=== PATIENT | male | born 1960 | race Caucasian/White ===

== ENCOUNTER → 2017-06-08 10:51 | Outpatient (POV) | payer BC, SELFPAY | PROVIDERS: Family Provider Family Medicine; PCP Family Medicine; Visit Provider Internal Medicine | DX: Z00.00 Encounter for general adult medical examination without abnormal findings (principal) ==

== ENCOUNTER → 2018-05-02 13:17 | Outpatient (CLI) | payer BC, SELFPAY ==
[2018-05-02 15:05] VITALS: PULSE 90; PULSE 94
== END ==
PROVIDERS: PCP Family Medicine; Visit Provider Internal Medicine
DX: J44.9 Chronic obstructive pulmonary disease, unspecified (principal)
CPT/HCPCS: 94060; 94640; 94726; 94729

== ENCOUNTER → 2018-06-07 09:21 | Outpatient (POV) | payer BC, SELFPAY | PROVIDERS: Visit Provider Internal Medicine | DX: Z00.00 Encounter for general adult medical examination without abnormal findings (principal) ==

== ENCOUNTER → 2018-07-28 12:31 | Outpatient (CLI) | payer BC, SELFPAY ==
--- NOTE | 2018-07-28 12:41 | CT_ITS ---
CT chest wo con HISTORY: ITS.REASON: THORACIC AORTIC ANEURYSM ORDERING PHYSICIAN: Minh Morales MD PATIENT AGE: 58 years COMPARISON: 08/27/2016 Technique: Axial images obtained. Sagittal, and coronal reformatted images are also generated and reviewed. All CT scans at the facility use one or more dose reduction, viz: automated exposure control, ma/kV adjustment per patient size (including targeted exams where dose is matched to indication, i.e. head), or iterative reconstruction technique. FINDINGS There is mild fusiform dilatation of the ascending thoracic aorta measuring up to 4.5 cm in maximum AP dimension previously 4.2 cm. Maximum transverse dimension is 4.3 cm not significant change. The aorta at the region of the isthmus measures approximately 3 cm and then becomes slightly dilated in the proximal descending thoracic aorta measuring up to 3.8 cm previously 3.6 cm.. Normal heart size. There is minimal thickening of the pericardium. No mediastinal or hilar mass or adenopathy. There are scattered fibrotic changes noted with multiple areas of faint nodularity as seen on the previous study which is shown some improvement. Minimal faint nodularity noted in the right upper lobe and left lower lobe which is shown some improvement. IMPRESSION: 1. Mild fusiform dilatation of the ascending aorta at 4.5 cm previously 4.2 cm. 2. Mild dilatation of the proximal descending thoracic aorta at 3.8 cm previously 3.6 cm. 3. Scattered areas of scarring with faint nodularity in the right upper and left lower lobe which is shown some improvement
== END ==
PROVIDERS: PCP Family Medicine; Visit Provider Internal Medicine
DX: I71.2 Thoracic aortic aneurysm, without rupture (principal)
CPT/HCPCS: 71250

== ENCOUNTER 2023-07-16 23:25 | Emergency (ER) | payer BC, MEDICARE, SELFPAY ==
[2023-07-16 23:46] VITALS: BP 156/81; PULSE 66; RESP 20; TEMP 36.6; O2SAT 100; BMI 23.6
--- NOTE | 2023-07-16 23:54 | ED_ITS ---
Discharge Plan Disposition Patient Disposition: Home, Self-Care Prescriptions Prescriptions: New ondansetron HCl 4 mg tablet 4 mg PO Q8H PRN (Reason: nausea and vomiting) 5 Days Qty: 30 0RF tamsulosin 0.4 mg capsule 0.4 mg PO DAILY Qty: 30 0RF oxycodone 5 mg tablet 5 mg PO Q8H PRN (Reason: pain) Qty: 12 0RF Referrals Follow up/Referrals: Lizet Hurtado APRN [Primary Care Provider] - See instructions Dick Olivarez MD [Staff Physician] - See instructions Activity Restrictions/Add. Instructions Additional Instructions/Restrictions: Please follow-up with urology. Please take Tylenol and ibuprofen as needed for pain. Please take oxycodone as needed for severe pain. Please take Zofran as needed for nausea. Please take tamsulosin daily. Please return to the emergency department if you develop any new or worsening symptoms or become concerned for your health. Clinical Impressions Clinical Impression: Hydronephrosis concurrent with and due to calculi of kidney and ureter, Acute flank pain Instructions Patient Instructions: DI for Acute Abdominal Pain Discharge ED Provider: Arsh Zafar General Adult HPI General Chief complaint: Abdominal Pain Stated complaint: pain in back and right side, cant go to bathroom Time Seen by Provider: 07/16/23 23:40 Mode of Arrival: Ambulatory Source of Information: Patient Limitations: No Limitations Description of Symptoms (Recalled from ER Triage Doc. by RN): pt to ED with c/o right flank pain, difficulty urinating, and dizziness starting at 1600 today. pt reports he has not been able to urinate since approx 5pm today. History of Present Illness HPI narrative: 63-year-old male without significant past medical history presents with acute onset right flank pain. He reports that it started before dinner, he vomited his dinner did not feel much better. He denies any burning with urination. Reports that he has not been able to pee for the last couple of hours. He denies any history of abdominal surgery, denies any history of kidney stones. He did not complain of any dizziness to me. Denies any chest pain or anterior abdominal pain. Denies any suprapubic pain. Denies any recent fever or illness. No history of UTIs. Related Data Previous Rx's Medication Instructions Recorded ondansetron HCl 4 mg tablet 4 mg PO Q8H PRN nausea and 07/17/23 vomiting 5 days #30 tabs oxycodone 5 mg tablet 5 mg PO Q8H PRN pain #12 tabs 07/17/23 tamsulosin 0.4 mg capsule 0.4 mg PO DAILY #30 caps 07/17/23 Allergies Allergy/AdvReac Type Severity Reaction Status Date / Time No Known Allergies Allergy Unverified 02[facility]16[facility]17 14:38 [facility] Disclaimer: The information contained in this section may have been updated after the patient was seen, as this information can be updated by other users. Social History Smoking Status: Never smoker alcohol intake: never current occupational status: employed Travel in the last 8 weeks: None ROS Obtained: Yes All systems reviewed & no additional complaints except as documented Physical Exam General General appearance: alert and in no apparent distress Head Head exam: atraumatic and normocephalic Eye Eye exam: Present normal appearance, PERRL and EOMI ENT ENT exam: Present normal oropharynx and normal external ear exam Neck Neck exam: Present normal inspection and full ROM Chest Chest inspection: Present normal inspection and symmetric chest wall rise; Absent tenderness Respiratory Respiratory exam: Present normal lung sounds bilaterally; Absent respiratory distress Cardiovascular Cardiovascular exam: Present regular rate and normal rhythm Abdominal Exam Abdominal exam: Present soft; Absent distention, tenderness or guarding Extremities Exam Extremities exam: Present normal inspection; Absent edema or joint swelling Back Exam Back exam: Present normal inspection and CVA tenderness (R); Absent tenderness Neurological Exam Neurological exam: Present alert and oriented X3; Absent motor sensory deficit Psychiatric Psychiatric exam: Present normal affect and normal mood Skin Skin exam: Present warm, dry and normal color Lymphatic Lymphatic Findings: no adenopathy Medical Decision Making Medical Records Medical records reviewed: Yes I reviewed the patient's medical records. Arnie Inquiry Pt receiving controlled substance: No Arnie was queried for this patient: No Vital Signs: 07/16/23 23:46 Temperature 97.9 F Temperature Source Oral Pulse Rate [Left Radial] 66 Respiratory Rate 20 Blood Pressure [Right Arm] 156/81 H Blood Pressure Mean [Right Arm] 106 Blood Pressure Source [Right Arm] Automatic Cuff Blood Pressure Position [Right Arm] Sitting 02 Sat by Pulse Oximetry 100 Oxygen Delivery Method Room Air Lab Data Lab results reviewed: Yes I reviewed the patient's lab results. Lab Results 07/16/23 23:55: WBC 10.9 H, RBC 4.82, Hgb 10.5 L, Hct 34.3 L, MCV 71.0 L, MCH 21.8 L, MCHC 30.7 L, RDW 16.4, Plt Count 343, MPV 7.8, Neut % (Auto) 86.8 H, L ymph % (Auto) 8.8 L, [place] % (Auto) 3.7, Eos % (Auto) 0.1, Baso % (Auto) 0.6, N eut # (Auto) 9.5 H, Lymph # (Auto) 1.0, [place] # (Auto) 0.4, Eos # (Auto) 0.0, Baso # (Auto) 0.1, Total Counted 100, Neutrophils % (Manual) 88 H, Lymphocytes % (Manual) 12, Platelet Estimate Normal, RBC Morphology Not Reportable, Hypochromasia 2+, Microcytosis 1+, Ovalocytes 1+, Sodium 137, Potassium 3.7, Chloride 107, Carbon Dioxide 22, Anion Gap 11.7, BUN 14, Creatinine 1.10, Estimated Creat Clear 79, Estimated GFR 67, Est GFR ( Amer) 81, Glucose 134 H, Calcium 9.3, Magnesium 1.7, Total Bilirubin 0.8, AST 37, ALT 31, Alkaline Phosphatase 67, Total Protein 7.3, Albumin 4.4, Globulin 2.9, Albumin/Globulin Ratio 1.5, Lipase 136 07/17/23 01:20: Urine Color Yellow, Urine Appearance Clear, Urine pH 7.5, Ur Specific [place] 1.020, Urine Protein Trace, Urine Glucose (UA) Negative, Urine Ketones Negative, Urine Blood 3+, Urine Nitrate Negative, Urine Bilirubin Negative, Urine Urobilinogen 0.2, Ur Leukocyte Esterase Negative 07/16/23 23:55 07/16/23 23:55 Orders (Tests/Meds): ED MEDICATIONS Generic Name Dose Route Start Last Admin Trade Name Freq PRN Reason Stop Dose Admin Sodium Chloride 10 ml 07/17/23 00:45 07/17/23 00:45 Sodium Chloride 0.9% 10ml Syr (Rad Only) IV 08/16/23 00:44 10 ml NEEDED PRN Administration Maintain IV Site Discontinued Medications Generic Name Dose Route Start Last Admin Trade Name Freq PRN Reason Stop Dose Admin Acetaminophen 1,000 mg 07/17/23 00:03 07/17/23 00:11 Acetaminophen 500mg Tab PO 07/17/23 00:04 1,000 mg ONCE ONE Administration Lactated Ringer's 1,000 mls @ 999 mls/hr 07/17/23 00:15 07/17/23 00:11 Lactated Ringer's 1000 Ml Bag IV 07/17/23 01:15 999 mls/hr .Q1H1M SCOTT Administration Iopamidol 75 ml 07/17/23 00:45 07/17/23 00:45 Iopamidol-370 (76%);100ml Bottle IV 07/17/23 00:46 75 ml ONCE ONE Administration Ketorolac Tromethamine 30 mg 07/17/23 00:03 07/17/23 00:11 Ketorolac 30mg/Ml Vial IV 07/17/23 00:04 30 mg ONCE ONE Administration Ondansetron HCl 4 mg 07/17/23 00:03 07/17/23 00:11 Ondansetron 4mg/2ml Vial IV 07/17/23 00:04 4 mg ONCE ONE Administration Tamsulosin HCl 0.4 mg 07/17/23 00:53 07/17/23 01:00 Tamsulosin 0.4mg Capsule PO 07/17/23 00:54 0.4 mg ONCE ONE Administration ORDERS Category Date Time Status CT abdomen pelvis w con Stat Cat Scan 07/17/23 00:03 Completed CBC w/Auto Diff [Complete Blood Count Auto Diff] Stat Lab 07/17/23 00:03 Completed CMP [Comprehensive Metabolic Panel] Stat Lab 07/17/23 00:03 Completed Lipase Stat Lab 07/17/23 00:03 Completed Magnesium Stat Lab 07/17/23 00:03 Completed UA [Urinalysis and Microscopic] Stat Lab 07/17/23 01:20 Results ECG Data Tracing #1: Sinus bradycardia with rate of 58, no STEMI, no evidence of arrhythmia, insignificant Q waves in inferior leads. ECG initial impression date: 07/16/23 ECG initial impression time: 23:59 Medical Decision Narrative: 63-year-old male without significant past medical history presents with 1 day of right flank pain and vomiting.. History was obtained interactive discussion with patient. On arrival, patient is [afebrile, hemodynamically stable, satting appropriately, alert, oriented x4, GCS 15], moving all extremities spontaneously. Full physical exam performed and significant for right CVA tenderness. Differential includes but is not limited to ureterolithiasis, cholecystitis, obstruction, perforation, musculoskeletal pain, gastroenteritis. Patient was given Tylenol, Toradol, Zofran 1 L fluid bolus for symptomatic management and correction of underlying abnormalities. Workup initiated including CBC CMP lipase UA CT abdomen pelvis with IV contrast. On re-evaluation, patient [remains afebrile, HD stable.] Reports some symptomatic improvement. Laboratory workup independently interpreted by me and significant for urine with large blood, negative nitrates, few WBCs and trace bacteria. It does not appear consistent with an acute infection at this time. No significant leukocytosis, normal renal function. Imaging independently interpreted by me and significant for horseshoe kidney with right hydroureter and hydronephrosis secondary to obstructing 4.5mm ureteral stone. See radiology read for full review of final results. Transfer for urologic intervention was considered, but deemed unnecessary due to passable size of stone, pain controlled, no evidence of urinary infection. Given patient history, exam and workup, patient's presentation most likely represents acute hydroureter and hydronephrosis secondary to obstructing calculus in the setting of horseshoe kidney. Interactive discussion was had with patient regarding his presentation and workup. He was discharged in stable condition with prescription for Flomax, oxycodone for breakthrough pain, Zofran, urology follow-up information. He was given specific return precautions including for signs and symptoms of urinary tract infection or urinary obstruction. Procedures Risk/Benefits of Procedure(s) Were Explained: Yes Critical Care Critical Care Time Critical Care Time: No
--- NOTE | 2023-07-16 23:56 | PC.NURSE ---
bladder scan shows 352 ml urine in bladder
--- NOTE | 2023-07-16 23:59 | ECG_ITS ---
APPROVED REPORT Exam: Resting ECG HR:58 bpm ECG Measurements Heart Rate 58 AXES DC 166 P 24 QRSd 122 QRS 73 QT 405 T 66 QTc 401 Conclusion SINUS BRADYCARDIA MODERATE INTRAVENTRICULAR CONDUCTION DELAY [110+ ms QRS DURATION] NONSPECIFIC ST & T-WAVE ABNORMALITY BORDERLINE ECG UNCONFIRMED REPORT Electronically signed by : GAYLE DAVIS, 07/17/2023 06:00:26
[2023-07-17] VITALS: BP 150/84; PULSE 59; O2SAT 97
--- NOTE | 2023-07-17 00:03 | CT_ITS ---
PROCEDURE INFORMATION: Exam: CT Abdomen And Pelvis With Contrast Exam date and time: 07/17/2023 12:31 AM Age: 63 years old Clinical indication: Abdominal pain; Flank; Right; Additional info: Right flank pain, vomiting TECHNIQUE: Imaging protocol: Computed tomography of the abdomen and pelvis with contrast. Radiation optimization: All CT scans at this facility use at least one of these dose optimization techniques: automated exposure control; mA and/or kV adjustment per patient size (includes targeted exams where dose is matched to clinical indication); or iterative reconstruction. Contrast material: ISOVUE; Contrast volume: 75 ml; Contrast route: IV; COMPARISON: CHESTWO CT chest wo con 07/28/2018 1:11 PM FINDINGS: Lungs: Minimal bibasilar atelectasis or scarring Heart: Area of hypoattenuation within the left ventricular apical myocardium, compatible prior infarction. Liver: Mild hepatomegaly. Gallbladder and bile ducts: Normal. Pancreas: Normal. Spleen: Normal. Adrenal glands: Normal. No mass. Kidneys and ureters: Horseshoe renal configuration. Simple left renal cyst, for which no further evaluation necessary. Right hydroureteronephrosis, with obstructing 4 mm calculus in the right mid ureter. Nonobstructive right nephrolithiasis. Stomach and bowel: Normal. Appendix: Appendix normal. Intraperitoneal space: Unremarkable. No free air. No significant fluid collection. Vasculature: Unremarkable. No abdominal aortic aneurysm. Lymph nodes: Unremarkable. No enlarged lymph nodes. Urinary bladder: Nonobstructive 4 mm calculus within the posterior urinary bladder. Reproductive: Prostate gland is enlarged, measuring approximately 4.4 cm in AP diameter and indenting the floor of the urinary bladder. Bones/joints: Degenerative changes of the hips and sacroiliac joints. Multilevel thoracolumbar spine degenerative disc space narrowing and osteophyte formation. Soft tissues: Small fat containing umbilical hernia. IMPRESSION: Right hydroureteronephrosis, with obstructing 4 mm calculus in the right mid ureter.
[2023-07-17] MEDS: KETOROLAC 30MG/ML VIAL 30 MG IV (00:11)
[2023-07-17] MEDS: LACTATED RINGERS 1000ML 1,000 ML 999 ML IV (00:11)
[2023-07-17] MEDS: ONDANSETRON 4MG/2ML VIAL 4 MG IV (00:11)
[2023-07-17] MEDS: ACETAMINOPHEN 500MG TAB 1000 MG PO (00:11)
[2023-07-17 00:14] LABS: Basophils # 0.1 K/mm3 (0-0.2); Basophils % 0.6 % (0.1-2.0); Eosinophils % 0.1 % (0.1-12.0); Hematocrit 34.3 % (42.0-52.0); Hemoglobin 10.5 g/dL (14.1-18.0); Lymphocytes % 8.8 % (10-50); Mean Corpuscular HGB Conc 30.7 g/dL (31.8-35.4); Mean Corpuscular Hemoglobin 21.8 pg (27.0-31.2); Mean Platelet Volume 7.8 fl (7.4-10.4); Monocytes # 0.4 K/mm3 (0.1-1.0); Monocytes % 3.7 % (1.7-9.3); Neutrophils # 9.5 K/mm3 (1.8-7.8); Neutrophils % 86.8 % (37.0-80.0); Platelet Count 343 K/mm3 (142-424); Red Blood Count 4.82 M/mm3 (4.60-6.20); Red Cell Distribution Width 16.4 % (11.5-17.5); White Blood Count 10.9 K/mm3 (4.8-10.8)
[2023-07-17 00:15] LABS: Chloride 107 mmol/L (98-107); Potassium 3.7 mmoL/L (3.5-5.1); Sodium 137 mmol/L (136-145)
[2023-07-17 00:16] LABS: MANUAL DIFFERENTIAL MANUAL DIFFERENTIAL (MANUAL DIFF)
[2023-07-17 00:17] LABS: Blood Urea Nitrogen 14 mg/dl (9-20); Creatinine Clearance Estimated 79 mL/min (50-200); Estimated Glomerular Filt Rate 67 ml/min (>60); GFR (African American) 81 ML/MIN (>60)
[2023-07-17 00:18] LABS: Alanine Aminotransferase 31 U/L (12-78); Albumin Level 4.4 g/dl (3.5-5.0); Albumin/Globulin Ratio 1.5 (1.1-1.8); Alkaline Phosphatase 67 U/L (38-126); Anion Gap 11.7 mEq/L (5-15); Aspartate Amino Transferase 37 U/L (17-59); Bilirubin,Total 0.8 mg/dl (0.2-1.3); Calcium 9.3 mg/dl (8.4-10.2); Carbon Dioxide 22 mmol/L (22.0-30.0); Globulin 2.9 g/dL (1.3-3.2); Glucose 134 mg/dl (74-100); Lipase 136 U/L (23-300); Total Protein,Serum 7.3 g/dl (6.3-8.2)
[2023-07-17 00:19] LABS: Magnesium 1.7 mg/dl (1.6-2.3)
[2023-07-17 00:30] VITALS: BP 144/84; PULSE 59; O2SAT 100
[2023-07-17 00:45] LABS: Hypochromasia 2+; Lymphocytes % 12 % (10-50); Microcytosis 1+; Neutrophils % 88 % (42-76); Ovalocytes 1+; Platelet Estimate Normal; Total Cells Counted 100
[2023-07-17] MEDS: IOPAMIDOL-370 (76%);100ML BOTTLE 75 ML IV (00:45)
[2023-07-17] MEDS: SODIUM CHLORIDE 0.9% 10ML SYR (RAD ONLY) 10 ML IV (00:45)
[2023-07-17 01:00] VITALS: BP 138/84; PULSE 62; O2SAT 100
[2023-07-17] MEDS: TAMSULOSIN 0.4MG CAPSULE 0.400000000000000022 MG PO (01:00)
[2023-07-17 01:26] LABS: Microscopic, Urine URINE MICROSCOPIC (MICROSCOPIC)
[2023-07-17 01:28] LABS: Appearance,Urine CLEAR (Clear); Bilirubin,Urine Negative (Negative); Blood, Urine 3+ (Negative); Color,Urine YELLOW (Yellow); Glucose,Urine (UA) Negative (Negative); Ketones,Urine Negative (Negative); Leukocyte Esterase,Urine Negative (Negative); Nitrate,Urine Negative (Negative); PH,Urine 7.5 (5.0-8.5); Protein,Urine TRACE (Negative); Urobilinogen,Urine 0.2 EU/dl (0.2)
[2023-07-17 01:31] VITALS: BP 139/65; PULSE 62; O2SAT 100
[2023-07-17 01:48] LABS: Bacteria,Urine Trace /lpf; RBC,Urine 20-50 #/hpf (0-3); Squamous Epithelial Cell,Urine Occasional #/hpf (0-5)
[2023-07-17 02:00] VITALS: BP 142/76; PULSE 58; O2SAT 100
[2023-07-17 02:27] VITALS: BP 142/76; PULSE 56; RESP 18; TEMP 36.6; O2SAT 97
== END 2023-07-17 02:29 | disposition home or self-care (01) ==
PROVIDERS: Emergency Provider Emergency Medicine; PCP Nurse Practitioner
DX: N13.2 Hydronephrosis with renal and ureteral calculous obstruction (principal); R10.31 Right lower quadrant pain; M54.59 Other low back pain; R00.1 Bradycardia, unspecified
CPT/HCPCS: 74177; 80053; 81001; 83690; 83735; 85007; 85025; 93005; 96361; 96374; 96375; 99285; J2405; Q9967

== ENCOUNTER 2024-03-16 09:45 | Outpatient (CLI) | payer MEDICARE, BC, SELFPAY ==
--- NOTE | 2024-03-16 | CA_ITS ---
FINAL REPORT TECHNIQUE: Compression garcia scale and Doppler evaluation CLINICAL HISTORY: Left leg edema, Kidney dysfunction COMPARISON: None FINDINGS: Femoral and popliteal veins show normal compressibility and flow. Visualized portion of the calf veins are patent by Doppler exam. IMPRESSION: No evidence of left lower extremity deep venous thrombosis. Reviewed, Interpreted and Dictated by Justine Browning MD Transcribed by Ananya Amin Authenticated and [facility]
== END 2024-03-16 23:59 | disposition home or self-care (01) ==
LOC: RT 09:47
PROVIDERS: PCP Nurse Practitioner; Visit Provider Nurse Practitioner
DX: M79.89 Other specified soft tissue disorders (principal)
CPT/HCPCS: 93971

== ENCOUNTER 2024-03-20 14:01 | Outpatient (CLI) | payer BC, SELFPAY ==
[2024-03-20 14:58] LABS: Microscopic, Urine URINE MICROSCOPIC (MICROSCOPIC)
[2024-03-20 15:52] LABS: Blood Urea Nitrogen 32 mg/dl (9-20); Estimated Glomerular Filt Rate 18 ml/min (>60); GFR (African American) 21 ML/MIN (>60)
[2024-03-20 18:05] LABS: Appearance,Urine CLEAR (Clear); Bilirubin,Urine Negative (Negative); Blood, Urine TRACE-I (Negative); Color,Urine YELLOW (Yellow); Glucose,Urine (UA) Negative (Negative); Ketones,Urine Negative (Negative); Leukocyte Esterase,Urine Negative (Negative); Nitrate,Urine Negative (Negative); PH,Urine 7.5 (5.0-8.5); Protein,Urine Negative (Negative); Urobilinogen,Urine 0.2 EU/dl (0.2)
[2024-03-20 18:25] LABS: Bacteria,Urine Trace /lpf; RBC,Urine Occasional #/hpf (0-3); Squamous Epithelial Cell,Urine Occasional #/hpf (0-5); WBC,Urine Occasional #/hpf (0-3)
[2024-03-21 08:25] LABS: PSA, Free 1.74 ng/mL; Prostate Specific Ag 3.7 ng/mL (0.0-4.0)
== END 2024-03-20 23:59 | disposition home or self-care (01) ==
LOC: LAB 14:03
PROVIDERS: PCP Nurse Practitioner; Visit Provider Urology
DX: R33.9 Retention of urine, unspecified (principal); N20.0 Calculus of kidney
CPT/HCPCS: 36415; 81001; 82565; 84153; 84154; 84520; 87086

== ENCOUNTER 2024-03-21 09:50 | Outpatient (CLI) | payer BC, SELFPAY ==
--- NOTE | 2024-03-21 09:51 | US_ITS ---
FINAL REPORT TECHNIQUE: Ultrasound images of the kidneys and bladder were obtained. CLINICAL HISTORY: .stone FINDINGS: The right kidney measures 10.5 cm in length. The left kidney measures 12.2 cm in length. There is a horseshoe kidney present. There is mild hydronephrosis in the right moiety. There is moderate hydronephrosis in the left moiety. There is echogenic shadowing focus on the right measuring 9 mm, appears to represent a kidney stone. The spleen is unremarkable. IMPRESSION: Horseshoe kidney with evidence of hydronephrosis and a right sided stone. Recommend CT scan to better assess the level of obstruction. Reviewed, Interpreted and Dictated by Jovani Ortiz MD Transcribed by Dominga Olson Authenticated and [facility]
--- NOTE | 2024-03-21 09:51 | XR_ITS ---
FINAL REPORT CLINICAL HISTORY: Renal stones COMPARISON: None FINDINGS: SINGLE VIEW ABDOMEN A single view of the abdomen was obtained. There is a nonobstructive bowel gas pattern. There are no abnormally dilated loops of small bowel. There is 1.4 cm calcification projecting over the right kidney, likely a renal stone. IMPRESSION: Nonobstructive bowel gas pattern. 1.4 cm calcification projecting over the right kidney, likely a renal stone. Reviewed, Interpreted and Dictated by Jovani Ortiz MD Transcribed by Candida Anderson Authenticated and . [facility]
== END 2024-03-21 23:59 | disposition home or self-care (01) ==
LOC: RAD 09:51
PROVIDERS: PCP Nurse Practitioner; Visit Provider Urology
DX: N20.0 Calculus of kidney (principal); R33.9 Retention of urine, unspecified
CPT/HCPCS: 74018; 76770

== ENCOUNTER 2024-03-29 14:15 | Outpatient (CLI) | payer BC, SELFPAY ==
--- NOTE | 2024-03-29 14:21 | US_ITS ---
FINAL REPORT TECHNIQUE: Ultrasound images of the kidneys were obtained. CLINICAL HISTORY: UTI COMPARISON: 03/21/2024 FINDINGS: RENAL ULTRASOUND The right kidney measures 9.8 cm in length. The left kidney measures 11.0 cm in length. There is a 1.1 cm stone in the right component of the horseshoe kidney. There is mild hydronephrosis on the right and moderate hydronephrosis on the left. . IMPRESSION: Horseshoe kidney with right kidney stone. Bilateral hydronephrosis. Reviewed, Interpreted and Dictated by Jovani Ortiz MD Transcribed by Ananya Amin Authenticated and [facility]
--- NOTE | 2024-03-29 14:21 | XR_ITS ---
FINAL REPORT CLINICAL HISTORY: Renal failure FINDINGS: ABDOMEN SINGLE VIEW There is a nonspecific, nonobstructive bowel gas pattern. No abnormal dilatation is identified. There is a moderate amount of retained stool throughout the colon. There is a stone in projection of the right kidney measuring 14 mm in diameter. IMPRESSION: Right renal stone. Reviewed, Interpreted and Dictated by Jovani Ortiz MD Transcribed by Dominga Olson Authenticated and . [facility]
== END 2024-03-29 23:59 | disposition home or self-care (01) ==
LOC: RAD 14:18
PROVIDERS: PCP Nurse Practitioner; Visit Provider Urology
DX: N20.1 Calculus of ureter (principal); N19 Unspecified kidney failure
CPT/HCPCS: 74018; 76770

== ENCOUNTER 2024-04-03 14:15 | Inpatient (IN) | payer BC, MEDICARE, SELFPAY ==
[2024-04-03] VITALS (26 sets, daily range): BP systolic 117–162; BP diastolic 68–93; PULSE 75–107; RESP 13–20; TEMP 36.6–37.1; O2SAT 96–100; BMI 24.1; BMI 22.1
--- NOTE | 2024-04-03 14:16 | HMH.EDGENADL ---
Discharge Plan Disposition Patient Disposition: Admitted Condition: Good Clinical Impressions Clinical Impression: Symptomatic anemia, Bladder outlet obstruction Discharge ED Provider: Eduardo Louise General Adult HPI <PETR Russo - Last Filed: 04/03/24 22:44> General Chief complaint: Recheck/Abnormal Lab/Rx Stated complaint: Hot flash, Low BP (74/41) sent from Urology Time Seen by Provider: 04/03/24 14:16 History of Present Illness HPI narrative: Patient presents for a near syncopal event. Patient was in his urologist office and he felt hot and lightheaded. His blood pressure was taken and was noted to be in the 70s. Patient did not actually have a syncopal event. Patient reports that he felt fine earlier today. 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 He had a Ferris catheter placed approximately [address] Olivarez and was in today for follow-up. Patient also has past medical history of a horseshoe kidney. He currently denies chest pain fever chills hemoptysis hematochezia melena nausea vomit diarrhea. Patient states his initial symptoms that he was feeling in the office have since completely abated. Related Data Home Medications ?Medication ?Instructions ?Recorded ?Confirmed famotidine 20 mg tablet 20 mg PO HS 04/03/24 04/03/24 levofloxacin 500 mg tablet 500 mg PO DAILY 04/03/24 04/03/24 Previous Rx's ?Medication ?Instructions ?Recorded tamsulosin 0.4 mg capsule 0.4 mg PO DAILY 90 days #90 caps 03/27/24 Allergies Allergy/AdvReac Type Severity Reaction Status Date / Time No Known Allergies Allergy Verified 04/03/24 13:55 PFSH <PETR Russo - Last Filed: 04/03/24 22:44> [facility] Disclaimer: The information contained in this section may have been updated after the patient was seen, as this information can be updated by other users. Medical History (Updated 04/04/24 @ 17:12 by Chao Ngo II, MD) GERD (gastroesophageal reflux disease) Social History (Updated 04/03/24 @ 17:07 by Wendy Borrego RN) Smoking Status: Never smoker alcohol intake: never substance use type: denies use current occupational status: employed Travel in the last 8 weeks: None Have you lived/traveled outside [place] in past 30 days?: No Contact w/someone who lives/traveled outside US past 30 days?: No Exposure to someone with infectious disease in past 14 days?: No Do you have a fever (greater than 100.4 F or 38 C)?: No Have you tested positive for COVID-19: No Exposed to someone with COVID-19 in past 14 days?: No Do you have a sore throat?: No Do you have a cough?: No Do you have any weakness?: No Do you have any diarrhea?: No Are you experiencing any unusual bleeding?: No Do you have any muscle aches/pain?: No Do you have any abdominal pain?: No Are you experiencing loss of taste or smell?: No Other Medical History Have you received the Pneumonia Vaccine: Yes <PETR Russo - Last Filed: 04/03/24 22:44> ROS Obtained: Yes Systems reviewed as appropriate & no additional complaints except as documented Physical Exam <PETR Russo - Last Filed: 04/03/24 22:44> General General appearance: alert and in no apparent distress ENT ENT exam: Present normal exam, normal oropharynx and mucous membranes moist Respiratory Respiratory exam: Present normal lung sounds bilaterally Cardiovascular Cardiovascular exam: Present regular rate Neurological Exam Neurological exam: Present alert and oriented X3 Medical Decision Making <PETR Russo - Last Filed: 04/03/24 22:44> Medical Records Medical records reviewed: Yes I reviewed the patient's medical records. Screening: Per USPSTF and CDC recommendations, given the prevalence of disease in our region, it is our hospital?s policy to screen for HIV and viral Hepatitis for all patients aged 18 and over and those with ongoing risk factors. Arnie Inquiry Pt receiving controlled substance: No Vital Signs: 04/03/24 14:16 04/03/24 14:30 04/03/24 14:39 Temperature 97.8 F Temperature Source Oral Pulse Rate 76 Pulse Rate [Right] 76 Respiratory Rate 16 13 TAR Vitals Timing Blood Pressure 119/69 Blood Pressure [Right Arm] 121/68 Blood Pressure Mean Blood Pressure Mean [Right Arm] 85 Blood Pressure Source Blood Pressure Source [Right Arm] Automatic Cuff 02 Sat by Pulse Oximetry 100 100 96 Oxygen Delivery Method Room Air Room Air Room Air 04/03/24 15:00 04/03/24 15:30 04/03/24 16:00 Temperature Temperature Source Pulse Rate 75 81 75 Pulse Rate [Right] Respiratory Rate 15 14 13 TAR Vitals Timing Blood Pressure 117/72 121/73 122/71 Blood Pressure [Right Arm] Blood Pressure Mean Blood Pressure Mean [Right Arm] Blood Pressure Source Blood Pressure Source [Right Arm] 02 Sat by Pulse Oximetry 100 100 98 Oxygen Delivery Method Room Air Room Air Room Air 04/03/24 16:30 04/03/24 16:56 04/03/24 17:00 Temperature 98.4 F 98.3 F Temperature Source Oral Oral Pulse Rate 77 84 86 Pulse Rate [Right] Respiratory Rate 20 17 15 TAR Vitals Timing Pre-Blood Vitals Start Vitals Blood Pressure 134/78 142/90 H 126/81 Blood Pressure [Right Arm] Blood Pressure Mean 107 96 Blood Pressure Mean [Right Arm] Blood Pressure Source Automatic Cuff Blood Pressure Source [Right Arm] 02 Sat by Pulse Oximetry 100 100 100 Oxygen Delivery Method Room Air 04/03/24 17:00 04/03/24 17:05 04/03/24 17:10 Temperature 98.3 F 98.4 F Temperature Source Oral Oral Pulse Rate 86 86 Pulse Rate [Right] Respiratory Rate 15 14 TAR Vitals Timing 5 Minute 10 Minute Blood Pressure 136/81 138/80 Blood Pressure [Right Arm] Blood Pressure Mean 99 99 Blood Pressure Mean [Right Arm] Blood Pressure Source Automatic Cuff Automatic Cuff Blood Pressure Source [Right Arm] 02 Sat by Pulse Oximetry 100 100 Oxygen Delivery Method Room Air 04/03/24 17:15 04/03/24 17:15 Temperature 98.3 F 98.3 F Temperature Source Oral Oral Pulse Rate 86 86 Pulse Rate [Right] Respiratory Rate 16 16 TAR Vitals Timing 15 Minute Blood Pressure 127/84 127/84 Blood Pressure [Right Arm] Blood Pressure Mean 98 Blood Pressure Mean [Right Arm] Blood Pressure Source Automatic Cuff Automatic Cuff Blood Pressure Source [Right Arm] 02 Sat by Pulse Oximetry 100 Oxygen Delivery Method Room Air Lab Data Lab results reviewed: Yes I reviewed the patient's lab results. Lab Results 04/03/24 14:23: WBC 9.5, RBC 3.59 L, Hgb 6.9 L, Hct 24.7 L, MCV 68.8 L, MCH 19.2 L, MCHC 27.9 L, RDW 19.2 H, Plt Count 479 H, MPV 9.3, Neut % (Auto) 56.6, Lymph % (Auto) 33.3, Terrell % (Auto) 6.4, Eos % (Auto) 1.9, Baso % (Auto) 1.3, Neut # (Auto) 5.4, Lymph # (Auto) 3.2, Terrell # (Auto) 0.6, Eos # (Auto) 0.2, Baso # (Auto) 0.1, PT 10.4, INR 0.94, APTT 18.9 L, Sodium 139, Potassium 3.7, Chloride 106, Carbon Dioxide 22, Anion Gap 14.7, BUN 17, Creatinine 1.30 H, Estimated Creat Clear 67, Estimated GFR 55 L, Est GFR ( Amer) 67, Glucose 121 H, Calcium 9.3, Total Bilirubin 0.2, AST 23, ALT 19, Alkaline Phosphatase 54, Troponin I < 0.01, NT-Pro-B Natriuret Pep 45.0, Total Protein 6.8, Albumin 4.4, Globulin 2.4, Albumin/Globulin Ratio 1.8, Blood Type Confirm A Positive 04/03/24 15:00: Blood Type A Positive, Antibody Screen Negative, Crossmatch ([facility]) See Detail 04/05/24 05:45 04/05/24 05:45 Orders (Tests/Meds): ED MEDICATIONS Generic Name Dose Route Start Last Admin Trade Name Freq PRN Reason Stop Dose Admin Acetaminophen 650 mg 04/03/24 19:26 04/03/24 19:56 Acetaminophen 325mg Tab PO 05/03/24 19:25 650 mg Q4HP PRN Administration Fever or Mild Pain (1-3) Ondansetron HCl 4 mg 04/03/24 19:26 04/04/24 20:18 Ondansetron 4mg/2ml Vial IV 05/03/24 19:25 4 mg Q6HP PRN Administration Nausea Pantoprazole Sodium 40 mg 04/04/24 09:00 04/05/24 08:06 Pantoprazole 40mg Vial IV 05/04/24 08:59 Not Given BID SCOTT Sodium Chloride 10 ml 04/03/24 21:31 04/04/24 20:17 Sodium Chloride 0.9% 10ml Vial IV 05/03/24 21:30 10 ml NEEDED PRN Administration dilute protonix Sodium Chloride 10 ml 04/03/24 21:37 Sodium Chloride 0.9% 10ml Flush Syringe IV 05/03/24 21:36 NEEDED PRN Maintain IV Site Sucralfate 1 gm 04/03/24 21:55 04/05/24 10:01 Sucralfate 1gm Tablet PO 05/03/24 21:54 1 gm ACHS SCOTT Administration Tamsulosin HCl 0.8 mg 04/04/24 21:00 04/04/24 20:18 Tamsulosin 0.4mg Capsule PO 05/04/24 20:59 0.8 mg HS SCOTT Administration Discontinued Medications Generic Name Dose Route Start Last Admin Trade Name Freq PRN Reason Stop Dose Admin Sodium Chloride 1,000 mls @ 999 mls/hr 04/03/24 14:28 04/03/24 14:46 Sod Chlor 0.9% 1000ml Bag IV 04/03/24 15:28 999 mls/hr .Q1H1M ONE Administration Sodium Chloride 250 mls @ 25 mls/hr 04/03/24 14:45 04/03/24 23:00 Sod Chlor 0.9% 250ml Bag IV 04/04/24 14:44 25 mls/hr .Q10H SCOTT Administration Sodium Chloride 1,000 mls @ 999 mls/hr 04/03/24 14:47 04/03/24 17:15 Sod Chlor 0.9% 1000ml Bag IV 04/03/24 15:47 999 mls/hr .Q1H1M ONE Administration Pantoprazole Sodium 80 mg/ 100 mls @ 100 mls/hr 04/03/24 21:31 04/03/24 21:45 Sodium Chloride IV 04/03/24 22:30 100 mls/hr ONCE ONE Administration Lactated Ringer's 1,000 mls @ 75 mls/hr 04/03/24 21:45 04/04/24 01:25 Lactated Ringer's 1000 Ml Bag IV 05/03/24 21:44 75 mls/hr .[id number] SCOTT Administration Magnesium Sulfate 2 gm in 50 mls @ 50 mls/hr 04/04/24 09:30 04/04/24 11:12 Magnesium Sulfate 2gm/50ml Premix IV 04/04/24 11:29 50 mls/hr Q1H SCOTT Administration Iron Sucrose 200 mg/ Sodium 110 mls @ 220 mls/hr 04/04/24 10:00 04/04/24 09:32 Chloride IV 04/04/24 10:29 220 mls/hr ONCE ONE Administration Iron Sucrose 200 mg/ Sodium 110 mls @ 220 mls/hr 04/04/24 17:20 04/04/24 17:38 Chloride IV 04/04/24 17:49 Not Given ONCE ONE Metoclopramide HCl 10 mg 04/04/24 22:15 04/04/24 22:18 Metoclopramide Hcl 10mg/2ml Vial IVP 04/04/24 22:16 10 mg ONCE ONE Administration Polyethylene Glycol/Electrolytes 2,000 ml 04/04/24 17:16 04/04/24 18:06 Peg-Electrolyte Soln 4000ml Bottle PO 04/04/24 17:17 2,000 ml ONCE ONE Administration ORDERS Category Date Time Status Blood transfusion [Red Blood Cells] Stat BBK 04/03/24 15:00 Completed Type and Screen Stat BBK 04/03/24 15:[address] abdomen pelvis wo con Stat Cat Scan 04/03/24 15:21 Completed XR chest portable Stat Exams 04/03/24 14:29 Completed Complete Blood Count Auto Diff Stat Lab 04/03/24 14:23 Completed Comprehensive Metabolic Panel Stat Lab 04/03/24 14:23 Completed NT Pro Brain Natriuretic Pep. Stat Lab 04/03/24 14:23 Completed PT INR [Prothrombin Time INR] Stat Lab 04/03/24 14:23 Completed PTT [Activated Partial Thrombo Time] Stat Lab 04/03/24 14:23 Completed Troponin I Q3H Lab 04/03/24 17:43 Completed Troponin I Q3H Lab 04/03/24 20:28 Completed Troponin I Stat Lab 04/03/24 14:23 Completed Urinalysis and Microscopic Stat Lab 04/04/24 05:30 Completed Blood Culture Stat Micro 04/03/24 14:45 Results Medical Decision Narrative: In summary patient is a 64-year-old male who presents to the emergency department for evaluation of near syncope. Patient is currently hemodynamically stable with a blood pressure 121/68 pulse 76 respiratory rate 16 satting at 100% on room air upon arrival, afebrile at 97.8. Physical exam is unremarkable and nonfocal patient has a Shira Coma Score 15 he is awake alert and oriented person place and circumstance cranial nerves II through XII are intact grossly to exam he was able to ambulate without assistance from the wheelchair to the ER stretcher. Patient subjectively reports that all of his symptoms are gone currently.. Differential diagnosis includes near syncope versus vasovagal response versus infection either viral bacterial etc. Initial workup will be conducted with hematologic labs twelve-lead EKG plain film chest x-ray. Initial interventions include crystalloid bolus. Initial workup reviewed by me and patient actually has a new anemia of 6.9 from the previous blood results that we have but also slightly indicative of the volume contraction as his platelet count is 479 suggesting that it could be even slightly lower. His creatinine is improved to 1.3 from 3.5 when the Ferris catheter was placed and his GFR is improved to 55 from 18 with a catheter was placed and the remainder of his hematologic labs are nonactionable. Urinalysis obtained in Dr. Olivarez's clinic is negative for leukocytes or nitrites had a large amount of blood however.. I have initiated blood transfusion of 1 unit of PRBCs. Given the new anemia without identifiable cause, although I suspect that this is likely renal in nature, I discussed the patient PENG findings and management with hospital medicine and he will be admitted for further evaluation and care. <Eduardo Louise MD - Last Filed: 04/05/24 15:14> Vital Signs: 04/03/24 14:16 04/03/24 14:30 04/03/24 14:39 Temperature 97.8 F Temperature Source Oral Pulse Rate 76 Pulse Rate [Right] 76 Respiratory Rate 16 13 TAR Vitals Timing Blood Pressure 119/69 Blood Pressure [Right Arm] 121/68 Blood Pressure Mean Blood Pressure Mean [Right Arm] 85 Blood Pressure Source Blood Pressure Source [Right Arm] Automatic Cuff 02 Sat by Pulse Oximetry 100 100 96 Oxygen Delivery Method Room Air Room Air Room Air 04/03/24 15:00 04/03/24 15:30 04/03/24 16:00 Temperature Temperature Source Pulse Rate 75 81 75 Pulse Rate [Right] Respiratory Rate 15 14 13 TAR Vitals Timing Blood Pressure 117/72 121/73 122/71 Blood Pressure [Right Arm] Blood Pressure Mean Blood Pressure Mean [Right Arm] Blood Pressure Source Blood Pressure Source [Right Arm] 02 Sat by Pulse Oximetry 100 100 98 Oxygen Delivery Method Room Air Room Air Room Air 04/03/24 16:30 04/03/24 16:56 04/03/24 17:00 Temperature 98.4 F 98.3 F Temperature Source Oral Oral Pulse Rate 77 84 86 Pulse Rate [Right] Respiratory Rate 20 17 15 TAR Vitals Timing Pre-Blood Vitals Start Vitals Blood Pressure 134/78 142/90 H 126/81 Blood Pressure [Right Arm] Blood Pressure Mean 107 96 Blood Pressure Mean [Right Arm] Blood Pressure Source Automatic Cuff Blood Pressure Source [Right Arm] 02 Sat by Pulse Oximetry 100 100 100 Oxygen Delivery Method Room Air 04/03/24 17:00 04/03/24 17:05 04/03/24 17:10 Temperature 98.3 F 98.4 F Temperature Source Oral Oral Pulse Rate 86 86 Pulse Rate [Right] Respiratory Rate 15 14 TAR Vitals Timing 5 Minute 10 Minute Blood Pressure 136/81 138/80 Blood Pressure [Right Arm] Blood Pressure Mean 99 99 Blood Pressure Mean [Right Arm] Blood Pressure Source Automatic Cuff Automatic Cuff Blood Pressure Source [Right Arm] 02 Sat by Pulse Oximetry 100 100 Oxygen Delivery Method Room Air 04/03/24 17:15 04/03/24 17:15 Temperature 98.3 F 98.3 F Temperature Source Oral Oral Pulse Rate 86 86 Pulse Rate [Right] Respiratory Rate 16 16 TAR Vitals Timing 15 Minute Blood Pressure 127/84 127/84 Blood Pressure [Right Arm] Blood Pressure Mean 98 Blood Pressure Mean [Right Arm] Blood Pressure Source Automatic Cuff Automatic Cuff Blood Pressure Source [Right Arm] 02 Sat by Pulse Oximetry 100 Oxygen Delivery Method Room Air Lab Data Lab Results 04/03/24 14:23: WBC 9.5, RBC 3.59 L, Hgb 6.9 L, Hct 24.7 L, MCV 68.8 L, MCH 19.2 L, MCHC 27.9 L, RDW 19.2 H, Plt Count 479 H, MPV 9.3, Neut % (Auto) 56.6, Lymph % (Auto) 33.3, Terrell % (Auto) 6.4, Eos % (Auto) 1.9, Baso % (Auto) 1.3, Neut # (Auto) 5.4, Lymph # (Auto) 3.2, Terrell # (Auto) 0.6, Eos # (Auto) 0.2, Baso # (Auto) 0.1, PT 10.4, INR 0.94, APTT 18.9 L, Sodium 139, Potassium 3.7, Chloride 106, Carbon Dioxide 22, Anion Gap 14.7, BUN 17, Creatinine 1.30 H, Estimated Creat Clear 67, Estimated GFR 55 L, Est GFR ( Amer) 67, Glucose 121 H, Calcium 9.3, Total Bilirubin 0.2, AST 23, ALT 19, Alkaline Phosphatase 54, Troponin I < 0.01, NT-Pro-B Natriuret Pep 45.0, Total Protein 6.8, Albumin 4.4, Globulin 2.4, Albumin/Globulin Ratio 1.8, Blood Type Confirm A Positive 04/03/24 15:00: Blood Type A Positive, Antibody Screen Negative, Crossmatch ([facility]) See Detail Orders (Tests/Meds): ED MEDICATIONS Generic Name Dose Route Start Last Admin Trade Name Freq PRN Reason Stop Dose Admin Acetaminophen 650 mg 04/03/24 19:26 04/03/24 19:56 Acetaminophen 325mg Tab PO 05/03/24 19:25 650 mg Q4HP PRN Administration Fever or Mild Pain (1-3) Ondansetron HCl 4 mg 04/03/24 19:26 04/04/24 20:18 Ondansetron 4mg/2ml Vial IV 05/03/24 19:25 4 mg Q6HP PRN Administration Nausea Pantoprazole Sodium 40 mg 04/04/24 09:00 04/05/24 08:06 Pantoprazole 40mg Vial IV 05/04/24 08:59 Not Given BID SCOTT Sodium Chloride 10 ml 04/03/24 21:31 04/04/24 20:17 Sodium Chloride 0.9% 10ml Vial IV 05/03/24 21:30 10 ml NEEDED PRN Administration dilute protonix Sodium Chloride 10 ml 04/03/24 21:37 Sodium Chloride 0.9% 10ml Flush Syringe IV 05/03/24 21:36 NEEDED PRN Maintain IV Site Sucralfate 1 gm 04/03/24 21:55 04/05/24 10:01 Sucralfate 1gm Tablet PO 05/03/24 21:54 1 gm ACHS SCOTT Administration Tamsulosin HCl 0.8 mg 04/04/24 21:00 04/04/24 20:18 Tamsulosin 0.4mg Capsule PO 05/04/24 20:59 0.8 mg HS SCOTT Administration Discontinued Medications Generic Name Dose Route Start Last Admin Trade Name Ha PRN Reason Stop Dose Admin Sodium Chloride 1,000 mls @ 999 mls/hr 04/03/24 14:28 04/03/24 14:46 Sod Chlor 0.9% 1000ml Bag IV 04/03/24 15:28 999 mls/hr .Q1H1M ONE Administration Sodium Chloride 250 mls @ 25 mls/hr 04/03/24 14:45 04/03/24 23:00 Sod Chlor 0.9% 250ml Bag IV 04/04/24 14:44 25 mls/hr .Q10H SCOTT Administration Sodium Chloride 1,000 mls @ 999 mls/hr 04/03/24 14:47 04/03/24 17:15 Sod Chlor 0.9% 1000ml Bag IV 04/03/24 15:47 999 mls/hr .Q1H1M ONE Administration Pantoprazole Sodium 80 mg/ 100 mls @ 100 mls/hr 04/03/24 21:31 04/03/24 21:45 Sodium Chloride IV 04/03/24 22:30 100 mls/hr ONCE ONE Administration Lactated Ringer's 1,000 mls @ 75 mls/hr 04/03/24 21:45 04/04/24 01:25 Lactated Ringer's 1000 Ml Bag IV 05/03/24 21:44 75 mls/hr .[id number] SCOTT Administration Magnesium Sulfate 2 gm in 50 mls @ 50 mls/hr 04/04/24 09:30 04/04/24 11:12 Magnesium Sulfate 2gm/50ml Premix IV 04/04/24 11:29 50 mls/hr Q1H SCOTT Administration Iron Sucrose 200 mg/ Sodium 110 mls @ 220 mls/hr 04/04/24 10:00 04/04/24 09:32 Chloride IV 04/04/24 10:29 220 mls/hr ONCE ONE Administration Iron Sucrose 200 mg/ Sodium 110 mls @ 220 mls/hr 04/04/24 17:20 04/04/24 17:38 Chloride IV 04/04/24 17:49 Not Given ONCE ONE Metoclopramide HCl 10 mg 04/04/24 22:15 04/04/24 22:18 Metoclopramide Hcl 10mg/2ml Vial IVP 04/04/24 22:16 10 mg ONCE ONE Administration Polyethylene Glycol/Electrolytes 2,000 ml 04/04/24 17:16 04/04/24 18:06 Peg-Electrolyte Soln 4000ml Bottle PO 04/04/24 17:17 2,000 ml ONCE ONE Administration ORDERS Category Date Time Status Blood transfusion [Red Blood Cells] Stat BBK 04/03/24 15:00 Completed Type and Screen Stat BBK 04/03/24 15:[address] abdomen pelvis wo con Stat Cat Scan 04/03/24 15:21 Completed XR chest portable Stat Exams 04/03/24 14:29 Completed Complete Blood Count Auto Diff Stat Lab 04/03/24 14:23 Completed Comprehensive Metabolic Panel Stat Lab 04/03/24 14:23 Completed NT Pro Brain Natriuretic Pep. Stat Lab 04/03/24 14:23 Completed PT INR [Prothrombin Time INR] Stat Lab 04/03/24 14:23 Completed PTT [Activated Partial Thrombo Time] Stat Lab 04/03/24 14:23 Completed Troponin I Q3H Lab 04/03/24 17:43 Completed Troponin I Q3H Lab 04/03/24 20:28 Completed Troponin I Stat Lab 04/03/24 14:23 Completed Urinalysis and Microscopic Stat Lab 04/04/24 05:30 Completed Blood Culture Stat Micro 04/03/24 14:45 Results ECG Data Tracing #1: I reviewed this ECG and interpreted as documented below: (Sinus rhythm occasional PVCs. 80 bpm. AR interval 156, QRS 119, QTc 414. Normal axis. No acute ischemic change) Medical Decision Narrative: In summary patient is a 64-year-old male who presents to the emergency department for evaluation of near syncope. Patient is currently hemodynamically stable with a blood pressure 121/68 pulse 76 respiratory rate 16 satting at 100% on room air upon arrival, afebrile at 97.8. Physical exam is unremarkable and nonfocal patient has a Shira Coma Score 15 he is awake alert and oriented person place and circumstance cranial nerves II through XII are intact grossly to exam he was able to ambulate without assistance from the wheelchair to the ER stretcher. Patient subjectively reports that all of his symptoms are gone currently.. Differential diagnosis includes near syncope versus vasovagal response versus infection either viral bacterial etc. Initial workup will be conducted with hematologic labs twelve-lead EKG plain film chest x-ray. Initial interventions include crystalloid bolus. Initial workup reviewed by me and patient actually has a new anemia of 6.9 from the previous blood results that we have but also slightly indicative of the volume contraction as his platelet count is 479 suggesting that it could be even slightly lower. His creatinine is improved to 1.3 from 3.5 when the Ferris catheter was placed and his GFR is improved to 55 from 18 with a catheter was placed and the remainder of his hematologic labs are nonactionable. Urinalysis obtained in Dr. Olivarez's clinic is negative for leukocytes or nitrites had a large amount of blood however.. I have initiated blood transfusion of 1 unit of PRBCs. Given the new anemia without identifiable cause, although I suspect that this is likely renal in nature, I discussed the patient PENG findings and management with hospital medicine and he will be admitted for further evaluation and care. I was consulted by the WILL, and we discussed the complexity of the problems being addressed. I approved the treatment and management plan for this patient's care in the Emergency Department, thus performing a substantive portion of the medical decision making. Eduardo Louise MD Critical Care <PETR Russo - Last Filed: 04/03/24 22:44> Critical Care Time Critical Care Time: Yes Attestation: On 04/03/24, the high probability of a clinically significant, sudden or life threatening deterioration of the following system(s) required my full and direct attention, intervention and personal management. The time I documented below is in addition to time spent performing reported procedures but includes the following listed in this critical care notation. Total Time Total Critical Care Time: 35
--- NOTE | 2024-04-03 14:19 | ECG_ITS ---
APPROVED REPORT Exam: Resting ECG HR:80 bpm ECG Measurements Heart Rate 80 AXES FL 156 P 62 QRSd 119 QRS 74 QT 378 T 72 QTc 414 Conclusion SINUS RHYTHM WITH OCCASIONAL VENTRICULAR PREMATURE COMPLEXES MODERATE INTRAVENTRICULAR CONDUCTION DELAY [110+ ms QRS DURATION] BORDERLINE ECG UNCONFIRMED REPORT Electronically signed by : GAYLE DAVIS, 04/04/2024 06:48:56
--- NOTE | 2024-04-03 14:29 | XR_ITS ---
FINAL REPORT TECHNIQUE: Single view chest CLINICAL HISTORY: presyncope FINDINGS: A single view of the chest was obtained. The heart and mediastinum are within normal limits. The lungs are clear. There is no pneumothorax. IMPRESSION: No acute cardiopulmonary process. Reviewed, Interpreted and Dictated by Jovani Ortiz MD Transcribed by Tisha Bray Authenticated and . [facility]
[2024-04-03 14:36] LABS: Basophils # 0.1 K/mm3 (0-0.2); Basophils % 1.3 % (0.1-2.0); Eosinophils # 0.2 K/mm3 (0.0-0.4); Eosinophils % 1.9 % (0.1-12.0); Hematocrit 24.7 % (42.0-52.0); Lymphocytes # 3.2 K/mm3 (0.7-4.5); Lymphocytes % 33.3 % (10-50); Mean Corpuscular HGB Conc 27.9 g/dL (31.8-35.4); Mean Corpuscular Hemoglobin 19.2 pg (27.0-31.2); Mean Corpuscular Volume 68.8 fl (80-94); Mean Platelet Volume 9.3 fl (7.4-10.4); Monocytes # 0.6 K/mm3 (0.1-1.0); Monocytes % 6.4 % (1.7-9.3); Neutrophils # 5.4 K/mm3 (1.8-7.8); Neutrophils % 56.6 % (37.0-80.0); Platelet Count 479 K/mm3 (142-424); Red Blood Count 3.59 M/mm3 (4.60-6.20); Red Cell Distribution Width 19.2 % (11.5-17.5); White Blood Count 9.5 K/mm3 (4.8-10.8)
[2024-04-03 14:42] LABS: Hemoglobin 6.9 g/dL (14.1-18.0)
--- NOTE | 2024-04-03 14:43 | PC.NURSE ---
CRITICAL H&H 6.11/22.7. PT NAME AND R/V. ROSLYN CARTER NOTIFIED.
[2024-04-03 14:46] LABS: Alanine Aminotransferase 19 U/L (12-78); Albumin Level 4.4 g/dl (3.5-5.0); Albumin/Globulin Ratio 1.8 (1.1-1.8); Alkaline Phosphatase 54 U/L (38-126); Anion Gap 14.7 mEq/L (5-15); Aspartate Amino Transferase 23 U/L (17-59); Bilirubin,Total 0.2 mg/dl (0.2-1.3); Blood Urea Nitrogen 17 mg/dl (9-20); Calcium 9.3 mg/dl (8.4-10.2); Carbon Dioxide 22 mmol/L (22.0-30.0); Chloride 106 mmol/L (98-107); Creatinine Clearance Estimated 67 mL/min (50-200); Estimated Glomerular Filt Rate 55 ml/min (>60); GFR (African American) 67 ML/MIN (>60); Globulin 2.4 g/dL (1.3-3.2); Glucose 121 mg/dl (74-100); Potassium 3.7 mmoL/L (3.5-5.1); Sodium 139 mmol/L (136-145); Total Protein,Serum 6.8 g/dl (6.3-8.2)
[2024-04-03] MEDS: 0.9 % SODIUM CHLORIDE 1000ML 1,000 ML 999 ML IV ×2 (14:46→17:15)
[2024-04-03 14:50] LABS: INR 0.94 (0.9-1.1); Prothrombin Time 10.4 seconds (9.2-12.1)
[2024-04-03 14:51] LABS: Activated Partial Thrombo Time 18.9 seconds (22.5-28.5)
[2024-04-03 15:01] LABS: Troponin I < 0.01 ng/ml (0.00-0.034)
--- NOTE | 2024-04-03 15:21 | CT_ITS ---
FINAL REPORT TECHNIQUE: Axial images through the abdomen and pelvis were performed without contrast. Coronal and sagittal images were obtained and reviewed. This study was performed with techniques to keep radiation doses as low as reasonably achievable, (ALARA). Individualized dose reduction techniques using automated exposure control or adjustment of mA and/or kV according to the patient's size were employed. CLINICAL HISTORY: acute abd pain COMPARISON: 07/17/2023 FINDINGS: Abdomen: There are minimal chronic changes at the lung bases. The liver parenchyma is homogeneous. The liver measures up to 19.7 cm in craniocaudal dimension. The spleen, pancreas, and adrenals appear unremarkable. There is a horseshoe kidney present. There is a dominant stone in the right moiety measuring 13 mm well-seen on image 39 of series 1001. There are some tiny stones in the left moiety. Pelvis: There is mild prominence of the left and right renal pelvis. There is no hydronephrosis. A Ferris balloon is seen within a decompressed urinary bladder. IMPRESSION: Horseshoe kidney. Bilateral nonobstructing kidney stones. Ferris balloon in the urinary bladder. Reviewed, Interpreted and Dictated by Jovani Ortiz MD Transcribed by Ananya Amin Authenticated and . [facility]
--- NOTE | 2024-04-03 16:49 | PC.NURSE ---
called house supp.for a room assignment
[2024-04-03] MEDS: 0.9 % SODIUM CHLORIDE 250 ML 25 ML IV ×2 (17:15→23:00)
[2024-04-03 18:26] LABS: Troponin I < 0.01 ng/ml (0.00-0.034)
[2024-04-03] MEDS: ACETAMINOPHEN 325MG TAB 650 MG PO (19:56)
[2024-04-03 21:12] LABS: Hematocrit 23.9 % (42.0-52.0)
[2024-04-03 21:16] LABS: Troponin I < 0.01 ng/ml (0.00-0.034)
--- NOTE | 2024-04-03 21:33 | P.HP_ITS ---
History of Present Illness *Admission Date: 04/03/24 *Reason for visit:: Anemia *History of present illness: Minh Willett is a 64-year-old male with a medical history significant for nephrolithiasis, BPH who was sent to the ED from urologist office today for dizziness, hypotension. Patient states he was following up with Dr. Olivarez today for indwelling catheter for suspected BPH where he states the office was very hot and became lightheaded, dizzy and was found to have a blood pressure in the 70s over 40s. Patient denies chest pain, shortness of breath, palpitations during this episode. He states he has been dealing with indwelling catheter for about a month for suspected BPH and urinary retention. In the ED, blood pressures were stable but hemoglobin 6.9. Patient endorses dark intermittent stool for many months but denies abdominal pain,, hematemesis. Denies constipa tion, weight loss, or ever having a colonoscopy. Case discussed with ED provider and decision was made to admit patient for acute on chronic anemia. [facility] Disclaimer: The information contained in this section may have been updated after the patient was seen, as this information can be updated by other users. Medical History (Updated 04/03/24 @ 17:05 by Wendy Borrego RN) GERD (gastroesophageal reflux disease) Social History (Updated 04/03/24 @ 17:07 by Wendy Borrego RN) Smoking Status: Never smoker alcohol intake: never substance use type: denies use current occupational status: employed Travel in the last 8 weeks: None Have you lived/traveled outside US in past 30 days?: No Contact w/someone who lives/traveled outside US past 30 days?: No Exposure to someone with infectious disease in past 14 days?: No Do you have a fever (greater than 100.4 F or 38 C)?: No Have you tested positive for COVID-19: No Exposed to someone with COVID-19 in past 14 days?: No Do you have a sore throat?: No Do you have a cough?: No Do you have any weakness?: No Do you have any diarrhea?: No Are you experiencing any unusual bleeding?: No Do you have any muscle aches/pain?: No Do you have any abdominal pain?: No Are you experiencing loss of taste or smell?: No Other Medical History Have you received the Flu Vaccine for this season: No Have you received the Pneumonia Vaccine: No Meds Home Medications and Allergies Home Medications ?Medication ?Instructions ?Recorded ?Confirmed ?Type tamsulosin 0.4 mg capsule 0.4 mg PO DAILY 90 days #90 caps 03/27/24 04/03/24 Rx famotidine 20 mg tablet 20 mg PO HS 04/03/24 04/03/24 History levofloxacin 500 mg tablet 500 mg PO DAILY 04/03/24 04/03/24 History New Prescriptions to Start Prescriptions: Allergies Allergy/AdvReac Type Severity Reaction Status Date / Time No Known Allergies Allergy Verified 04/03/24 13:55 Exam Data for Last 24 hours Vital signs and Labs for Last 24 Hours: Temp Pulse Resp BP Pulse Ox O2 Del Method 98.5 F 107 H 20 162/81 H 99 Room Air 04/03/24 20:11 04/03/24 20:11 04/03/24 20:11 04/03/24 20:11 04/03/24 20:11 04/03/24 20:00 Laboratory Results - last 24 hr 04/03/24 14:23: WBC 9.5, RBC 3.59 L, Hgb 6.9 L, Hct 24.7 L, MCV 68.8 L, MCH 19.2 L, MCHC 27.9 L, RDW 19.2 H, Plt Count 479 H, MPV 9.3, Neut % (Auto) 56.6, Lymph % (Auto) 33.3, [place] % (Auto) 6.4, Eos % (Auto) 1.9, Baso % (Auto) 1.3, Neut # (Auto) 5.4, Lymph # (Auto) 3.2, [place] # (Auto) 0.6, Eos # (Auto) 0.2, Baso # (Auto) 0.1, PT 10.4, INR 0.94, APTT 18.9 L, Sodium 139, Potassium 3.7, Chloride 106, Carbon Dioxide 22, Anion Gap 14.7, BUN 17, Creatinine 1.30 H, Estimated Creat Clear 67, Estimated GFR 55 L, Est GFR ( Amer) 67, Glucose 121 H, Calcium 9.3, Total Bilirubin 0.2, AST 23, ALT 19, Alkaline Phosphatase 54, Troponin I < 0.01, NT-Pro-B Natriuret Pep 45.0, Total Protein 6.8, Albumin 4.4, Globulin 2.4, Albumin/Globulin Ratio 1.8, Blood Type Confirm A Positive 04/03/24 15:00: Blood Type A Positive, Antibody Screen Negative, Crossmatch (AHG) See Detail 04/03/24 17:43: Troponin I < 0.01 04/03/24 20:28: Troponin I < 0.01 04/03/24 21:00: Hgb 7.0 L, Hct 23.9 L I & O for Last 24 hours: Intake & Output 03/31/24 04/01/24 04/02/24 04/03/24 23:59 23:59 23:59 23:59 Intake Total 250 / 250 Output Total 550 / 550 Balance -300 / -300 Weight 78.471 kg Constitutional Constitutional: no acute distress *Routine HEENT Exam Head: Present normocephalic Eye: Present EOMI and PERRL ENT: Present mucous membranes moist *Routine Neck Exam Neck: Present supple; Absent lymphadenopathy *Routine Respiratory Exam Respiratory: Present CTA bilaterally *Routine Cardiovascular Exam Cardiovascular: Present RRR *Routine Abdominal Exam Abdominal: Present soft and normoactive bowel sounds; Absent tenderness *Routine Rectal Exam Rectal:: deferred *Routine Genitalia Exam Genitalia:: deferred *Routine Extremities Exam Extremities: Absent cyanosis, clubbing or edema *Routine Skin Exam Skin: Present warm; Absent rash *Routine Neurological Exam Neurological: Present alert and oriented X3 Assessment and Plan *Assessment and plan (1) Symptomatic anemia: Status: Acute Category: Medical Code(s): D64.9 - Anemia, unspecified Plan Minh Willett is a 64-year-old male with a medical history significant for nephrolithiasis, BPH who was sent to the ED from urologist office today for dizziness, hypotension. Patient states he was following up with Dr. Olivarez today for indwelling catheter for suspected BPH where he states the office was very hot and became lightheaded, dizzy and was found to have a blood pressure in the 70s over 40s. Patient denies chest pain, shortness of breath, palpitations during this episode. He states he has been dealing with indwelling catheter for about a month for suspected BPH and urinary retention. In the ED, blood pressures were stable but hemoglobin 6.9. Patient endorses dark intermittent stool for many months but denies abdominal pain,, hematemesis. Denies constipation, weight loss, or ever having a colonoscopy. Also denies NSAIDs, alcohol use. Case discussed with ED provider and decision was made to admit patient for acute on chronic anemia. #Acute on chronic anemia #Dark stools ? Endorses intermittent dark stools for many months. Denies constipation, weight loss, or having had a colonoscopy in the past. ? Hemoglobin 6.9, MCV 68.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 ? Hemoglobin improved to 7.0 after 1 unit PRBC. ? Ordered second unit PRBC. ? Currently slightly tachycardic 107, but BP 168/81. Looks comfortable on exam. ? IV Protonix 40 mg twice daily. Started Carafate. ? IV LR at 75 mL/h. ? Follow-up FOBT. ? GI consulted, pending further recommendations. ? Follow-up iron studies (though posttransfusion), B12, folate. #Bladder outlet obstruction #Indwelling Ferris catheter #Bilateral nonobstructing kidney stones ? Continue Ferris catheter. Will need close follow-up with urology. ? Continue home tamsulosin. Full code DVT prophylaxis: SCDs
[2024-04-03] MEDS: PANTOPRAZOLE SODIUM 80 MG in 0.9 % SODIUM CHLORIDE 100 ML 100 MG IV (21:45)
[2024-04-03] MEDS: SUCRALFATE 1GM TABLET 1 GM PO (22:30)
[2024-04-04] VITALS (8 sets, daily range): BP systolic 120–161; BP diastolic 76–88; PULSE 72–91; RESP 16–20; TEMP 36.4–37.2; O2SAT 95–99; BMI 22.6
[2024-04-04 00:35] LABS: Folate 7.04 ng/mL
[2024-04-04] MEDS: LACTATED RINGERS 1000ML 1,000 ML 75 ML IV (01:25)
--- NOTE | 2024-04-04 03:13 | PC.NURSE ---
PT IS RESTING IN BED. ALERT AND ORIENTED X4. AMBULATED TO THE BATHROOM AT THE BEGINNING OF THE SHIFT. TRIPATHI DRAINING CLEAR/YELLOW URINE. NO COMPLAINTS OF DISCOMFORT. TOLERATED BLOOD TRANSFUSION WELL. LUNG SOUNDS CLEAR. ABDOMEN SOFT/NON TENDER WITH ACTIVE BOWEL SOUNDS. VSS. WILL CONTINUE TO MONITOR.
[2024-04-04 03:41] LABS: Hematocrit 25.7 % (42.0-52.0)
[2024-04-04 03:56] LABS: Hemoglobin 7.8 g/dL (14.1-18.0)
[2024-04-04] MEDS: SUCRALFATE 1GM TABLET 1 GM PO ×4 (05:17→20:18)
[2024-04-04 06:57] LABS: Microscopic, Urine URINE MICROSCOPIC (MICROSCOPIC)
[2024-04-04 07:05] LABS: Appearance,Urine CLEAR (Clear); Bilirubin,Urine Negative (Negative); Blood, Urine 2+ (Negative); Color,Urine YELLOW (Yellow); Glucose,Urine (UA) Negative (Negative); Ketones,Urine Negative (Negative); Leukocyte Esterase,Urine Negative (Negative); Nitrate,Urine Negative (Negative); Protein,Urine TRACE (Negative); Urobilinogen,Urine 0.2 EU/dl (0.2)
[2024-04-04 07:17] LABS: WBC,Urine Occasional #/hpf (0-3)
[2024-04-04 07:28] LABS: Albumin Level 3.5 g/dl (3.5-5.0); Chloride 109 mmol/L (98-107); Potassium 4.1 mmoL/L (3.5-5.1); Sodium 139 mmol/L (136-145)
[2024-04-04 07:30] LABS: Alanine Aminotransferase 19 U/L (12-78); Blood Urea Nitrogen 14 mg/dl (9-20); Creatinine Clearance Estimated 75 mL/min (50-200); Estimated Glomerular Filt Rate 67 ml/min (>60); GFR (African American) 81 ML/MIN (>60)
[2024-04-04 07:31] LABS: Albumin/Globulin Ratio 1.4 (1.1-1.8); Alkaline Phosphatase 54 U/L (38-126); Anion Gap 14.1 mEq/L (5-15); Aspartate Amino Transferase 61 U/L (17-59); Calcium 8.8 mg/dl (8.4-10.2); Carbon Dioxide 20 mmol/L (22.0-30.0); Globulin 2.5 g/dL (1.3-3.2); Glucose 92 mg/dl (74-100); Magnesium 1.7 mg/dl (1.6-2.3)
[2024-04-04 07:38] LABS: Basophils # 0.1 K/mm3 (0-0.2); Basophils % 1.4 % (0.1-2.0); Eosinophils # 0.2 K/mm3 (0.0-0.4); Eosinophils % 2.8 % (0.1-12.0); Hematocrit 27.3 % (42.0-52.0); Hemoglobin 8.1 g/dL (14.1-18.0); Lymphocytes # 2.4 K/mm3 (0.7-4.5); Lymphocytes % 33.2 % (10-50); Mean Corpuscular HGB Conc 29.7 g/dL (31.8-35.4); Mean Corpuscular Hemoglobin 21.7 pg (27.0-31.2); Mean Platelet Volume 9.7 fl (7.4-10.4); Monocytes # 0.5 K/mm3 (0.1-1.0); Monocytes % 7.3 % (1.7-9.3); Neutrophils % 54.7 % (37.0-80.0); Platelet Count 347 K/mm3 (142-424); Red Blood Count 3.74 M/mm3 (4.60-6.20); White Blood Count 7.2 K/mm3 (4.8-10.8)
--- NOTE | 2024-04-04 07:40 | HMH.PHAINT1 ---
Pharmacy Intervention Comments: Home medication list verified using list from outpatient pharmacy and pt interview
[2024-04-04 07:58] LABS: Thyroid Stimulating Hormone 4.61 uIU/mL (0.465-4.68)
[2024-04-04 07:59] LABS: Iron 46 ug/dL (49-181)
[2024-04-04 08:09] LABS: Total Iron Binding Capacity 367 ug/dL (261-462)
[2024-04-04] MEDS: PANTOPRAZOLE 40MG VIAL 40 MG IV ×2 (08:23→20:18)
[2024-04-04 08:33] LABS: Ferritin 4.35 ng/ml (17.9-464)
[2024-04-04 09:22] LABS: Vitamin B12 234 pg/mL (239-931)
[2024-04-04] MEDS: IRON SUCROSE COMPLEX 200 MG in 0.9 % SODIUM CHLORIDE 100 ML 220 MG IV (09:32)
[2024-04-04] MEDS: MAGNESIUM SULFATE IN WATER 2 GM/50 ML PIGGYBACK IV ×2 (10:03→11:12)
--- NOTE | 2024-04-04 14:34 | PC.NURSE ---
Aox 4, on RA, f/c in place, up ad stacy, 20g R ac sl, iv iron and mag given this am, consult to GI.
--- NOTE | 2024-04-04 17:07 | P.CONS_ITS ---
History of Present Illness *Admission Date: 04/03/24 *Reason for visit:: Iron deficiency anemia *History of present illness: Mr. Willett is a 64-year-old gentleman with iron deficiency anemia. The patient does have a history of BPH and kidney stones and was sent to the ED from the urology office secondary to lightheadedness and hypotension. He reported some dyspnea on exertion. He reported no chest pain or dyspnea at rest. He did have an indwelling urinary catheter for about a month and when this was pulled there was gross hematuria. His hemoglobin was 6.9. Looking back his hemoglobin has been declined even last year but not to this degree with hemoglobin hematocrit last year of 10.5 and 34.3. He did have microcytic indices. His serum iron level was 46 with iron saturation 12.53% and ferritin at 4.35. His creatinine is normal at 1.10. The patient has never had a colonoscopy. He does report some gastroesophageal reflux which he controls with [id number] Pepcid. He does note some dark stools but reports no bright red rectal bleeding, hematochezia or melena. He reports no abdominal pain or weight loss. He has had no change in bowel habits or family history of colon cancer. He reports no dysphagia or fullness. 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 This was noncontrast. [facility] Disclaimer: The information contained in this section may have been updated after the patient was seen, as this information can be updated by other users. Medical History (Updated 04/04/24 @ 17:12 by Chao Ngo II, MD) GERD (gastroesophageal reflux disease) Social History (Updated 04/03/24 @ 17:07 by Wendy Borrego RN) Smoking Status: Never smoker alcohol intake: never substance use type: denies use current occupational status: employed Travel in the last 8 weeks: None Have you lived/traveled outside US in past 30 days?: No Contact w/someone who lives/traveled outside US past 30 days?: No Exposure to someone with infectious disease in past 14 days?: No Do you have a fever (greater than 100.4 F or 38 C)?: No Have you tested positive for COVID-19: No Exposed to someone with COVID-19 in past 14 days?: No Do you have a sore throat?: No Do you have a cough?: No Do you have any weakness?: No Do you have any diarrhea?: No Are you experiencing any unusual bleeding?: No Do you have any muscle aches/pain?: No Do you have any abdominal pain?: No Are you experiencing loss of taste or smell?: No Meds Home Medications and Allergies Home Medications ?Medication ?Instructions ?Recorded ?Confirmed ?Type tamsulosin 0.4 mg capsule 0.4 mg PO DAILY 90 days #90 caps 03/27/24 04/03/24 Rx famotidine 20 mg tablet 20 mg PO HS 04/03/24 04/03/24 History levofloxacin 500 mg tablet 500 mg PO DAILY 04/03/24 04/03/24 History New Prescriptions to Start Prescriptions: Allergies Allergy/AdvReac Type Severity Reaction Status Date / Time No Known Allergies Allergy Verified 04/03/24 13:55 Exam (Inpt) Vital signs and Labs for Last 24 Hours: Temp Pulse Resp BP Pulse Ox O2 Del Method 98.1 F 76 16 161/79 H 99 Room Air 04/04/24 08:00 04/04/24 08:00 04/04/24 08:00 04/04/24 08:00 04/04/24 08:00 04/04/24 16:24 Laboratory Results - last 24 hr 04/03/24 15:00: Blood Type A Positive, Antibody Screen Negative, Crossmatch (AHG) See Detail 04/03/24 17:43: Troponin I < 0.01 04/03/24 20:28: Troponin I < 0.01 04/03/24 21:00: Hgb 7.0 L, Hct 23.9 L 04/03/24 22:10: Folate 7.04 04/04/24 03:30: Hgb 7.8 L D, Hct 25.7 L 04/04/24 05:30: Urine Color Yellow, Urine Appearance Clear, Urine pH 7.0, Ur Specific [place] 1.010, Urine Protein Trace, Urine Glucose (UA) Negative, Urine Ketones Negative, Urine Blood 2+ A, Urine Nitrate Negative, Urine Bilirubin Negative, Urine Urobilinogen 0.2, Ur Leukocyte Esterase Negative, Urine RBC 5- 10, Urine WBC Occasional, Ur Squamous Epith Cells None, Urine Bacteria None 04/04/24 06:25: WBC 7.2, RBC 3.74 L, Hgb 8.1 L, Hct 27.3 L, MCV 73.0 L, MCH 21.7 L, MCHC 29.7 L, RDW 22.0 H, Plt Count 347 D, MPV 9.7, Neut % (Auto) 54.7, Lymph % (Auto) 33.2, [place] % (Auto) 7.3, Eos % (Auto) 2.8, Baso % (Auto) 1.4, Neut # (Auto) 4.0, Lymph # (Auto) 2.4, [place] # (Auto) 0.5, Eos # (Auto) 0.2, Baso # (Auto) 0.1, Sodium 139, Potassium 4.1, Chloride 109 H, Carbon Dioxide 20 L, Anion Gap 14.1, BUN 14, Creatinine 1.10, Estimated Creat Clear 75, Estimated GFR 67, Est GFR ( Amer) 81 D, Glucose 92 D, Calcium 8.8, Magnesium 1.7, I rojas 46 L, TIBC 367, Iron Saturation 12.62480 L, Ferritin 4.35 L, Total Bilirubin 1.0, AST 61 H D, ALT 19, Alkaline Phosphatase 54, Total Protein 6.0 L, Albumin 3.5 D, Globulin 2.5, Albumin/Globulin Ratio 1.4, Vitamin B12 234 L, TSH 4.61 I & O for Labs for Last 24 Hours: Intake & Output 04/01/24 04/02/24 04/03/24 04/04/24 23:59 23:59 23:59 23:59 Intake Total 250 / 350 700 / 700 Output Total 550 / 1050 3800 / 3800 Balance -300 / -700 -3100 / -3100 Weight 173 lb 176 lb 3.2 oz Microbiology Reports for the Last 24 Hours: Microbiology 04/03/24 14:45 Blood Blood Culture - Preliminary NO GROWTH AFTER 24 HOURS 04/03/24 14:50 Blood Blood Culture - Preliminary NO GROWTH AFTER 24 HOURS GI: Present soft Comments:: Normoactive bowel sounds, soft, nontender, nondistended, no mass, no hernias Results Labs 04/04/24 06:25 04/04/24 06:25 Labs: Laboratory Results - last 24 hr 04/03/24 15:00: Blood Type A Positive, Antibody Screen Negative, Crossmatch (AHG) See Detail 04/03/24 17:43: Troponin I < 0.01 04/03/24 20:28: Troponin I < 0.01 04/03/24 21:00: Hgb 7.0 L, Hct 23.9 L 04/03/24 22:10: Folate 7.04 04/04/24 03:30: Hgb 7.8 L D, Hct 25.7 L 04/04/24 05:30: Urine Color Yellow, Urine Appearance Clear, Urine pH 7.0, Ur Specific [place] 1.010, Urine Protein Trace, Urine Glucose (UA) Negative, Urine Ketones Negative, Urine Blood 2+ A, Urine Nitrate Negative, Urine Bilirubin Negative, Urine Urobilinogen 0.2, Ur Leukocyte Esterase Negative, Urine RBC 5- 10, Urine WBC Occasional, Ur Squamous Epith Cells None, Urine Bacteria None 04/04/24 06:25: WBC 7.2, RBC 3.74 L, Hgb 8.1 L, Hct 27.3 L, MCV 73.0 L, MCH 21.7 L, MCHC 29.7 L, RDW 22.0 H, Plt Count 347 D, MPV 9.7, Neut % (Auto) 54.7, Lymph % (Auto) 33.2, [place] % (Auto) 7.3, Eos % (Auto) 2.8, Baso % (Auto) 1.4, Neut # (Auto) 4.0, Lymph # (Auto) 2.4, [place] # (Auto) 0.5, Eos # (Auto) 0.2, Baso # (Auto) 0.1, Sodium 139, Potassium 4.1, Chloride 109 H, Carbon Dioxide 20 L, Anion Gap 14.1, BUN 14, Creatinine 1.10, Estimated Creat Clear 75, Estimated GFR 67, Est GFR ( Amer) 81 D, Glucose 92 D, Calcium 8.8, Magnesium 1.7, I rojas 46 L, TIBC 367, Iron Saturation 12.74974 L, Ferritin 4.35 L, Total Bilirubin 1.0, AST 61 H D, ALT 19, Alkaline Phosphatase 54, Total Protein 6.0 L, Albumin 3.5 D, Globulin 2.5, Albumin/Globulin Ratio 1.4, Vitamin B12 234 L, TSH 4.61 Assessment and Plan *Assessment and plan (1) Iron deficiency anemia: Status: Acute Category: Medical Code(s): D50.9 - Iron deficiency anemia, unspecified Plan 1. Iron deficiency anemia. One of the major causes of iron deficiency in the [place] is occult gastrointestinal bleeding. Most often this is from the gastrointestinal tract. We will do examinations to check for occult bleeding including endoscopy and colonoscopy. If these are normal, we often recommend doing stool testing for blood. If the upper endoscopy and colonoscopy are not sources of bleeding and occult blood is still identified in the stool, we do recommend evaluation of the middle intestinal tract (small intestine) with video capsule examination (PillCam). If this fecal Hemoccult testing is negative for occult blood, the iron deficiency is likely from reduced absorption of iron. I will arrange panendoscopy tomorrow. I will obtain Hemoccult testing. I would recommend parenteral intravenous Venofer. Intravenous iron (IV) is underutilized for the treatment of anemia, and has numerous advantages compared to blood transfusion as well as oral iron. In persons with more rapid bleeding with sudden blood loss, a blood transfusion is necessitated. However, when there is no or slow blood loss, blood transfusions can be associated with adverse events and high cost. Correction of iron deficiency anemia with oral iron is limited by gastrointestinal absorption and can be less effective. When iron is present, the bone marrow utilizes this iron to make red blood cells and the average life span of these red blood cells approximately 120 days. The average life span of a transfused red blood cell is about 30 days. This again supports the use of iron to make your own blood rather than receiving someone else's blood from a transfusion. There is a tremendous reduction of cost and resources with fewer complications including development of antibodies which can sometimes occur with blood transfusion.
[2024-04-04] MEDS: PEG-ELECTROLYTE SOLN 4000ML BOTTLE 2000 ML PO (18:06)
--- NOTE | 2024-04-04 19:01 | EXP.ACUTE.PN ---
Subjective *Date: 04/04/24 *Time: 19:01 Interval history: Mr. Willett's hemoglobin has remained stable. Responded to transfusions overnight. No further yoselin bleeding. Denies chest pain, shortness of breath, nausea or vomiting. GI involved with care. Afebrile overnight. Medical Exam Vital signs and Labs for Last 24 Hours: Vital Signs Temp Pulse Pulse Resp BP BP Pulse Ox 04/04/24 17:47 04/04/24 16:24 04/04/24 16:00 98.2 F 91 H 16 140/88 95 04/04/24 14:46 04/04/24 12:18 04/04/24 08:00 98.1 F 76 16 161/79 H 99 04/04/24 08:00 04/04/24 06:26 04/04/24 05:00 04/04/24 04:00 97.6 F 72 16 143/85 H 99 04/04/24 02:51 04/04/24 02:20 98.4 F 76 18 147/79 H 99 04/04/24 01:20 98.0 F 73 20 136/76 97 04/04/24 01:10 98.2 F 79 16 134/77 96 04/04/24 00:33 04/04/24 00:10 98.1 F 83 18 135/76 96 04/03/24 23:55 98.2 F 88 16 141/77 H 96 04/03/24 23:40 98.3 F 84 16 138/74 97 04/03/24 23:25 98.1 F 88 20 143/93 H 97 04/03/24 23:20 98.1 F 86 18 142/79 H 98 04/03/24 23:15 98.2 F 89 20 151/80 H 98 04/03/24 23:10 98.0 F 85 16 134/87 98 04/03/24 23:00 98.0 F 90 18 149/79 H 99 04/03/24 22:35 04/03/24 21:00 04/03/24 20:11 98.5 F 107 H 20 162/81 H 99 04/03/24 20:00 98.1 F 100 H 16 141/84 H 100 04/03/24 20:00 O2 Del Method 04/04/24 17:47 Room Air 04/04/24 16:24 Room Air 04/04/24 16:00 04/04/24 14:46 Room Air 04/04/24 12:18 Room Air 04/04/24 08:00 04/04/24 08:00 Room Air 04/04/24 06:26 Room Air 04/04/24 05:00 Room Air 04/04/24 04:00 Room Air 04/04/24 02:51 Room Air 04/04/24 02:20 04/04/24 01:20 04/04/24 01:10 04/04/24 00:33 Room Air 04/04/24 00:10 04/03/24 23:55 04/03/24 23:40 04/03/24 23:25 04/03/24 23:20 04/03/24 23:15 04/03/24 23:10 04/03/24 23:00 04/03/24 22:35 Room Air 04/03/24 21:00 Room Air 04/03/24 20:11 04/03/24 20:00 Room Air 04/03/24 20:00 Room Air Intake and Output 04/04/24 04/04/24 04/04/24 07:59 15:59 23:59 Intake Total 350 / 1060 350 / 1060 360 / 1060 Output Total 1600 / 3800 2200 / 3800 Balance -1250 / -2740 -1850 / -2740 360 / -2740 Intake: Intake, Oral Amount 360 / 360 Intake, Total IV Amount 100 / 450 350 / 450 Iron Sucrose Complex 200 mg In 100 / 100 0.9 % Sodium Chloride 100 ml @ 220 mls/hr IV ONCE ONE Rx#: [id number] Lactated Ringers 1000ML 1,000 150 / 150 ml @ 75 mls/hr IV .[id number] PENDING SALE TO [facility] Rx#:[id number] Magnesium Sulfate in Water 2 gm 100 / 100 In 50 ml @ 50 mls/hr IV Q1H PENDING SALE TO [facility] Rx#:[id number] Pantoprazole Sodium 80 mg In 0. 100 / 100 9 % Sodium Chloride 100 ml @ 100 mls/hr IV ONCE ONE Rx#: [id number] Intake (Blood Product) Amt 250 / 250 Red Blood Cells Unit 250 / 250 [id number] Output: Output, Urine Amount 1100 / 3300 2200 / 3300 Output, Urine Amount (Catheter) 500 / 500 Ferris 500 / 500 Other: Weight 79.923 kg Patient Weight 04/04/24 23:59 Weight 79.923 kg Laboratory Results - last 24 hr 04/03/24 15:00: Blood Type A Positive, Antibody Screen Negative, Crossmatch (AHG) See Detail 04/03/24 20:28: Troponin I < 0.01 04/03/24 21:00: Hgb 7.0 L, Hct 23.9 L 04/03/24 22:10: Folate 7.04 04/04/24 03:30: Hgb 7.8 L D, Hct 25.7 L 04/04/24 05:30: Urine Color Yellow, Urine Appearance Clear, Urine pH 7.0, Ur Specific [place] 1.010, Urine Protein Trace, Urine Glucose (UA) Negative, Urine Ketones Negative, Urine Blood 2+ A, Urine Nitrate Negative, Urine Bilirubin Negative, Urine Urobilinogen 0.2, Ur Leukocyte Esterase Negative, Urine RBC 5-10, Urine WBC Occasional, Ur Squamous Epith Cells None, Urine Bacteria None 04/04/24 06:25: WBC 7.2, RBC 3.74 L, Hgb 8.1 L, Hct 27.3 L, MCV 73.0 L, MCH 21.7 L, MCHC 29.7 L, RDW 22.0 H, Plt Count 347 D, MPV 9.7, Neut % (Auto) 54.7, Lymph % (Auto) 33.2, [place] % (Auto) 7.3, Eos % (Auto) 2.8, Baso % (Auto) 1.4, Neut # (Auto) 4.0, Lymph # (Auto) 2.4, [place] # (Auto) 0.5, Eos # (Auto) 0.2, Baso # (Auto) 0.1, Sodium 139, Potassium 4.1, Chloride 109 H, Carbon Dioxide 20 L, Anion Gap 14.1, BUN 14, Creatinine 1.10, Estimated Creat Clear 75, Estimated GFR 67, Est GFR ( Amer) 81 D, Glucose 92 D, Calcium 8.8, Magnesium 1.7, Iron 46 L, TIBC 367, Iron Saturation 12.96494 L, Ferritin 4.35 L, Total Bilirubin 1.0, AST 61 H D, ALT 19, Alkaline Phosphatase 54, Total Protein 6.0 L, Albumin 3.5 D, Globulin 2.5, Albumin/Globulin Ratio 1.4, Vitamin B12 234 L, TSH 4.61 I & O for Labs for Last 24 Hours: Intake & Output 04/01/24 04/02/24 04/03/24 04/04/24 23:59 23:59 23:59 23:59 Intake Total 250 / 350 1060 / 1060 Output Total 550 / 1050 3800 / 3800 Balance -300 / -700 -2740 / -2740 Weight 78.471 kg 79.923 kg Microbiology Reports for the Last 24 Hours: Microbiology 04/03/24 14:45 Blood Blood Culture - Preliminary NO GROWTH AFTER 24 HOURS 04/03/24 14:50 Blood Blood Culture - Preliminary NO GROWTH AFTER 24 HOURS Constitutional: Present no acute distress, thin, chronically ill appearing and cooperative Head: Present atraumatic and normocephalic ENT: Present normal exam Respiratory: Present normal respiratory effort; Absent rhonchi, wheezes or crackles Cardiac: Present Reg Rate and Rhythm GI: Present soft and normal bowel sounds; Absent distention or tenderness Extremities: Present normal inspection and full ROM Skin: Present intact; Absent erythema Neuro: Present Grossly Intact, alert, awake, oriented x 3 and moves all extremities Assessment and Plan *Assessment and plan (1) Symptomatic anemia: Status: Acute Category: Medical Code(s): D64.9 - Anemia, unspecified (2) Iron deficiency anemia: Status: Acute Category: Medical Code(s): D50.9 - Iron deficiency anemia, unspecified (3) Bladder outlet obstruction: Status: Acute Category: Medical Code(s): N32.0 - Bladder-neck obstruction (4) BPH (benign prostatic hyperplasia): Status: Acute Category: Medical Code(s): N40.0 - Benign prostatic hyperplasia without lower urinary tract symptoms Plan Minh Willett is a 64-year-old male with a medical history significant for nephrolithiasis, BPH who was sent to the ED from urologist office today for dizziness, hypotension. Patient states he was following up with Dr. Olivarez today for indwelling catheter for suspected BPH where he states the office was very hot and became lightheaded, dizzy and was found to have a blood pressure in the 70s over 40s. Patient denies chest pain, shortness of breath, palpitations during this episode. He states he has been dealing with indwelling catheter for about a month for suspected BPH and urinary retention. In the ED, blood pressures were stable but hemoglobin 6.9. Patient endorses dark intermittent stool for many months but denies abdominal pain,, hematemesis. Denies constipation, weight loss, or ever having a colonoscopy. Also denies NSAIDs, alcohol use. Case discussed with ED provider and decision was made to admit patient for acute on chronic anemia. Responded well to transfusion. GI evaluating today. Continues to require inpatient management. Problems addressed as follows: #Acute on chronic anemia #Dark stools ? Endorses intermittent dark stools for many months. Denies constipation, weight loss, or having had a colonoscopy in the past. ? Hemoglobin 6.9, MCV 68.8 on admission. Responded to transfusion. Hemoglobin 7.8 after transfusion. 8.1 this morning. No overt signs of bleeding. - IV Protonix 40 mg twice daily. Continue Carafate. -Iron studies show iron level of 46, saturation 12.5%. TSH 4.6. -Administer Venofer 200 mg IV once. -Kidney function normal with BUN 14, creatinine 1.1. White count normal at 7.2. Repeat CBC, CMP, magnesium ordered for the morning. - Discussed case with GI, will plan for panendoscopy tomorrow. Recommend obtaining Hemoccult test. N.p.o. at midnight. Initiate on bowel regimen for cleanout. #Bladder outlet obstruction #Indwelling Ferris catheter #Bilateral nonobstructing kidney stones ? Continue Ferris catheter. Will need close follow-up with urology. ? Continue home tamsulosin 0.4 mg daily Full code DVT prophylaxis: SCDs N.p.o. at midnight
[2024-04-04] MEDS: SODIUM CHLORIDE 0.9% 10ML VIAL 10 ML IV (20:17)
[2024-04-04] MEDS: ONDANSETRON 4MG/2ML VIAL 4 MG IV (20:18)
[2024-04-04] MEDS: TAMSULOSIN 0.4MG CAPSULE 0.8 MG PO (20:18)
[2024-04-04] MEDS: METOCLOPRAMIDE HCL 10MG/2ML VIAL 10 MG IVP (22:18)
--- NOTE | 2024-04-04 22:25 | PC.NURSE ---
Patient vomited one time, gave zofran, 1 hour later patient vomited again, notified [facility] LEWIS, stated to give 10mg reglan IV and restart golytely at midnight.
[2024-04-05] VITALS (16 sets, daily range): BP systolic 91–150; BP diastolic 52–90; PULSE 76–93; RESP 16–18; TEMP 36.4–36.8; O2SAT 94–99; BMI 22.4
--- NOTE | 2024-04-05 00:05 | PC.NURSE ---
Went in to talk to patient about drinking other half of golytely, patient states he still feels sick to his stomach and doesnt want to drink it if hes going to feel sick, explained they may not do a scope if the bowel isnt clear. Notified Savage LEWIS.
[2024-04-05 00:51] LABS: Occult Blood,Stool Positive (Negative)
--- NOTE | 2024-04-05 04:47 | PC.NURSE ---
Alert and oriented. See previous notes on golytely. Patient has been resting throughout the night. Complained of nausea and vomitin twice earlier in shift, since med administration per, patient has been sleeping. Independent in the room. NPO since midnight. Occult stool resulted. Call light in reach. Ferris in place, draining light yellow urine. No blood noted in vomit, clear to light yellow in color.
[2024-04-05] MEDS: SUCRALFATE 1GM TABLET 1 GM PO ×4 (05:17→20:05)
[2024-04-05 06:19] LABS: Basophils # 0.1 K/mm3 (0-0.2); Basophils % 0.9 % (0.1-2.0); Eosinophils # 0.1 K/mm3 (0.0-0.4); Eosinophils % 0.7 % (0.1-12.0); Hematocrit 30.1 % (42.0-52.0); Lymphocytes # 2.3 K/mm3 (0.7-4.5); Lymphocytes % 22.4 % (10-50); Mean Corpuscular HGB Conc 29.9 g/dL (31.8-35.4); Mean Corpuscular Hemoglobin 21.5 pg (27.0-31.2); Mean Corpuscular Volume 71.8 fl (80-94); Mean Platelet Volume 9.2 fl (7.4-10.4); Monocytes # 0.6 K/mm3 (0.1-1.0); Monocytes % 5.5 % (1.7-9.3); Neutrophils # 7.3 K/mm3 (1.8-7.8); Neutrophils % 69.9 % (37.0-80.0); Platelet Count 386 K/mm3 (142-424); Red Blood Count 4.19 M/mm3 (4.60-6.20); Red Cell Distribution Width 22.4 % (11.5-17.5); White Blood Count 10.4 K/mm3 (4.8-10.8)
[2024-04-05 06:25] LABS: Chloride 104 mmol/L (98-107)
[2024-04-05 06:26] LABS: Albumin Level 4.4 g/dl (3.5-5.0); Potassium 3.8 mmoL/L (3.5-5.1); Sodium 136 mmol/L (136-145)
[2024-04-05 06:28] LABS: Alanine Aminotransferase 20 U/L (12-78); Albumin/Globulin Ratio 2.1 (1.1-1.8); Anion Gap 12.8 mEq/L (5-15); Aspartate Amino Transferase 27 U/L (17-59); Blood Urea Nitrogen 16 mg/dl (9-20); Carbon Dioxide 23 mmol/L (22.0-30.0); Creatinine Clearance Estimated 68 mL/min (50-200); Estimated Glomerular Filt Rate 61 ml/min (>60); GFR (African American) 73 ML/MIN (>60); Globulin 2.1 g/dL (1.3-3.2); Total Protein,Serum 6.5 g/dl (6.3-8.2)
[2024-04-05 06:29] LABS: Alkaline Phosphatase 63 U/L (38-126); Bilirubin,Total 1.1 mg/dl (0.2-1.3); Calcium 8.6 mg/dl (8.4-10.2); Glucose 106 mg/dl (74-100); Magnesium 1.9 mg/dl (1.6-2.3)
[2024-04-05] MEDS: PANTOPRAZOLE 40MG VIAL 40 MG IV ×2 (07:31→20:05)
--- NOTE | 2024-04-05 14:45 | EXP.ANES.CKL ---
[facility] Disclaimer: The information contained in this section may have been updated after the patient was seen, as this information can be updated by other users. Medical History (Updated 04/04/24 @ 17:12 by Chao Ngo II, MD) GERD (gastroesophageal reflux disease) Social History (Updated 04/03/24 @ 17:07 by Wendy Borrego RN) Smoking Status: Never smoker alcohol intake: never substance use type: denies use current occupational status: employed Travel in the last 8 weeks: None Have you lived/traveled outside [place] in past 30 days?: No Contact w/someone who lives/traveled outside US past 30 days?: No Exposure to someone with infectious disease in past 14 days?: No Do you have a fever (greater than 100.4 F or 38 C)?: No Have you tested positive for COVID-19: No Exposed to someone with COVID-19 in past 14 days?: No Do you have a sore throat?: No Do you have a cough?: No Do you have any weakness?: No Do you have any diarrhea?: No Are you experiencing any unusual bleeding?: No Do you have any muscle aches/pain?: No Do you have any abdominal pain?: No Are you experiencing loss of taste or smell?: No [facility] Anesthesia Checklist Patient Identification Patient Identification: Arm Band Structural Data Admitted From: Inpatient Planned Operative Procedure/s: EGD/Colonoscopy Consent for Planned Operative Procedure(s) Verified: Yes Verified Documents: Surgical Consent and History and Physical NPO Status Verified Time NPO: 00:00 Additional verifications Anesthesia Reactions: No Airway Assessment Mallampati Score:: Class II C-Spine Mobility Assessed: Yes TMJ Mobility Assessed: Yes Dentition: Good Dentition Neurological Assessment Level of Consciousness: Awake, Alert and Appropriate Anesthesia Plan Anesthesia Risk discussed: Yes Anesthesia Plan: Verified ASA Class: II Anesthesia Type: MAC
--- NOTE | 2024-04-05 14:46 | P.PCN_ITS ---
[facility] Procedure Note Date: 04/05/24 Time: 14:46 Procedure Note:: Upper Endoscopy Procedure Report: Esophagogastroduodenoscopy with cold biopsies Endoscopost: Chao Ngo II, MD Referring Physician: Viviana MILES Date of Procedure: April 05, 2024 Equipment: Olympus GIF 190 standard upper endoscope Sedation: MAC sedation Indications: Mr. Willett is a 64-year-old gentleman with iron deficiency anemia. He is here for diagnostic panendoscopy. The patient does have a histo ry of BPH and kidney stones and was sent to the ED from the urology office secondary to lightheadedness and hypotension. He reported some dyspnea on exertion. He reported no chest pain or dyspnea at rest. He did have an indwelling urinary catheter for about a month and when this was pulled there was gross hematuria. His hemoglobin was 6.9. Looking back his hemoglobin has been declined even last year but not to this degree with hemoglobin hematocrit last year of 10.5 and 34.3. He did have microcytic indices. His serum iron level was 46 with iron saturation 12.53% and ferritin at 4.35. His creatinine is normal at 1.10. The patient has never had a colonoscopy. He does report some gastroesophageal reflux which he controls with [id number] Pepcid. He does note some dark stools but reports no bright red rectal bleeding, hematochezia or melena. He reports no abdominal pain or weight loss. He has had no change in bowel habits or family history of colon cancer. He reports no dysphagia or fullness. 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 This was noncontrast. Procedure: Prior to the procedure, a history and physical exam was performed, and patient's medications and allergies were reviewed. The risks, benefits and alternatives of the sedation and procedure were discussed with the patient. All questions were answered and informed consent was obtained. The patient was brought to the procedure room. Patient identification and proposed procedure were verified by the physician and the nurse. The patient was placed in a left lateral decubitus position and the scope was passed under direct vision. Throughout the procedure, the patient's blood pressure, pulse, and oxygen saturations were monitored continuously. The upper GI endoscopy was accomplished without difficulty. The patient tolerated the procedure well. Findings: The scope was passed directly into the upper esophagus and advanced to the third portion of the duodenum. The post bulbar duodenum and duodenal bulb were normal with normal mucosa and conniventes. Cold biopsies were taken from the first and second portion of the duodenum to rule out celiac disease. The scope was withdrawn through a normal duodenal bulb and pylorus into the stomach. There was some bile reflux with minimal reactive gastropathy. Biopsies were taken from the antrum. The body and fundus were normal. There was no atrophy. There were no ulcerations, erosions or AVMs. Upon retroflexion there was a small 2 to 3 cm hiatal hernia. There were no Skip's erosions. The scope was then withdrawn into the esophagus. There was no evidence of reflux esophagitis, varices or Urbano's. The remainder of the esophageal mucosa was normal. Impression: 1. Small 2 to 3 cm hiatal hernia 2. Bile reflux with minimal antral gastropathy Plan: There is no etiology for the patient's iron deficiency anemia. I will proceed with colonoscopy if he is prepped appropriately. I will follow-up the biopsies.
--- NOTE | 2024-04-05 14:56 | P.PCN_ITS ---
[facility] Procedure Note Date: 04/05/24 Time: 15:16 Procedure Note:: Colonoscopy Procedure Report: Colonoscopy with TTS balloon dilation, cold biopsies and spot ink tattoo injected submucosally Endoscopist: Chao Ngo II, MD Referring physician: Viviana MILES Date of Procedure: April 05, 2024 Equipment: Olympus 190 variable stiffness pediatric colonoscope Sedation: MAC sedation Indication: Mr. Willett is a 64-year-old gentleman with iron deficiency anemia who is here for diagnostic panendoscopy. The patient does have a history of BPH and kidney stones and was sent to the ED from the urology office secondary to lightheadedness and hypotension. He reported some dyspnea on exertion. He reported no chest pain or dyspnea at rest. He did have an indwelling urinary catheter for about a month and when this was pulled there was gross hematuria. His hemoglobin was 6.9. Looking back his hemoglobin has been declined even last year but not to this degree with hemoglobin hematocrit last year of 10.5 and 34.3. He did have microcytic indices. His serum iron level was 46 with iron saturation 12.53% and ferritin at 4.35. His creatinine is normal at 1.10. The patient has never had a colonoscopy. He does report some gastroesophageal reflux which he controls with [id number] Pepcid. He does note some dark stools but reports no bright red rectal bleeding, hematochezia or melena. He reports no abdominal pain or weight loss. He has had no change in bowel habits or family history of colon cancer. He reports no dysphagia or fullness. 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 This was noncontrast. Procedure: Prior to the procedure, a history and physical exam was performed, and patient's medications and allergies were reviewed. The risks, benefits and alternatives of the sedation and procedure were discussed with the patient. All questions were answered and informed consent was obtained. The patient was brought to the procedure room. Patient identification and proposed procedure were verified by the physician and the nurse. The patient was placed in a left lateral decubitus position and the scope was passed under direct vision. Throughout the procedure, the patient's blood pressure, pulse, and oxygen saturations were monitored continuously. The colonoscopy was accomplished without difficulty. The patient tolerated the procedure well. Findings: On digital rectal examination there was normal rectal tone. There were no external hemorrhoids. The colonoscope was introduced through the anal canal to the rectum and advanced to the cecum. The ileocecal valve and appendiceal orifice were identified. The scope was advanced a short distance into the ileum which appeared grossly normal. The scope was then withdrawn into the colon. Upon withdrawal, the cecum, ascending and transverse colon were normal. In the descending colon at 58 cm from the anal verge was an apple core near obstructive mass lesion that was fully circumferential. Initially the 11 mm colonoscope could not be advanced through this malignant stricture. A guidewire TTS hydrostatic balloon was advanced through the stricture and the guidewire was placed securely across the stricture. This was dilated to 12 mm with a TTS hydrostatic balloon allowing the colonoscope passage through the stricture and advancement to cecum/ileum. Next, upon withdrawal to this lesion, multiple biopsies were obtained. This extended approximately 3 to 3.5 cm and again was fully circumferential with friability and heaped edges at the proximal margin. Lastly, spot ink was utilized to tattoo the lesion at the proximal margin and 10 mL of Spot ink was injected submucosally. The distal descending and sigmoid colon and rectum were normal. Upon retroflexion within the rectum there were grade 1-2 internal hemorrhoids. The preparation was good throughout with [place] Preparation Score of 8 out of 9. Impression: 1. 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 This is the obvious etiology of his iron deficiency. I would like for the patient to have IV/oral contrast CT scan for staging. I would recommend consultation with general surgery.
--- NOTE | 2024-04-05 15:20 | PC.NURSE ---
Aox 4, up ad stacy, on , f/c in place, 22g R FA SL, off the floor for his colonoscopy and egd.
--- NOTE | 2024-04-05 15:23 | CT_ITS ---
PROCEDURE INFORMATION: Exam: CT Abdomen And Pelvis With Contrast Exam date and time: 04/05/2024 6:23 PM Age: 64 years old Clinical indication: Abdominal pain; Additional info: Malignant descending colon mass TECHNIQUE: Imaging protocol: Computed tomography of the abdomen and pelvis with contrast. Radiation optimization: All CT scans at this facility use at least one of these dose optimization techniques: automated exposure control; mA and/or kV adjustment per patient size (includes targeted exams where dose is matched to clinical indication); or iterative reconstruction. Contrast material: ISOVUE; Contrast volume: 75 ml; Contrast route: IV; COMPARISON: 1. CT ABDOMEN PELVIS WO CON 04/03/2024 3:[address] ABDOMEN PELVIS W CON 07/17/2023 12:31 AM 3. CR XR KUB 03/29/2024 2:27 PM FINDINGS: Lungs: Scattered areas of bronchial wall thickening which are likely chronic inflammatory. A few areas of subpleural reticulation are noted, nonspecific. Heart: There is a small to moderate pericardial effusion, increased from prior. Liver: Normal. Gallbladder and biliary ducts: No acute process. Pancreas: Normal. Spleen: Normal. Adrenal glands: The adrenal glands appear normal. Kidneys and ureters: There is a horseshoe kidney. Stable horseshoe kidney. There are nonobstructing bilateral intrarenal calculi. There is mild bilateral hydronephrosis extending to the significantly thick-walled urinary bladder. Stomach and bowel: There is wall thickening of the splenic flexure with small locules of adjacent pneumoperitoneum. Appendix: No evidence of appendicitis. Intraperitoneal space: See Stomach and bowel finding. Vasculature: There is atherosclerotic disease of the visualized aorta and its major branch vessels. Lymph nodes: No lymphadenopathy. Urinary bladder: There is mild bladder wall thickening, nonspecific. There is air within the urinary bladder, correlate with any recent instrumentation. There is a Ferris catheter place within the urinary bladder. Reproductive: No acute process. Bones/joints: There is diffuse degenerative disease of the visualized osseous structures. Soft tissues: Unremarkable. IMPRESSION: 1. Small locules of pneumoperitoneum adjacent to the splenic flexure as well as in the upper abdomen, findings would be concerning for hollow viscus perforation. Findings are new from two days prior. 2. There is a small to moderate pericardial effusion, increased from prior.
--- NOTE | 2024-04-05 16:03 | HMH.ITSTN ---
patient given oral contrast to drink; Whitney aware and will call when patient finishes drinking.
[2024-04-05] MEDS: DIATRIZOATE MEG 66% & DIATRIZOATE NA 10% 30ML UDC 30 ML PO (16:24)
--- NOTE | 2024-04-05 16:28 | HMH.ITSTN ---
Addendum entered by Catalina Do, Identity Management Developer 04/05/24 17:14: ready @[id number] Original Note: patient will be ready for CT scan @[id number]
--- NOTE | 2024-04-05 16:37 | EXP.ACUTE.PN ---
Subjective *Date: 04/05/24 *Time: 18:08 Interval history: Patient denied any abdominal pain, shortness of breath, chest pain. Afebrile. Responding well to bowel prep. Did cause some nausea overnight. Stools clearing. Stable on room air. Awaiting endoscopy today. Medical Exam Vital signs and Labs for Last 24 Hours: Vital Signs Temp Pulse Resp BP Pulse Ox O2 Del Method O2 Flow Rate 04/05/24 16:11 Room Air 04/05/24 16:00 97.8 F 90 16 142/62 H 98 Room Air 04/05/24 15:45 97.6 F 89 16 135/73 96 Room Air 04/05/24 15:33 88 16 104/63 L 96 Room Air 04/05/24 15:23 97.7 F 89 16 91/52 L 96 Room Air 04/05/24 14:47 Nasal Cannula 5 04/05/24 13:51 98.2 F 90 16 140/71 96 Room Air 04/05/24 12:01 Room Air 04/05/24 12:00 98.2 F 90 16 140/71 96 Room Air 04/05/24 09:00 Room Air 04/05/24 08:00 98.1 F 81 18 127/63 98 Room Air 04/05/24 07:33 Room Air 04/05/24 06:59 Room Air 04/05/24 04:46 Room Air 04/05/24 04:00 98.2 F 93 H 16 108/72 L 95 Room Air 04/05/24 03:00 Room Air 04/05/24 00:55 Room Air 04/04/24 22:49 Room Air 04/04/24 21:00 Room Air 04/04/24 20:00 Room Air 04/04/24 20:00 99.0 F 86 16 120/87 99 Room Air 04/04/24 17:47 Room Air Intake and Output 04/05/24 04/05/24 04/05/24 07:59 15:59 23:59 Intake Total 1500 / 1500 Output Total 600 / 1300 700 / 1300 Balance 900 / 200 -700 / 200 Intake: Intake, Oral Amount 1500 / 1500 Output: Output, Urine Amount 600 / 600 Output, Urine Amount (Catheter) 700 / 700 Ferris 700 / 700 Other: Number of Bowel Movements 2 Weight 79.379 kg Patient Weight 04/05/24 23:59 Weight 79.379 kg Laboratory Results - last 24 hr 04/04/24 23:30: Stool Occult Blood Positive A 04/05/24 05:45: WBC 10.4 D, RBC 4.19 L, Hgb 9.0 L D, Hct 30.1 L, MCV 71.8 L, MCH 21.5 L, MCHC 29.9 L, RDW 22.4 H, Plt Count 386, MPV 9.2, Neut % (Auto) 69.9, Lymph % (Auto) 22.4, [place] % (Auto) 5.5, Eos % (Auto) 0.7, Baso % (Auto) 0.9, Neut # (Auto) 7.3, Lymph # (Auto) 2.3, [place] # (Auto) 0.6, Eos # (Auto) 0.1, Baso # (Auto) 0.1, Sodium 136, Potassium 3.8, Chloride 104, Carbon Dioxide 23, Anion Gap 12.8, BUN 16, Creatinine 1.20, Estimated Creat Clear 68, Estimated GFR 61, Est GFR ( Amer) 73, Glucose 106 H, Calcium 8.6, Magnesium 1.9 D, Total Bilirubin 1.1, AST 27 D, ALT 20, Alkaline Phosphatase 63, Total Protein 6.5, Albumin 4.4 D, Globulin 2.1, Albumin/Globulin Ratio 2.1 H I & O for Labs for Last 24 Hours: Intake & Output 04/02/24 04/03/24 04/04/24 04/05/24 23:59 23:59 23:59 23:59 Intake Total 250 / 350 1060 / 2560 1500 / 1500 Output Total 550 / 1050 4550 / 4550 1300 / 1300 Balance -300 / -700 -3490 / -1989 200 / 200 Weight 78.471 kg 79.923 kg 79.379 kg Microbiology Reports for the Last 24 Hours: Microbiology 04/03/24 14:45 Blood Blood Culture - Preliminary NO GROWTH AFTER 48 HOURS 04/03/24 14:50 Blood Blood Culture - Preliminary NO GROWTH AFTER 48 HOURS Constitutional: Present no acute distress, thin, chronically ill appearing and cooperative Head: Present atraumatic and normocephalic ENT: Present normal exam Respiratory: Present normal respiratory effort; Absent rhonchi, wheezes or crackles Cardiac: Present Reg Rate and Rhythm GI: Present soft and normal bowel sounds; Absent distention or tenderness Extremities: Present normal inspection and full ROM Skin: Present intact; Absent erythema Neuro: Present Grossly Intact, alert, awake, oriented x 3 and moves all extremities Assessment and Plan *Assessment and plan (1) Symptomatic anemia: Status: Acute Category: Medical Code(s): D64.9 - Anemia, unspecified (2) Malignant neoplasm of colon: Status: Acute Qualifiers: Colon location: descending Qualified Code(s): C18.6 - Malignant neoplasm of descending colon Category: Medical Code(s): C18.9 - Malignant neoplasm of colon, unspecified (3) Iron deficiency anemia: Status: Acute Category: Medical Code(s): D50.9 - Iron deficiency anemia, unspecified (4) Bladder outlet obstruction: Status: Acute Category: Medical Code(s): N32.0 - Bladder-neck obstruction (5) BPH (benign prostatic hyperplasia): Status: Acute Category: Medical Code(s): N40.0 - Benign prostatic hyperplasia without lower urinary tract symptoms Plan Minh Willett is a 64-year-old male with a medical history significant for nephrolithiasis, BPH who was sent to the ED from urologist office today for dizziness, hypotension. Patient states he was following up with Dr. Olivarez today for indwelling catheter for suspected BPH where he states the office was very hot and became lightheaded, dizzy and was found to have a blood pressure in the 70s over 40s. Patient denies chest pain, shortness of breath, palpitations during this episode. He states he has been dealing with indwelling catheter for about a month for suspected BPH and urinary retention. In the ED, blood pressures were stable but hemoglobin 6.9. Patient endorses dark intermittent stool for many months but denies abdominal pain,, hematemesis. Denies constipation, weight loss, or ever having a colonoscopy. Also denies NSAIDs, alcohol use. Case discussed with ED provider and decision was made to admit patient for acute on chronic anemia. Responded well to transfusion. GI evaluating today. Continues to require inpatient management. Problems addressed as follows: #Acute on chronic anemia #Malignant neoplasm of colon, (acute diagnosis with threat to life or bodily function) ? Endorses intermittent dark stools for many months. Denies constipation, weight loss, or having had a colonoscopy in the past. ?Hemoglobin 6.9 on admission along with low MCV. Responded to transfusion. Hemoglobin stable this morning at 9. White count 10.4 -Continue IV Protonix 40 mg twice daily. Continue Carafate. -Iron studies show iron level of 46, saturation 12.5%. TSH 4.6. Received IV Venofer yesterday. - Repeat CBC, CMP, magnesium ordered for the morning. - Discussed case with GI, patient had apple core lesion approximately 3-1/2 cm in length. Concern for circumferential colon cancer. Recommend consulting surgery. Recommend obtaining CT abdomen/pelvis with contrast. Will obtain CEA level. Surgery to evaluate for possible colectomy pending CT evaluation -Having some abdominal pain after procedure, initiate morphine 4 mg IV every 4 hours as needed for severe pain. Monitor for toxicity. #Bladder outlet obstruction #Indwelling Ferris catheter #Bilateral nonobstructing kidney stones ? Continue Ferris catheter. Will need close follow-up with urology. - Kidney function normal with BUN 16, creatinine 1.2. ? Continue home tamsulosin 0.4 mg daily Full code DVT prophylaxis: SCDs Advance diet as tolerated
--- NOTE | 2024-04-05 16:44 | P.CONS_ITS ---
History of Present Illness *Admission Date: 04/03/24 *Reason for visit:: Proximal left colon mass *History of present illness: This is a 64-year-old gentleman with a newly-diagnosed apple core lesion of the proximal left colon. He underwent colonoscopy earlier today by Dr. Chao Ngo (please see procedure report for detail). Forwarded from admission H&P: Mr. Willett is a 64-year-old gentleman with iron deficiency anemia. The patient does have a history of BPH and kidney stones and was sent to the ED from the urology office secondary to lightheadedness and hypotension. He reported some dyspnea on exertion. He reported no chest pain or dyspnea at rest. He did have an indwelling urinary catheter for about a month and when this was pulled there was gross hematuria. His hemoglobin was 6.9. Looking back his hemoglobin has been declined even last year but not to this degree with hemoglobin hematocrit last year of 10.5 and 34.3. He did have microcytic indices. His serum iron level was 46 with iron saturation 12.53% and ferritin at 4.35. His creatinine is normal at 1.10. The patient has never had a colonoscopy. He does report some gastroesophageal reflux which he controls with [id number] Pepcid. He does note some dark stools but reports no bright red rectal bleeding, hematochezia or melena. He reports no abdominal pain or weight loss. He has had no change in bowel habits or family history of colon cancer. He reports no dysphagia or fullness. 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 This was noncontrast. Colonoscopy impression/plan (Dr. Ngo): Impression: 1. 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 This is the obvious etiology of his iron deficiency. I would like for the patient to have IV/oral contrast CT scan for staging. I would recommend consultation with general surgery. [facility] Disclaimer: The information contained in this section may have been updated after the patient was seen, as this information can be updated by other users. Medical History (Updated 04/05/24 @ 16:48 by Demond Miguel MD) GERD (gastroesophageal reflux disease) Social History (Updated 04/03/24 @ 17:07 by Wendy Borrego RN) Smoking Status: Never smoker alcohol intake: never substance use type: denies use current occupational status: employed Travel in the last 8 weeks: None Have you lived/traveled outside [place] in past 30 days?: No Contact w/someone who lives/traveled outside US past 30 days?: No Exposure to someone with infectious disease in past 14 days?: No Do you have a fever (greater than 100.4 F or 38 C)?: No Have you tested positive for COVID-19: No Exposed to someone with COVID-19 in past 14 days?: No Do you have a sore throat?: No Do you have a cough?: No Do you have any weakness?: No Do you have any diarrhea?: No Are you experiencing any unusual bleeding?: No Do you have any muscle aches/pain?: No Do you have any abdominal pain?: No Are you experiencing loss of taste or smell?: No Meds Home Medications and Allergies Home Medications ?Medication ?Instructions ?Recorded ?Confirmed ?Type tamsulosin 0.4 mg capsule 0.4 mg PO DAILY 90 days #90 caps 03/27/24 04/03/24 Rx famotidine 20 mg tablet 20 mg PO HS 04/03/24 04/03/24 History levofloxacin 500 mg tablet 500 mg PO DAILY 04/03/24 04/03/24 History New Prescriptions to Start Prescriptions: Allergies Allergy/AdvReac Type Severity Reaction Status Date / Time No Known Allergies Allergy Verified 04/03/24 13:55 Exam (Inpt) Vital signs and Labs for Last 24 Hours: Temp Pulse Resp BP Pulse Ox O2 Del Method O2 Flow Rate 97.8 F 76 16 144/90 H 97 Room Air 5 04/05/24 16:30 04/05/24 16:30 04/05/24 16:30 04/05/24 16:30 04/05/24 16:30 04/05/24 16:30 04/05/24 14:47 Laboratory Results - last 24 hr 04/04/24 23:30: Stool Occult Blood Positive A 04/05/24 05:45: WBC 10.4 D, RBC 4.19 L, Hgb 9.0 L D, Hct 30.1 L, MCV 71.8 L, M CH 21.5 L, MCHC 29.9 L, RDW 22.4 H, Plt Count 386, MPV 9.2, Neut % (Auto) 69.9, Lymph % (Auto) 22.4, [place] % (Auto) 5.5, Eos % (Auto) 0.7, Baso % (Auto) 0.9, Neut # (Auto) 7.3, Lymph # (Auto) 2.3, [place] # (Auto) 0.6, Eos # (Auto) 0.1, Baso # (Auto) 0.1, Sodium 136, Potassium 3.8, Chloride 104, Carbon Dioxide 23, Anion Gap 12.8, BUN 16, Creatinine 1.20, Estimated Creat Clear 68, Estimated GFR 61, Est GFR ( Amer) 73, Glucose 106 H, Calcium 8.6, Magnesium 1.9 D, Total Bilirubin 1.1, AST 27 D, ALT 20, Alkaline Phosphatase 63, Total Protein 6.5, A lbumin 4.4 D, Globulin 2.1, Albumin/Globulin Ratio 2.1 H I & O for Labs for Last 24 Hours: Intake & Output 04/03/24 04/04/24 04/05/24 04/06/24 11:59 11:59 11:59 11:59 Intake Total 950 / 950 1860 / 1860 Output Total 2150 / 2150 3550 / 3550 700 / 700 Balance -1200 / -1200 -1690 / -1690 -700 / -700 Weight 176 lb 3.2 oz 175 lb Microbiology Reports for the Last 24 Hours: Microbiology 04/03/24 14:45 Blood Blood Culture - Preliminary NO GROWTH AFTER 48 HOURS 04/03/24 14:50 Blood Blood Culture - Preliminary NO GROWTH AFTER 48 HOURS Constitutional: no acute distress Respiratory: Absent respiratory distress Cardiac: Absent Tachycardia GI: Present soft Results Labs 04/05/24 05:45 04/05/24 05:45 Labs: Laboratory Results - last 24 hr 04/04/24 23:30: Stool Occult Blood Positive A 04/05/24 05:45: WBC 10.4 D, RBC 4.19 L, Hgb 9.0 L D, Hct 30.1 L, MCV 71.8 L, M CH 21.5 L, MCHC 29.9 L, RDW 22.4 H, Plt Count 386, MPV 9.2, Neut % (Auto) 69.9, Lymph % (Auto) 22.4, [place] % (Auto) 5.5, Eos % (Auto) 0.7, Baso % (Auto) 0.9, Neut # (Auto) 7.3, Lymph # (Auto) 2.3, [place] # (Auto) 0.6, Eos # (Auto) 0.1, Baso # (Auto) 0.1, Sodium 136, Potassium 3.8, Chloride 104, Carbon Dioxide 23, Anion Gap 12.8, BUN 16, Creatinine 1.20, Estimated Creat Clear 68, Estimated GFR 61, Est GFR ( Amer) 73, Glucose 106 H, Calcium 8.6, Magnesium 1.9 D, Total Bilirubin 1.1, AST 27 D, ALT 20, Alkaline Phosphatase 63, Total Protein 6.5, A lbumin 4.4 D, Globulin 2.1, Albumin/Globulin Ratio 2.1 H Assessment and Plan *Assessment and plan (1) Malignant neoplasm of colon: Status: Acute Qualifiers: Colon location: descending Qualified Code(s): C18.6 - Malignant neoplasm of descending colon Category: Medical Code(s): C18.9 - Malignant neoplasm of colon, unspecified Plan Follow-up pending CT scan Follow-up pending CEA level Further disposition pending results of CT scan. The patient may ultimately require referral to tertiary center (if hepatic metastasis or equivalent anomaly noted per CT scan). Regardless of facility, the patient will require intervention in the very near future to avoid progression to obstruction.
[2024-04-05] MEDS: ONDANSETRON 4MG/2ML VIAL 4 MG IV (17:31)
[2024-04-05] MEDS: ACETAMINOPHEN 325MG TAB 650 MG PO (17:31)
[2024-04-05] MEDS: MORPHINE 4MG/ML SYRINGE 4 MG IV (17:51)
[2024-04-05] MEDS: IOPAMIDOL-370 (76%);100ML BOTTLE 75 ML IV (18:25)
[2024-04-05] MEDS: SODIUM CHLORIDE 0.9% 10ML SYR (RAD ONLY) 10 ML IV (18:25)
[2024-04-05] MEDS: SODIUM CHLORIDE 0.9% 10ML VIAL 10 ML IV (20:05)
[2024-04-05] MEDS: TAMSULOSIN 0.4MG CAPSULE 0.8 MG PO (20:05)
[2024-04-06] VITALS: BP 111/64; PULSE 105; RESP 16; TEMP 36.9; O2SAT 95
[2024-04-06] MEDS: PIPERCILLIN/TAZO 3.375 GM in 0.9 % SODIUM CHLORIDE 50 ML IV ×4 (01:00→17:59)
[2024-04-06 01:09] LABS: Basophils % 0.3 % (0.1-2.0); Eosinophils % 0.1 % (0.1-12.0); Hematocrit 27.4 % (42.0-52.0); Hemoglobin 8.3 g/dL (14.1-18.0); INR 0.97 (0.9-1.1); Lymphocytes % 6.2 % (10-50); Mean Corpuscular HGB Conc 30.3 g/dL (31.8-35.4); Mean Corpuscular Hemoglobin 21.9 pg (27.0-31.2); Mean Corpuscular Volume 72.3 fl (80-94); Mean Platelet Volume 9.1 fl (7.4-10.4); Monocytes # 0.8 K/mm3 (0.1-1.0); Monocytes % 4.9 % (1.7-9.3); Neutrophils # 13.9 K/mm3 (1.8-7.8); Neutrophils % 88.1 % (37.0-80.0); Platelet Count 310 K/mm3 (142-424); Prothrombin Time 10.7 seconds (9.2-12.1); Red Blood Count 3.79 M/mm3 (4.60-6.20); Red Cell Distribution Width 22.9 % (11.5-17.5); White Blood Count 15.8 K/mm3 (4.8-10.8)
[2024-04-06 01:10] LABS: MANUAL DIFFERENTIAL MANUAL DIFFERENTIAL (MANUAL DIFF)
[2024-04-06 01:18] LABS: Alanine Aminotransferase 17 U/L (12-78); Albumin/Globulin Ratio 1.7 (1.1-1.8); Alkaline Phosphatase 58 U/L (38-126); Aspartate Amino Transferase 22 U/L (17-59); Bilirubin,Total 1.1 mg/dl (0.2-1.3); Blood Urea Nitrogen 14 mg/dl (9-20); Carbon Dioxide 25 mmol/L (22.0-30.0); Chloride 104 mmol/L (98-107); Creatinine Clearance Estimated 68 mL/min (50-200); Estimated Glomerular Filt Rate 61 ml/min (>60); GFR (African American) 73 ML/MIN (>60); Globulin 2.4 g/dL (1.3-3.2); Glucose 117 mg/dl (74-100); Sodium 133 mmol/L (136-145); Total Protein,Serum 6.4 g/dl (6.3-8.2)
[2024-04-06 01:34] LABS: Procalcitonin 3.84 ng/mL (0.0-2.0)
--- NOTE | 2024-04-06 03:46 | PC.NURSE ---
patient has rested well this shift, c/o mild pain in abdomen but said it is much better , tolerating clear liquid diet, coffey in place with adequate urine output. critical findings on CT reported from radiologist, BLOW TORCH OPERATOR notified, BLOW TORCH OPERATOR spoke with general surgeon automation tender, no plans for surgery at this time, antibiotics ordered and administered.
[2024-04-06 03:49] LABS: Lymphocytes % 7 % (10-50); Neutrophils % 93 % (42-76); Platelet Estimate Normal; Total Cells Counted 100
[2024-04-06 03:50] LABS: Hypochromasia 2+; Microcytosis 1+
[2024-04-06 03:51] LABS: Ovalocytes 1+
[2024-04-06 03:52] LABS: Stomatocytes 1+
[2024-04-06 04:00] VITALS: BP 111/60; PULSE 93; RESP 16; TEMP 36.9; O2SAT 95; BMI 22.4
[2024-04-06] MEDS: SUCRALFATE 1GM TABLET 1 GM PO ×4 (05:33→20:11)
[2024-04-06 05:38] LABS: Basophils # 0.1 K/mm3 (0-0.2); Basophils % 0.4 % (0.1-2.0); Eosinophils % 0.1 % (0.1-12.0); Hemoglobin 8.4 g/dL (14.1-18.0); Lymphocytes # 1.4 K/mm3 (0.7-4.5); Lymphocytes % 10.1 % (10-50); Mean Corpuscular Hemoglobin 21.6 pg (27.0-31.2); Mean Platelet Volume 9.1 fl (7.4-10.4); Monocytes # 0.7 K/mm3 (0.1-1.0); Neutrophils # 11.5 K/mm3 (1.8-7.8); Neutrophils % 83.8 % (37.0-80.0); Platelet Count 308 K/mm3 (142-424); Red Blood Count 3.89 M/mm3 (4.60-6.20); Red Cell Distribution Width 22.7 % (11.5-17.5); White Blood Count 13.7 K/mm3 (4.8-10.8)
[2024-04-06 05:55] LABS: Chloride 104 mmol/L (98-107)
[2024-04-06 05:56] LABS: Albumin Level 3.9 g/dl (3.5-5.0); Potassium 3.9 mmoL/L (3.5-5.1); Sodium 136 mmol/L (136-145)
[2024-04-06 05:58] LABS: Blood Urea Nitrogen 14 mg/dl (9-20); Creatinine Clearance Estimated 68 mL/min (50-200); Estimated Glomerular Filt Rate 61 ml/min (>60); GFR (African American) 73 ML/MIN (>60)
[2024-04-06 05:59] LABS: Alanine Aminotransferase 15 U/L (12-78); Albumin/Globulin Ratio 1.6 (1.1-1.8); Alkaline Phosphatase 54 U/L (38-126); Anion Gap 10.9 mEq/L (5-15); Aspartate Amino Transferase 24 U/L (17-59); Bilirubin,Total 1.3 mg/dl (0.2-1.3); Calcium 8.8 mg/dl (8.4-10.2); Carbon Dioxide 25 mmol/L (22.0-30.0); Globulin 2.4 g/dL (1.3-3.2); Glucose 113 mg/dl (74-100); Magnesium 1.9 mg/dl (1.6-2.3); Total Protein,Serum 6.3 g/dl (6.3-8.2)
--- NOTE | 2024-04-06 07:00 | EXP.EVENT.NO ---
Received call from radiology at approximately 12:45 AM regarding findings on CAT scan performed earlier today.
[2024-04-06] MEDS: PANTOPRAZOLE 40MG VIAL 40 MG IV ×2 (07:36→20:11)
[2024-04-06] MEDS: ACETAMINOPHEN 325MG TAB 650 MG PO ×2 (07:37→15:59)
[2024-04-06 08:00] VITALS: BP 123/86; PULSE 106; RESP 16; TEMP 36.9; O2SAT 98
--- NOTE | 2024-04-06 08:21 | P.PN_ITS ---
Subjective Patient reports: no new complaints Narrative: Some [id number] post-procedural pain yesterday. Significant improvement today. Exam Data for Last 24 hours Vital signs and Labs for Last 24 Hours: Temp Pulse Resp BP Pulse Ox O2 Del Method O2 Flow Rate 98.4 F 93 H 16 111/60 95 Room Air 5 04/06/24 04:00 04/06/24 04:00 04/06/24 04:00 04/06/24 04:00 04/06/24 04:00 04/06/24 07:40 04/05/24 14:47 Laboratory Results - last 24 hr 04/06/24 00:46: WBC 15.8 H D, RBC 3.79 L, Hgb 8.3 L, Hct 27.4 L, MCV 72.3 L, MCH 21.9 L, MCHC 30.3 L, RDW 22.9 H, Plt Count 310, MPV 9.1, Neut % (Auto) 88.1 H, Lymph % (Auto) 6.2 L, [place] % (Auto) 4.9, Eos % (Auto) 0.1, Baso % (Auto) 0.3, Neut # (Auto) 13.9 H, Lymph # (Auto) 1.0, [place] # (Auto) 0.8, Eos # (Auto) 0.0, Baso # (Auto) 0.0, Total Counted 100, Neutrophils % (Manual) 93 H, Lymphocytes % (Manual) 7 L, Platelet Estimate Normal, Hypochromasia 2+, Microcytosis 1+, Ovalocytes 1+, Stomatocytes 1+, PT 10.7, INR 0.97, Sodium 133 L, Potassium 4.0, Chloride 104, Carbon Dioxide 25, Anion Gap 8.0, BUN 14, Creatinine 1.20, Estimated Creat Clear 68, Estimated GFR 61, Est GFR ( Amer) 73, Glucose 117 H, Lactate 1.0, Calcium 9.0, Total Bilirubin 1.1, AST 22, ALT 17, Alkaline Phosphatase 58, Total Protein 6.4, Albumin 4.0, Globulin 2.4, Albumin/Globulin Ratio 1.7, Procalcitonin 3.84 H 04/06/24 05:17: WBC 13.7 H, RBC 3.89 L, Hgb 8.4 L, Hct 28.0 L, MCV 72.0 L, MCH 21.6 L, MCHC 30.0 L, RDW 22.7 H, Plt Count 308, MPV 9.1, Neut % (Auto) 83.8 H, Lymph % (Auto) 10.1, [place] % (Auto) 5.0, Eos % (Auto) 0.1, Baso % (Auto) 0.4, Neut # (Auto) 11.5 H, Lymph # (Auto) 1.4, [place] # (Auto) 0.7, Eos # (Auto) 0.0, Baso # (Auto) 0.1, Sodium 136, Potassium 3.9, Chloride 104, Carbon Dioxide 25, Anion Gap 10.9, BUN 14, Creatinine 1.20, Estimated Creat Clear 68, Estimated GFR 61, Est GFR ( Amer) 73, Glucose 113 H, Calcium 8.8, Magnesium 1.9, Total Bilirubin 1.3, AST 24, ALT 15, Alkaline Phosphatase 54, Total Protein 6.3, Albumin 3.9, Globulin 2.4, Albumin/Globulin Ratio 1.6 I & O for Last 24 hours: Intake & Output 04/03/24 04/04/24 04/05/24 04/06/24 11:59 11:59 11:59 11:59 Intake Total 950 / 950 1860 / 1860 340 / 340 Output Total 2150 / 2150 3550 / 3550 2125 / 2125 Balance -1200 / -1200 -1690 / -1690 -1785 / -1785 Weight 176 lb 3.2 oz 175 lb 175 lb 3.2 oz Microbiology Reports for the Last 24 Hours: Microbiology 04/03/24 14:50 Blood Blood Culture - Preliminary 04/03/24 14:45 Blood Blood Culture - Preliminary NO GROWTH AFTER 48 HOURS Radiology Reports for the Last 24 Hours: CT scan with contrast yesterday afternoon reveals no evidence of metastatic disease. Extraluminal punctate air status post colonoscopy with neoplasm dilatation and tattoo ink injection noted. Constitutional Constitutional: no acute distress *Routine Respiratory Exam Respiratory: Absent respiratory distress *Routine Cardiovascular Exam Cardiovascular: Absent tachycardia *Routine Abdominal Exam Abdominal: Present soft; Absent tenderness Progress Note: A&P Assessment and plan (1) Malignant neoplasm of colon: Status: Acute Assessment and plan: The patient has no obvious evidence of malignancy per CT scan. He is seemingly asymptomatic with regard to radiographic evidence of extraluminal punctate air status post colonoscopy with dilatation/biopsy/tattoo placement. I had a long discussion with the patient concerning further evaluation and management/surgical intervention. He wishes to consider treatment at a tertiary care center secondary to possibly wanting laparoscopic approach and also given that he is currently treated for horseshoe kidney/other urologic issues at the [facility]. Patient states that he wants to discuss everything with (his) prior to decision. (2) Symptomatic anemia: Status: Acute (3) Iron deficiency anemia: Status: Acute (4) Bladder outlet obstruction: Status: Acute (5) BPH (benign prostatic hyperplasia): Status: Acute
[2024-04-06 10:10] LABS: CEA 19.5 ng/mL (0.0-4.7)
[2024-04-06 12:00] VITALS: BP 144/73; PULSE 86; RESP 18; TEMP 36.8; O2SAT 99
[2024-04-06 15:16] VITALS: BMI 22.4
[2024-04-06 16:00] VITALS: BP 148/75; PULSE 88; RESP 18; TEMP 36.7; O2SAT 98
--- NOTE | 2024-04-06 16:57 | P.PN_ITS ---
Subjective *Date: 04/06/24 *Time: 16:57 Interval history: Patient tolerating clear liquids today. Reviewed CAT scan from yesterday. He did have some intense abdominal pain in the left upper quadrant after colonoscopy and dilation yesterday but this has resolved. Belly is soft Exam Data for Last 24 hours Vital signs and Labs for Last 24 Hours: Temp Pulse Resp BP Pulse Ox O2 Del Method O2 Flow Rate 98.3 F 86 18 144/73 H 99 Room Air 5 04/06/24 12:00 04/06/24 12:00 04/06/24 12:00 04/06/24 12:00 04/06/24 12:00 04/06/24 15:48 04/05/24 14:47 Laboratory Results - last 24 hr 04/05/24 05:45: Carcinoembryonic Ag 19.5 H 04/06/24 00:46: WBC 15.8 H D, RBC 3.79 L, Hgb 8.3 L, Hct 27.4 L, MCV 72.3 L, MCH 21.9 L, MCHC 30.3 L, RDW 22.9 H, Plt Count 310, MPV 9.1, Neut % (Auto) 88.1 H, Lymph % (Auto) 6.2 L, [place] % (Auto) 4.9, Eos % (Auto) 0.1, Baso % (Auto) 0.3, Neut # (Auto) 13.9 H, Lymph # (Auto) 1.0, [place] # (Auto) 0.8, Eos # (Auto) 0.0, Baso # (Auto) 0.0, Total Counted 100, Neutrophils % (Manual) 93 H, Lymphocytes % (Manual) 7 L, Platelet Estimate Normal, Hypochromasia 2+, Microcytosis 1+, Ovalocytes 1+, Stomatocytes 1+, PT 10.7, INR 0.97, Sodium 133 L, Potassium 4.0, Chloride 104, Carbon Dioxide 25, Anion Gap 8.0, BUN 14, Creatinine 1.20, Estimated Creat Clear 68, Estimated GFR 61, Est GFR ( Amer) 73, Glucose 117 H, Lactate 1.0, Calcium 9.0, Total Bilirubin 1.1, AST 22, ALT 17, Alkaline Phosphatase 58, Total Protein 6.4, Albumin 4.0, Globulin 2.4, Albumin/Globulin Ratio 1.7, Procalcitonin 3.84 H 04/06/24 05:17: WBC 13.7 H, RBC 3.89 L, Hgb 8.4 L, Hct 28.0 L, MCV 72.0 L, MCH 21.6 L, MCHC 30.0 L, RDW 22.7 H, Plt Count 308, MPV 9.1, Neut % (Auto) 83.8 H, Lymph % (Auto) 10.1, [place] % (Auto) 5.0, Eos % (Auto) 0.1, Baso % (Auto) 0.4, Neut # (Auto) 11.5 H, Lymph # (Auto) 1.4, [place] # (Auto) 0.7, Eos # (Auto) 0.0, Baso # (Auto) 0.1, Sodium 136, Potassium 3.9, Chloride 104, Carbon Dioxide 25, Anion Gap 10.9, BUN 14, Creatinine 1.20, Estimated Creat Clear 68, Estimated GFR 61, Est GFR ( Amer) 73, Glucose 113 H, Calcium 8.8, Magnesium 1.9, Total Bilirubin 1.3, AST 24, ALT 15, Alkaline Phosphatase 54, Total Protein 6.3, Albumin 3.9, Globulin 2.4, Albumin/Globulin Ratio 1.6 I & O for Last 24 hours: Intake & Output 04/03/24 04/04/24 04/05/24 04/06/24 23:59 23:59 23:59 23:59 Intake Total 250 / 350 1060 / 2560 1500 / 1500 1350 / 1350 Output Total 550 / 1050 4550 / 4550 1825 / 1825 1999 Balance -300 / -700 -3490 / -1990 -325 / -325 -650 / -650 Weight 173 lb 176 lb 3.2 oz 175 lb 175 lb 3.222 oz Microbiology Reports for the Last 24 Hours: Microbiology 04/03/24 14:50 Blood Blood Culture - Preliminary 04/03/24 14:45 Blood Blood Culture - Preliminary NO GROWTH AFTER 48 HOURS *Routine Abdominal Exam Abdominal: Present soft Comments: Normoactive bowel sounds, soft, nondistended, no rebound or guarding, Assessment and Plan *Assessment and plan (1) Malignant neoplasm of splenic flexure: Status: Acute Category: Medical Code(s): C18.5 - Malignant neoplasm of splenic flexure Plan 1. 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 Dr. Demond Miguel M.D. has seen the patient. 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 I have discussed this with the patient and family. I will speak with Jovani Bravo MD about arranging consultation. Notable CT with very minimal pneumoperitoneum possibly related that submucosal injection of ink or dilation. Would begin advancing diet tomorrow. Will also await CEA level. Would recommend parenteral iron now with low serum iron levels prior to surgery.
--- NOTE | 2024-04-06 16:57 | P.PN_ITS ---
Subjective *Date: 04/06/24 *Time: 20:37 Interval history: Feeling better today. Had some pain after the procedure but no significant pain today. No nausea or vomiting. Afebrile. Stable on room air. No nausea or vomiting. Passing gas. Tolerating clear liquids. Medical Exam Vital signs and Labs for Last 24 Hours: Vital Signs Temp Pulse Resp BP Pulse Ox O2 Del Method 04/06/24 15:48 Room Air 04/06/24 14:13 Room Air 04/06/24 12:31 Room Air 04/06/24 12:00 98.3 F 86 18 144/73 H 99 Room Air 04/06/24 09:59 Room Air 04/06/24 08:45 Room Air 04/06/24 08:00 98.5 F 106 H 16 123/86 98 Room Air 04/06/24 07:40 Room Air 04/06/24 06:58 Room Air 04/06/24 05:00 Room Air 04/06/24 04:00 98.4 F 93 H 16 111/60 95 Room Air 04/06/24 03:00 Room Air 04/06/24 01:00 Room Air 04/06/24 00:00 98.5 F 105 H 16 111/64 95 Room Air 04/05/24 23:00 Room Air 04/05/24 21:00 Room Air 04/05/24 20:00 Room Air 04/05/24 19:45 98.2 F 93 H 16 133/57 L 99 Room Air 04/05/24 18:45 97.8 F 84 16 109/65 L 98 Room Air 04/05/24 17:45 97.8 F 78 16 108/61 L 97 Room Air 04/05/24 17:24 Room Air 04/05/24 17:15 97.8 F 78 16 150/77 H 97 Room Air Intake and Output 04/06/24 04/06/24 04/06/24 07:59 15:59 23:59 Intake Total 340 / 1350 1010 / 1350 Output Total 900 / 2000 1100 / 2000 Balance -560 / -650 -90 / -650 Intake: Intake, Oral Amount 240 / 1200 960 / 1200 Intake, Total IV Amount 100 / 150 50 / 150 Pipercillin/Tazo 3.375 gm In 0. 100 / 150 50 / 150 9 % Sodium Chloride 50 ml @ 100 mls/hr IV Q6H [facility] Rx#:[id number] Output: Output, Urine Amount 900 / 2000 1100 / 2000 Other: Number of Unmeasured Voids 0 0 Number of Bowel Movements 1 Weight 79.469 kg 79.47 kg Patient Weight 04/06/24 23:59 Weight 79.47 kg Laboratory Results - last 24 hr 04/05/24 05:45: Carcinoembryonic Ag 19.5 H 04/06/24 00:46: WBC 15.8 H D, RBC 3.79 L, Hgb 8.3 L, Hct 27.4 L, MCV 72.3 L, MCH 21.9 L, MCHC 30.3 L, RDW 22.9 H, Plt Count 310, MPV 9.1, Neut % (Auto) 88.1 H, Lymph % (Auto) 6.2 L, [place] % (Auto) 4.9, Eos % (Auto) 0.1, Baso % (Auto) 0.3, Neut # (Auto) 13.9 H, Lymph # (Auto) 1.0, [place] # (Auto) 0.8, Eos # (Auto) 0.0, Baso # (Auto) 0.0, Total Counted 100, Neutrophils % (Manual) 93 H, Lymphocytes % (Manual) 7 L, Platelet Estimate Normal, Hypochromasia 2+, Microcytosis 1+, Ovalocytes 1+, Stomatocytes 1+, PT 10.7, INR 0.97, Sodium 133 L, Potassium 4.0, Chloride 104, Carbon Dioxide 25, Anion Gap 8.0, BUN 14, Creatinine 1.20, Estimated Creat Clear 68, Estimated GFR 61, Est GFR ( Amer) 73, Glucose 117 H, Lactate 1.0, Calcium 9.0, Total Bilirubin 1.1, AST 22, ALT 17, Alkaline Phosphatase 58, Total Protein 6.4, Albumin 4.0, Globulin 2.4, Albumin/Globulin Ratio 1.7, Procalcitonin 3.84 H 04/06/24 05:17: WBC 13.7 H, RBC 3.89 L, Hgb 8.4 L, Hct 28.0 L, MCV 72.0 L, MCH 21.6 L, MCHC 30.0 L, RDW 22.7 H, Plt Count 308, MPV 9.1, Neut % (Auto) 83.8 H, Lymph % (Auto) 10.1, [place] % (Auto) 5.0, Eos % (Auto) 0.1, Baso % (Auto) 0.4, Neut # (Auto) 11.5 H, Lymph # (Auto) 1.4, [place] # (Auto) 0.7, Eos # (Auto) 0.0, Baso # (Auto) 0.1, Sodium 136, Potassium 3.9, Chloride 104, Carbon Dioxide 25, Anion Gap 10.9, BUN 14, Creatinine 1.20, Estimated Creat Clear 68, Estimated GFR 61, Est GFR ( Amer) 73, Glucose 113 H, Calcium 8.8, Magnesium 1.9, Total Bilirubin 1.3, AST 24, ALT 15, Alkaline Phosphatase 54, Total Protein 6.3, Albumin 3.9, Globulin 2.4, Albumin/Globulin Ratio 1.6 I & O for Labs for Last 24 Hours: Intake & Output 04/03/24 04/04/24 04/05/24 04/06/24 23:59 23:59 23:59 23:59 Intake Total 250 / 350 1060 / 2560 1500 / 1500 1350 / 1350 Output Total 550 / 1050 4550 / 4550 1825 / 1825 1999 / 1999 Balance -300 / -700 -3490 / -1990 -325 / -325 -650 / -650 Weight 78.471 kg 79.923 kg 79.379 kg 79.47 kg Microbiology Reports for the Last 24 Hours: Microbiology 04/03/24 14:50 Blood Blood Culture - Preliminary 04/03/24 14:45 Blood Blood Culture - Preliminary NO GROWTH AFTER 48 HOURS Constitutional: Present no acute distress, thin, chronically ill appearing and cooperative Head: Present atraumatic and normocephalic ENT: Present normal exam Respiratory: Present normal respiratory effort; Absent rhonchi, wheezes or crackles Cardiac: Present Reg Rate and Rhythm GI: Present soft, tenderness (Minimal left upper quadrant) and normal bowel sounds; Absent distention Extremities: Present normal inspection and full ROM Skin: Present intact; Absent erythema Neuro: Present Grossly Intact, alert, awake, oriented x 3 and moves all extremities Assessment and Plan *Assessment and plan (1) Symptomatic anemia: Status: Acute Category: Medical Code(s): D64.9 - Anemia, unspecified (2) Malignant neoplasm of splenic flexure: Status: Acute Category: Medical Code(s): C18.5 - Malignant neoplasm of splenic flexure (3) Iron deficiency anemia: Status: Acute Category: Medical Code(s): D50.9 - Iron deficiency anemia, unspecified (4) Bladder outlet obstruction: Status: Acute Category: Medical Code(s): N32.0 - Bladder-neck obstruction (5) BPH (benign prostatic hyperplasia): Status: Acute Category: Medical Code(s): N40.0 - Benign prostatic hyperplasia without lower urinary tract symptoms Plan Minh Willett is a 64-year-old male with a medical history significant for nephrolithiasis, BPH who was sent to the ED from urologist office today for dizziness, hypotension. Patient states he was following up with Dr. Olivarez today for indwelling catheter for suspected BPH where he states the office was very hot and became lightheaded, dizzy and was found to have a blood pressure in the 70s over 40s. Patient denies chest pain, shortness of breath, palpitations during this episode. He states he has been dealing with indwelling catheter for about a month for suspected BPH and urinary retention. In the ED, blood pressures were stable but hemoglobin 6.9. Patient endorses dark intermittent stool for many months but denies abdominal pain,, hematemesis. Denies constipation, weight loss, or ever having a colonoscopy. Also denies NSAIDs, alcohol use. Case discussed with ED provider and decision was made to admit patient for acute on chronic anemia. Responded well to transfusion. Taken for scope yesterday, found to have splenic flexure stricture concerning for malignancy. Tissue samples obtained. After discussion today, patient would like to follow with for minimally invasive colectomy. Will attempt to refer. Advancing diet. If does well overnight, discharge tomorrow with close follow- up. Problems addressed as follows: #Acute on chronic anemia #Malignant neoplasm of colon, (acute diagnosis with threat to life or bodily function) ? Endorses intermittent dark stools for many months. Denies constipation, we ight loss, or having had a colonoscopy in the past. ?Hemoglobin 6.9 on admission along with low MCV. Responded to transfusion. Slight drop to 8.4, but no significant bloody stools. White count bumped to 13.7. Suspect reactive. -Continue Zosyn 3.375 g every 6 hours. Will transition to oral antibiotics for brief 5-day course after discharge. -CT obtained last night with punctate air after colonoscopy yesterday. Suspect microperforation from procedure. Patient afebrile. Repeat CBC, CMP, magnesium ordered for the morning. -Continue IV Protonix 40 mg twice daily. Continue Carafate. -1 dose IV Venofer on 04/04.25 - Discussed case with GI, given finding at splenic flexure suspicious for colon cancer, recommend referral for colectomy. Case discussed with surgery at [facility], given options for laparoscopic versus open. Patient would like to pursue laparoscopic procedure. Will refer to for further management. Advancing diet. If tolerates well, will discharge tomorrow. -CEA elevated at 19, consistent with colon cancer #Bladder outlet obstruction #Indwelling Ferris catheter #Bilateral nonobstructing kidney stones ? Continue Ferris catheter. Will need close follow-up with urology. - Kidney function normal with BUN 14, creatinine 1.2. ? Continue home tamsulosin 0.4 mg daily Full code DVT prophylaxis: SCDs Advance diet as tolerated
--- NOTE | 2024-04-06 17:20 | PC.NURSE ---
Dr. Mullins says patient can get his Iron iv ordered at 17:20 today in the am.
--- NOTE | 2024-04-06 17:32 | PC.NURSE ---
Aox 4, up ad stacy, tolerating diet fulls, f/c in place, 97% on RA, 22g r fa sl, consult to Jeni and Dr. Miguel Tylenol given today for pain.
[2024-04-06 20:00] VITALS: BP 142/75; PULSE 89; RESP 18; TEMP 36.8; O2SAT 97
[2024-04-06] MEDS: SODIUM CHLORIDE 0.9% 10ML VIAL 10 ML IV (20:11)
[2024-04-06] MEDS: TAMSULOSIN 0.4MG CAPSULE 0.8 MG PO (20:11)
[2024-04-07] VITALS: BP 128/75; PULSE 85; RESP 16; TEMP 37; O2SAT 93
[2024-04-07] MEDS: PIPERCILLIN/TAZO 3.375 GM in 0.9 % SODIUM CHLORIDE 50 ML IV ×3 (00:57→11:24)
--- NOTE | 2024-04-07 03:18 | PC.NURSE ---
patient is alert and oriented, ambulates in room independently, coffey present draining adequately, no c/o pain this shift, tolerating full liquid diet
[2024-04-07 04:00] VITALS: BP 134/71; PULSE 95; RESP 18; TEMP 36.6; O2SAT 94; BMI 22.6
[2024-04-07] MEDS: SUCRALFATE 1GM TABLET 1 GM PO ×2 (05:59→11:23)
[2024-04-07] MEDS: ACETAMINOPHEN 325MG TAB 650 MG PO ×2 (05:59→12:21)
[2024-04-07 06:11] LABS: Basophils # 0.1 K/mm3 (0-0.2); Basophils % 0.8 % (0.1-2.0); Eosinophils # 0.2 K/mm3 (0.0-0.4); Eosinophils % 2.1 % (0.1-12.0); Hematocrit 27.9 % (42.0-52.0); Hemoglobin 8.2 g/dL (14.1-18.0); Lymphocytes # 1.4 K/mm3 (0.7-4.5); Lymphocytes % 15.7 % (10-50); Mean Corpuscular HGB Conc 29.4 g/dL (31.8-35.4); Mean Corpuscular Hemoglobin 21.7 pg (27.0-31.2); Mean Corpuscular Volume 73.8 fl (80-94); Mean Platelet Volume 9.3 fl (7.4-10.4); Monocytes # 0.6 K/mm3 (0.1-1.0); Monocytes % 6.9 % (1.7-9.3); Neutrophils # 6.8 K/mm3 (1.8-7.8); Neutrophils % 73.6 % (37.0-80.0); Platelet Count 288 K/mm3 (142-424); Red Blood Count 3.78 M/mm3 (4.60-6.20); Red Cell Distribution Width 23.2 % (11.5-17.5); White Blood Count 9.2 K/mm3 (4.8-10.8)
[2024-04-07 06:14] LABS: Albumin Level 3.8 g/dl (3.5-5.0); Chloride 105 mmol/L (98-107); Potassium 3.9 mmoL/L (3.5-5.1); Sodium 138 mmol/L (136-145)
[2024-04-07 06:17] LABS: Alanine Aminotransferase 13 U/L (12-78); Albumin/Globulin Ratio 1.4 (1.1-1.8); Alkaline Phosphatase 53 U/L (38-126); Anion Gap 10.9 mEq/L (5-15); Aspartate Amino Transferase 22 U/L (17-59); Bilirubin,Total 1.1 mg/dl (0.2-1.3); Blood Urea Nitrogen 12 mg/dl (9-20); Carbon Dioxide 26 mmol/L (22.0-30.0); Creatinine Clearance Estimated 63 mL/min (50-200); Estimated Glomerular Filt Rate 55 ml/min (>60); GFR (African American) 67 ML/MIN (>60); Globulin 2.7 g/dL (1.3-3.2); Total Protein,Serum 6.5 g/dl (6.3-8.2)
[2024-04-07 06:18] LABS: Calcium 8.8 mg/dl (8.4-10.2); Glucose 102 mg/dl (74-100); Magnesium 1.8 mg/dl (1.6-2.3)
--- NOTE | 2024-04-07 07:32 | EXP.DC.SUM ---
General Admission date:: 04/03/24 Discharge date: 04/07/24 HPI HPI HPI: This is a 64-year-old gentleman with a newly-diagnosed apple core lesion of the proximal left colon. He underwent colonoscopy earlier today by Dr. Chao Ngo (please see procedure report for detail). Forwarded from admission H&P: Mr. Willett is a 64-year-old gentleman with iron deficiency anemia. The patient does have a history of BPH and kidney stones and was sent to the ED from the urology office secondary to lightheadedness and hypotension. He reported some dyspnea on exertion. He reported no chest pain or dyspnea at rest. He did have an indwelling urinary catheter for about a month and when this was pulled there was gross hematuria. His hemoglobin was 6.9. Looking back his hemoglobin has been declined even last year but not to this degree with hemoglobin hematocrit last year of 10.5 and 34.3. He did have microcytic indices. His serum iron level was 46 with iron saturation 12.53% and ferritin at 4.35. His creatinine is normal at 1.10. The patient has never had a colonoscopy. He does report some gastroesophageal reflux which he controls with [id number] Pepcid. He does note some dark stools but reports no bright red rectal bleeding, hematochezia or melena. He reports no abdominal pain or weight loss. He has had no change in bowel habits or family history of colon cancer. He reports no dysphagia or fullness. 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 This was noncontrast. Colonoscopy impression/plan (Dr. Ngo): Impression: 1. 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 This is the obvious etiology of his iron deficiency. I would like for the patient to have IV/oral contrast CT scan for staging. I would recommend consultation with general surgery. Hospital Course Hospital Course Hospital Course: Minh Willett is a 64-year-old male with a medical history significant for nephrolithiasis, BPH who was sent to the ED from urologist office today for dizziness, hypotension. Patient states he was following up with Dr. Olivarez today for indwelling catheter for suspected BPH where he states the office was very hot and became lightheaded, dizzy and was found to have a blood pressure in the 70s over 40s. Patient denies chest pain, shortness of breath, palpitations during this episode. He states he has been dealing with indwelling catheter for about a month for suspected BPH and urinary retention. In the ED, blood pressures were stable but hemoglobin 6.9. Patient endorses dark intermittent stool for many months but denies abdominal pain,, hematemesis. Denies constipation, weight loss, or ever having a colonoscopy. Also denies NSAIDs, alcohol use. Case discussed with ED provider and decision was made to admit patient for acute on chronic anemia. Responded well to transfusion. Taken for scope yesterday, found to have splenic flexure stricture concerning for malignancy. Tissue samples obtained. After much discussion, patient would like to follow-up with for minimally invasive colectomy. Referred to colorectal surgery. Will follow-up with GI for pathology results. Stable discharge home with further management in the near future as an outpatient. Problems addressed as follows: #Acute on chronic anemia #Malignant neoplasm of colon ? Endorses intermittent dark stools for many months. Denies constipation, weight loss, or having had a colonoscopy in the past. Hemoglobin 6.9 on admission along with low MCV. Responded to transfusion. Hemoglobin remained stable in the mid 8 range after transfusion. 8.2 on day of discharge. White count bumped after colonoscopy but decreased to 9.2. Will complete 5 days of antibiotics for concern for microperforation. CT obtained after colonoscopy showing punctate air outside of the colon. Suspect micro-perforation from procedure. Patient afebrile. Continue famotidine per home regimen. No indication for PPI as blood loss is likely from lesion in colon. Received 1 dose IV Venofer on 04/04. GI and surgery assisted with care. Per discussion with GI after colonoscopy, splenic flexure lesion suspicious for colon cancer. Referred to colorectal surgery at for further management. CEA elevated at 19 when evaluated during admission. #Bladder outlet obstruction #Indwelling Coffey catheter #Bilateral nonobstructing kidney stones ? Continue Coffey catheter. Will need close follow-up with urology. Has been referred by outpatient urology at [facility] to urology at for further management. Patient also noted to have horseshoe kidney on CT imaging. Kidney function remained normal during admission with BUN 12, creatinine 1.3. Continue tamsulosin 0.4 mg daily Exam Data for Last 24 hours Vital signs and Labs for Last 24 Hours: Temp Pulse Resp BP Pulse Ox O2 Del Method O2 Flow Rate 97.8 F 95 H 18 134/71 94 L Room Air 5 04/07/24 04:00 04/07/24 04:00 04/07/24 04:00 04/07/24 04:00 04/07/24 04:00 04/07/24 04:00 04/05/24 14:47 Laboratory Results - last 24 hr 04/05/24 05:45: Carcinoembryonic Ag 19.5 H 04/07/24 05:22: WBC 9.2 D, RBC 3.78 L, Hgb 8.2 L, Hct 27.9 L, MCV 73.8 L, MCH 21.7 L, MCHC 29.4 L, RDW 23.2 H, Plt Count 288, MPV 9.3, Neut % (Auto) 73.6, Lymph % (Auto) 15.7, [place] % (Auto) 6.9, Eos % (Auto) 2.1, Baso % (Auto) 0.8, Neut # (Auto) 6.8, Lymph # (Auto) 1.4, [place] # (Auto) 0.6, Eos # (Auto) 0.2, Baso # (Auto) 0.1, Sodium 138, Potassium 3.9, Chloride 105, Carbon Dioxide 26, Anion Gap 10.9, BUN 12, Creatinine 1.30 H, Estimated Creat Clear 63, Estimated GFR 55 L, Est GFR ( Amer) 67, Glucose 102 H, Calcium 8.8, Magnesium 1.8, Total Bilirubin 1.1, AST 22, ALT 13, Alkaline Phosphatase 53, Total Protein 6.5, Albumin 3.8, Globulin 2.7, Albumin/Globulin Ratio 1.4 I & O for Last 24 hours: Intake & Output 04/04/24 04/05/24 04/06/24 04/07/24 23:59 23:59 23:59 23:59 Intake Total 1060 / 2560 1500 / 1500 1880 / 1880 290 / 290 Output Total 4550 / 4550 1825 / 1825 2600 / 2600 875 / 875 Balance -3490 / -1990 -325 / -325 -720 / -720 -585 / -585 Weight 79.923 kg 79.379 kg 79.47 kg 79.923 kg Microbiology Reports for the Last 24 Hours: Microbiology 04/06/24 00:46 Blood Blood Culture - Preliminary NO GROWTH AFTER 24 HOURS 04/06/24 00:46 Blood Blood Culture - Preliminary NO GROWTH AFTER 24 HOURS Constitutional Constitutional: no acute distress, thin, chronically ill appearing and cooperative *Routine HEENT Exam Head: Present normocephalic Eye: Present EOMI and PERRL ENT: Present mucous membranes moist *Routine Neck Exam Neck: Present supple; Absent lymphadenopathy *Routine Respiratory Exam Respiratory: Present CTA bilaterally; Absent rhonchi, wheezes or crackles *Routine Cardiovascular Exam Cardiovascular: Present RRR *Routine Abdominal Exam Abdominal: Present soft and normoactive bowel sounds; Absent tenderness *Routine Rectal Exam Patient deferred: visual exam *Routine Exam Patient deferred: penile exam (coffey in place) *Routine Extremities Exam Extremities: Absent cyanosis, clubbing or edema *Routine Skin Exam Skin: Present intact and warm; Absent rash *Routine Neurological Exam Neurological: Present alert, oriented X3 and moving all extremities; Absent altered mental status Results Data Completed and Pending Labs on day of discharge: Labs from last 24 hours 04/07/24 04/05/24 05:22 05:45 WBC 9.2 D RBC 3.78 L Hgb 8.2 L Hct 27.9 L MCV 73.8 L MCH 21.7 L MCHC 29.4 L RDW 23.2 H Plt Count 288 MPV 9.3 Neut % (Auto) 73.6 Lymph % (Auto) 15.7 [place] % (Auto) 6.9 Eos % (Auto) 2.1 Baso % (Auto) 0.8 Neut # (Auto) 6.8 Lymph # (Auto) 1.4 [place] # (Auto) 0.6 Eos # (Auto) 0.2 Baso # (Auto) 0.1 Sodium 138 Potassium 3.9 Chloride 105 Carbon Dioxide 26 Anion Gap 10.9 BUN 12 Creatinine 1.30 H Estimated Creat Clear 63 Estimated GFR 55 L Est GFR ( Amer) 67 Glucose 102 H Calcium 8.8 Magnesium 1.8 Total Bilirubin 1.1 AST 22 ALT 13 Alkaline Phosphatase 53 Total Protein 6.5 Albumin 3.8 Globulin 2.7 Albumin/Globulin Ratio 1.4 Carcinoembryonic Ag 19.5 H Preliminary micro results at discharge 04/06/24 00:46 Blood Culture - Preliminary Blood NO GROWTH AFTER 24 HOURS 04/06/24 00:46 Blood Culture - Preliminary Blood NO GROWTH AFTER 24 HOURS 04/03/24 14:50 Blood Culture - Preliminary Blood 04/03/24 14:45 Blood Culture - Preliminary Blood NO GROWTH AFTER 48 HOURS DS: Diagnosis Discharge Diagnosis (1) Symptomatic anemia: Status: Acute Code(s): D64.9 - Anemia, unspecified (2) Malignant neoplasm of splenic flexure: Status: Acute Code(s): C18.5 - Malignant neoplasm of splenic flexure (3) Iron deficiency anemia: Status: Acute Code(s): D50.9 - Iron deficiency anemia, unspecified (4) Bladder outlet obstruction: Status: Acute Code(s): N32.0 - Bladder-neck obstruction (5) BPH (benign prostatic hyperplasia): Status: Acute Code(s): N40.0 - Benign prostatic hyperplasia without lower urinary tract symptoms Meds Home Medications and Allergies Home Medications ?Medication ?Instructions ?Recorded ?Confirmed ?Type tamsulosin 0.4 mg capsule 0.4 mg PO DAILY 90 days #90 caps 03/27/24 04/03/24 Rx famotidine 20 mg tablet 20 mg PO HS 04/03/24 04/03/24 History amoxicillin 875 mg-potassium 1 tab PO BID 3 days #6 tabs 04/07/24 Rx clavulanate 125 mg tablet New Prescriptions to Start Prescriptions: amoxicillin-pot clavulanate Minh Mullins Allergies Allergy/AdvReac Type Severity Reaction Status Date / Time No Known Allergies Allergy Verified 04/03/24 13:55 Discharge Plan Disposition Patient Disposition: Home, Self-Care Condition: Good Discharge Order Discharge Orders: Discharge Order (Routine); Ordered 04/07/24 Ordered By: Minh Mullins Follow up Plan Follow up with: Chao Ngo II, MD [Staff Physician] - Enter time for follow up (office to contact patient) Jovani Bravo MD [Staff Physician] - Enter time for follow up (office will call parient with appointment) Viviana Hurtado APRN [Primary Care Provider] - 04/11/24 9:45 am Prescriptions/Medication Reconciliation: New amoxicillin-pot clavulanate 875-125 mg tablet 1 tab PO BID 3 Days Qty: 6 0RF Continued tamsulosin 0.4 mg capsule 0.4 mg PO DAILY 90 Days Qty: 90 0RF famotidine 20 mg Tablet 20 mg PO HS Discontinued levofloxacin 500 mg tablet 500 mg PO DAILY Patient Comments: TAKE 1 TABLET BY MOUTH ONCE DAILY FOR 3 DAYS START THIS MEDICATION April : states he started taking 04/02/24 Problem Reconciliation Problems Reviewed?: Yes Patient Discharge Instructions ACTIVITY: Continue current activity DIET: continue same diet Patient Instructions: Anemia, DI for Urinary Retention in Men, Catheter-Associated Urinary Tract Infection Print Language: Russian Providers Primary Care Provider: Viviana Hurtado Admit Provider: Dick Singleton Attending Provider: Dick Singleton
[2024-04-07 08:00] VITALS: BP 106/60; PULSE 106; RESP 16; TEMP 36.9; O2SAT 97
[2024-04-07] MEDS: IRON SUCROSE COMPLEX 200 MG in 0.9 % SODIUM CHLORIDE 100 ML 220 MG IV (10:27)
[2024-04-07] MEDS: PANTOPRAZOLE 40MG VIAL 40 MG IV (11:18)
[2024-04-07] MEDS: SODIUM CHLORIDE 0.9% 10ML VIAL 10 ML IV (11:18)
--- NOTE | 2024-04-10 11:28 | SW/DCPLANNER ---
Spoke with patient on the phone. Patient stated that he is doing well. Patient stated that he was able to get his new medicine picked up. Patient stated that he is aware of his upcoming appointments. Patient stated that he has no concerns or questions at this time. Barby Ruff
== END 2024-04-07 12:32 | disposition home or self-care (01) | DRG 375 ==
LOC: ER 16:57 → 2ND 04-04 06:14
PROVIDERS: Internal Medicine Gastroenterology; Nurse Practitioner Family; Admitting Provider Student in an Organized Health Care Education/Training Program; Emergency Provider Emergency Medicine; PCP Nurse Practitioner; Visit Provider Student in an Organized Health Care Education/Training Program
PROC: 0DJ08ZZ Inspection of Upper Intestinal Tract, Via Natural or Artificial Opening Endoscopic (ICD-10-PCS; CPT 45378; principal; 2024-04-05 14:30)
DX: C18.6 Malignant neoplasm of descending colon (principal); N13.8 Other obstructive and reflux uropathy; D63.0 Anemia in neoplastic disease; K21.9 Gastro-esophageal reflux disease without esophagitis; K44.9 Diaphragmatic hernia without obstruction or gangrene; N20.0 Calculus of kidney; K64.1 Second degree hemorrhoids; N40.0 Benign prostatic hyperplasia without lower urinary tract symptoms; Z79.899 Other long term (current) drug therapy
CPT/HCPCS: 36415; 71045; 74176; 74177; 80053; 81001; 82272; 82378; 82607; 82728; 82746; 83540; 83550; 83605; 83735; 83880; 84145; 84443; 84484; 85007; 85014; 85018; 85025; 85610; 85730; 86850; 87040; 87077; 93005; 99291; C1726; G0328; J1756; J2270; J2405; J2543; J2765; J3475; J7030; J7120; P9016; Q9963; Q9967

== ENCOUNTER 2024-04-21 09:18 | Day surgery (SDC) | payer BC, SELFPAY ==
[2024-04-19 17:24] VITALS: BMI 22.8
[2024-04-21 09:57] VITALS: BP 143/84; PULSE 93; RESP 18; TEMP 36.7; O2SAT 100
[2024-04-21] MEDS: 0.9 % SODIUM CHLORIDE 500 ML 25 ML IV (10:21)
--- NOTE | 2024-04-21 10:26 | HMH.PROCNOTE ---
[facility] Procedure Note Date: 04/21/24 Time: 10:26 Procedure Note:: Chart review: The patient comes with an indwelling Ferris catheter. He came to the office about 10 days ago for follow-up visit and had a syncopal episode. He was taken to the emergency room. There he was found that to be anemic and was hospitalized for 2 units of blood. While in the hospital he was in urinary retention and the Ferris catheter was inserted. The patient has a known horseshoe kidney and a creatinine at 3.5 when I first saw him on 03/25. The patient has been on Flomax. He is followed at the [facility] and has colon cancer surgery scheduled. He also has urology consult pending. In the horseshoe kidney he has a 1.4 cm stone. Preop diagnosis: Urinary retention Postop diagnosis: BPH/urinary retention Operative note: The patient was brought to the cystoscopy suite. I have taught him how to remove his Ferris catheter which he is going to do Wednesday and come to the office Wednesday for a voiding trial. Patient will continue taking the Flomax. The anterior urethra is unremarkable. From the verumontanum the patient has a very small median lobe of bilateral prostate obstruction grade 2. The bladder has some erythematous changes particularly behind the trigone and this is likely from the indwelling Ferris catheter. Otherwise there is no evidence of bladder stone tumor hemorrhage or infection. The ureteral orifice ease are normal bilaterally. The patient might need follow-up cystoscopy if the catheter is out after a few weeks just to make sure that he does not have carcinoma in situ developing.
[2024-04-21 10:30] VITALS: BP 135/76; PULSE 68; RESP 16; TEMP 36.3; O2SAT 100
--- NOTE | 2024-04-21 10:40 | SUR.PHASEII ---
1040: Pt d/c with coffey cath with leg bag in place. Instructions given per Dr. Olivarez to cut and remove catheter 04/23/24. Instructions given on cath care and how to empty. F/u appt made.
[2024-04-21] MEDS: LIDOCAINE 2% UROJET 10ML 10 ML (13:22)
== END 2024-04-21 10:41 | disposition home or self-care (01) ==
PROVIDERS: PCP Nurse Practitioner; Visit Provider Urology
PROC: 0TJB8ZZ Inspection of Bladder, Via Natural or Artificial Opening Endoscopic (ICD-10-PCS; CPT 52000; principal; 2024-04-21 10:30)
DX: R33.9 Retention of urine, unspecified (principal)
CPT/HCPCS: 52000

== ENCOUNTER 2024-05-22 09:00 | Outpatient (CLI) | payer BC, SELFPAY | END 2024-05-22 23:59 | disposition home or self-care (01) | LOC: LAB.DROPOF 05-23 13:00 | PROVIDERS: PCP Urology; Visit Provider Urology | DX: N19 Unspecified kidney failure (principal) | CPT/HCPCS: 87077; 87086; 87088 ==

== ENCOUNTER 2024-05-24 12:30 | Outpatient (CLI) | payer BC, SELFPAY ==
--- NOTE | 2024-05-24 12:31 | XR_ITS ---
FINAL REPORT CLINICAL HISTORY: Renal failure FINDINGS: A single supine view of the abdomen was obtained. There is no prior for comparison. There is gaseous distention of the distal colon. There is a moderate to large amount of stool in the remainder of the colon. There is no obstruction. There is a calcification adjacent to the right L5 transverse process which could represent a renal stone. IMPRESSION: Gaseous distention of the distal colon with a moderate to large amount of retained stool. Right renal stone. Reviewed, Interpreted and Dictated by Sarah Beth Funes MD Transcribed by Marla Gasca Authenticated and [facility]
--- NOTE | 2024-05-24 13:00 | US_ITS ---
FINAL REPORT CLINICAL HISTORY: Renal failure COMPARISON: 03/29/2024 FINDINGS: RENAL ULTRASOUND Ultrasound images of the kidneys were obtained. There is a horseshoe kidney. The right moiety measures 8.9 cm in this patient with a known horseshoe kidney. There is no hydronephrosis, mass, or stone. Previously seen right renal stone is not well-visualized. Previously seen hydronephrosis is resolved. There is normal cortical echogenicity and thickness. The left moiety measures 8.3 cm in this patient with a known horseshoe kidney. There is no hydronephrosis, mass, or stone. Previously seen hydronephrosis is resolved. There is normal cortical echogenicity and thickness. IMPRESSION: Horseshoe kidney. Previously seen right renal stone is not well-visualized on today's exam. Resolved hydronephrosis. Reviewed, Interpreted and Dictated by Sarah Beth Funes MD Transcribed by Marla Gasca Authenticated and [facility][1]
== END 2024-05-24 23:59 | disposition home or self-care (01) ==
LOC: RAD 12:31
PROVIDERS: PCP Nurse Practitioner; Visit Provider Urology
DX: N19 Unspecified kidney failure (principal)
CPT/HCPCS: 74018; 76770

== ENCOUNTER 2024-05-29 05:19 | Emergency (ER) | payer BC, SELFPAY ==
[2024-05-29 05:42] LABS: Basophils # 0.1 K/mm3 (0-0.2); Basophils % 1.1 % (0.1-2.0); Eosinophils # 0.2 K/mm3 (0.0-0.4); Eosinophils % 2.7 % (0.1-12.0); Hematocrit 33.9 % (42.0-52.0); Hemoglobin 10.6 g/dL (14.1-18.0); Lymphocytes # 2.1 K/mm3 (0.7-4.5); Lymphocytes % 28.5 % (10-50); Mean Corpuscular HGB Conc 31.3 g/dL (31.8-35.4); Mean Corpuscular Hemoglobin 24.2 pg (27.0-31.2); Mean Corpuscular Volume 77.4 fl (80-94); Mean Platelet Volume 8.8 fl (7.4-10.4); Monocytes # 0.5 K/mm3 (0.1-1.0); Monocytes % 6.8 % (1.7-9.3); Neutrophils # 4.4 K/mm3 (1.8-7.8); Neutrophils % 60.4 % (37.0-80.0); Platelet Count 322 K/mm3 (142-424); Red Blood Count 4.38 M/mm3 (4.60-6.20); Red Cell Distribution Width 19.1 % (11.5-17.5); White Blood Count 7.3 K/mm3 (4.8-10.8)
[2024-05-29 05:49] LABS: Albumin Level 4.5 g/dl (3.5-5.0); Chloride 107 mmol/L (98-107); Potassium 4.8 mmoL/L (3.5-5.1); Sodium 138 mmol/L (136-145)
[2024-05-29 05:52] LABS: Alanine Aminotransferase 26 U/L (12-78); Albumin/Globulin Ratio 1.7 (1.1-1.8); Alkaline Phosphatase 41 U/L (38-126); Anion Gap 13.8 mEq/L (5-15); Aspartate Amino Transferase 40 U/L (17-59); Bilirubin,Total 0.6 mg/dl (0.2-1.3); Blood Urea Nitrogen 9 mg/dl (9-20); Calcium 9.3 mg/dl (8.4-10.2); Carbon Dioxide 22 mmol/L (22.0-30.0); Estimated Glomerular Filt Rate 84 ml/min (>60); GFR (African American) 102 ML/MIN (>60); Globulin 2.6 g/dL (1.3-3.2); Glucose 115 mg/dl (74-100); Total Protein,Serum 7.1 g/dl (6.3-8.2)
[2024-05-29 05:53] VITALS: BP 144/85; PULSE 82; RESP 18; TEMP 37; O2SAT 99; BMI 22.5
[2024-05-29 05:53] LABS: Microscopic, Urine URINE MICROSCOPIC (MICROSCOPIC)
[2024-05-29 05:55] LABS: Appearance,Urine CLEAR (Clear); Bilirubin,Urine Negative (Negative); Blood, Urine 1+ (Negative); Color,Urine YELLOW (Yellow); Glucose,Urine (UA) Negative (Negative); Ketones,Urine Negative (Negative); Leukocyte Esterase,Urine Negative (Negative); Nitrate,Urine Negative (Negative); Protein,Urine Negative (Negative); Urobilinogen,Urine 0.2 EU/dl (0.2)
[2024-05-29 06:00] VITALS: BP 124/72; PULSE 75; O2SAT 99
--- NOTE | 2024-05-29 06:00 | PC.NURSE ---
bladder scan showed >776ml urine upon arrival to ED. MD Weir made aware and gave verbal orders to insert coffey catheter. 16 Fr coffey cath inserted w/o difficulty. 1450ml clear, pale urine emptied.
--- NOTE | 2024-05-29 06:01 | HMH.EDGENADL ---
Discharge Plan Disposition Patient Disposition: Home, Self-Care Chief Complaint: Urogenital-Male Prescriptions Prescriptions: No Action tamsulosin 0.4 mg capsule 0.4 mg PO DAILY 90 Days Qty: 90 0RF finasteride [Proscar] 5 mg tablet 5 mg PO DAILY Qty: 90 3RF levofloxacin 500 mg tablet 500 mg PO DAILY 3 Days Qty: 3 0RF Rx Instructions: Start this Wednesday Evening Xarelto 10 mg tablet 10 mg PO DAILY Referrals Follow up/Referrals: Viviana Hurtado APRN [Primary Care Provider] - See instructions Júnior Ambrose MD [Referring] - See instructions (stones, horseshoe kidney, can't get in to [facility] in timely fashion, has coffey for obstructive urinary retention) Activity Restrictions/Add. Instructions Additional Instructions/Restrictions: You were evaluated in the emergency department today. You were diagnosed with a kidney stone and urinary retention. Follow-up closely with urology. We do not have an interventional urologist at our healthcare facility, but one close option is Dr. Júnior Ambrose in [place] ([facility] - [address], [address], [place] [address] - [phone]). Please make sure you drink plenty of fluids and stay orally hydrated. Toradol is an NSAID like ibuprofen and aleve, so do not take other NSAIDs while taking this medication. Try getting by with toradol and Tylenol, but you may choose to take the narcotic pain medication provided to you in the event of severe pain not controlled by these medications. Do not drive or operate heavy machinery while taking narcotic pain medication, as it can be sedating. Narcotic pain medication can be addicting and can cause constipation. Follow-up closely with your primary care provider as well. Return to the emergency department for new or worsening symptoms such as significant worsening in pain, fever greater than 100.4 ?F, intractable nausea and vomiting. Clinical Impressions Clinical Impression: Acute retention of urine Instructions Patient Instructions: DI for Urinary Tract Infection (UTI), DI for Urinary Tract Infection in Children Print Language Print Language: Montenegrin Discharge ED Provider: Danni Weir Adult HPI <Danni Weir MD - Last Filed: 05/29/24 06:44> General Chief complaint: Urogenital-Male Stated complaint: unable to urinate Time Seen by Provider: 05/29/24 05:29 Mode of Arrival: Ambulatory Source of Information: Patient Description of Symptoms (Recalled from ER Triage Doc. by RN): Pt ambulatory to ED with c/o urinary retention following d/c of coffey catheter yesterday. History of Present Illness HPI narrative: 64-year-old male who had recent abdominal surgery for colon cancer of which he reports they were able to remove it all presents to the ER with concerns of urinary retention. Patient also has horseshoe kidney and had had a ureteral stone as well as renal stones. He also has BPH and had urinary retention. He was being seen by Dr. Olivarez and had Coffey catheter in place that he was told he could cut out on Wednesday. Patient did this around 1 PM and since that time had minimal urine output. He presented over 16 hours later with discomfort in the bladder area and an urge to urinate but inability to urinate. He reports his ureteral stone has already passed and he is supposed to have outpatient follow-up with Dr. Long with urology for further evaluation, however Dr. Long was waiting until his colon surgery had been completed. Unfortunately they do not yet have an appointment rescheduled with Dr. Long now that his surgery has been done. They are concerned that they had been told it could be up to 3 months before he is able to see him again. Patient reports he is not having any back pain or any other abdominal pain, nausea, changes in bowel habits, etc. He has not used, chills, chest pain, difficulty breathing, headache, dizziness, or any other concerns at this time. Related Data Home Medications ?Medication ?Instructions ?Recorded ?Confirmed rivaroxaban 10 mg tablet (Xarelto) 10 mg PO DAILY 05/29/24 05/29/24 Previous Rx's ?Medication ?Instructions ?Recorded finasteride 5 mg tablet (Proscar) 5 mg PO DAILY #90 tabs 05/22/24 tamsulosin 0.4 mg capsule 0.4 mg PO DAILY 90 days #90 caps 05/22/24 levofloxacin 500 mg tablet 500 mg PO DAILY 3 days #3 tabs 05/25/24 Allergies Allergy/AdvReac Type Severity Reaction Status Date / Time No Known Allergies Allergy Verified 05/22/24 10:28 [facility] <Danni Weir MD - Last Filed: 05/29/24 06:44> [facility] Disclaimer: The information contained in this section may have been updated after the patient was seen, as this information can be updated by other users. Medical History Colon cancer Thoracic aortic aneurysm Kidney stone GERD (gastroesophageal reflux disease) Surgical History No significant past surgical history Family History Other No significant family history Social History Smoking Status: Never smoker alcohol intake: never substance use type: denies use current occupational status: retired Travel in the last 8 weeks: None Have you lived/traveled outside US in past 30 days?: No Contact w/someone who lives/traveled outside US past 30 days?: No Exposure to someone with infectious disease in past 14 days?: No Do you have a fever (greater than 100.4 F or 38 C)?: No Have you tested positive for COVID-19: No Exposed to someone with COVID-19 in past 14 days?: No Do you have a sore throat?: No Do you have a cough?: No Do you have any weakness?: No Do you have any diarrhea?: No Are you experiencing any unusual bleeding?: No Do you have any muscle aches/pain?: No Do you have any abdominal pain?: No Are you experiencing loss of taste or smell?: No Other Medical History Have you received the Flu Vaccine for this season: No Have you received the Pneumonia Vaccine: Yes <Danni Weir MD - Last Filed: 05/29/24 06:44> ROS Obtained: Yes Systems reviewed as appropriate & no additional complaints except as documented per HPI Physical Exam <Danni Weir MD - Last Filed: 05/29/24 06:44> General General appearance: alert and in no apparent distress Head Head exam: atraumatic and normocephalic Eye Eye exam: Present PERRL and EOMI ENT ENT exam: Present mucous membranes moist Neck Neck exam: Present normal inspection and full ROM Chest Chest inspection: Present symmetric chest wall rise Respiratory Respiratory exam: Present normal lung sounds bilaterally; Absent respiratory distress, wheezes or stridor Cardiovascular Cardiovascular exam: Present regular rate and normal rhythm Abdominal Exam Abdominal exam: Present soft and tenderness (Suprapubic tenderness prior to Coffey placement); Absent distention, guarding or rebound Comment: Well-healing midline surgical scar with no evidence of infection Extremities Exam Extremities exam: Present full ROM Back Exam Back exam: Absent CVA tenderness (R) or CVA tenderness (L) Neurological Exam Neurological exam: Present alert and oriented X3; Absent motor sensory deficit Psychiatric Psychiatric exam: Present normal affect and normal mood Skin Skin exam: Present warm and dry Medical Decision Making <Danni Weir MD - Last Filed: 05/29/24 06:44> Medical Records Medical records reviewed: Yes I reviewed the patient's medical records. Screening: Per USPSTF and CDC recommendations, given the prevalence of disease in our region, it is our hospital?s policy to screen for HIV and viral Hepatitis for all patients aged 18 and over and those with ongoing risk factors. MR Comment: KUB from May 24 demonstrates right renal stone. Renal ultrasound from May 24 demonstrates horseshoe kidney, right renal stone was not well-visualized, patient had resolved hydronephrosis. Urology note from Dr. Olivarez on May 22 demonstrates patient had cystoscopy at the end of April and has prostate obstruction. He reportedly has a 1.4 cm right kidney stone. Creatinine 1.3 in April. Patient was started on finasteride and continued on tamsulosin. Dr. Olivarez recommended follow-up at [facility] for urodynamics and further evaluation. Arnie Inquiry Pt receiving controlled substance: No Vital Signs: 05/29/24 05:53 05/29/24 06:00 05/29/24 06:30 Temperature 98.6 F Temperature Source Oral Pulse Rate 75 71 Pulse Rate [Right Radial] 82 Respiratory Rate 18 Blood Pressure 124/72 135/79 Blood Pressure [Right Arm] 144/85 H Blood Pressure Mean 89 90 Blood Pressure Mean [Right Arm] 104 Blood Pressure Source [Right Arm] Automatic Cuff Blood Pressure Position [Right Arm] Sitting 02 Sat by Pulse Oximetry 99 99 98 Oxygen Delivery Method Room Air Room Air 05/29/24 07:00 Temperature Temperature Source Pulse Rate 80 Pulse Rate [Right Radial] Respiratory Rate Blood Pressure 116/81 Blood Pressure [Right Arm] Blood Pressure Mean Blood Pressure Mean [Right Arm] Blood Pressure Source [Right Arm] Blood Pressure Position [Right Arm] 02 Sat by Pulse Oximetry 98 Oxygen Delivery Method Lab Data Lab Results 05/29/24 05:37: WBC 7.3, RBC 4.38 L, Hgb 10.6 L, Hct 33.9 L, MCV 77.4 L, MCH 24.2 L, MCHC 31.3 L, RDW 19.1 H, Plt Count 322, MPV 8.8, Neut % (Auto) 60.4, Lymph % (Auto) 28.5, Leslie % (Auto) 6.8, Eos % (Auto) 2.7, Baso % (Auto) 1.1, Neut # (Auto) 4.4, Lymph # (Auto) 2.1, Leslie # (Auto) 0.5, Eos # (Auto) 0.2, Baso # (Auto) 0.1, Sodium 138, Potassium 4.8, Chloride 107, Carbon Dioxide 22, Anion Gap 13.8, BUN 9, Creatinine 0.90, Estimated GFR 84, Est GFR ( Amer) 102, Glucose 115 H, Calcium 9.3, Total Bilirubin 0.6, AST 40, ALT 26, Alkaline Phosphatase 41, Total Protein 7.1, Albumin 4.5, Globulin 2.6, Albumin/Globulin Ratio 1.7, HCV Ab RAUL w/Rflx PCR Qn Negative, HIV Ag/Ab Combo Qual Negative 05/29/24 05:49: Urine Color Yellow, Urine Appearance Clear, Urine pH 6.0, Ur Specific Dunbar 1.010, Urine Protein Negative, Urine Glucose (UA) Negative, Urine Ketones Negative, Urine Blood 1+ A, Urine Nitrate Negative, Urine Bilirubin Negative, Urine Urobilinogen 0.2, Ur Leukocyte Esterase Negative, Urine RBC 3-5, Urine WBC Occasional, Ur Squamous Epith Cells Occasional, Urine Bacteria Trace 05/29/24 05:37 05/29/24 05:37 Orders (Tests/Meds): ORDERS Category Date Time Status CBC w/Auto Diff [Complete Blood Count Auto Diff] Stat Lab 05/29/24 05:37 Completed CMP [Comprehensive Metabolic Panel] Stat Lab 05/29/24 05:37 Completed HIV Combo Stat Lab 05/29/24 05:37 Completed Hepatitis C Ab Qual. W/ RFX Stat Lab 05/29/24 05:37 Completed Urinalysis and Microscopic Stat Lab 05/29/24 05:49 Completed Medical Decision Narrative: In summary, this 64-year-old male with comorbidities described in the HPI which may not be at goal therapy presents to the emergency department today with urinary retention. On initial evaluation patient is hemodynamically stable, afebrile, he had suprapubic discomfort consistent with full urinary bladder. Bladder scan demonstrated greater than 800 mL. Coffey catheter placed. He does not have CVA tenderness, abdominal surgery scar is well-healing with no findings of infection. After Coffey catheter placed his abdominal exam is benign. Differential diagnosis includes but is not limited to urinary tract infection, urinary obstruction and retention, electrolyte abnormality, kidney dysfunction, I considered the possibility of postobstructive diuresis after Coffey placement. Patient initially had 1450 mL out after Coffey placement. Ruling out the most morbid conditions drove my assessment. Labs reviewed by me demonstrate no leukocytosis, anemia improved from previous, CMP also improved from previous with creatinine now back to 0.9 down from 1.3 previously in April. UA negative for findings of infection. I reviewed imaging that was performed a few days ago from urology. Patient has reassuring clinical exam and labs and I do not believe he requires further imaging workup at this time. He was placed into ED observation at 0600 to monitor for postobstructive diuresis. Urine output continues to be reassessed as does his clinical status. At this time he is resting comfortably. Patient will be monitored for 2 hours to determine his urinary output and monitor for any findings of postobstructive diuresis. If he does not have evidence of postobstructive diuresis he should be appropriate for discharge. He has close follow-up with Dr. Olivarez scheduled for this morning at 0845. He and his report he is having difficulty with follow-up with Dr. Long so I placed a referral to Dr. Ambrose with [place] [facility] as another option. Patient was handed off to Dr. Louise in stable condition pending reevaluation of patient's urine output. I anticipate the patient will likely be able to discharge after observation if his urine output is appropriate. Total time in ED observation: [] <Eduardo Louise MD - Last Filed: 05/29/24 08:15> Vital Signs: 05/29/24 05:53 05/29/24 06:00 05/29/24 06:30 Temperature 98.6 F Temperature Source Oral Pulse Rate 75 71 Pulse Rate [Right Radial] 82 Respiratory Rate 18 Blood Pressure 124/72 135/79 Blood Pressure [Right Arm] 144/85 H Blood Pressure Mean 89 90 Blood Pressure Mean [Right Arm] 104 Blood Pressure Source [Right Arm] Automatic Cuff Blood Pressure Position [Right Arm] Sitting 02 Sat by Pulse Oximetry 99 99 98 Oxygen Delivery Method Room Air Room Air 05/29/24 07:00 Temperature Temperature Source Pulse Rate 80 Pulse Rate [Right Radial] Respiratory Rate Blood Pressure 116/81 Blood Pressure [Right Arm] Blood Pressure Mean Blood Pressure Mean [Right Arm] Blood Pressure Source [Right Arm] Blood Pressure Position [Right Arm] 02 Sat by Pulse Oximetry 98 Oxygen Delivery Method Lab Data Lab Results 05/29/24 05:37: WBC 7.3, RBC 4.38 L, Hgb 10.6 L, Hct 33.9 L, MCV 77.4 L, MCH 24.2 L, MCHC 31.3 L, RDW 19.1 H, Plt Count 322, MPV 8.8, Neut % (Auto) 60.4, Lymph % (Auto) 28.5, Leslie % (Auto) 6.8, Eos % (Auto) 2.7, Baso % (Auto) 1.1, Neut # (Auto) 4.4, Lymph # (Auto) 2.1, Leslie # (Auto) 0.5, Eos # (Auto) 0.2, Baso # (Auto) 0.1, Sodium 138, Potassium 4.8, Chloride 107, Carbon Dioxide 22, Anion Gap 13.8, BUN 9, Creatinine 0.90, Estimated GFR 84, Est GFR ( Amer) 102, Glucose 115 H, Calcium 9.3, Total Bilirubin 0.6, AST 40, ALT 26, Alkaline Phosphatase 41, Total Protein 7.1, Albumin 4.5, Globulin 2.6, Albumin/Globulin Ratio 1.7, HCV Ab RAUL w/Rflx PCR Qn Negative, HIV Ag/Ab Combo Qual Negative 05/29/24 05:49: Urine Color Yellow, Urine Appearance Clear, Urine pH 6.0, Ur Specific Dunbar 1.010, Urine Protein Negative, Urine Glucose (UA) Negative, Urine Ketones Negative, Urine Blood 1+ A, Urine Nitrate Negative, Urine Bilirubin Negative, Urine Urobilinogen 0.2, Ur Leukocyte Esterase Negative, Urine RBC 3-5, Urine WBC Occasional, Ur Squamous Epith Cells Occasional, Urine Bacteria Trace Orders (Tests/Meds): ORDERS Category Date Time Status CBC w/Auto Diff [Complete Blood Count Auto Diff] Stat Lab 05/29/24 05:37 Completed CMP [Comprehensive Metabolic Panel] Stat Lab 05/29/24 05:37 Completed HIV Combo Stat Lab 05/29/24 05:37 Completed Hepatitis C Ab Qual. W/ RFX Stat Lab 05/29/24 05:37 Completed Urinalysis and Microscopic Stat Lab 05/29/24 05:49 Completed Medical Decision Narrative: In summary, this 64-year-old male with comorbidities described in the HPI which may not be at goal therapy presents to the emergency department today with urinary retention. On initial evaluation patient is hemodynamically stable, afebrile, he had suprapubic discomfort consistent with full urinary bladder. Bladder scan demonstrated greater than 800 mL. Coffey catheter placed. He does not have CVA tenderness, abdominal surgery scar is well-healing with no findings of infection. After Coffey catheter placed his abdominal exam is benign. Differential diagnosis includes but is not limited to urinary tract infection, urinary obstruction and retention, electrolyte abnormality, kidney dysfunction, I considered the possibility of postobstructive diuresis after Coffey placement. Patient initially had 1450 mL out after Coffey placement. Ruling out the most morbid conditions drove my assessment. Labs reviewed by me demonstrate no leukocytosis, anemia improved from previous, CMP also improved from previous with creatinine now back to 0.9 down from 1.3 previously in April. UA negative for findings of infection. I reviewed imaging that was performed a few days ago from urology. Patient has reassuring clinical exam and labs and I do not believe he requires further imaging workup at this time. He was placed into ED observation at 0600 to monitor for postobstructive diuresis. Urine output continues to be reassessed as does his clinical status. At this time he is resting comfortably. Patient will be monitored for 2 hours to determine his urinary output and monitor for any findings of postobstructive diuresis. If he does not have evidence of postobstructive diuresis he should be appropriate for discharge. He has close follow-up with Dr. Olivarez scheduled for this morning at 0845. He and his report he is having difficulty with follow-up with Dr. Long so I placed a referral to Dr. Ambrose with [place] [facility] as another option. Patient was handed off to Dr. Louise in stable condition pending reevaluation of patient's urine output. I anticipate the patient will likely be able to discharge after observation if his urine output is appropriate. Dani: I assumed primary responsibility for this patient after signout from previous physician. Patient resting comfortably on my evaluation. Independent interpretation of patient's workup with nonactionable CBC, chemistry, kidney function, and urine without signs of infection. Total urine output right around a liter. Patient feels comfortable going home and hydrating. No acute distress no current complaints. Prolonged discussion was had regarding further management, agreeable to outpatient management with Dr. Ambrose. Total time in ED observation: 2 hours Critical Care <Danni Weir MD - Last Filed: 05/29/24 06:44> Critical Care Time Critical Care Time: No
[2024-05-29 06:12] LABS: Bacteria,Urine Trace /lpf; Squamous Epithelial Cell,Urine Occasional #/hpf (0-5); WBC,Urine Occasional #/hpf (0-3)
[2024-05-29 06:30] VITALS: BP 135/79; PULSE 71; O2SAT 98
[2024-05-29 06:51] LABS: HIV Combo NEGATIVE (Negative)
[2024-05-29 07:00] VITALS: BP 116/81; PULSE 80; O2SAT 98
[2024-05-29 07:00] LABS: Hepatitis C Ab Qual. W/ RFX NEGATIVE (Negative)
--- NOTE | 2024-05-29 08:04 | PC.NURSE ---
Dr. Louise at bedside
[2024-05-29 08:23] VITALS: BP 140/88; PULSE 82; RESP 20; TEMP 36.6; O2SAT 100
== END 2024-05-29 08:29 | disposition home or self-care (01) ==
PROVIDERS: Emergency Provider Emergency Medicine; PCP Nurse Practitioner
DX: R33.8 Other retention of urine (principal); N19 Unspecified kidney failure; C18.5 Malignant neoplasm of splenic flexure; C18.9 Malignant neoplasm of colon, unspecified
CPT/HCPCS: 51702; 80053; 81001; 85025; 86803; 87389; 99283

== ENCOUNTER 2024-06-20 08:24 | Outpatient (CLI) | payer BC, SELFPAY ==
[2024-06-20] VITALS (11 sets, daily range): BP systolic 131–176; BP diastolic 45–87; PULSE 74–81; RESP 18; TEMP 36.8; O2SAT 98; BMI 21.9
[2024-06-20 09:25] LABS: Basophils # 0.1 K/mm3 (0-0.2); Basophils % 1.5 % (0.1-2.0); Eosinophils # 0.1 Kmm3 (0.0-0.4); Eosinophils % 2.1 % (0.1-12.0); Hematocrit 41.5 % (42.0-52.0); Hemoglobin 13.2 g/dL (14.1-18.0); Lymphocytes # 1.8 K/mm3 (0.7-4.5); Lymphocytes % 33.4 % (10-50); Mean Corpuscular HGB Conc 31.8 g/dL (31.8-35.4); Mean Corpuscular Hemoglobin 26.4 pg (27.0-31.2); Mean Platelet Volume 9.2 fl (7.4-10.4); Monocytes # 0.4 K/mm3 (0.1-1.0); Monocytes % 7.4 % (1.7-9.3); Neutrophils # 2.9 K/mm3 (1.8-7.8); Neutrophils % 54.8 % (37.0-80.0); Nucleated Red Blood Cells # 0 10^3/uL; Nucleated Red Blood Cells % 0 %; Platelet Count 263 K/mm3 (142-424); Red Cell Distribution Width 19.9 % (11.5-17.5); Red Cell Distribution Width-SD 59.7 fL; White Blood Count 5.3 K/mm3 (4.8-10.8)
[2024-06-20 09:31] LABS: Alanine Aminotransferase 19 U/L (12-78); Albumin Level 4.4 g/dl (3.5-5.0); Albumin/Globulin Ratio 1.4 (1.1-1.8); Alkaline Phosphatase 59 U/L (38-126); Anion Gap 11.1 mEq/L (5-15); Aspartate Amino Transferase 26 U/L (17-59); Bilirubin,Total 0.7 mg/dl (0.2-1.3); Blood Urea Nitrogen 10 mg/dl (9-20); Calcium 9.1 mg/dl (8.4-10.2); Carbon Dioxide 26 mmol/L (22.0-30.0); Chloride 110 mmol/L (98-107); Creatinine Clearance Estimated 80 mL/min (50-200); Estimated Glomerular Filt Rate 84 ml/min (>60); GFR (African American) 102 ML/MIN (>60); Globulin 3.2 g/dL (1.3-3.2); Glucose 102 mg/dl (74-100); Potassium 4.1 mmoL/L (3.5-5.1); Sodium 143 mmol/L (136-145); Total Protein,Serum 7.6 g/dl (6.3-8.2)
[2024-06-20 09:45] LABS: Iron 66 ug/dL (49-181)
[2024-06-20] MEDS: DEXAMETHASONE 4MG TABLET 12 MG PO (09:52)
[2024-06-20] MEDS: ONDANSETRON 4MG ODT 16 MG SL (09:52)
[2024-06-20] MEDS: diphenhydrAMINE 25MG CAPSULE 25 MG PO (09:52)
[2024-06-20] MEDS: FAMOTIDINE 20MG TABLET 20 MG PO (09:52)
[2024-06-20] MEDS: MONTELUKAST SODIUM 10MG TAB 10 MG PO (09:53)
[2024-06-20 09:54] LABS: Total Iron Binding Capacity 340 ug/dL (261-462)
[2024-06-20] MEDS: CALCIUM GLUCONATE 1,000 MG, MAGNESIUM SULFATE 1 GM in DEXTROSE 5 % IN WATER 100 ML 224 MG IV ×2 (10:00→12:50)
[2024-06-20 10:23] LABS: Ferritin 19.7 ng/ml (17.9-464)
[2024-06-20] MEDS: WATER IV (10:39)
[2024-06-20] MEDS: DEXTROSE 5% IV (10:39)
[2024-06-20] MEDS: OXALIPLATIN IV (10:39)
== END 2024-06-20 13:30 | disposition home or self-care (01) ==
LOC: INF 08:25
PROVIDERS: PCP Nurse Practitioner; Visit Provider Internal Medicine Medical Oncology
DX: C18.6 Malignant neoplasm of descending colon (principal)
CPT/HCPCS: 80053; 82728; 83540; 83550; 85025; 96413; 96415; J7060; J8540; J9263; Q0162

== ENCOUNTER 2024-07-11 08:27 | Outpatient (CLI) | payer BC, SELFPAY ==
[2024-07-11] VITALS (8 sets, daily range): BP systolic 140–153; BP diastolic 71–93; PULSE 67–81; RESP 18–20; TEMP 36.6; O2SAT 98–99; BMI 21.3
[2024-07-11 08:51] LABS: Basophils # 0.1 K/mm3 (0-0.2); Basophils % 1.2 % (0.1-2.0); Eosinophils # 0.2 Kmm3 (0.0-0.4); Eosinophils % 2.4 % (0.1-12.0); Hematocrit 40.7 % (42.0-52.0); Hemoglobin 13.2 g/dL (14.1-18.0); Immature Granulocytes # 0.14 10^3uL; Immature Granulocytes % 1.7 %; Lymphocytes # 2.4 K/mm3 (0.7-4.5); Lymphocytes % 28.3 % (10-50); Mean Corpuscular HGB Conc 32.4 g/dL (31.8-35.4); Mean Corpuscular Hemoglobin 27.2 pg (27.0-31.2); Mean Corpuscular Volume 83.9 fl (80-94); Mean Platelet Volume 8.3 fl (7.4-10.4); Monocytes # 0.7 K/mm3 (0.1-1.0); Monocytes % 8.6 % (1.7-9.3); Neutrophils # 4.9 K/mm3 (1.8-7.8); Neutrophils % 57.8 % (37.0-80.0); Nucleated Red Blood Cells # 0 10^3/uL; Nucleated Red Blood Cells % 0 %; Platelet Count 271 K/mm3 (142-424); Red Blood Count 4.85 M/mm3 (4.60-6.20); Red Cell Distribution Width 18.5 % (11.5-17.5); Red Cell Distribution Width-SD 53.5 fL; White Blood Count 8.4 K/mm3 (4.8-10.8)
[2024-07-11 09:07] LABS: Alanine Aminotransferase 19 U/L (12-78); Albumin Level 4.1 g/dl (3.5-5.0); Albumin/Globulin Ratio 1.4 (1.1-1.8); Alkaline Phosphatase 60 U/L (38-126); Anion Gap 7.6 mEq/L (5-15); Aspartate Amino Transferase 24 U/L (17-59); Bilirubin,Total 0.5 mg/dl (0.2-1.3); Blood Urea Nitrogen 13 mg/dl (9-20); Calcium 9.1 mg/dl (8.4-10.2); Carbon Dioxide 29 mmol/L (22.0-30.0); Chloride 109 mmol/L (98-107); Creatinine Clearance Estimated 77 mL/min (50-200); Estimated Glomerular Filt Rate 84 ml/min (>60); GFR (African American) 102 ML/MIN (>60); Globulin 2.9 g/dL (1.3-3.2); Glucose 88 mg/dl (74-100); Potassium 3.6 mmoL/L (3.5-5.1); Sodium 142 mmol/L (136-145)
[2024-07-11] MEDS: MONTELUKAST SODIUM 10MG TAB 10 MG PO (10:05)
[2024-07-11] MEDS: POTASSIUM CHLORIDE 20MEQ TAB 40 MEQ PO (10:05)
[2024-07-11] MEDS: SODIUM CHLORIDE 0.9% 50ML BAG 50 ML IV (10:05)
[2024-07-11] MEDS: DEXAMETHASONE 4MG TABLET 12 MG PO (10:06)
[2024-07-11] MEDS: FAMOTIDINE 20MG TABLET 20 MG PO (10:06)
[2024-07-11] MEDS: ONDANSETRON 4MG ODT 16 MG SL (10:06)
[2024-07-11] MEDS: diphenhydrAMINE 25MG CAPSULE 25 MG PO (10:06)
[2024-07-11] MEDS: SODIUM CHLORIDE 0.9% 10ML FLUSH SYRINGE 10 ML IV (10:07)
[2024-07-11] MEDS: CALCIUM GLUCONATE 1,000 MG, MAGNESIUM SULFATE 1 GM in DEXTROSE 5 % IN WATER 100 ML 224 MG IV ×2 (10:15→13:04)
[2024-07-11] MEDS: OXALIPLATIN IV (10:51)
[2024-07-11] MEDS: DEXTROSE 5% IV (10:51)
[2024-07-11] MEDS: WATER IV (10:51)
== END 2024-07-11 14:00 | disposition home or self-care (01) ==
LOC: INF 08:29
PROVIDERS: PCP Nurse Practitioner; Visit Provider Internal Medicine Medical Oncology
DX: C18.6 Malignant neoplasm of descending colon (principal)
CPT/HCPCS: 80053; 85025; 96413; 96415; J7060; J8540; J9263; Q0162

== ENCOUNTER 2024-08-01 09:12 | Outpatient (CLI) | payer BC, SELFPAY ==
[2024-08-01 09:17] VITALS: BMI 21.3
[2024-08-01 09:40] LABS: Basophils # 0.1 K/mm3 (0-0.2); Basophils % 1.2 % (0.1-2.0); Eosinophils # 0.1 Kmm3 (0.0-0.4); Hematocrit 40.2 % (42.0-52.0); Hemoglobin 13.8 g/dL (14.1-18.0); Immature Granulocytes # 0.09 10^3uL; Immature Granulocytes % 1.8 %; Lymphocytes # 1.6 K/mm3 (0.7-4.5); Lymphocytes % 32.1 % (10-50); Mean Corpuscular HGB Conc 34.3 g/dL (31.8-35.4); Mean Corpuscular Hemoglobin 28.4 pg (27.0-31.2); Mean Corpuscular Volume 82.7 fl (80-94); Mean Platelet Volume 8.4 fl (7.4-10.4); Monocytes # 0.8 K/mm3 (0.1-1.0); Monocytes % 14.7 % (1.7-9.3); Neutrophils # 2.5 K/mm3 (1.8-7.8); Neutrophils % 49.2 % (37.0-80.0); Nucleated Red Blood Cells # 0 10^3/uL; Nucleated Red Blood Cells % 0 %; Platelet Count 232 K/mm3 (142-424); Red Blood Count 4.86 M/mm3 (4.60-6.20); White Blood Count 5.1 K/mm3 (4.8-10.8)
[2024-08-01 09:57] LABS: Alanine Aminotransferase 23 U/L (12-78); Albumin Level 3.9 g/dl (3.5-5.0); Albumin/Globulin Ratio 1.4 (1.1-1.8); Alkaline Phosphatase 71 U/L (38-126); Aspartate Amino Transferase 31 U/L (17-59); Bilirubin,Total 1.5 mg/dl (0.2-1.3); Blood Urea Nitrogen 15 mg/dl (9-20); Calcium 9.5 mg/dl (8.4-10.2); Carbon Dioxide 27 mmol/L (22.0-30.0); Chloride 101 mmol/L (98-107); Creatinine Clearance Estimated 77 mL/min (50-200); Estimated Glomerular Filt Rate 75 ml/min (>60); GFR (African American) 90 ML/MIN (>60); Globulin 2.8 g/dL (1.3-3.2); Glucose 117 mg/dl (74-100); Sodium 136 mmol/L (136-145); Total Protein,Serum 6.7 g/dl (6.3-8.2)
[2024-08-01] MEDS: 0.9% NaCl w/40mEq KCL 1,000 ML 500 ML IV (10:18)
[2024-08-01 10:25] VITALS: BP 106/65; PULSE 98; RESP 18; TEMP 36.8; O2SAT 97
[2024-08-01 10:29] LABS: Magnesium 1.8 mg/dl (1.6-2.3)
[2024-08-01 11:00] VITALS: BP 128/65; PULSE 88
[2024-08-01 11:30] VITALS: BP 124/71; PULSE 90
[2024-08-01 12:30] VITALS: BP 124/66; PULSE 84
--- NOTE | 2024-08-02 15:25 | DIET.NUTRFU ---
RD consulted by Dr. Gan secondary to weight loss d/t chemo treatment. Dr Gan's note indicated he has lost 16#, chart review indicated 10-24# since 04/2023. Spoke to Minh today and she says his appetite takes 2 weeks to come back after a treatment. He was planning to go to [employer] today to purchase some supplements to help with calories and protein intake. RD suggested premeir protein or any supplement that will provide >20gm protein/serving. RD also suggested homemade milkshakes and offered to mail some recipes, he requested to have them texted over. Also texted over some high calorie/protein meal suggestions. Provided contact information for further follow-up as needed.
== END 2024-08-01 12:30 | disposition home or self-care (01) ==
LOC: INF 09:15
PROVIDERS: PCP Nurse Practitioner; Visit Provider Internal Medicine Medical Oncology
DX: C18.6 Malignant neoplasm of descending colon (principal)
CPT/HCPCS: 96360; 80053; 83735; 85025; 96365

== ENCOUNTER 2024-08-04 08:27 | Emergency (ER) | payer BC, SELFPAY ==
[2024-08-04 09:01] VITALS: BP 160/92; PULSE 66; O2SAT 100
[2024-08-04 09:13] VITALS: BP 131/85; PULSE 78; RESP 17; TEMP 36.6; O2SAT 99; BMI 19.9
[2024-08-04 09:25] VITALS: BP 136/84; PULSE 81; RESP 15; TEMP 36.6; O2SAT 99
== END 2024-08-04 09:25 | disposition home or self-care (01) ==
PROVIDERS: Emergency Provider Emergency Medicine; PCP Nurse Practitioner
DX: Z46.82 Encounter for fitting and adjustment of non-vascular catheter (principal)
CPT/HCPCS: 51702; 99281

== ENCOUNTER 2024-08-08 09:42 | Outpatient (CLI) | payer BC, SELFPAY ==
--- OUTSIDE RECORDS SUMMARY | 2024-07-05 09:00 | XMS_ITS | Encounter Summary ---
Author Organization Healthcare Address [address] [place] [address] Care Team Providers Care Sports Attorney Name Role Phone Bandar Minor MD Primary Care Provider Reason for Referral * Other Medical (Routine) - Authorized Specialty Diagnoses / Procedures Referred By Contac t Referred To Contact Urology Diagnoses Retention, urine Procedures TRUS Volume Phil Long MD [address] [address] Phone: tel: fax: [facility] [address] [place] [address] Phone: tel: fax: Referral ID Status Reason Start Date Expiration Date V isits Requested Visits Authorized [id number] Authorized 07/05/2024 01/04/2026 1 1 * Other Medical (Routine) - Authorized Specialty Diagnoses / Procedures Referred By Contac t Referred To Contact Urology Diagnoses Retention, urine Procedures Cysto- Urology Phil Long MD [address] [address] Phone: tel: fax: Referral ID Status Reason Start Date Expiration Date V isits Requested Visits Authorized [id number] Authorized 07/05/2024 01/04/2026 1 1 Encounter Details Date Type Department Care Team (Late st Contact Info) Description 07/05/2024 9:00 AM EDT Office Visit Medical Office Building Urology [address] [facility], [address] [place] [address] Phil Long MD [address] [place] [address] Screening for prostate cancer (Primary [...] any time in the past 12 m [facility], were you homeless or living in a jail (including now)? No 05/05/2024 Utilities Answer Date Recorded In the past 12 months has e [employer], gas, oil, or water company threatened to [...] and catheter was placed 04/05/2024 CT: -Prostate [id number] with Median lobe 05/04/2024 left colectomy for [...] mouth every 6 hours as needed. Under [place] law, monthly prescriptions (30 days) can be [...] Upcoming Encounters Date Type Department Care Team (Late st Contact Info) Description 08/22/2024 10:45 AM EDT Office Visit [facility] Cardiothoracic [address] [place] [address] KellyCharu Levy MD [address] [facility] [address] [place] [address] 09/26/2024 7:20 AM EDT Appointment [facility] [address] [place] [address] 09/26/2024 9:45 AM EDT Office Visit [facility] Multidisciplinary Oncology Clinic [address] [place] [phone] Jovani Bravo MD [address] [facility] [address] [place] [address] 09/27/2024 9:00 AM EDT Appointment [facility] [address] [place] [address] 10/04/2024 11:15 AM EDT Office Visit Medical Office Building Urology [address] [facility] [place] [address] Phil Long MD [address] [facility] [address] [place] [address] Scheduled Orders Name Type Priority Associated Diagnoses Orde r Schedule Cysto- Urology Procedure Routine Retention, urine Expected: 07/05/2024 (Approximate), Expires: 01/05/2026 TRUS Volume Procedure Routine Retention, urine Expected: 07/05/2024 (Approximate), Expires: 01/05/2026 documented as of this encounter Results * (ABNORMAL) PSA Screen (07/05/2024 9:58 AM EDT) Prostate Cancer Screen, Serum 7.19(H) 0.00 - 4.50 ng/mL 07/05/2024 1:41 PM EDT [facility] Blood Venous blood specimen / Unknown Venipuncture / Unknown 07/05/2024 9:58 AM EDT 07/05/2024 9:58 AM EDT Narrative [facility] - 07/05/2024 1:41 PM EDT Performed by Geri electrochemiluminescent immunoassay which is standardized against the PSA [place] Reference Standard (WHO 96/670). Results obtained with different test methods or kits cannot be used interchangeably. us Phil Long MD LAB BLOOD ORDERABLES Final Resu lt [facility] [address] [place] [address] documented in this encounter Visit Diagnoses Diagnosis [...] documented as of this encounter Care Teams Sports Attorney Relationship Specialty Start Date End Date Bandar Minor MD [address] [place] [address] [address] [place] [address] PCP - General 08/19/22 documented as of this encounter
[2024-08-08] VITALS (7 sets, daily range): BP systolic 112–131; BP diastolic 64–74; PULSE 78–84; RESP 18; TEMP 36.7; O2SAT 99; BMI 19.2
--- OUTSIDE RECORDS SUMMARY | 2024-08-08 09:53 | XMS_ITS | Encounter Summary ---
Author Organization Healthcare Address [address] [place] [address] Care Team Providers Care Manager Program Management Name Role Phone Bandar Minor MD Primary Care Provider [phone] Reason for Referral * Imaging (Routine) - Pending Review Specialty Diagnoses / Procedures Referred By Souleymane zayas Referred To Contact Radiology Diagnoses Elevated PSA Procedures MR Prostate w and wo IV Contrast Phil Long MD [address] [address] Phone: tel: fax: Referral ID Status Reason Start Date Expiration Date V isits Requested Visits Authorized [id number] Pending Review 07/05/2024 01/04/2026 1 1 Encounter Details Date Type Department Care Team ([facility] st Contact Info) Description 07/05/2024 Results Follow-Up Medical Office Building Urology [address] [facility], [address] [place] [address] Phil Long MD [address] [address] Social History Tobacco Use Types Packs/Day Years [...] time in the past 12 m [facility], were you homeless or living in a jail (including now)? No 05/05/2024 Utilities Answer Date Recorded In the past 12 months has th e electric, gas, oil, or water company threatened to shut off services in your home? No 05/05/2024 Sex and Gender Information Value Date Recorded Sex Assigned at Male 04/27/2024 7:58 AM EST Legal Sex Male 6:27 PM EDT Gender Identity Not on file Sexual Orientation Not on file documented as of this encounter Functional Status * Over the past 2 weeks, how often have you been bothered by any of the following problems? Question Answer Date of Assessment Author Little interest or pleasure in doing things Not at all 07/05/2024 8:38 AM Eduardo Claire Feeling down, depressed, or hopeless Not at all 07/05/2024 8:38 AM Eduardo Claire Patient Health Questionnaire -2 Score 0 07/05/2024 8:38 AM Eduardo Claire * Question Answer Date of Assessment Author Trouble falling or staying a sleep, or sleeping too much Not at all 07/05/2024 8:38 AM Eduardo Claire Feeling tired or having marixa le energy [...] usual. Not at all 07/05/2024 8:38 AM dEuardo Claire Thoughts that you would be b [...] as of this encounter Miscellaneous Notes * Result Encounter Note - Phil Long MD - 07/05/2024 10:00 PM EDT PSA=7.19. This is increased from your last PSA=3.5 in 2021. This increase may be due to growth of the prostate and the indwelling catheter, but I recommend some additional imaging. I am ordering a prostate MRI which should help clarify whether there is a significant concern for possible prostate cancer and if a biopsy is needed documented in this encounter Plan of Treatment Upcoming Encounters Date Type Department Care Team ([facility] st Contact Info) Description 08/22/2024 10:45 AM EDT Office Visit [facility] Cardiothoracic [address], [address] [place] [address] RobinCharu Levy MD [address] [facility] [address] [place] [address] 09/26/2024 7:20 AM EDT Appointment [facility] [address] [place] [address] 09/26/2024 9:45 AM EDT Office Visit [facility] Multidisciplinary Oncology Clinic [address] [place] [phone] Jovani Bravo MD [address] [place] [address] 09/27/2024 9:00 AM EDT Appointment [facility] [address] [place] [address] 10/04/2024 11:15 AM EDT Office Visit Medical Office Building Urology [address] [facility], [address] [place] [address] Phil Long MD [address] [place] [address] Scheduled Orders Name Type Priority Associated Diagnoses Orde r Schedule MR Prostate w and wo IV Contrast Imaging Routine Elevated PSA Expected: 07/05/2024 (Approximate), Expires: 01/05/2026 documented as of this encounter Visit Diagnoses Diagnosis Elevated PSA- Primary Elevated prostate specific antigen (PSA) documented in this encounter Additional Health Concerns Assessment Noted Time PHQ-9 Depression Total Score: 0 07/06/19 25 8:38 AM EDT A fall risk assessment has been complete d for the patient 07/05/2024 8:38 AM EDT A Body Mass Index follow-up plan has been documented for the patient 07/08/2024 4:04 PM EDT documented as of this encounter Care Teams Manager Program Management Relationship Specialty Start Date End Date Bandar Minor MD [address] [place] [address] #1 [address]1 TAMIKO Gutierrez [id number] PCP - General 08/19/22 documented as of this encounter
--- OUTSIDE RECORDS SUMMARY | 2024-08-08 09:53 | XMS_ITS | Clinical Summary ---
Author Organization Healthcare Address [address] [place] [address] Care Team Providers Care District Manager In Training Name Role Phone Bandar Minor MD Primary Care Provider [phone] Allergies No known active allergies Medications tamsulosin (Flomax) 0.4 MG 24 hr capsule Take 1 capsule (0.4 mg) by mouth daily. 04/17/19 25 Active famotidine (Pepcid) 20 MG tablet Take 1 tablet (20 mg) by mouth as needed for heartburn or indigestion. Active acetaminophen (Tylenol) 325 MG tablet Take 2 tablets (650 mg) by mouth every 6 hours as needed. Under [place] law, monthly prescriptions (30 days) can be refilled at 25 days and three-month prescriptions (90 days) at 80 days. Please contact the insurance company with questions if refills are denied. Active polyethylene glycol (MiraLax) 17 GM/SCOOP powder At 6pm day BEFORE surgery, mix Miralax (polyethylene glycol) powder with 64 oz sports drink. Stir to dissolve. Drink one cup (8oz) every 15 minutes until completed finished. SSICOLON 238 g 04/18/19 25 Active neomycin (Mycifradin) 500 MG tabletIndications: Colon stricture (CMS/HCC) Take two tablets (1000 mg) by mouth at 1:00pm, 2:00pm and 11:00pm on the day prior to surgery. SSICOLON 6 tablet 04/18/19 25 Active Nutritional Supplements (Impact Advanced Recovery) liquid Drink 2 cartons a day starting 5 days before surgery. SSICOLON. Auto Sub for Ensure Surgery if Impact not available. 176 mL 2 04/18/19 25 Active metroNIDAZOLE (Flagyl) 500 MG tabletIndications: Colon stricture (CMS/HCC) Take one tablet at 1pm, 2pm, and 11pm day BEFORE surgery. SSI COLON. 3 tablet 04/18/19 25 Active bisacodyl (Dulcolax) 5 MG EC tablet Day before procedure at 4pm take 4 tablets with 8 oz of clear liquid. SSICOLON 4 tablet 04/18/19 25 Active finasteride (Proscar) 5 MG tablet Take 1 tablet (5 mg) by mouth daily. Do not crush, chew, or split. 30 tablet 3 04/27/19 25 Active diphenhydrAMINE-ac etaminophen (Tylenol PM) 25-500 MG per tablet Take 2 tablets by mouth at night as needed for sleep. Active oxyCODONE (Roxicodone) 5 MG immediate release tablet Take 1 tablet (5 mg) by mouth every 4 (four) hours as needed for moderate pain or severe pain. 15 tablet 05/08/19 25 Active Additional Information Patient not taking.Reported on 07/05/2024 methocarbamol (Robaxin) 500 MG tablet Take 1 tablet (500 mg) by mouth every 6 (six) hours for 5 days. 20 tablet 05/08/19 25 Active ondansetron ODT (Zofran-ODT) 4 MG disintegrating tablet Take 1 tablet (4 mg) by mouth every 6 hours as needed for nausea or vomiting. 20 tablet 05/08/19 25 Active naloxone (Narcan) 4 mg/0.1 mL nasal spray 1. Give 1 spray in nostril for no/slow breathing or cannot wake after opioid use 2. Call 911 3. Repeat in other nostril if symptoms continue 1 each 05/08/19 25 Active Additional Information Patient not taking.Reported on 07/05/2024 rivaroxaban (Xarelto) 10 MG tablet Take 1 tablet (10 mg) by mouth in the morning for 25 days. 25 tablet 05/08/19 25 Active Active Problems Problem Noted Date Diagnosed Date Cancer of left colon 04/26/2024 COPD (chronic obstructive pulmonary disease) Thoracic aortic aneurysm 12/23/2016 Encounters Date Type Department Care Team Description 08/02/2024 Telephone [facility] Urology [address] [place] [address] Phil Long MD [facility] Clinical Concern/Question 07/05/2024 9:00 AM EDT Office Visit Medical Office Building Urology [address] [facility], [address] [place] [address] Phil Long MD Screening for prostate cancer (Primary Dx); Retention, urine; Kidney stones 07/05/2024 Results Follow-Up Medical Office Building Urology [address] [facility], [address] [place] [address] Phil Long MD 07/05/2024 Travel 05/23/2024 10:15 AM EDT Office Visit [facility] [address] [place] [address] Jovani Bravo MD Cancer of left colon (CMS/HCC) (Primary Dx) 05/23/2024 Orders Only [facility] [address] [place] [address] Carley Minor RN 05/23/2024 Orders Only [facility] [address] [place] [address] Jovani Bravo MD Cancer of left colon (CMS/HCC) (Primary Dx) 05/23/2024 Travel 05/11/2024 Telephone [facility] [address] [place] [address] Jovani Bravo MD from Last 3 Months Immunizations Immunization Administration Dates Next Due Influenza, Unspecified 11/27/2016 Pneumococcal Conjugate PCV 13 12/23/2016 Pneumococcal, Unspecified 12/08/2016 Family History Medical History Relation Name Comments Breast cancer Maternal Grandmother Anesthesia problems Neg Hx Cardiac disorder Neg Hx Malig Hyperthermia Neg Hx Relation Name Status Comments Maternal Grandmother Social History Tobacco Use Types Packs/Day Years [...] money to buy more. Never true 05/06/19 Within the past 12 months, t he [...] any time in the past 12 m [facility], were you homeless or living in a fdc (including now)? No 05/05/2024 Utilities Answer Date Recorded In the past 12 months has th e electric, gas, oil, or water company threatened to shut off services in your home? No 05/05/2024 Sex and Gender Information Value Date Recorded Sex Assigned at Male 04/27/2024 7:58 AM EST Legal Sex Male 6:27 PM EDT Gender Identity Not on file Sexual Orientation Not on file Last Filed Vital Signs Vital Sign Reading Time Taken Comments Blood Pressure 120/80 07/05/2024 8:36 AM EDT Pulse 74 07/05/2024 8:36 AM EDT Temperature 36.7 C (98.1 F) 07/05/2024 8:36 AM EDT Respiratory Rate 16 05/23/2024 9:57 AM EDT Oxygen Saturation 100% 07/05/2024 8:36 AM EDT Inhaled Oxygen Concentration - - Weight 75 kg (165 lb 5.5 oz) 07/05/2024 8:36 AM EDT Height 188 cm (6' 2 ) 07/05/2024 8:36 AM EDT Body Mass Index 21.23 07/05/2024 8:36 AM EDT Plan of Treatment Upcoming Encounters Date Type Department Care Team (Late st Contact Info) Description 08/22/2024 10:45 AM EDT Office Visit [place] [facility] Cardi[facility]acic [address], [facility] [address] [place] [phone] RobinCharu Levy MD [address] [place] [address] 09/26/2024 7:20 AM EDT Appointment [facility] [address] [place] [phone] 09/26/2024 9:45 AM EDT Office Visit [facility] [address] [place] [address] Jovani Bravo MD [address] [facility] [address] [place] [address] 09/27/2024 9:00 AM EDT Appointment [facility] Rad[facility] [address] [place] [phone] 10/04/2024 11:15 AM EDT Office Visit Medical Office Building Urology [address] [facility], [address] [place] [address] Phil Long MD [address] [facility] [address] [place] [address] Health Maintenance Due Date Last Done Comments [facility]-Hepatitis C Screening 1960 [facility]-Infant/Child/Adol SDOH Screenings 1960 [facility]-DTaP,Tdap,and Td Vaccine s (1 - Tdap) 1977 [facility]-Zoster Vaccines (1 of 2) 1977 CT Colonography 2003 Colonoscopy 2003 FIT-DNA 2003 FIT 2003 FOBT 2003 Sigmoidoscopy 2003 [facility]-Colorectal Cancer Screening 2003 [facility]-Pneumococcal Vaccine: 50 + Years (2 of 2 - PPSV23) 02/17/2017 12/23/2016, 12/08/2016 RBF-QUABS-30 Vaccine ( season) 2023 01/28/2021, 05/29/2020, 05/01/2020 [facility]-Influenza Vaccine (Seaso n Ended) 2024 01/14/2022, 11/27/2016 [facility]- SDOH Screenings 11/05/2024 [facility]-Adult SDOH Screenings 11/05/2024 05/05/2024 [facility]-Depression Screening 07/05/2025 025, 07/05/2024 [facility]-RSV Vaccine: 60+ Years o r (1 - 1-dose 75+ series) 2033 HPV Vaccines Aged Out No longer eligi ble based on patient's age to complete this topic [facility]-HIB Vaccines Aged Out No longer e ligible based on patient's age to complete this topic [facility]-Hepatitis A Vaccines Aged Out No longer eligible based on patient's age to complete this topic [facility]-IPV Vaccines Aged Out No longer e ligible based on patient's age to complete this topic [facility]-Rotavirus Vaccines Aged Out No lo nger eligible based on patient's age to complete this topic Procedures Procedure Name Priority Date/Time Associated Diagnosis Comments PROSTATE CANCER SCREEN, SERUM Routine 07/05/2024 9:58 AM EDT Screening for prostate cancer CEA, SERUM Routine 05/23/2024 11:47 AM EDT Cancer of left colon (CMS/HCC) from Last 3 Months Results * (ABNORMAL) PSA Screen (07/05/2024 9:58 AM EDT) Prostate Cancer Screen, Serum 7.19(H) 0.00 - 4.50 ng/mL 07/05/2024 1:41 PM EDT [facility] Blood Venous blood specimen / Unknown Venipuncture / Unknown 07/05/2024 9:58 AM EDT 07/05/2024 9:58 AM EDT Narrative [facility] - 07/05/2024 1:41 PM EDT Performed by Geri electrochemiluminescent immunoassay which is standardized against the PSA Faizan Reference Standard (WHO 96/670). Results obtained with different test methods or kits cannot be used interchangeably. us Phil Long MD LAB BLOOD ORDERABLES Final Resu lt Performing Organization Address City/[facility]/ZIP Co de Phone Number [facility] [address] [place] [address] * CEA (05/23/2024 11:47 AM EDT) Pathologist [facility] CEA, Serum 2.9 <4.0 ng/mL 05/23/2024 1:22 PM EDT [facility] Blood Venous blood specimen / Unknown Venipuncture / Unknown 05/23/2024 11:47 AM EDT 05/23/2024 12:41 PM EDT Narrative [facility] - 05/23/2024 1:22 PM EDT Normal range for smokers: < 5.5 ng/ml Normal range for non-smokers: <=4.0 ng/ml Performed by Geri electrochemiluminescent immunoassay. Results obtained with different test methods or kits cannot be used interchangeably. us Jovani Bravo MD LAB BLOOD ORDERABLES Final Res ult Performing Organization Address City/[facility]/ZIP Co de Phone Number [address] [address] from Last 3 Months [place] [address] FORMERLY [facility], [facility]–1983 MEDICARE Advance Directives * Full Code (Latest Code Status on File) Date Activated Date Inactivated Comments 05/04/2024 11:28 AM 05/07/2024 5:58 PM Question Answer Comments Patient has decision-making capacity? Yes Care Teams District Manager In Training Relationship Specialty Start Date End Date Bandar Minor MD [address] [place] [address] #1 #1 TAMIKO Gutierrez [phone] PCP - General 08/19/22
--- OUTSIDE RECORDS SUMMARY | 2024-08-08 09:53 | XMS_ITS | Encounter Summary ---
Author Organization Healthcare Address [address] [place] [address] Care Team Providers Care Natural Resource Officer Name Role Phone Bandar Minor MD Primary Care Provider [phone] Encounter Details Date Type Department Care Team (Late Contact Info) Description 04/13/2024 Lab Requisition [facility] [address] [place] [address] Jovani Bravo MD [address] [facility] [address] [place] [address] Anemia, unspecified Social History Tobacco Use Types Packs/Day Years Used Date Smoking Tobacco: Never Smokeless Tobacco: Never Alcohol Use Standard Drinks/Week Comments Not Currently 0 (1 standard drink = 0.6 oz pur e alcohol) Sex and Gender Information Value Date Recorded Sex Assigned at Male 04/27/2024 7:58 AM EST Legal Sex Male 6:27 PM EDT Gender Identity Not on file Sexual Orientation Not on file documented as of this encounter Plan of Treatment Upcoming Encounters Date Type Department Care Team (Late Contact Info) Description 08/22/2024 10:45 AM EDT Office Visit [place] [facility] [address], [facility] [address] [place] [address] Charu Ge MD [address] [facility] [address] [place] [address] 09/26/2024 7:20 AM EDT Appointment [facility] [address] [place] [address] 09/26/2024 9:45 AM EDT Office Visit [facility] [address] [place] [address] Jovani Bravo MD [address] [place] [address] 09/27/2024 9:00 AM EDT Appointment [facility] [address] [place] [address] 10/04/2024 11:15 AM EDT Office Visit Medical Office Building Urology [address] [facility], [address] [place] [address] Phil Long MD [address] [place] [address] documented as of this encounter Procedures Procedure Name Priority Date/Time Associated Diagnosis Comments SURGICAL PATHOLOGY CONSULT Routine 04/13/2024 10:47 AM EST Anemia, unspecified documented in this encounter Results * Surgical Pathology Consult (04/13/2024 10:47 AM EST) Case Report Sugical Pathology Consult Case: [id number] Authorizing Provider: Jovani Bravo MD Collected: 04/13/20241046 Ordering Location: [facility] Lab Received: 04/13/20241046 Pathologist: Hansel Mclean MD Specimen: Duodenum, [id number] 5 6:11 PM EST [facility] Final Diagnosis COLON, SPLENIC FLEXURE MASS, BIOPSY (OUTSIDE CASE [id number], PART C; COLLECTED ON 04/05/2024): - ADENOCARCINOMA, 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 [id number] Received along with a corresponding pathology report from [facility] are 7 slide(s) labeled outside case: [id number] collected on 04/05/2024. 5 6:11 PM EST [facility] Note: A resident was involved in the service. I attest I examined the relevant preparations for the specimens and confirmed the diagnosis or interpretation. 5 6:11 PM EST [facility] Tissue Duodenal structure / Unknown 04/13/2024 10:47 AM EST 04/13/2024 10:47 AM EST Jovani Bravo MD LAB PATHOLOGY ORDERABLES Final Result Performing Organization Address City/State/[facility] Co de Phone Number [facility] [address] [place] [address] documented in this encounter Visit Diagnoses Diagnosis Anemia, unspecified documented in this encounter Care Teams Natural Resource Officer Relationship Specialty Start Date End Date Bandar Minor MD [address] [place] [address] [address] [place] [address] PCP - General 08/19/22 documented as of this encounter
--- OUTSIDE RECORDS SUMMARY | 2024-08-08 09:53 | XMS_ITS | Encounter Summary ---
Author Organization [facility] Address [address] [place] [address] Care Team Providers Care Primary Class Teacher Name Role Phone Bandar Minor MD Primary Care Provider [phone] Encounter Details Date Type Department Care Team ([facility] Contact Info) Description 07/17/2023 Orders Only External Location [address] [place] [address] Arsh Zafar MD [address] [facility] [address] [place] [address] Social History Tobacco Use Types Packs/Day Years [...] Upcoming Encounters Date Type Department Care Team ([facility] Contact Info) Description 08/22/2024 10:45 AM EDT Office Visit [place] [facility] [address], [address] [place] [address] Charu Ge MD [address] [place] [address] 09/26/2024 7:20 AM EDT Appointment [facility] [address] [place] [address] 09/26/2024 9:45 AM EDT Office Visit [facility] [address] [place] [address] Jovani Bravo MD [address] [place] [address] 09/27/2024 9:00 AM EDT Appointment [facility] [address] [place] [address] 10/04/2024 11:15 AM EDT Office Visit Medical Office Building Urology [address] [facility], [address] [place] [address] Phil Long MD [address] [place] [address] documented as of this encounter Procedures Procedure Name Priority Date/Time Associated Diagnosis Comments CT OUTSIDE IMAGES 07/17/2023 12:31 AM EDT documented in this encounter Results * CT OUTSIDE IMAGES (07/17/2023 12:31 AM EDT) Anatomical Region Laterality Modality Computed Tomogra phy 07/17/2023 12:3 1 AM EDT us Arsh Zafar MD IMG CT PROCEDURES Final Result documented in this encounter Visit Diagnoses Not on filedocumented in this encounter Care Teams Primary Class Teacher Relationship Specialty Start Date End Date Bandar Minor MD [address] [place] [address] [address] [place] [address] PCP - General 08/19/22 documented as of this encounter
--- OUTSIDE RECORDS SUMMARY | 2024-08-08 09:53 | XMS_ITS | Encounter Summary ---
Author Organization Healthcare Address [address] [id number] Care Team Providers Care Physical Anthropologist Name Role Phone Bandar Minor MD Primary Care Provider [phone] Reason for Visit * Reason Onset Date Comments HCN Clinical Concern/Question 08/02/2024 Encounter Details Date Type Department Care Team (Late st Contact Info) Description 08/02/2024 Telephone [place] [facility] [address] [place] [address] Phil Long MD [address] [place] [address] H[facility] Clinical Concern/Question Social History Tobacco Use Types Packs/Day Years [...] any time in the past 12 m [facility], were you homeless or living in a assisted (including now)? No 05/05/2024 Utilities Answer Date [...] on file documented as of this encounter Miscellaneous Notes * Telephone Encounter - Wendy Umana - 08/02/2024 4:31 PM EDT Wrote down pts name and MRN. Milo long stated that he would look into it. * Telephone Encounter - Katie Madsen - 08/02/2024 9:27 AM EDT Patient Phone Message Reason for Call: Pt is calling, states he has chemo treatment 08/08, same day as his upcoming appt. Is asking for a call back to discuss getting R/S'd Best contact number and optimal time of day to reach caller: [phone] Note: Please do not reply to this message. Follow-up communication and further actions as a result of this message need to be communicated with the patient directly, if the patient is not active onMyChart. If the patient is active on MyChart, they will receive notification of the communication/outcome via MyChart. documented in this encounter Plan of Treatment Upcoming Encounters Date Type Department Care Team (Late st Contact Info) Description 08/22/2024 10:45 AM EDT Office Visit [place] [facility] [address], [address] [place] [address] Charu Ge MD [address] [place] [address] 09/26/2024 7:20 AM EDT Appointment [facility] [address] [place] [address] 09/26/2024 9:45 AM EDT Office Visit [facility] [address] [place] [address] Jovani Bravo MD [address] [place] [address] 09/27/2024 9:00 AM EDT Appointment [facility] [address] [place] [address] 10/04/2024 11:15 AM EDT Office Visit Medical Office Building Urology [address] [facility], [address] [place] [address] Phil Long MD [address] [facility] [address] [place] [address] documented as of this encounter Visit Diagnoses Not on filedocumented in this encounter Additional Health Concerns Assessment Noted Time PHQ-9 Depression Total Score: 0 07/06/19 25 8:38 AM EDT A fall risk assessment has been complete d for the patient 07/05/2024 8:38 AM EDT A Body Mass Index follow-up plan has been documented for the patient 07/08/2024 4:04 PM EDT documented as of this encounter Care Teams Physical Anthropologist Relationship Specialty Start Date End Date Bandar Minor MD [address] [place] [address] [address] [place] [address] PCP - General 08/19/22 documented as of this encounter
--- OUTSIDE RECORDS SUMMARY | 2024-08-08 09:53 | XMS_ITS | Clinical Summary ---
Author Organization [facility] Address [address] [place] [address] Phone [email or web address] Care Team Providers Care Tank House Operator Helper Name Role Phone Unavailable Primary Care Provider Unavailabl e Active Problems Problem Noted Date Diagnosed Date Hyperlipidemia, unspecified 01/11/2018 Overview (11/13/2020): Other abnormal glucose 01/11/2018 Overview (11/13/2020): Hyperkalemia 01/14/2017 Overview (11/13/2020): COPD (chronic obstructive pulmonary disease) Thoracic aortic aneurysm 12/23/2016 Immunizations Immunization Administration Dates Next Due Influenza (Flucelvax) MDCK, PF, quad (CVX-171) 01/09/2021,01/05/2019,01/10/2018 Influenza, (Afluria Fluarix Flulaval Fluzone) quad, PF (CVX-150) 01/14/2022 Social History Tobacco Use Types Packs/Day Years Used Date Smoking Tobacco: Never Comments:Smoking History Pac ks/day: 0 cigarettes Intimate Partner Violence Answer Date R ecorded Insults You Not on file 11/17/2020 Threatens You Not on file 11/17/2020 Screams at You Not on file 11/17/2020 Physically Hurt Not on file 11/17/2020 Intimate Partner Violence Score Not on file 11/17/2020 Stress Answer Date Recorded Stress in your Life Not on file 01/05/2024 Dealing with Stress 3 01/05/2024 Sex and Gender Information Value Date Recorded Sex Assigned at Not on file Legal Sex Male 12:55 PM CDT Gender Identity Not on file Sexual Orientation Not on file Last Filed Vital Signs Vital Sign Reading Time Taken Comments Blood Pressure 140/98 01/14/2022 9:34 AM EST Pulse 75 01/14/2022 9:34 AM EST Temperature - - Respiratory Rate - - Oxygen Saturation 99% 01/14/2022 9:34 AM EST Inhaled Oxygen Concentration - - Weight 84 kg (185 lb 3.2 oz) 01/14/2022 9:34 AM EST Height 185.4 cm (6' 1 ) 01/14/2022 9:34 AM EST Body Mass Index 24.43 01/14/2022 9:34 AM EST Plan of Treatment Health Maintenance Due Date Last Done Comments Dental Cleaning/Exam 1960 Hepatitis C Screening 1960 Annual Preventive Exam 02/27/1976 Hep B Infection Screening - Triple Screen 02/27/1976 Tetanus Diphtheria and Pertussis Immunization (1 - Tdap) 1977 Colorectal Cancer Screening 02/27/1988 Zoster Immunization (1 of 2) 02/27/2008 Pneumococcal: 65+ Years (2 of 2 - PPSV23) 02/17/2017 12/23/2016, 12/08/2016 Covid-19 Immunization ( - season) 2023 Influenza Immunization (Season Ended) 2024 01/14/2022, 01/09/2021, 01/05/2019, Additional history exists HIB Immunization Aged Out No longer e ligible based on patient's age to complete this topic HPV Immunization Aged Out No longer e ligible based on patient's age to complete this topic Hepatitis A Immunization Aged Out No longer eligible based on patient's age to complete this topic Hepatitis B Immunization Aged Out No longer eligible based on patient's age to complete this topic Polio Immunization Aged Out No longer eligible based on patient's age to complete this topic Insurance ANGELIQUE NO COPAY NB
--- OUTSIDE RECORDS SUMMARY | 2024-08-08 09:53 | XMS_ITS | Encounter Summary ---
Author Organization Healthcare Address [address] [place] [address] Care Team Providers Care Vehicle Check In Clerk Name Role Phone Bandar Minor MD Primary Care Provider [phone] Encounter Details Date Type Department Care Team (Latest Contact Info) Description 07/05/2024 Travel Social History Tobacco Use Types Packs/Day Years [...] any time in the past 12 m [facility], were you homeless or living in a long-term (including now)? No 05/05/2024 Utilities Answer Date [...] Eduardo Claire documented as of this encounter Plan of Treatment Upcoming Encounters Date Type Department Care Team (Late st Contact Info) Description 08/22/2024 10:45 AM EDT Office Visit [facility] Cardiothoracic [address], [address] [place] [address] KellyCharu Levy MD [address] [facility] [address] [place] [address] 09/26/2024 7:20 AM EDT Appointment [facility] [address] [place] [address] 09/26/2024 9:45 AM EDT Office Visit [facility] [address] [place] [address] Jovani Bravo MD [address] [facility] [address] [place] [address] 09/27/2024 9:00 AM EDT Appointment [facility] [address] [place] [address] 10/04/2024 11:15 AM EDT Office Visit Medical Office Building Urology [address] [facility], [address] [place] [address] Phil Long MD [address] [place] [address] documented as of this encounter Visit Diagnoses [...] documented as of this encounter Care Teams Vehicle Check In Clerk Relationship Specialty Start Date End Date Bandar Minor MD [address] [place] [address] [address] [place] [address] PCP - General 08/19/22 documented as of this encounter
[2024-08-08 10:02] LABS: Basophils # 0.1 K/mm3 (0-0.2); Basophils % 0.9 % (0.1-2.0); Eosinophils # 0.1 Kmm3 (0.0-0.4); Eosinophils % 0.8 % (0.1-12.0); Hematocrit 40.5 % (42.0-52.0); Hemoglobin 13.3 g/dL (14.1-18.0); Immature Granulocytes # 0.21 10^3uL; Immature Granulocytes % 2.1 %; Lymphocytes # 2.2 K/mm3 (0.7-4.5); Lymphocytes % 21.9 % (10-50); Mean Corpuscular HGB Conc 32.8 g/dL (31.8-35.4); Mean Corpuscular Hemoglobin 29.1 pg (27.0-31.2); Mean Corpuscular Volume 88.6 fl (80-94); Mean Platelet Volume 8.5 fl (7.4-10.4); Monocytes # 0.7 K/mm3 (0.1-1.0); Monocytes % 6.8 % (1.7-9.3); Neutrophils # 6.6 K/mm3 (1.8-7.8); Neutrophils % 67.5 % (37.0-80.0); Nucleated Red Blood Cells # 0 10^3/uL; Nucleated Red Blood Cells % 0 %; Platelet Count 210 K/mm3 (142-424); Red Blood Count 4.57 M/mm3 (4.60-6.20); Red Cell Distribution Width 21.5 % (11.5-17.5); Red Cell Distribution Width-SD 69.2 fL; White Blood Count 9.9 K/mm3 (4.8-10.8)
[2024-08-08 10:12] LABS: Alanine Aminotransferase 18 U/L (12-78); Albumin Level 3.6 g/dl (3.5-5.0); Albumin/Globulin Ratio 1.2 (1.1-1.8); Alkaline Phosphatase 58 U/L (38-126); Anion Gap 5.4 mEq/L (5-15); Aspartate Amino Transferase 30 U/L (17-59); Bilirubin,Total 0.7 mg/dl (0.2-1.3); Blood Urea Nitrogen 16 mg/dl (9-20); Calcium 9.2 mg/dl (8.4-10.2); Carbon Dioxide 31 mmol/L (22.0-30.0); Chloride 104 mmol/L (98-107); Creatinine Clearance Estimated 70 mL/min (50-200); Estimated Glomerular Filt Rate 97 ml/min (>60); GFR (African American) 117 ML/MIN (>60); Globulin 2.9 g/dL (1.3-3.2); Glucose 89 mg/dl (74-100); Potassium 4.4 mmoL/L (3.5-5.1); Sodium 136 mmol/L (136-145); Total Protein,Serum 6.5 g/dl (6.3-8.2)
[2024-08-08] MEDS: FAMOTIDINE 20MG TABLET 20 MG (12:21)
[2024-08-08] MEDS: diphenhydrAMINE 25MG CAPSULE 25 MG PO (12:21)
[2024-08-08] MEDS: ONDANSETRON 4MG ODT 16 MG (12:22)
[2024-08-08] MEDS: DEXAMETHASONE 4MG TABLET 12 MG (12:22)
[2024-08-08] MEDS: MONTELUKAST SODIUM 10MG TAB 10 MG PO (12:22)
[2024-08-08] MEDS: CALCIUM GLUCONATE 1,000 MG, MAGNESIUM SULFATE 1 GM in DEXTROSE 5 % IN WATER 100 ML 224 MG IV ×2 (12:47→15:30)
[2024-08-08] MEDS: OXALIPLATIN IV (13:23)
[2024-08-08] MEDS: WATER IV (13:23)
[2024-08-08] MEDS: DEXTROSE 5% IV (13:23)
== END 2024-08-08 16:13 | disposition home or self-care (01) ==
LOC: INF 09:47
PROVIDERS: PCP Nurse Practitioner; Visit Provider Internal Medicine Medical Oncology
DX: C18.6 Malignant neoplasm of descending colon (principal)
CPT/HCPCS: 96415; 80053; 85025; 96413; J7060; J8540; J9263; Q0162

== ENCOUNTER 2024-08-18 14:34 | Outpatient (CLI) | payer BC, SELFPAY ==
--- OUTSIDE RECORDS SUMMARY | 2024-07-05 09:00 | XMS_ITS | Encounter Summary ---
Author Organization Healthcare Address [address] [place] [address] Care Team Providers Care Key Account Coordinator Name Role Phone Bandar Minor MD Primary Care Provider [phone] Reason for Referral * Other Medical (Routine) - Authorized Specialty Diagnoses / Procedures Referred By Contac t Referred To Contact Urology Diagnoses Retention, urine Procedures TRUS Volume Phil Long MD [address] [address] Phone: tel: fax: [facility] Urology [address], [address] [place] [address] Phone: tel: fax: Referral ID Status Reason Start Date Expiration Date V isits Requested Visits Authorized [id number] Authorized 07/05/2024 01/04/2026 1 1 * Other Medical (Routine) - Authorized Specialty Diagnoses / Procedures Referred By Contac t Referred To Contact Urology Diagnoses Retention, urine Procedures Cysto- Urology Phil Long MD [address] [address] Phone: tel: fax: Referral ID Status Reason Start Date Expiration Date V isits Requested Visits Authorized [id number] Authorized 07/05/2024 01/04/2026 1 1 Encounter Details Date Type Department Care Team (Late st Contact Info) Description 07/05/2024 9:00 AM EDT Office Visit Medical Office Building Urology [address] [facility], [address] [place] [address] Phil Long MD [address] [place] [address] Screening for prostate cancer (Primary [...] any time in the past 12 m [facility], were you homeless or living in a halfway (including now)? No 05/05/2024 Utilities Answer Date Recorded In the past 12 months has e [employer], gas, oil, or water company threatened to [...] and catheter was placed 04/05/2024 CT: -Prostate [id number] with Median lobe 05/04/2024 left colectomy for [...] mouth every 6 hours as needed. Under [place] law, monthly prescriptions (30 days) can be [...] Description 08/22/2024 10:45 AM EDT Office Visit [facility] Cardiothoracic [address], [address] [place] [address] KellyCharu Levy MD [address] [facility] [address] [place] [address] 09/26/2024 7:20 AM EDT Appointment [facility] Radiology [address] [place] [address] 09/26/2024 9:45 AM EDT Office Visit [facility] Multidisciplinary Oncology Clinic [address] [place] [phone] Jovani Bravo MD [address] [facility] [address] [place] [address] 09/27/2024 9:00 AM EDT Appointment [facility] Radiology [address] [place] [address] 10/04/2024 11:15 AM EDT Office Visit Medical Office Building Urology [address] [facility], [address] [place] [address] Phil Long MD [address] [facility] [address] [place] [address] Scheduled Orders Name Type Priority Associated Diagnoses Orde r Schedule Cysto- Urology Procedure Routine Retention, urine Expected: 07/05/2024 (Approximate), Expires: 01/05/2026 TRUS Volume Procedure Routine Retention, urine Expected: 07/05/2024 (Approximate), Expires: 01/05/2026 documented as of this encounter Results * (ABNORMAL) PSA Screen (07/05/2024 9:58 AM EDT) Prostate Cancer Screen, Serum 7.19(H) 0.00 - 4.50 ng/mL 07/05/2024 1:41 PM EDT [facility] Blood Venous blood specimen / Unknown Venipuncture / Unknown 07/05/2024 9:58 AM EDT 07/05/2024 9:58 AM EDT Narrative [facility] - 07/05/2024 1:41 PM EDT Performed by Geri electrochemiluminescent immunoassay which is standardized against the PSA Faizan Reference Standard (WHO 96/670). Results obtained with different test methods or kits cannot be used interchangeably. us Phil Long MD LAB BLOOD ORDERABLES Final Resu lt [facility] [address] [place] [address] documented in this encounter Visit Diagnoses Diagnosis Screening for prostate cancer- Primary Special screening for malignant neoplasm of prostate Retention, urine Unspecified retention of urine Kidney stones Calculus of kidney Thoracic aortic aneurysm (CMS/HCC)- Primary documented in this encounter Additional Health Concerns Assessment Noted Time PHQ-9 Depression Total Score: 0 07/06/19 25 8:38 AM EDT A fall risk assessment has been complete d for the patient 07/05/2024 8:38 AM EDT A Body Mass Index follow-up plan has been documented for the patient 07/08/2024 4:04 PM EDT documented as of this encounter Care Teams Key Account Coordinator Relationship Specialty Start Date End Date Bandar Minor MD [address] [place] [address] #1 [address]1 [id number] PCP - General 08/19/22 documented as of this encounter
--- NOTE | 2024-08-18 | CA_ITS ---
APPROVED REPORT EXAM: Comprehensive 2D, Doppler, and color-flow Echocardiogram Investment Recovery Technician: EUSEBIO Mccloud, RVS Ht: 6 ft 2 in Wt: 157lbs BSA: 1.96 BP: 106/81 mmHg Rhythm: ? AFIB Indications: Thoracic aortic aneurysm, Colon cancer on chemo therapy follows with Norma-title i instructional assistant Echo Enhancing Agent Comments: Extremely limited windows due to body habitus. 2D Dimensions LVDd 3.92 cm LVEF (Visual) 42.70 % LVDs 3.11 cm EF AP4 34.90 % GL Strain -15.7 % M-Mode Dimensions RVDd 2.32 cm (0.9-2.6) LA Diam 2.62 cm (1.9-4.0) LVDd 4.49 cm (3.5-5.7) LVDs 2.93 cm (3.5-5.7) IVSd 0.91 cm (0.6-1.1) PWd 0.95 cm (0.6-1.1) EF (Teich) 64.10% EPSs 1.18 cm FS 34.70% EDV (Teich) 92.00 mL TAPSE 1.28 (<1.7) ESV (Teich) 33.00 mL LV Diastology E Decel Time 220 (160-240 msec) E/A Ratio 1.05 MED A' 6.40 cm/s LAT A' 11.00 cm/s Mitral Valve MV A Velocity 60.0 (40-130 cm/s) E/A Ratio 1.05 Left Ventricle The left ventricle is normal size. The left ventricular systolic function is normal. The left ventricular ejection fraction is within the normal range. There is increase of wall thickness. There is normal LV segmental wall motion. Transmitral Doppler flow pattern suggests impaired LV relaxation. LVEF is 55%. Right Ventricle Right ventricle is borderline dilated. The right ventricular systolic function is normal. Atria The left atrium size is normal. The right atrium size is normal. There is no Doppler evidence of interatrial shunt. Aortic Valve The aortic valve is mildly thickened. There is no aortic valvular stenosis. No aortic regurgitation is present. Mitral Valve The mitral valve is normal in structure. No evidence of mitral valve stenosis. Trace mitral regurgitation. Tricuspid Valve Tricuspid valve is grossly normal in structure and function. Trace tricuspid regurgitation. There is insufficient TR jet to estimate RVSP. Pulmonic Valve The pulmonary valve is normal in structure. Trace pulmonic regurgitation. Great Vessels The aortic root is normal in size. The ascending aorta is not well-visualized. IVC is normal in size and collapses >50% with inspiration. Pericardium There is no pericardial effusion. Other Information Study Quality: Technically Difficult Conclusion Technically difficult study due to poor acoustic windows. Normal LV systolic function. Borderline RV dilation with normal RV function. No significant valvular stenosis or regurgitation. Electronically signed by : Ayala Hobbs MD 08/22/2024 14:03:55
--- OUTSIDE RECORDS SUMMARY | 2024-08-18 14:37 | XMS_ITS | Encounter Summary ---
Author Organization Healthcare Address [address] [place] [address] Care Team Providers Care Rubber Block Layer Name Role Phone Bandar Minor MD Primary Care Provider [phone] Encounter Details Date Type Department Care Team (Late Contact Info) Description 04/13/2024 Lab Requisition [facility] [address] [place] [address] Jovani Bravo MD [address] [facility] [address] [place] [address] Anemia, unspecified Social History Tobacco [...] Office Visit [place] [facility] [address], [facility] [address] [place] [address] Charu Ge MD [address] [facility] [address] [place] [address] 09/26/2024 7:20 AM EDT Appointment [facility] Radiology [address] [place] [address] 09/26/2024 9:45 AM EDT Office Visit [facility] [address] [place] [address] Jovani Bravo MD [address] [place] [address] 09/27/2024 9:00 AM EDT Appointment [facility] Radiology [address] [place] [address] 10/04/2024 11:15 AM EDT Office Visit Medical Office Building Urology [address] [facility], [address] [place] [address] Phil Long MD [address] [place] [address] documented as of this encounter Procedures Procedure Name Priority Date/Time Associated Diagnosis Comments SURGICAL PATHOLOGY CONSULT Routine 04/13/2024 10:47 AM EST Anemia, unspecified documented in this encounter Results * Surgical Pathology Consult (04/13/2024 10:47 AM EST) Case Report Sugical Pathology Consult Case: [id number] Authorizing Provider: Jovani Bravo MD Collected: 04/13/20241046 Ordering Location: [facility] Lab Received: 04/13/20241046 Pathologist: Hansel Mclean MD Specimen: Duodenum, [id number] 5 6:11 PM EST [facility] Final Diagnosis COLON, SPLENIC FLEXURE MASS, BIOPSY (OUTSIDE CASE [id number], PART C; COLLECTED ON 04/05/2024): - ADENOCARCINOMA, MODERATELY TO POORLY-DIFFERENTIA BETHANIE - MMR PROTEINS INTACT (IHC) 5 6:11 PM EST [facility] at 1811 EST Clinical Information D64.9 - Anemia, unspecified [ICD-10-CM] 5 6:11 PM EST [facility] Special and Immunohistochemical Stains Immunohistochemica l stains that have been performed by the outside institution are also reviewed here, which are interpreted as follows: MLH1, PMS2, MSH2, MSH6: Intact nuclear staining (Low probability of MSI-H related tumor) 5 6:11 PM EST [facility] Gross Description A. [id number] Received along with a corresponding pathology report from [facility] are 7 slide(s) labeled outside case: [id number] collected on 04/05/2024. 5 6:11 PM EST [facility] Note: A resident was involved in the service. I attest I examined the relevant preparations for the specimens and confirmed the diagnosis or interpretation. 5 6:11 PM EST [facility] Tissue Duodenal structure / Unknown 04/13/2024 10:47 AM EST 04/13/2024 10:47 AM EST us Jovani Bravo MD LAB PATHOLOGY ORDERABLES Final Result [facility] [address] [place] [address] documented in this encounter Visit Diagnoses Diagnosis Anemia, unspecified Thoracic aortic aneurysm (CMS/HCC)- Primary documented in this encounter Care Teams Rubber Block Layer Relationship Specialty Start Date End Date Bandar Minor MD [address] [place] [address] [address]1 [address] [place] [address] PCP - General 08/19/22 documented as of this encounter
--- OUTSIDE RECORDS SUMMARY | 2024-08-18 14:37 | XMS_ITS | Encounter Summary ---
Author Organization Healthcare Address [address] [place] [address] Care Team Providers Care Card Processing Clerk Name Role Phone Bandar Minor MD Primary Care Provider [phone] Reason for Referral * Imaging (Routine) - Pending Review Specialty Diagnoses / Procedures Referred By Souleymane zayas Referred To Contact Radiology Diagnoses Elevated PSA Procedures MR Prostate w and wo IV Contrast Phil Long MD [address] [address] Phone: tel: fax: Referral ID Status Reason Start Date Expiration Date V isits Requested Visits Authorized [id number] Pending Review 07/05/2024 01/04/2026 1 1 Encounter Details Date Type Department Care Team ([facility] Contact Info) Description 07/05/2024 Results Follow-Up Medical Office Building Urology [address] [facility], [address] [place] [address] Phil Long MD [address] [address] Social History Tobacco Use Types [...] any time in the past 12 m [facility], were you homeless or living in a alf (including now)? No 05/05/2024 Utilities Answer Date [...] Upcoming Encounters Date Type Department Care Team ([facility] st Contact Info) Description 08/22/2024 10:45 AM EDT Office Visit [place] [facility] Cardi[facility] [address], [address] [place] [address] RobinCharu Levy MD [address] [facility] [address] [place] [address] 09/26/2024 7:20 AM EDT Appointment [facility]iology [address] [place] [address] 09/26/2024 9:45 AM EDT Office Visit [facility] [address] [place] [address] Jovani Bravo MD [address] [place] [address] 09/27/2024 9:00 AM EDT Appointment [facility] [address] [place] [address] 10/04/2024 11:15 AM EDT Office Visit Medical Office Building Urology [address] [facility], [address] [place] [address] Phil Long MD [address] [place] [address] Scheduled Orders Name Type Priority Associated Diagnoses Orde r Schedule MR Prostate w and wo IV Contrast Imaging Routine Elevated PSA Expected: 07/05/2024 (Approximate), Expires: 01/05/2026 documented as of this encounter Visit Diagnoses Diagnosis Elevated PSA- Primary Elevated prostate specific antigen (PSA) Thoracic aortic aneurysm (CMS/HCC)- Primary documented in this encounter Additional Health Concerns Assessment Noted Time PHQ-9 Depression Total Score: 0 07/06/19 25 8:38 AM EDT A fall risk assessment has been complete d for the patient 07/05/2024 8:38 AM EDT A Body Mass Index follow-up plan has been documented for the patient 07/08/2024 4:04 PM EDT documented as of this encounter Care Teams Card Processing Clerk Relationship Specialty Start Date End Date Bandar Minor MD [address] [place] [address] [address]1 [place]ier[place] [address] PCP - General 08/19/22 documented as of this encounter
--- OUTSIDE RECORDS SUMMARY | 2024-08-18 14:37 | XMS_ITS | Encounter Summary ---
Author Organization [facility] Address [address] [place] [address] Care Team Providers Care Inductor Tester Name Role Phone Bandar Minor MD Primary Care Provider [phone] Encounter Details Date Type Department Care Team ([facility] Contact Info) Description 07/17/2023 Orders Only External Location [address] [place] [address] Arsh Zafar MD [address] [facility] [address] [place] [address] Social History Tobacco Use Types Packs/Day Years [...] Upcoming Encounters Date Type Department Care Team ([facility] Contact Info) Description 08/22/2024 10:45 AM EDT Office Visit [facility] [address], [address] [place] [address] Charu Ge MD [address] [place] [address] 09/26/2024 7:20 AM EDT Appointment [facility] [address] [place] [address] 09/26/2024 9:45 AM EDT Office Visit [facility] [address] [place] [address] Jovani Bravo MD [address] [place] [address] 09/27/2024 9:00 AM EDT Appointment [facility] [address] [place] [address] 10/04/2024 11:15 AM EDT Office Visit Medical Office Building Urology [address] [facility], [address] [place] [address] Phil Long MD [address] [place] [address] documented as of this encounter [...] on filedocumented in this encounter Care Teams Inductor Tester Relationship Specialty Start Date End Date Bandar Minor MD [address] [place] [address] #1 #1 Matt TAMIKO [id number] PCP - General 08/19/22 documented as of this encounter
--- OUTSIDE RECORDS SUMMARY | 2024-08-18 14:37 | XMS_ITS | Encounter Summary ---
Author Organization Healthcare Address [address] [id number] Care Team Providers Care Data Miner Name Role Phone Bandar Minor MD Primary Care Provider [phone] Reason for Visit * Reason Onset Date Comments HCN Clinical Concern/Question 08/02/2024 Encounter Details Date Type Department Care Team (Late st Contact Info) Description 08/02/2024 Telephone [facility] [address], [address] [place] [address] Phil Long MD [address] [place] [address] HCN Clinical Concern/Question Social History [...] any time in the past 12 m [facility], were you homeless or living in a penitentiary (including now)? No 05/05/2024 Utilities Answer Date [...] optimal time of day to reach caller: [phone] Note: Please do not reply to this [...] Description 08/22/2024 10:45 AM EDT Office Visit [facility] [address], [address] [place] [address] Charu Ge MD [address] [place] [address] 09/26/2024 7:20 AM EDT Appointment [facility] [address] [place] [address] 09/26/2024 9:45 AM EDT Office Visit [facility] [address] [place] [address] Jovani Bravo MD [address] [place] [address] 09/27/2024 9:00 AM EDT Appointment [facility] [address] [place] [address] 10/04/2024 11:15 AM EDT Office Visit Medical Office Building Urology [address] [facility], [address] [place] [address] Phil Long MD [address] [facility] [address] [place] [address] documented as of this encounter Visit Diagnoses [...] documented as of this encounter Care Teams Data Miner Relationship Specialty Start Date End Date Bandar Minor MD [address] [place] [address] #1 #1 TAMIKO Gutierrez [id number] PCP - General 08/19/22 documented as of this encounter
--- OUTSIDE RECORDS SUMMARY | 2024-08-18 14:37 | XMS_ITS | Encounter Summary ---
Author Organization Healthcare Address [address] [place] [address] Care Team Providers Care Business Liaison Officer Name Role Phone Bandar Minor MD Primary Care Provider [phone] Encounter Details Date Type Department Care Team [...] any time in the past 12 m [facility], were you homeless or living in a correction (including now)? No 05/05/2024 Utilities Answer Date [...] -9 Score 0 07/05/2024 8:38 AM Eduardo lCaire * If you checked off any problems [...] Description 08/22/2024 10:45 AM EDT Office Visit [facility] [address], [address] [place] [address] KellyCharu Levy MD [address] [facility] [address] [place] [address] 09/26/2024 7:20 AM EDT Appointment [facility] [address] [place] [address] 09/26/2024 9:45 AM EDT Office Visit [facility] [address] [place] [address] Jovani Bravo MD [address] [facility] [address] [place] [address] 09/27/2024 9:00 AM EDT Appointment [facility] [address] [place] [address] 10/04/2024 11:15 AM EDT Office Visit Medical Office Building Urology [address] [facility], [address] [place] [address] Phil Long MD [address] [place] [address] documented as of this encounter [...] documented as of this encounter Care Teams Business Liaison Officer Relationship Specialty Start Date End Date Bandar Minor MD [address] [place] [address] #1 [address]1 [place] [address] PCP - General 08/19/22 documented as of this encounter
--- OUTSIDE RECORDS SUMMARY | 2024-08-18 14:37 | XMS_ITS | Clinical Summary ---
Author Organization [facility] Address [address] [place] [address] Phone [email or web address] Urological Care Team Providers Care Inbound Sales Advisor Name Role Phone Unavailable Primary Care Provider [...]
--- OUTSIDE RECORDS SUMMARY | 2024-08-18 14:37 | XMS_ITS | Clinical Summary ---
Author Organization Healthcare Address [address] [place] [address] Care Team Providers Care It Applications Manager Name Role Phone Bandar Minor MD Primary Care Provider [phone] Allergies No known active allergies Medications tamsulosin (Flomax) 0.4 MG 24 hr capsule Take 1 capsule (0.4 mg) by mouth daily. 04/17/19 25 Active famotidine (Pepcid) 20 MG tablet Take 1 tablet (20 mg) by mouth as needed for heartburn or indigestion. Active acetaminophen (Tylenol) 325 MG tablet Take 2 tablets (650 mg) by mouth every 6 hours as needed. Under [place] law, monthly prescriptions (30 days) can be [...] Type Department Care Team Description 08/02/2024 Telephone [facility] [address] [place] [address] Phil Long MD HCN Clinical Concern/Question 07/05/2024 9:00 AM EDT Office Visit Medical Office Building Urology [address] [facility], [address] [place] [address] Phil Long MD Screening for prostate cancer (Primary Dx); Retention, urine; Kidney stones 07/05/2024 Results Follow-Up Medical Office Building Urology [address] [facility], [address] [place] [address] Phil Long MD 07/05/2024 Travel 05/23/2024 10:15 AM EDT Office Visit [facility] [address] [place] [address] Jovani Bravo MD Cancer of left colon (CMS/HCC) (Primary Dx) 05/23/2024 Orders Only [facility] [address] [place] [address] Carley Minor RN 05/23/2024 Orders Only [facility] [address] [place] [address] Jovani Bravo MD Cancer of left colon (CMS/HCC) (Primary Dx) 05/23/2024 Travel from Last 3 Months Immunizations Immunization Administration [...] any time in the past 12 m [facility], were you homeless or living in a penitentiary (including now)? No 05/05/2024 Utilities Answer Date Recorded In the past 12 months has th e [employer], gas, oil, or water company threatened to [...] Description 08/22/2024 10:45 AM EDT Office Visit [facility] [address] [place] [address] RobinCharu Levy MD [address] [place] [address] 09/26/2024 7:20 AM EDT Appointment [facility] [address] [place] [address] 09/26/2024 9:45 AM EDT Office Visit [facility] [address] [place] [address] Jovani Bravo MD [address] [place] [address] 09/27/2024 9:00 AM EDT Appointment [facility] [address] [place] [address] 10/04/2024 11:15 AM EDT Office Visit Medical Office Building Urology [address] [facility], [address] [place] [address] Phil Long MD [address] [place] [address] Health Maintenance Due Date Last Done Comments [facility]-Hepatitis C Screening 1960 [facility]-Infant/Child/Adol SDOH Screenings 1960 [facility]-DTaP,Tdap,and Td Vaccine s (1 - Tdap) 1977 [facility]-Zoster Vaccines (1 of 2) 1977 CT Colonography 2003 Colonoscopy 2003 FIT-DNA 2003 FIT 2003 FOBT 2003 Sigmoidoscopy 2003 [facility]-Colorectal Cancer Screening 2003 [facility]-Pneumococcal Vaccine: 50 + Years (2 of 2 - PPSV23) 02/17/2017 12/23/2016, 12/08/2016 [id number] Vaccine ( - season) 2023 01/28/2021, 05/29/2020, 05/01/2020 [facility]-Influenza Vaccine [...] - 4.50 ng/mL 07/05/2024 1:41 PM EDT [facility] Blood Venous blood specimen / Unknown Venipuncture / Unknown 07/05/2024 9:58 AM EDT 07/05/2024 9:58 AM EDT Narrative [facility] - 07/05/2024 1:41 PM EDT Performed by Geri electrochemiluminescent immunoassay which is standardized against the PSA [place] Reference Standard (WHO 96/670). Results obtained with different test methods or kits cannot be used interchangeably. us Phil Long MD LAB BLOOD ORDERABLES Final Resu lt Performing Organization Address [facility]/ZIP Co de Phone Number [facility] [address] [place] [address] * CEA (05/23/2024 11:47 AM EDT) CEA, Serum 2.9 <4.0 ng/mL 05/23/2024 1:22 PM EDT [facility] Blood Venous blood specimen / Unknown Venipuncture / Unknown 05/23/2024 11:47 AM EDT 05/23/2024 12:41 PM EDT Narrative [facility] - 05/23/2024 1:22 PM EDT Normal range for smokers: < 5.5 ng/ml Normal range for non-smokers: <=4.0 ng/ml Performed by Geri electrochemiluminescent immunoassay. Results obtained with different test methods or kits cannot be used interchangeably. us Jovani Bravo MD LAB BLOOD ORDERABLES Final Res ult [facility] [address] [place] [address] from Last 3 Months Insurance [place] [id number] [place] [address] Advance Directives * Full Code (Latest Code Status on File) Date Activated Date Inactivated Comments 05/04/2024 11:28 AM 05/07/2024 5:58 PM Question Answer Comments Patient has decision-making capacity? Yes Care Teams It Applications Manager Relationship Specialty Start Date End Date Bandar Minor MD [address] [place] [address] #1 #1 TAMIKO Gutierrez [address] PCP - General 08/19/22
--- NOTE | 2024-08-18 14:38 | CT_ITS ---
FINAL REPORT TECHNIQUE: Thin section axial images were obtained from the lung apices through the upper abdomen without contrast. This study was performed with techniques to keep radiation doses as low as reasonably achievable (ALARA). Individualized dose reduction techniques using automated exposure control or adjustment of mA and/or kV according to the patient's size were employed. CLINICAL HISTORY: THORACIC AORTIC ANEURYSM FINDINGS: There is a thoracic aortic aneurysm measuring 46 mm. Ascending thoracic aorta measures 26 mm. There is no mediastinal, hilar, or axillary lymphadenopathy. There is no pleural effusion. Small pericardial effusion is identified. There are reticular nodular opacities in the lingula greater than right middle lobe. There are also reticular nodular opacities in the more superior bilateral upper lobes, favor infectious or inflammatory. Limited, unenhanced evaluation of the upper abdomen is without acute abnormality. There is no acute osseous abnormality. IMPRESSION: Ascending aortic aneurysm. Bilateral upper lobe and right middle lobe bronchopneumonia. Reviewed, Interpreted and Dictated by Sarah Beth Funes MD Transcribed by Dominga Olson Authenticated and [facility]
== END 2024-08-18 23:59 | disposition home or self-care (01) ==
LOC: RAD 14:35
PROVIDERS: PCP Nurse Practitioner; Visit Provider Thoracic Surgery (Cardiothoracic Vascular Surgery)
DX: C18.9 Malignant neoplasm of colon, unspecified (principal); J18.0 Bronchopneumonia, unspecified organism; I51.7 Cardiomegaly; I71.40 Abdominal aortic aneurysm, without rupture, unspecified; I71.21 Aneurysm of the ascending aorta, without rupture
CPT/HCPCS: 71250; 93306

== ENCOUNTER 2024-08-29 09:39 | Outpatient (CLI) | payer BC, SELFPAY ==
--- OUTSIDE RECORDS SUMMARY | 2024-07-05 09:00 | XMS_ITS | Encounter Summary ---
Author Organization Healthcare Address [address] [place] [address] Care Team Providers Care Beam Dyer Recessed Vat Name Role Phone Bandar Minor MD Primary Care Provider [phone] Reason for Referral * Other Medical (Routine) - Authorized Specialty Diagnoses / Procedures Referred By Contac t Referred To Contact Urology Diagnoses Retention, urine Procedures TRUS Volume Phil Long MD [address] [address] Phone: tel: fax: [facility] [address] [place] [address] Phone: tel: fax: Referral ID Status Reason Start Date Expiration Date V isits Requested Visits Authorized [id number] Authorized 07/05/2024 01/04/2026 1 1 * Other Medical (Routine) - Authorized Specialty Diagnoses / Procedures Referred By Contac t Referred To Contact Urology Diagnoses Retention, urine Procedures Cysto- Urology Phil Long MD [address] [address] Phone: tel: fax: Referral ID Status Reason Start Date Expiration Date V isits Requested Visits Authorized [id number] Authorized 07/05/2024 01/04/2026 1 1 Encounter Details Date Type Department Care Team (Late st Contact Info) Description 07/05/2024 9:00 AM EDT Office Visit Medical Office Building Urology [address] [facility], [address] [place] [address] Phil Long MD [address] [place] [address] Screening for prostate cancer (Primary Dx); Retention, urine; Kidney stones Social History Tobacco Use Types Packs/Day Years Used Date Smoking Tobacco: Never Passive Smoke Exposure: Never Smokeless Tobacco: Never Alcohol Use Standard Drinks/Week Comments Not Currently 0 (1 standard drink = 0.6 oz pur e alcohol) Humiliation, Afraid, Rape, and Kick questionnair e Answer Date Recorded Within the last year, have y ou been afraid of your partner or ex-partner? No 05/05/2024 Within the last year, have y ou been humiliated or emotionally abused in other ways by your partner or ex-partner? No Within the last year, have y ou been kicked, hit, slapped, or otherwise physically hurt by your partner or ex-partner? No 05/05/2024 Within the last year, have y ou been raped or forced to have any kind of sexual activity by your partner or ex-partner? No 05/05/2024 PHQ-2 Answer Date Recorded Patient Health Questionnaire-2 Score 0 07/05/2024 Hunger Vital Sign Answer Date Recorded Within the past 12 months, y ou worried that your food would run out before you got the money to buy more. Never true 05/06/19 25 Within the past 12 months, t he food you bought just didn't last and you didn't have money to get more. Never true 05/05/2024 PRAPARE - Transportation Answer Date Re corded In the past 12 months, has l ack of transportation kept you from medical appointments or from getting medications? No 08/2024 In the past 12 months, has l ack of transportation kept you from meetings, work, or from getting things needed for daily living? No 05/05/2024 PHQ-9 Answer Date Recorded Patient Health Questionnaire-9 Score 0 07/05/2024 Housing Stability Vital Sign Answer Harjit e Recorded In the last 12 months, was t here a time when you were not able to pay the mortgage or rent on time? No 05/05/2024 Number of Times Moved in the Last Year Not on fi le 05/05/2024 At any time in the past 12 [facility], were you homeless or living in a skilled nursing (including now)? No 05/05/2024 Utilities Answer Date Recorded In the past 12 months has e [employer], gas, oil, or water company threatened to shut off services in your home? No 05/05/2024 Sex and Gender Information Value Date Recorded Sex Assigned at Male 04/27/2024 7:58 AM EST Legal Sex Male 6:27 PM EDT Gender Identity Not on file Sexual Orientation Not on file documented as of this encounter Last Filed Vital Signs Vital Sign Reading Time Taken Comments Blood Pressure 120/80 07/05/2024 8:36 AM EDT Pulse 74 07/05/2024 8:36 AM EDT Temperature 36.7 C (98.1 F) 07/05/2024 8:36 AM EDT Respiratory Rate - - Oxygen Saturation 100% 07/05/2024 8:36 AM EDT Inhaled Oxygen Concentration - - Weight 75 kg (165 lb 5.5 oz) 07/05/2024 8:36 AM EDT Height 188 cm (6' 2 ) 07/05/2024 8:36 AM EDT Body Mass Index 21.23 07/05/2024 8:36 AM EDT documented in this encounter Functional Status * Over the past 2 weeks, how often have you been bothered by any of the following problems? Question Answer Date of Assessment Author Little interest or pleasure in doing things Not at all 07/05/2024 8:38 AM EDT Eduardo Peck Feeling down, depressed, or hopeless Not at all 07/05/2024 8:38 AM KARYNAT Eduardo Peck Patient Health Questionnaire -2 Score 0 07/05/2024 8:38 AM EDT Eduardo Peck * Question Answer Date of Assessment Author Trouble falling or staying a sleep, or sleeping too much Not at all 07/05/2024 8:38 AM EDT Eduardo Peck Feeling tired or having marixa le energy Not at all 07/05/2024 8:38 AM Eduardo Claire Poor appetite or overeating Not at all 07/05/2024 8: 38 AM Eduardo Claire Feeling bad about yourself - or that you are a failure or have let yourself or your family down Not at all 07/05/2024 8:38 AM Neno Claire Trouble concentrating on thi ngs, such as reading the newspaper or watching television Not at all 07/05/2024 8:38 AM Eduardo Claire Moving or speaking so slowly that other people could have noticed? Or the opposite - being so fidgety or restless that you have been moving around a lot more than usual. Not at all 07/05/2024 8:38 AM Eduardo Claire Thoughts that you would be b vero off or hurting yourself in some way Not at all 07/05/2024 8:38 AM Eduardo Claire Patient Health Questionnaire -9 Score 0 07/05/2024 8:38 AM Eduardo Claire * If you checked off any problems on this questionnaire so far, Question Answer Date of Assessment Author How difficult have these problems made it for you to do your work, take care of things at home, or get along with other people? Not difficult at all 07/05/2024 8:38 AM Eduardo Claire documented as of this encounter Miscellaneous Notes * Progress Notes - Phil Long MD - 07/05/2024 9:00 AM EDT Chief complaint: This 64-year-old male with a history of chronic urinary retention., and urolithiasis Patient is accompanied by his who remained throughout the visit. Urologic history: 01/09/2021 PSA=2.8 01/14/2022 PSA=3.05 March 2024 PVR= 2.3 L and catheter was placed 04/05/2024 CT: -Prostate [id number] with Median lobe 05/04/2024 left colectomy for adenocarcinoma, stage III with positive lymph nodes. Patient was recommended to have postop chemotherapy April 2024 failed voiding trial 04/05/2024 CT scan: -horseshoe kidney -left hydronephrosis secondary to a small distal ureteral stone which passed spontaneously -11 mm right lower pole nonobstructive stone -indwelling Ferris catheter -prostate volume measured at 60 g 07/05/2024 PSA= 7.19-on finasteride for 3 months and with an indwelling Ferris catheter.(this resulted after the patient had left his appointment) History History of present illness: Minh Willett is a 64 y.o. who presents for evaluation and management of his urinary retention. Patient is undergoing chemotherapy but expects to be off by July of 2024. Patient reports he is no longer taking Xarelto. He is still taking tamsulosin and finasteride. Past medical history: -colon cancer -urolithiasis -horseshoe kidney -thoracic aortic aneurysm-44 mm Past surgical history: -left colectomy with greater omentectomy for invasive moderately differentiated adenocarcinoma with3 of 34 lymph nodes positive. PT3 pN1b Review of systems: Constitutional: Negative for chills, fatigue and fever. HENT: Negative for congestion, ear discharge, sore throat, trouble swallowing and voice change. Respiratory: Negative for shortness of breath. Cardiovascular: Negative for leg swelling and chest pain. Gastrointestinal: Negative for abdominal pain, nausea and vomiting. Hematological: Negative for easy bleeding/bruising : Medical History: PMH: has a past medical history of Colon cancer (CMS/HCC), Kidney stone, Personal history of other specified conditions, Personal history of pneumonia (recurrent), and Thoracic aortic aneurysm (CMS/HCC). PSH: has a past surgical history that includes Circumcision, primary; Colonoscopy (04/05/2024); andUpper gastrointestinal endoscopy (04/05/2024). FH: family history includes Breast cancer in his maternal grandmother. SH: reports that he has never smoked. He has never been exposed to tobacco smoke. He has never usedsmokeless tobacco. He reports that he does not currently use alcohol. He reports that he does not use drugs. Current Medications[1] Physical Exam Physical Exam Constitutional: General: Not in acute distress. HENT: Head: Normocephalic. Eyes: Sclera-non icteric Cardiovascular: Palpable pulse Pulmonary: Effort: No respiratory distress. Abdominal: General: Abdomen is soft and nondistended. Healed midline incision Tenderness: There is no abdominal tenderness. There is no right CVA tenderness or left CVA tenderness. Genitourinary: Penis: Circumcised with indwelling catheter. No meatal erosion Testes: No mass or tenderness Epididymis: No enlargement or tenderness Vasa: Palpable Scrotum: scrotal skin varicosity left hemiscrotum Prostate: estimated to be 40 grams in size with no nodules Musculoskeletal: General: Normal range of motion. Skin: General: Skin is warm and dry. Neurological: Mental Status: Alert and oriented to person, place, and time. Lab & Imaging Laboratory results review: Radiograph review: Images independently reviewed CT scan 04/05/2024 Assessment and Plan DISCUSSION: -with large volume urinary retention which occurred even before his surgical therapy, it is likely that his prostatic hyperplasia is a significant contributor and patient will likely need surgical intervention. -patient has been on finasteride since April of 2024 and may have had some prostate volume reduction although it is still early. -we discussed that a repeat PSA was warranted prior to additional intervention understanding that the PSA could be falsely elevated by the indwelling catheter and falsely depressed by the finasteride. -offered that the patient could do intermittent self catheterization as opposed to a chronic indwelling Ferris but after thorough discussion he feels that he would rather continue with an indwelling catheter. Assessment: Minh Willett is a 64 y.o. male with Diagnosis Plan 1. Screening for prostate cancer PSA Screen 2. Retention, urine Cysto- Urology TRUS Volume 3. Kidney stones Plan: PSA today(post visit the PSA returned= 7.19 Exchange catheter today Return for Cysto and TRUS for volume With the elevated PSA in spite of the contributing factors of finasteride and indwelling catheter Delfin recommending a prostate MRI. If there are areas suggestive of high-risk prostate cancer patient will likely need a prostate biopsy prior to definitive therapy. Plan for likely TURP and when recovered plan for Right URS and stone removal Time Spent: 40 Minutes I saw and evaluated the patient. I discussed the case with the resident/fellow and agree with the findings and plan as documented. Phil Long MD [1] Current Outpatient Medications Medication Sig Dispense Refill acetaminophen (Tylenol) 325 MG tablet Take 2 tablets (650 mg) by mouth every 6 hours as needed. Under [place] law, monthly prescriptions (30 days) can be refilled at 25 days and three-month prescriptions (90 days) at 80 days. Please contact the insurance company with questions if refills are denied. bisacodyl (Dulcolax) 5 MG EC tablet Day before procedure at 4pm take 4 tablets with 8 oz of clear liquid. SSICOLON 4 tablet 0 diphenhydrAMINE-acetaminophen (Tylenol PM) 25-500 MG per tablet Take 2 tablets by mouth at night asneeded for sleep. famotidine (Pepcid) 20 MG tablet Take 1 tablet (20 mg) by mouth as needed for heartburn or indigestion. finasteride (Proscar) 5 MG tablet Take 1 tablet (5 mg) by mouth daily. Do not crush, chew, or split. 30 tablet 3 methocarbamol (Robaxin) 500 MG tablet Take 1 tablet (500 mg) by mouth every 6 (six) hours for 5 days. 20 tablet 0 metroNIDAZOLE (Flagyl) 500 MG tablet Take one tablet at 1pm, 2pm, and 11pm day BEFORE surgery. SSI COLON. 3 tablet 0 neomycin (Mycifradin) 500 MG tablet Take two tablets (1000 mg) by mouth at 1:00pm, 2:00pm and 11:00pm on the day prior to surgery. SSICOLON 6 tablet 0 Nutritional Supplements (Impact Advanced Recovery) liquid Drink 2 cartons a day starting 5 days before surgery. SSICOLON. Auto Sub for Ensure Surgery if Impact not available. 176 mL 2 ondansetron ODT (Zofran-ODT) 4 MG disintegrating tablet Take 1 tablet (4 mg) by mouth every 6 hoursas needed for nausea or vomiting. 20 tablet 0 polyethylene glycol (MiraLax) 17 GM/SCOOP powder At 6pm day BEFORE surgery, mix Miralax (polyethylene glycol) powder with 64 oz sports drink. Stir to dissolve. Drink one cup (8oz) every 15 minutes until completed finished. SSICOLON 238 g 0 rivaroxaban (Xarelto) 10 MG tablet Take 1 tablet (10 mg) by mouth in the morning for 25 days. 25 tablet 0 tamsulosin (Flomax) 0.4 MG 24 hr capsule Take 1 capsule (0.4 mg) by mouth daily. naloxone (Narcan) 4 mg/0.1 mL nasal spray 1. Give 1 spray in nostril for no/slow breathing or cannot wake after opioid use 2. Call 911 3. Repeat in other nostril if symptoms continue (Patient not takin. Give 1 spray in nostril for no/slow breathing or cannot wake after opioid use 2. Call 911 3. Repeat in other nostril if symptoms continue Reported on 07/05/2024) 1 each 0 oxyCODONE (Roxicodone) 5 MG immediate release tablet Take 1 tablet (5 mg) by mouth every 4 (four) hours as needed for moderate pain or severe pain. (Patient not taking: Reported on 07/05/2024) 15 tablet 0 No current facility-administered medications for this visit. documented in this encounter Plan of Treatment Upcoming Encounters Date Type Department Care Team ([facility] st Contact Info) Description 09/26/2024 7:20 AM EDT Appointment [facility] [address] [place] [address] 09/26/2024 9:45 AM EDT Office Visit [facility] [address] [place] [address] Jovani Bravo MD [address] [facility] [address] [place] [address] 09/27/2024 9:00 AM EDT Appointment [facility] [address] [place] [address] 10/04/2024 11:15 AM EDT Office Visit Medical Office Building Urology [address] [facility], [address] [place] [address] Phil Long MD [address] [facility] [address] [place] [address] 08/21/2025 9:15 AM EDT Office Visit [facility] Cardiothoracic [address], [address] [place] [address] Charu Ge MD [address] [place] [address] Scheduled Orders Name Type Priority Associated Diagnoses Orde r Schedule Cysto- Urology Procedure Routine Retention, urine Expected: 07/05/2024 (Approximate), Expires: 01/05/2026 TRUS Volume Procedure Routine Retention, urine Expected: 07/05/2024 (Approximate), Expires: 01/05/2026 documented as of this encounter Results * (ABNORMAL) PSA Screen (07/05/2024 9:58 AM EDT) Prostate Cancer Screen, Serum 7.19(H) 0.00 - 4.50 ng/mL 07/05/2024 1:41 PM EDT [facility] Blood Venous blood specimen / Unknown Venipuncture / Unknown 07/05/2024 9:58 AM EDT 07/05/2024 9:58 AM EDT Narrative [facility] - 07/05/2024 1:41 PM EDT Performed by Geri electrochemiluminescent immunoassay which is standardized against the PSA [place] Reference Standard (WHO 96/670). Results obtained with different test methods or kits cannot be used interchangeably. us Phil Long MD LAB BLOOD ORDERABLES Final Resu lt [facility] [address] [place] [address] documented in this encounter Visit Diagnoses Diagnosis Screening for prostate cancer- Primary Special screening for malignant neoplasm of prostate Retention, urine Unspecified retention of urine Kidney stones Calculus of kidney documented in this encounter Additional Health Concerns Assessment Noted Time PHQ-9 Depression Total Score: 0 07/06/19 25 8:38 AM EDT A fall risk assessment has been complete d for the patient 07/05/2024 8:38 AM EDT A Body Mass Index follow-up plan has been documented for the patient 07/08/2024 4:04 PM EDT documented as of this encounter Care Teams Beam Dyer Recessed Vat Relationship Specialty Start Date End Date Bandar Minor MD [address] [place] [address] [address] [place] [address] PCP - General 08/19/22 documented as of this encounter
--- OUTSIDE RECORDS SUMMARY | 2024-08-22 10:45 | XMS_ITS | Encounter Summary ---
Author Organization [facility] Address [address] [id number] Care Team Providers Care Technical Planner Name Role Phone Bandar Minor MD Primary Care Provider [phone] Reason for Referral * Imaging (Routine) - Authorized Specialty Diagnoses / Procedures Referred By Souleymane zayas Referred To Contact Diagnoses Thoracic aortic aneurysm (CMS/HCC) Procedures CT Chest wo IV Contrast Charu Ge MD [address] [address] Phone: tel: fax: Referral ID Status Reason Start Date Expiration Date V isits Requested Visits Authorized [id number] Authorized 08/09/2024 02/08/2026 1 1 * Imaging (Routine) - Authorized Specialty Diagnoses / Procedures Referred By Souleymane zayas Referred To Contact Cardiology Diagnoses Thoracic aortic aneurysm (CMS/HCC) Procedures Echo, Adult Transthoracic Complete Charu Ge MD [address] [address] Phone: tel: fax: Referral ID Status Reason Start Date Expiration Date Visits Requested Visits Authorized [id number] Authorized Perform Procedure 08/09/2024 02/08/2026 1 1 Encounter Details Date Type Department Care Team (Late st Contact Info) Description 08/22/2024 10:45 AM EDT Office Visit [facility] Cardiothoracic [address], [address] [place] [address] Charu Ge MD [address] [place] [address] Thoracic aortic aneurysm (CMS/HCC) (Primary [...] any time in the past 12 m [facility], were you homeless or living in a intermediate (including now)? No 05/05/2024 Utilities Answer Date Recorded In the past 12 months has [place], gas, oil, or water company threatened to [...] to us in consultation by Dr Minh Morales in regards to an Ascending Aortic Aneurysm. [...] who followed him until he left the [place] and Dr. Kelly resumed care of his [...] adult 08/22/2024 COPD (chronic obstructive pulmonary disease) ([facility]) 12/23/2016 Thoracic aortic aneurysm ([facility]) 12/23/2016 Cancer of left colon ([facility]) 04/26/2024 Medical History: Past Medical History Pertinent [...] mouth every 6 hours as needed. Under [place] law, monthly prescriptions (30 days) can be [...] normal. Imaging: CT Chest dated 08/18/2024 from [facility] : There is a thoracic aneurysm measuring [...] Care Team (Late st Contact Info) Description 09/26/2024 7:20 AM EDT Appointment [facility] [address] [place] [address] 09/26/2024 9:45 AM EDT Office Visit [facility] [address] [place] [address] Jovani Bravo MD [address] [facility] [address] [place] [address] 09/27/2024 9:00 AM EDT Appointment [facility] [address] [place] [address] 10/04/2024 11:15 AM EDT Office Visit Medical Office Building Urology [facility], [address] [place] [address] Phil Long MD [address] [facility] [address] [place] [address] 08/21/2025 9:15 AM EDT Office Visit [place] [facility] [address], [address] [place] [address] Charu Ge MD [address] [place] [address] Scheduled Orders Name Type Priority Associated Diagnoses [...] documented as of this encounter Care Teams Technical Planner Relationship Specialty Start Date End Date Bandar Minor MD [address] [place] [address] [address]1 TAMIKO Gutierrez [address] PCP - General 08/19/22 documented as of this encounter
[2024-08-29] VITALS (7 sets, daily range): BP systolic 121–137; BP diastolic 55–80; PULSE 64–73; RESP 18; TEMP 36.8; O2SAT 99–100; BMI 20.1
--- OUTSIDE RECORDS SUMMARY | 2024-08-29 09:44 | XMS_ITS | Encounter Summary ---
Author Organization Healthcare Address [address] [place] [address] Care Team Providers Care Signal Supervisor Name Role Phone Bandar Minor MD Primary Care Provider [phone] Encounter Details Date Type Department Care Team (Latest Contact Info) Description 08/22/2024 Travel Social History Tobacco Use Types Packs/Day [...] any time in the past 12 m [facility], were you homeless or living [...] EDT Appointment [facility] [address] [place] [address] 09/26/2024 9:45 AM EDT Office Visit [facility] Mult[facility]isciplinary Oncology Clinic [address] [place] [address] Jovani Bravo MD [address] [place] [address] 09/27/2024 9:00 AM EDT Appointment [facility] [address] [place] [address] 10/04/2024 11:15 AM EDT Office Visit Medical Office Building Urology [address] [facility], [address] [place] [address] Phil Long MD [address] [place] [address] 08/21/2025 9:15 AM EDT Office Visit [facility] [address], [address] [place] [address] Charu Ge MD [address] [place] [address] documented as of this encounter [...] documented as of this encounter Care Teams Signal Supervisor Relationship Specialty Start Date End Date Bandar Minor MD [address] [place] [address] [address] [place] [address] PCP - General 08/19/22 documented as of this encounter
--- OUTSIDE RECORDS SUMMARY | 2024-08-29 09:44 | XMS_ITS | Encounter Summary ---
Author Organization Healthcare Address [address] [place] [address] Care Team Providers Care Chemical Plant Operator Supervisor Name Role Phone Bandar Minor MD Primary Care Provider [phone] Encounter Details Date Type Department Care Team (Late st Contact Info) Description 08/18/2024 Orders Only External Location [address] [place] [address] Charu Ge MD [address] [facility] [address] [place] [address] Social History Tobacco Use Types Packs/Day [...] in the past 12 m [facility], were you homeless or living in [...] EDT Appointment [facility] [address] [place] [address] 09/26/2024 9:45 AM EDT Office Visit [facility] [address] [place] [address] Jovani Bravo MD [address] [facility] [address] [place] [address] 09/27/2024 9:00 AM EDT Appointment [facility] [address] [place] [address] 10/04/2024 11:15 AM EDT Office Visit Medical Office Building Urology [address] [facility], [address] [place] [address] Phil Long MD [address] [place] [address] 08/21/2025 9:15 AM EDT Office Visit [place] [facility] [address] [place] [address] Charu Ge MD [address] [place] [address] documented as of this encounter Procedures Procedure Name Priority Date/Time Associated Diagnosis Comments US OUTSIDE IMAGES 08/18/2024 2:50 PM EDT documented in this encounter Results * US OUTSIDE IMAGES (08/18/2024 2:50 PM EDT) Anatomical Region Laterality Modality Ultrasound 08/18/2024 2:50 PM EDT us Charu Ge MD IMG US PROCEDURES Final R esult documented in this encounter Visit Diagnoses Not on filedocumented in this encounter Additional Health Concerns Assessment Noted Time PHQ-9 Depression Total Score: 0 07/06/19 8:38 AM EDT A fall risk assessment has been complete d for the patient 07/05/2024 8:38 AM EDT A Body Mass Index follow-up plan has been documented for the patient 07/08/2024 4:04 PM EDT documented as of this encounter Care Teams Chemical Plant Operator Supervisor Relationship Specialty Start Date End Date Bandar Minor MD [address] [place] [address] [address]1 [place] [address] PCP - General 08/19/22 documented as of this encounter
--- OUTSIDE RECORDS SUMMARY | 2024-08-29 09:44 | XMS_ITS | Encounter Summary ---
Author Organization Healthcare Address [address] [place] [address] Care Team Providers Care Handbag Frames Inspector Name Role Phone Bandar Minor MD Primary Care Provider [phone] Encounter Details Date Type Department Care Team ([facility] Contact Info) Description 07/17/2023 Orders Only External Location [address] [place] [address] Arsh Zafar MD [address] [facility] [address] [id number] Social History Tobacco Use Types Packs/Day Years [...] Upcoming Encounters Date Type Department Care Team ([facility] Contact Info) Description 09/26/2024 7:20 AM EDT Appointment [facility] [address] [place] [address] 09/26/2024 9:45 AM EDT Office Visit [facility] [address] [place] [address] Jovani Bravo MD [address] [facility] [address] [place] [address] 09/27/2024 9:00 AM EDT Appointment [facility] [address] [place] [address] 10/04/2024 11:15 AM EDT Office Visit Medical Office Building Urology [address] [facility], [address] [place] [address] Phil Long MD [address] [facility] [address] [place] [address] 08/21/2025 9:15 AM EDT Office Visit [place] [facility] [address], [address] [place] [address] Charu Ge MD [address] [facility] [address] [place] [address] documented as of this encounter [...] on filedocumented in this encounter Care Teams Handbag Frames Inspector Relationship Specialty Start Date End Date Bandar Minor MD [address] [place] [address] [address]1 [address]1 [place] [address] PCP - General 08/19/22 documented as of this encounter
--- OUTSIDE RECORDS SUMMARY | 2024-08-29 09:44 | XMS_ITS | Encounter Summary ---
Author Organization Healthcare Address [address] [id number] Care Team Providers Care Duck Bill Operator Name Role Phone Bandar Minor MD Primary Care Provider [phone] Reason for Visit * Reason Onset Date Comments HCN Clinical Concern/Question 08/02/2024 Encounter Details Date Type Department Care Team (Late st Contact Info) Description 08/02/2024 [facility] [address] [place] [address] Phil Long MD [address] [place] [address] HCN Clinical Concern/Question Social History [...] time in the past 12 m [facility], were you homeless or living in a fci (including now)? No 05/05/2024 Utilities Answer Date [...] optimal time of day to reach caller: [phone] Note: Please do not reply to this message. Follow-up communication and further actions as a result of this message need to be communicated with the patient directly, if the patient is not active onMyChart. If the patient is active on MyChart, they will receive notification of the communication/outcome via RelTelhart. documented in this encounter Plan of Treatment Upcoming Encounters Date Type Department Care Team ([facility] Contact Info) Description 09/26/2024 7:20 AM EDT Appointment [facility] [address] [place] [address] 09/26/2024 9:45 AM EDT Office Visit [facility] [address] [place] [address] Jovani Barvo MD [address] [facility] [address] [place] [address] 09/27/2024 9:00 AM EDT Appointment [facility] [address] [place] [address] 10/04/2024 11:15 AM EDT Office Visit Medical Office Building Urology [address] [facility], [address] [place] [address] Phil Long MD [address] [facility] [address] [place] [address] 08/21/2025 9:15 AM EDT Office Visit [facility] Cardiothoracic [address], [address] [place] [address] Charu Ge MD [address] [facility] [address] [place] [address] documented as of this encounter Visit Diagnoses [...] documented as of this encounter Care Teams Duck Bill Operator Relationship Specialty Start Date End Date Bandar Minor MD [address] [place] [address] #1 [address]1 TAMIKO Gutierrez [address] PCP - General 08/19/22 documented as of this encounter
--- OUTSIDE RECORDS SUMMARY | 2024-08-29 09:44 | XMS_ITS | Encounter Summary ---
Author Organization Healthcare Address [address] [place] [address] Care Team Providers Care Turnaround Planner Name Role Phone Bandar Minor MD Primary Care Provider [phone] Reason for Referral * Imaging (Routine) - Pending Review Specialty Diagnoses / Procedures Referred By Souleymane zayas Referred To Contact Radiology Diagnoses Elevated PSA Procedures MR Prostate w and wo IV Contrast Phil Long MD [address] [address] Phone: tel: fax: Referral ID Status Reason Start Date Expiration Date V isits Requested Visits Authorized [id number] Pending Review 07/05/2024 01/04/2026 1 1 Encounter Details Date Type Department Care Team ([facility] Contact Info) Description 07/05/2024 Results Follow-Up Medical Office Building Urology [address] [facility], [address] [place] [address] Phil Long MD [address] [address] Social History Tobacco Use Types [...] any time in the past 12 m [facility], were you homeless or living in [...] Upcoming Encounters Date Type Department Care Team ([facility] st Contact Info) Description 09/26/2024 7:20 AM EDT Appointment [facility] [address] [place] [address] 09/26/2024 9:45 AM EDT Office Visit [facility] [address] [place] [address] Jovani Bravo MD [address] [facility] [address] [place] [address] 09/27/2024 9:00 AM EDT Appointment [facility] [address] [place] [address] 10/04/2024 11:15 AM EDT Office Visit Medical Office Building Urology [address] [facility], [address] [place] [address] Phil Long MD [address] [facility] [address] [place] [address] 08/21/2025 9:15 AM EDT Office Visit [place] [facility] Cardi[facility] [address], [address] [place] [address] Charu Ge MD [address] [facility] [address] [place] [address] Scheduled Orders Name Type Priority Associated Diagnoses [...] documented as of this encounter Care Teams Turnaround Planner Relationship Specialty Start Date End Date Bandar Minor MD [address] [place] [address] #1 [address]1 TAMIKO Gutierrez [address] PCP - General 08/19/22 documented as of this encounter
--- OUTSIDE RECORDS SUMMARY | 2024-08-29 09:44 | XMS_ITS | Clinical Summary ---
Author Organization [facility] Address [address] [place] [address] Phone [email or web address] Care Team Providers Care Greenhouse Laborer Name Role Phone Unavailable Primary Care Provider [...]
--- OUTSIDE RECORDS SUMMARY | 2024-08-29 09:44 | XMS_ITS | Encounter Summary ---
Author Organization Healthcare Address [address] [place] [address] Care Team Providers Care Brewery Cellar Worker Name Role Phone Bandar Minor MD Primary Care Provider [phone] Encounter Details Date Type Department Care Team [...] any time in the past 12 m [facility], were you homeless or living in a retirement (including now)? No 05/05/2024 Utilities Answer Date [...] EDT Appointment [facility] [address] [place] [address] 09/26/2024 9:45 AM EDT Office Visit [facility] [address] [place] [address] Jovani Bravo MD [address] [place] [address] 09/27/2024 9:00 AM EDT Appointment [facility] [address] [place] [address] 10/04/2024 11:15 AM EDT Office Visit Medical Office Building Urology [address] [facility], [address] [place] [address] Phil Long MD [address] [place] [address] 08/21/2025 9:15 AM EDT Office Visit [place] [facility] [address], [address] [place] [address] Charu Ge MD [address] [place] [address] documented as of this encounter [...] documented as of this encounter Care Teams Brewery Cellar Worker Relationship Specialty Start Date End Date Bandar Minor MD [address] [place] [address] [address]1 [address]1 [place] [address] PCP - General 08/19/22 documented as of this encounter
--- OUTSIDE RECORDS SUMMARY | 2024-08-29 09:44 | XMS_ITS | Clinical Summary ---
Author Organization [facility] Address [address] [place] [address] Care Team Providers Care Commercial Loan Assistant Name Role Phone Bandar Minor MD Primary Care Provider [phone] Allergies No known active allergies Medications tamsulosin (Flomax) 0.4 MG 24 hr capsule Take 1 capsule (0.4 mg) by mouth daily. 04/17/19 Active famotidine (Pepcid) 20 MG tablet Take [...] until completed finished. SSICOLON 238 g 04/18/19 Active Additional Information Patient not taking.Reported on 08/22/2024 neomycin (Mycifradin) 500 MG tabletIndications: Colon stricture (CMS/HCC) Take two tablets (1000 mg) by mouth at 1:00pm, 2:00pm and 11:00pm on the day prior to surgery. SSICOLON 6 tablet 04/18/19 Active Additional Information Patient not taking.Reported on 08/22/2024 Nutritional Supplements (Impact Advanced Recovery) liquid Drink 2 cartons a day starting 5 days before surgery. SSICOLON. Auto Sub for Ensure Surgery if Impact not available. 176 mL 2 04/18/19 Active Additional Information Patient not taking.Reported on 08/22/2024 metroNIDAZOLE (Flagyl) 500 MG tabletIndications: Colon stricture (CMS/HCC) Take one tablet at 1pm, 2pm, and 11pm day BEFORE surgery. SSI COLON. 3 tablet 04/18/19 Active Additional Information Patient not taking.Reported on 08/22/2024 bisacodyl (Dulcolax) 5 MG EC tablet Day before procedure at 4pm take 4 tablets with 8 oz of clear liquid. SSICOLON 4 tablet 04/18/19 Active Additional Information Patient not taking.Reported on 08/22/2024 finasteride (Proscar) 5 MG tablet Take 1 tablet (5 mg) by mouth daily. Do not crush, chew, or split. 30 tablet 3 04/27/19 Active diphenhydrAMINE-ac etaminophen (Tylenol PM) 25-500 MG per tablet Take 2 tablets by mouth at night as needed for sleep. Active oxyCODONE (Roxicodone) 5 MG immediate release tablet Take 1 tablet (5 mg) by mouth every 4 (four) hours as needed for moderate pain or severe pain. 15 tablet 05/08/19 Active Additional Information Patient not taking.Reported on 08/22/2024 methocarbamol (Robaxin) 500 MG tablet Take 1 tablet (500 mg) by mouth every 6 (six) hours for 5 days. 20 tablet 05/08/19 Active Additional Information Patient not taking.Reported on 08/22/2024 ondansetron ODT (Zofran-ODT) 4 MG disintegrating tablet Take 1 tablet (4 mg) by mouth every 6 hours as needed for nausea or vomiting. 20 tablet 05/08/19 Active naloxone (Narcan) 4 mg/0.1 mL nasal spray 1. Give 1 spray in nostril for no/slow breathing or cannot wake after opioid use 2. Call 911 3. Repeat in other nostril if symptoms continue 1 each 05/08/19 Active Additional Information Patient not taking.Reported on 08/22/2024 rivaroxaban (Xarelto) 10 MG tablet Take 1 tablet (10 mg) by mouth in the morning for 25 days. 25 tablet 03/09/20 25 Active Additional Information Patient not taking.Reported on 08/22/2024 capecitabine (Xeloda) 500 MG chemo tablet Take 1,500 mg/m2 by mouth 2 times a day. 08/23/19 Active Active Problems Problem Noted Date Diagnosed Date BMI 20.0-20.9, adult 08/22/2024 Cancer of left colon 04/26/2024 COPD (chronic obstructive pulmonary disease) Thoracic aortic aneurysm 12/23/2016 Encounters Date Type Department Care Team Description 08/22/2024 10:45 AM EDT Office Visit [facility] Cardiothoracic [address], [address] [place] [address] Charu Ge MD Thoracic aortic aneurysm (CMS/HCC) (Primary Dx); Cancer of left colon (CMS/HCC); Simple chronic bronchitis (CMS/HCC) 08/22/2024 Travel 08/18/2024 Orders Only External Location [address] [place] [address] Charu Ge MD 08/18/2024 Orders Only External Location [address] [place] [address] Provider, External 08/02/[address] [facility] Urology [address] [place] [address] Phil Long MD [facility] Clinical Concern/Question 07/05/2024 9:00 AM EDT Office Visit Medical Office Building Urology [address], [address] [place] [address] Phil Long MD Screening for prostate cancer (Primary Dx); Retention, urine; Kidney stones 07/05/2024 Results Follow-Up Medical Office Building Urology [address], [address] [place] [address] Phil Long MD 07/05/2024 Travel from Last 3 Months Immunizations Immunization [...] the past 12 m [facility], were you homeless or living in a halfway (including now)? No 05/05/2024 Utilities Answer Date Recorded In the past 12 months has e electric, gas, oil, or water company [...] Pulse 88 08/22/2024 10:49 AM EDT Temperature 36.7 C (98.1 F) 07/05/2024 8:36 AM EDT Respiratory Rate 16 05/23/2024 9:57 AM EDT Oxygen Saturation 99% 08/22/2024 10: 49 AM EDT Inhaled Oxygen Concentration - - Weight 70.7 kg (155 lb 12.1 oz) 025 10:49 AM EDT Height 188 cm (6' 2 ) 08/22/2024 10:49 AM EDT Body Mass Index 20 08/22/2024 10:49 AM EDT Plan of Treatment Upcoming Encounters Date Type Department Care Team (Late st Contact Info) Description 09/26/2024 7:20 AM EDT Appointment [facility] [address] [place] [phone] 09/26/2024 9:45 AM EDT Office Visit [facility] [address] [place] [address] Jovani Bravo MD [address] [facility] [address] [place] [address] 09/27/2024 9:00 AM EDT Appointment [facility] [address] [place] [address] 10/04/2024 11:15 AM EDT Office Visit Medical Office Building Urology [address], [address] [place] [address] Phil Long MD [address] [place] [address] 08/21/2025 9:15 AM EDT Office Visit [facility] Cardi[facility]acic [address], [address] [place] [address] Charu Ge MD [address] [place] [address] Health Maintenance Due Date Last Done Comments [facility]-Hepatitis C Screening 1960 [facility]-Infant/Child/Adol SDOH Screenings 1960 [facility]-DTaP,Tdap,and Td Vaccine s (1 - Tdap) 1977 [facility]-Zoster Vaccines (1 of 2) 1977 CT Colonography 2003 Colonoscopy 2003 FIT-DNA 2003 FIT 2003 FOBT 2003 Sigmoidoscopy 2003 [facility]-Colorectal Cancer Screening 2003 [facility]-Pneumococcal Vaccine: 50 + Years (2 of 2 - PPSV23) 02/17/2017 12/23/2016, 12/08/2016 [facility]-RSV Vaccine: 60+ Years o r (1 - Risk 60-74 years 1-dose series) 2018 SIM-[id number] Vaccine ( season) 2023 01/28/2021, 05/29/2020, 05/01/2020 [facility]-Influenza Vaccine (Seaso n Ended) 2024 01/14/2022, 11/27/2016 [facility]- SDOH Screenings 11/05/2024 [facility]-Adult SDOH Screenings 11/05/2024 05/05/2024 [facility]-Depression Screening 07/05/2025 025, 07/05/2024 HPV Vaccines Aged Out No longer eligi [...] Associated Diagnosis Comments US OUTSIDE IMAGES 08/18/2024 2:[address] THORACIC OUTSIDE IMAGES 08/18/2024 2:39 PM EDT PROSTATE CANCER SCREEN, SERUM Routine 07/05/2024 9:58 AM EDT Screening for prostate cancer from Last 3 Months Results * US OUTSIDE IMAGES (08/18/2024 2:50 PM EDT) Anatomical Region Laterality Modality Ultrasound 08/18/2024 2:50 PM EDT us Charu Ge MD IMG US PROCEDURES Final R esult * CT THORACIC OUTSIDE IMAGES (08/18/2024 2:39 PM EDT) Anatomical Region Laterality Modality Computed Tomogra phy 08/18/2024 2:39 PM EDT us External Provider IMG CT PROCEDURES Final Result * (ABNORMAL) PSA Screen (07/05/2024 9:58 AM EDT) Prostate Cancer Screen, Serum 7.19(H) 0.00 - 4.50 ng/mL 07/05/2024 1:41 PM EDT [facility] Blood Venous blood specimen / Unknown Venipuncture / Unknown 07/05/2024 9:58 AM EDT 07/05/2024 9:58 AM EDT Narrative [facility] - 07/05/2024 1:41 PM EDT Performed by Geri electrochemiluminescent immunoassay which is standardized against the PSA Blue Diamond Reference Standard (WHO 96/670). Results obtained with different test methods or kits cannot be used interchangeably. us Phil Long MD LAB BLOOD ORDERABLES Final Resu lt [facility] [address] [place] [address] from Last 3 Months [place] [address] Advance Directives * Full Code (Latest Code Status on File) Date Activated Date Inactivated Comments 05/04/2024 11:28 AM 05/07/2024 5:58 PM Question Answer Comments Patient has decision-making capacity? Yes Care Teams Commercial Loan Assistant Relationship Specialty Start Date End Date Bandar Minor MD [address] [place] [address] [address] TAMIKO Gutierrez [address] PCP - General 08/19/22
--- OUTSIDE RECORDS SUMMARY | 2024-08-29 09:44 | XMS_ITS | Encounter Summary ---
Author Organization Healthcare Address [address] [place] [address] Care Team Providers Care Bend Up Name Role Phone Bandar Minor MD Primary Care Provider [phone] Encounter Details Date Type Department Care Team ([facility] st Contact Info) Description 08/18/2024 Orders Only External Location [address] [place] [address] Provider, External Social History Tobacco Use Types Packs/Day Years [...] any time in the past 12 m [facility], were you homeless or living in a [...] Upcoming Encounters Date Type Department Care Team ([facility] Contact Info) Description 09/26/2024 7:20 AM EDT Appointment [facility] [address] [place] [address] 09/26/2024 9:45 AM EDT Office Visit [facility] [address] [place] [address] Jovani Bravo MD [address] [facility] [address] [place] [address] 09/27/2024 9:00 AM EDT Appointment [facility] [address] [place] [address] 10/04/2024 11:15 AM EDT Office Visit Medical Office Building Urology [address] [facility], [address] [place] [address] Phil Long MD [address] [place] [address] 08/21/2025 9:15 AM EDT Office Visit [facility] Cardi[facility] [address], [address] [place] [address] Charu Ge MD [address] [place] [address] documented as of this encounter Procedures Procedure Name Priority Date/Time Associated Diagnosis Comments CT THORACIC OUTSIDE IMAGES 08/18/2024 2:39 PM EDT documented in this encounter Results * CT THORACIC OUTSIDE IMAGES (08/18/2024 2:39 PM EDT) Anatomical Region Laterality Modality Computed Tomogra phy 08/18/2024 2:39 PM EDT us External Provider IMG CT PROCEDURES Final Result documented in [...] documented as of this encounter Care Teams Bend Up Relationship Specialty Start Date End Date Bandar Minor MD [address] [place] [address] [address]1 [address] [place] [address] PCP - General 08/19/22 documented as of this encounter
--- OUTSIDE RECORDS SUMMARY | 2024-08-29 09:45 | XMS_ITS | Encounter Summary ---
Author Organization [facility] Address [address] [place] [address] Care Team Providers Care Cap Machine Operator Name Role Phone Bandar Minor MD Primary Care Provider [phone] Encounter Details Date Type Department Care Team (Late Contact Info) Description 04/13/2024 Lab Requisition [facility] [address] [place] [address] Jovani Bravo MD [address] [address] Anemia, unspecified Social History Tobacco Use [...] Department Care Team (Late Contact Info) Description 09/26/2024 7:20 AM EDT Appointment [facility] [address] [place] [address] 09/26/2024 9:45 AM EDT Office Visit [facility] [address] [place] [address] Jovani Bravo MD [address] [address] 09/27/2024 9:00 AM EDT Appointment [facility] [address] [place] [address] 10/04/2024 11:15 AM EDT Office Visit Medical Office Building Urology [address] [facility], [address] [place] [address] Phil Long MD [address] [facility] [address] [place] [address] 08/21/2025 9:15 AM EDT Office Visit [facility] [address], [address] [place] [address] Charu Ge MD [address] [facility] [address] [place] [address] documented as of this encounter Procedures Procedure Name Priority Date/Time Associated Diagnosis Comments SURGICAL PATHOLOGY CONSULT Routine 04/13/2024 10:47 AM EST Anemia, unspecified documented in this encounter Results * Surgical Pathology Consult (04/13/2024 10:47 AM EST) Case Report Sugical Pathology Consult Case: [id number] Authorizing Provider: Jovani Bravo MD Collected: 04/13/20241046 Ordering Location: [facility] Received: 04/13/2024 104 Pathologist: Hansel Mclean MD Specimen: Duodenum, [id number] 5 6:11 PM EST [facility] Final Diagnosis COLON, SPLENIC FLEXURE MASS, BIOPSY (OUTSIDE CASE [id number], PART C; COLLECTED ON 04/05/2024): - ADENOCARCINOMA, 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 [id number] Received along with a corresponding pathology report from [facility] are 7 slide(s) labeled outside case: [id number] collected on 04/05/2024. 5 6:11 PM EST [facility] Note: A resident was involved in the service. I attest I examined the relevant preparations for the specimens and confirmed the diagnosis or interpretation. 5 6:11 PM EST [facility] Tissue Duodenal structure / Unknown 04/13/2024 10:47 AM EST 04/13/2024 10:47 AM EST Jovani Bravo MD LAB PATHOLOGY ORDERABLES Final Result Performing Organization Address City/State/[facility] Co de Phone Number [facility] [address] [place] [address] documented in this encounter Visit Diagnoses Diagnosis Anemia, unspecified documented in this encounter Care Teams Cap Machine Operator Relationship Specialty Start Date End Date Bandar Minor MD [address] [place] [address] [address] [place] [address] PCP - General 08/19/22 documented as of this encounter
[2024-08-29 10:03] LABS: Hematocrit 33.5 % (42.0-52.0); Hemoglobin 10.9 g/dL (14.1-18.0); Immature Granulocytes % 1.1 %; Mean Corpuscular HGB Conc 32.5 g/dL (31.8-35.4); Mean Corpuscular Hemoglobin 29.9 pg (27.0-31.2); Mean Corpuscular Volume 92.0 fl (80-94); Nucleated Red Blood Cells % 0 %; Platelet Count 112 K/mm3 (142-424); Red Blood Count 3.64 M/mm3 (4.60-6.20); Red Cell Distribution Width-SD 76.3 fL; White Blood Count 4.5 K/mm3 (4.8-10.8)
[2024-08-29 10:06] LABS: Chloride 105 mmol/L (98-107)
[2024-08-29 10:07] LABS: Albumin Level 3.6 g/dl (3.5-5.0); Potassium 3.6 mmoL/L (3.5-5.1); Sodium 141 mmol/L (136-145)
[2024-08-29 10:09] LABS: Alanine Aminotransferase 19 U/L (12-78); Blood Urea Nitrogen 7 mg/dl (9-20); Creatinine Clearance Estimated 73 mL/min (50-200); Creatinine,Serum 0.60 mg/dl (0.66-1.25); Estimated Glomerular Filt Rate 135 ml/min (>60); GFR (African American) 163 ML/MIN (>60)
[2024-08-29 10:10] LABS: Albumin/Globulin Ratio 1.3 (1.1-1.8); Alkaline Phosphatase 89 U/L (38-126); Anion Gap 10.6 mEq/L (5-15); Aspartate Amino Transferase 41 U/L (17-59); Bilirubin,Total 0.9 mg/dl (0.2-1.3); Calcium 8.8 mg/dl (8.4-10.2); Carbon Dioxide 29 mmol/L (22.0-30.0); Globulin 2.7 g/dL (1.3-3.2); Glucose 85 mg/dl (74-100); Total Protein,Serum 6.3 g/dl (6.3-8.2)
[2024-08-29] MEDS: FAMOTIDINE 20MG TABLET 20 MG (11:21)
[2024-08-29] MEDS: POTASSIUM CHLORIDE 20MEQ TAB 40 MEQ PO (11:21)
[2024-08-29] MEDS: MONTELUKAST SODIUM 10MG TAB 10 MG PO (11:21)
[2024-08-29] MEDS: DEXAMETHASONE 4MG TABLET 12 MG (11:21)
[2024-08-29] MEDS: ONDANSETRON 4MG ODT 16 MG (11:21)
[2024-08-29] MEDS: CALCIUM GLUCONATE 1,000 MG, MAGNESIUM SULFATE 1 GM in DEXTROSE 5 % IN WATER 100 ML 224 MG IV ×2 (11:54→14:30)
[2024-08-29] MEDS: DEXTROSE 5% IV (12:23)
[2024-08-29] MEDS: OXALIPLATIN IV (12:23)
[2024-08-29] MEDS: WATER IV (12:23)
== END 2024-08-29 15:10 | disposition home or self-care (01) ==
LOC: INF 09:41
PROVIDERS: PCP Nurse Practitioner; Visit Provider Internal Medicine Medical Oncology
DX: C18.6 Malignant neoplasm of descending colon (principal); Z51.11 Encounter for antineoplastic chemotherapy
CPT/HCPCS: 80053; 85025; 96413; J0612; J3475; J7060; J8540; J9263; Q0162

== ENCOUNTER 2024-10-03 09:04 | Outpatient (CLI) | payer BC, SELFPAY ==
--- OUTSIDE RECORDS SUMMARY | 2024-08-22 10:45 | XMS_ITS | Encounter Summary ---
Author Organization [facility] Address [address] [place] [address] Care Team Providers Care Company Pilot Name Role Phone Bandar Minor MD Primary Care Provider [phone] Reason for Referral * Imaging (Routine) - Authorized Specialty Diagnoses / Procedures Referred By Souleymane zayas Referred To Contact Diagnoses Thoracic aortic aneurysm (CMS/HCC) Procedures CT Chest wo IV Contrast Charu Ge MD [address] [address] Phone: tel: fax: Referral ID Status Reason Start Date Expiration Date V isits Requested Visits Authorized [id number] Authorized 08/09/2024 02/08/2026 1 1 * Imaging (Routine) - Authorized Specialty Diagnoses / Procedures Referred By Souleymane zayas Referred To Contact Cardiology Diagnoses Thoracic aortic aneurysm (CMS/HCC) Procedures Echo, Adult Transthoracic Complete Charu Ge MD [address] [address] Phone: tel: fax: Referral ID Status Reason Start Date Expiration Date Visits Requested Visits Authorized [id number] Authorized Perform Procedure 08/09/2024 02/08/2026 1 1 Encounter Details Date Type Department Care Team (Late st Contact Info) Description 08/22/2024 10:45 AM EDT Office Visit [facility] [address], [facility] [address] [place] [address] Charu Ge MD [address] [place] [address] Thoracic aortic aneurysm (CMS/HCC) (Primary Dx); Cancer of left colon (CMS/HCC); Simple chronic bronchitis (CMS/HCC) Social History Tobacco Use Types Packs/Day Years [...] any time in the past 12 m [facility], were you homeless or living in a long term (including now)? No 05/05/2024 Utilities Answer Date Recorded In the past 12 months has [employer], gas, oil, or water company threatened [...] Sign Reading Time Taken Comments Blood Pressure 116/74 08/22/2024 10:49 AM EDT Pulse 88 08/22/2024 10:49 AM EDT Temperature - - Respiratory Rate - - Oxygen Saturation 99% 08/22/2024 10: 49 AM EDT Inhaled Oxygen Concentration - - Weight 70.7 kg (155 lb 12.1 oz) 025 10:49 AM EDT Height 188 cm (6' 2 ) 08/22/2024 10:49 AM EDT Body Mass Index 20 08/22/2024 10:49 AM EDT documented in this encounter Miscellaneous Notes * Progress Notes - Temo Rand PA - 08/22/2024 10:45 AM EDT Reason for visit / Chief Complaint: aneurysm follow up History of present illness: Minh Willett is a 64 y.o. male referred to us in consultation by Dr Minh Morlaes in regards to an Ascending Aortic Aneurysm. We have had the pleasure of seeing Mr. Willett initially in consultation in August of 2016 for an incidental finding of an ascending aortic aneurysm following an episode of pneumonia. 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 Clifton singh he who followed him until he left the [place] and Dr. Kelly resumed care of his patient volume. He does not have any family history of aneurysmal disease nor does he have an medical history for hypertension. His chronic comorbid conditions that impact our treatment planning include: None NYHA Classification: Class I: No symptoms with ordinary activity. Smoking Cessation: non smoker Active Problems: Patient Active Problem List Diagnosis Date Noted BMI 20.0-20.9, adult 08/22/2024 COPD (chronic obstructive pulmonary disease) ([facility]) 12/23/2016 Thoracic aortic aneurysm ([facility]) 12/23/2016 Cancer of left colon ([facility]) 04/26/2024 Medical History: Past Medical History Pertinent Negatives[1] Surgical History: Surgical History[2] Social History: Tobacco: Tobacco Use: Low Risk (08/22/2024) Patient History Smoking Tobacco Use: Never Smokeless Tobacco Use: Never Passive Exposure: Never Alcohol: Alcohol Use: Not on file Illicit drug use: Social History Substance and Sexual Activity Drug Use Never Family History: family history includes Breast cancer in his maternal grandmother. Allergies: Allergies[3] Medications: Prior to Admission medications Medication Sig Start Date End Date Taking? Authorizing Provider acetaminophen (Tylenol) 325 MG tablet Take 2 tablets (650 mg) by mouth every 6 hours as needed. Under [place] law, monthly prescriptions (30 days) can be refilled at 25 days and three-month prescriptions (90 days) at 80 days. Please contact the insurance company with questions if refills are denied. Yes Aman Hallman MD capecitabine (Xeloda) 500 MG chemo tablet Take 1,500 mg/m2 by mouth 2 times a day. 08/22/24 Yes Aman Hallman MD diphenhydrAMINE-acetaminophen (Tylenol PM) 25-500 MG per tablet Take 2 tablets by mouth at night asneeded for sleep. Yes Aman Hallman MD finasteride (Proscar) 5 MG tablet Take 1 tablet (5 mg) by mouth daily. Do not crush, chew, or split. 04/27/24 Yes Vamshi Rivera MD ondansetron ODT (Zofran-ODT) 4 MG disintegrating tablet Take 1 tablet (4 mg) by mouth every 6 hoursas needed for nausea or vomiting. 05/07/24 Yes Jenni Don MD tamsulosin (Flomax) 0.4 MG 24 hr capsule Take 1 capsule (0.4 mg) by mouth daily. 04/17/24 Yes Aman Hallman MD bisacodyl (Dulcolax) 5 MG EC tablet Day before procedure at 4pm take 4 tablets with 8 oz of clear liquid. SSICOLON Patient not taking: Reported on 08/22/2024 04/18/24 Jovani Bravo MD famotidine (Pepcid) 20 MG tablet Take 1 tablet (20 mg) by mouth as needed for heartburn or indigestion. Patient not taking: Reported on 08/22/2024 Aman Hallman MD methocarbamol (Robaxin) 500 MG tablet Take 1 tablet (500 mg) by mouth every 6 (six) hours for 5 days. Patient not taking: Reported on 08/22/2024 05/07/24 07/05/24 Jenni Don MD metroNIDAZOLE (Flagyl) 500 MG tablet Take one tablet at 1pm, 2pm, and 11pm day BEFORE surgery. SSI COLON. Patient not taking: Reported on 08/22/2024 04/18/24 Jovani Bravo MD naloxone (Narcan) 4 mg/0.1 mL nasal spray 1. Give 1 spray in nostril for no/slow breathing or cannot wake after opioid use 2. Call 911 3. Repeat in other nostril if symptoms continue Patient not takin. Give 1 spray in nostril for no/slow breathing or cannot wake after opioid use 2. Call 911 3. Repeat in other nostril if symptoms continue Reported on 08/22/2024 05/07/24 Jenni Don MD neomycin (Mycifradin) 500 MG tablet Take two tablets (1000 mg) by mouth at 1:00pm, 2:00pm and 11:00pm on the day prior to surgery. SSICOLON Patient not taking: Reported on 08/22/2024 04/18/24 Jovani Bravo MD Nutritional Supplements (Impact Advanced Recovery) liquid Drink 2 cartons a day starting 5 days before surgery. SSICOLON. Auto Sub for Ensure Surgery if Impact not available. Patient not taking: Reported on 08/22/2024 04/18/24 Jovani Bravo MD oxyCODONE (Roxicodone) 5 MG immediate release tablet Take 1 tablet (5 mg) by mouth every 4 (four) hours as needed for moderate pain or severe pain. Patient not taking: Reported on 08/22/2024 05/07/24 Cara Sinha MD polyethylene glycol (MiraLax) 17 GM/SCOOP powder At 6pm day BEFORE surgery, mix Miralax (polyethylene glycol) powder with 64 oz sports drink. Stir to dissolve. Drink one cup (8oz) every 15 minutes until completed finished. SSICOLON Patient not taking: Reported on 08/22/2024 04/18/24 Jovani Bravo MD rivaroxaban (Xarelto) 10 MG tablet Take 1 tablet (10 mg) by mouth in the morning for 25 days. Patient not taking: Reported on 08/22/2024 05/07/24 07/05/24 Jenni Don MD Physical exam: Visit Vitals BP 116/74 Pulse 88 SpO2 99% Physical Exam Constitutional: Appearance: Normal appearance. HENT: Head: Normocephalic and atraumatic. Nose: Nose normal. Mouth/Throat: Mouth: Mucous membranes are dry. Eyes: Extraocular Movements: Extraocular movements intact. Pupils: Pupils are equal, round, and reactive to light. Cardiovascular: Rate and Rhythm: Normal rate and regular rhythm. Heart sounds: No murmur heard. Pulmonary: Effort: Pulmonary effort is normal. Breath sounds: Normal breath sounds. Abdominal: General: Abdomen is flat. Palpations: Abdomen is soft. Musculoskeletal: General: Normal range of motion. Cervical back: Normal range of motion and neck supple. Skin: General: Skin is warm and dry. Capillary Refill: Capillary refill takes less than 2 seconds. Neurological: General: No focal deficit present. Mental Status: He is alert and oriented to person, place, and time. Psychiatric: Mood and Affect: Mood normal. Behavior: Behavior normal. Imaging: CT Chest dated 08/18/2024 from [facility] : There is a thoracic aneurysm measuring 46 mm. Cardiac Cath Results: none Impression: 1. Stable 4.6 cm ascending aortic aneurysm 2. Colorectal adenocarcinoma status post hemicolectomy T3 N1 with mets in 3 of 34 nodes 3. Elevated PSA 7.19 awaiting further disposition from Phil Hua Plan: Re-evaluate ascending aortic aneurysm with a noncontrasted CT scan of the chest in 1 year along with an echocardiogram to follow up on aortic valve insufficiency. [1] Past Medical History: Diagnosis Date Colon cancer (CMS/HCC) Kidney stone Personal history of other specified conditions History of shortness of breath Personal history of pneumonia (recurrent) History of pneumonia Thoracic aortic aneurysm (CMS/HCC) [2] Past Surgical History: Procedure Laterality Date CIRCUMCISION, PRIMARY as 6th grader COLONOSCOPY 04/05/2024 UPPER GASTROINTESTINAL ENDOSCOPY 04/05/2024 [3] No Known Allergies documented in this encounter Plan of Treatment Upcoming Encounters Date Type Department Care Team (Late st Contact Info) Description 10/04/2024 11:15 AM EDT Office Visit Medical Office Building Urology [address] [facility], [address] [place] [address] Phil Long MD [address] [facility] [address] [place] [address] 01/23/2025 8:00 AM EST Appointment [facility] [address] [place] [address] 01/23/2025 10:00 AM EST Office Visit [facility] Multidisciplinary Oncology Clinic [address] [place] [address] Jovani Bravo MD [address] [facility] [address] [place] [address] 08/21/2025 9:15 AM EDT Office Visit [facility] [address], [address] [place] [address] Charu Ge MD [address] [place] [address] Scheduled Orders Name Type Priority Associated Diagnoses Order Schedule Echo, Adult Transthoracic Complete Echocardiography Routine Thoracic aortic aneurysm (CMS/HCC) Expected: 08/09/2024 (Approximate), Expires: 02/10/2026 CT Chest wo IV Contrast Imaging Routine Thoracic aortic aneurysm (CMS/HCC) Expected: 08/09/2024 (Approximate), Expires: 02/10/2026 documented as of this encounter Visit Diagnoses Diagnosis Thoracic aortic aneurysm (CMS/HCC)- Primary Cancer of left colon (CMS/HCC) Malignant neoplasm of descending colon Simple chronic bronchitis (CMS/HCC) Simple chronic bronchitis documented in this encounter Additional Health Concerns Assessment Noted Time PHQ-9 Depression Total Score: 0 07/06/19 25 8:38 AM EDT A fall risk assessment has been complete d for the patient 08/22/2024 11:02 AM EDT A Body Mass Index follow-up plan has been documented for the patient 08/22/2024 11:54 AM EDT documented as of this encounter Care Teams Company Pilot Relationship Specialty Start Date End Date Bandar Minor MD [address] [place] [address] #1 #1 TAMIKO Gutierrez [id number] PCP - General 08/19/22 documented as of this encounter
--- OUTSIDE RECORDS SUMMARY | 2024-09-26 07:00 | XMS_ITS | Encounter Summary ---
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 Name Role Phone Bandar Minor MD Primary Care Provider [phone] Reason for Referral * Imaging (Routine) - Closed Specialty Diagnoses / Procedures Referred By Contac t Referred To Contact Radiology Diagnoses Cancer of left colon (CMS/HCC) Procedures CT Abdomen Pelvis w IV Contrast Jovani Bravo MD [address] [address] Phone: tel: fax: Referral ID Status Reason Start Date Expiration Date Visits Re quested Visits Authorized [id number] Closed 05/23/2024 11/22/2025 1 1 * Imaging (Routine) - Closed Specialty Diagnoses / Procedures Referred By Contac t Referred To Contact Radiology Diagnoses Cancer of left colon (CMS/HCC) Procedures CT Chest w IV Contrast Jovani Bravo MD [address] [address] Phone: tel: fax: Referral ID Status Reason Start Date Expiration Date Visits Re quested Visits Authorized [id number] Closed 05/23/2024 11/22/2025 1 1 Reason for Visit * Imaging (Routine) - Closed Specialty Diagnoses / Procedures Referred By Contac t Referred To Contact Radiology Diagnoses Cancer of left colon (CMS/HCC) Procedures CT Abdomen Pelvis w IV Contrast Jovani Bravo MD [address] [place] [address] Phone: tel: fax: Referral ID Status Reason Start Date Expiration Date Visits Re quested Visits Authorized [id number] Closed 05/23/2024 11/22/2025 1 1 Encounter Details Date Type Department Care Team (Latest Contact Info) Description 09/26/2024 7:00 AM EDT - 09/26/2024 11:59 PM EDT Hospital Encounter [facility] [address] [place] [address] Cancer of left colon (CMS/HCC) Discharge Disposition: Home or Self Care Social History Tobacco Use Types Packs/Day Years [...] were you homeless or living in a group home (including now)? No 05/05/2024 Utilities Answer Date Recorded In the past 12 months has th e [employer], gas, oil, or water company threatened to shut off services in your home? No 05/05/2024 Sex and Gender Information Value Date Recorded Sex Assigned at Male 04/27/2024 7:58 AM EST Legal Sex Male 6:27 PM EDT Gender Identity Not on file Sexual Orientation Not on file documented as of this encounter Medications at Time of Discharge acetaminophen (Tylenol) 325 MG tablet Take 2 [...] oz of clear liquid. SSICOLON 4 tablet 5 capecitabine (Xeloda) 500 MG chemo tablet Take 1,500 mg/m2 by mouth 2 times a day. 5 diphenhydrAMINE-zahra taminophen (Tylenol PM) 25-500 MG per tablet Take 2 tablets by mouth at night as needed for sleep. famotidine (Pepcid) 20 MG tablet Take 1 tablet (20 mg) by mouth as needed for heartburn or indigestion. finasteride (Proscar) 5 MG tablet Take 1 tablet by mouth daily. Do not crush, chew, or split. 30 tablet 3 5 finasteride (Proscar) 5 MG tablet Take 1 tablet by mouth daily. Do not crush, chew, or split. 90 tablet 3 5 09/27/19 26 metroNIDAZOLE (Flagyl) 500 MG tabletIndications:C olon stricture (CMS/HCC) Take one tablet at 1pm, 2pm, and 11pm day BEFORE surgery. SSI COLON. 3 tablet 5 naloxone (Narcan) 4 mg/0.1 mL nasal spray 1. Give 1 spray in nostril for no/slow breathing or cannot wake after opioid use 2. Call 911 3. Repeat in other nostril if symptoms continue 1 each 5 neomycin (Mycifradin) 500 MG tabletIndications:C olon stricture (CMS/HCC) Take two tablets (1000 mg) by mouth at 1:00pm, 2:00pm and 11:00pm on the day prior to surgery. SSICOLON 6 tablet 5 Nutritional Supplements (Impact Advanced Recovery) liquid Drink 2 cartons a day starting 5 days before surgery. SSICOLON. Auto Sub for Ensure Surgery if Impact not available. 176 mL 2 5 ondansetron ODT (Zofran-ODT) 4 MG disintegrating tablet Take 1 tablet (4 mg) by mouth every 6 hours as needed for nausea or vomiting. 20 tablet 5 oxyCODONE (Roxicodone) 5 MG immediate release tablet Take 1 tablet (5 mg) by mouth every 4 (four) hours as needed for moderate pain or severe pain. 15 tablet 5 polyethylene glycol (MiraLax) 17 GM/SCOOP powder At 6pm day BEFORE surgery, mix Miralax (polyethylene glycol) powder with 64 oz sports drink. Stir to dissolve. Drink one cup (8oz) every 15 minutes until completed finished. SSICOLON 238 g 5 tamsulosin (Flomax) 0.4 MG 24 hr capsule Take 1 capsule (0.4 mg) by mouth daily. 5 documented as of this encounter Miscellaneous Notes * Rosangela Bullard - Marquita Parekh - 09/26/2024 7:08 AM EDT Images from the original note were not included. 1639 Caring for Yourself after Contrast Imaging If you had ORAL contrast: ? You can go back to your normal diet and activities as tolerated. ? Drink plenty of fluids, unless told otherwise. If you had IV contrast: ? You can go back to your normal diet and activities as tolerated. ? Drink plenty of fluids, unless told otherwise. ? Leave a bandage on the site for 30 minutes (where the IV was inserted or blood was drawn). If you had Intravesical (bladder) contrast: ? Return to normal diet and activity. What you need to know about delayed reaction to IV contrast What is IV Contrast? ? Contrast is a dye that is put into your body through an IV. ? It is used for imaging scans such as CT scans and MRIs. ? The contrast makes blood vessels, organs and other parts of your body show up better on the scan. What do I need to do after IV contrast? ? Drink lots of fluids. This will help flush the contrast out of your system. ? Drink 2-3 extra glasses or bottles of water within 4 hours of your scan. What is a contrast reaction? ? A contrast reaction is a bad side effect from the contrast dye. ? It is rare but it does happen. ? They can be mild - such as sneezing, itching, or hives. ? They can be severe - such as trouble breathing, throat swelling, and irregular heart beat. When do these reactions happen? ? They often happen right after the contrast is injected. ? Some happen hours after going home. Go to the nearest Emergency Department right away if you have any of these symptoms after you leavethe clinic or hospital. ? Sneezing ? Itching in your mouth, throat, eyes, ears, or skin ? Rash or hives ? Throwing up or stomach sickness ? High heart rate or ?racing? of your heart ? Feeling dizzy or woozy ? Feeling short of breath or like you can?t take a deep breath ? Feeling very anxious for no other reason It is very important that these reactions be treated. Tell the doctor or nurse that you are having a reaction to IV contrast dye. Do not ignore any sign of a reaction! All reactions must be assessed by a doctor. Call 911 if you are alone and your reaction is more than mild sneezing or itching. If you have a mild reaction, call to speak with a Radiologist, explain that you havehad a contrast reaction, as this needs to be added to your medical record. documented in this encounter Plan of Treatment Upcoming Encounters Date Type Department Care Team (Late st Contact Info) Description 10/04/2024 11:15 AM EDT Office Visit Medical Office Building Urology [address], [address] [place] [address] Phil Long MD [address] [place] [address] 01/23/2025 8:00 AM EST Appointment [facility] [address] [place] [address] 01/23/2025 10:00 AM EST Office Visit [facility] Multidisciplinary Oncology Clinic [address] [place] [address] Jovani Bravo MD [address] [place] [address] 08/21/2025 9:15 AM EDT Office Visit [facility] [address], [address] [place] [address] Charu Ge MD [address] [place] [address] documented as of this encounter Procedures Procedure Name Priority Date/Time Associated Diagnosis Comments CT ABDOMEN PELVIS W IV CONTRAST Routine 09/26/2024 8:27 AM EDT Cancer of left colon (CMS/HCC) CT CHEST W IV CONTRAST Routine 09/26/2024 8:27 AM EDT Cancer of left colon (CMS/HCC) documented in this encounter Results * CT Abdomen Pelvis w IV Contrast (09/26/2024 8:27 AM EDT) Anatomical Region Laterality Modality Abdomen, Pelvis Computed Tomogra phy Impressions 09/26/2024 9:27 AM EDT Chest: Clustered tree-in-bud nodularity within the periphery of both lungs with associated nodules measuring 6 mm or less, presumably sequela of infection and/or inflammation, however recommend continued attention on follow-up for resolution. Abdomen/Pelvis: Postoperative change associated with interval left hemicolectomy, with mild wall thickening distal to the anastomosis as well as left upper quadrant and pelvic pericolonic stranding. These findings may be related to instrumentation, however recommend continued attention on follow-up. No abdominopelvic adenopathy. Horseshoe kidney, with a 1.1 cm calculus within the right moiety and hydronephrosis bilaterally. Reduced prominence of the left ureter with a Ferris catheter in place. Minimal peripancreatic stranding and trace fluid about the distal pancreatic body and tail may be related to instrumentation, however recommend correlation with symptomatology as pancreatitis is also in the differential. CRITICAL RESULT: No. COMMUNICATION: Per this written report. Drafted by Delia Staton MD on 09/26/2024 9:00 AM Final report signed by Delia Staton MD on 09/26/2024 9:27 AM Narrative 09/26/2024 9:27 AM EDT CLINICAL INDICATION: Colon cancer, staging TECHNIQUE: Multiple axial CT images were obtained from thoracic inlet through pubic symphysis following administration of IV contrast, Omnipaque 300, 100 mL. Reformatted images in the coronal and sagittal planes were generated from the axial data set to facilitate diagnostic accuracy. Total DLP (Dose-Length Product): 601.83 mGy.cm (accession [id number]), 601.83 mGy.cm (accession [id number]) Please note: The reported value represents the total of one or more individual components during the CT acquisition on this date and at this time, and as such, the same value may appear in more than one CT report depending on the interpreting/reporting physicians. COMPARISON: CT chest from 08/18/[address] abdomen/pelvis from 04/05/2024 from outside facility FINDINGS: Chest: Lymph Nodes and Mediastinum: No lymphadenopathy by CT size criteria. No mediastinal mass lesions. No suspicious thyroid findings. Cardiovascular: The heart is normal in caliber. Thoracic great vessels are patent. Lungs and Pleura: Central airways are patent. Clustered tree-in-bud nodularity within the periphery of the right upper lobe, minimally within the anterior right middle lobe, and within the lingula and upper left lung along the fissure. 6 mm nodules are within the left lower lobe (series 4 image 235) and within the lingula, where there are adjacent sub-6 mm nodular opacities. These findings are more prominent than on comparison. No pleural effusions or suspicious thickening. Musculoskeletal and Body Wall: No clearly aggressive bone lesions. No suspicious body wall findings. Abdomen/Pelvis: Solid Abdominal Organs: A subcentimeter low-attenuation focus within the right hemiliver measures 5 mm, too small to characterize (series 3 image 44). This finding was likely present on comparison although difficult to identify due to slice selection. Gallbladder is unremarkable. No intrahepatic or extrahepatic biliary ductal dilatation. Adrenal glands are unremarkable. Horseshoe kidney is morphologically unchanged with a 1.1 cm cortical cyst in the left moiety and a 1.2 cm calculus in the right moiety. Hydronephrosis of the horseshoe kidney is similar to comparison, however there is reduced dilatation of the left ureter. No suspicious renal lesion. Pancreatic parenchyma is homogeneous. Minimal peripancreatic stranding and trace fluid is more prominent than on comparison, particularly about the distal pancreatic body and tail. No pancreatic ductal dilatation. The spleen is enlarged, measuring 14.8 cm. A splenule is anterior to the spleen. GI Tract/Mesentery/Peritoneum: Stomach is unremarkable. Postoperative change associated with interval left hemicolectomy, with mild wall thickening distal to the anastomosis and left upper quadrant stranding possibly related to instrumentation (for example series 3 image 144). Small and large bowel maintain expected caliber and contour. No bowel obstruction. Mild perirectal stranding in the pelvis. Pelvic Viscera: Urinary bladder is decompressed around a Ferris catheter. Prostatomegaly. No suspicious pelvic mass. Lymph Nodes/Vasculature: No lymphadenopathy by CT size criteria. Aortoiliac vasculature maintains normal caliber and contour. The portosplenic confluence is patent. Free Fluid: No ascites. Musculoskeletal and Body Wall: Postoperative change in the anterior abdominal wall. No clearly aggressive osseous lesions. Procedure Note Delia Staton MD - 09/26/2024 CLINICAL INDICATION: Colon cancer, staging TECHNIQUE: Multiple axial CT images were obtained from thoracic inlet through pubicsymphysis following administration of IV contrast, Omnipaque 300, 100 mL.Reformatted images in the coronal and sagittal planes were generated fromthe axial data set to facilitate diagnostic accuracy. Total DLP (Dose-Length Product): 601.83 mGy.cm (accession [id number]),601.83 mGy.cm (accession [id number]) Please note: The reported valuerepresents the total of one or more individual components during the CTacquisition on this date and at this time, and as such, the same value mayappear in more than one CT report depending on the interpreting/reportingphysicians. COMPARISON: CT chest from 08/18/[address] abdomen/pelvis from 04/05/2024 from outside facility FINDINGS: Chest: Lymph Nodes and Mediastinum: No lymphadenopathy by CT size criteria. Nomediastinal mass lesions. No suspicious thyroid findings. Cardiovascular: The heart is normal in caliber. Thoracic great vessels arepatent. Lungs and Pleura: Central airways are patent. Clustered wiwf-pr-hfyqerzeyomch within the periphery of the right upper lobe, minimally withinthe anterior right middle lobe, and within the lingula and upper left lungalong the fissure. 6 mm nodules are within the left lower lobe (series 4image 235) and within the lingula, where there are adjacent sub-6 mmnodular opacities. These findings are more prominent than on comparison.No pleural effusions or suspicious thickening. Musculoskeletal and Body Wall: No clearly aggressive bone lesions. Nosuspicious body wall findings. Abdomen/Pelvis: Solid Abdominal Organs: A subcentimeter low-attenuation focus within theright hemiliver measures 5 mm, too small to characterize (series 3 image44). This finding was likely present on comparison although difficult toidentify due to slice selection. Gallbladder is unremarkable. Nointrahepatic or extrahepatic biliary ductal dilatation. Adrenal glands areunremarkable. Horseshoe kidney is morphologically unchanged with a 1.1 cmcortical cyst in the left moiety and a 1.2 cm calculus in the rightmoiety. Hydronephrosis of the horseshoe kidney is similar to comparison,however there is reduced dilatation of the left ureter. No suspiciousrenal lesion. Pancreatic parenchyma is homogeneous. Minimal peripancreaticstranding and trace fluid is more prominent than on comparison,particularly about the distal pancreatic body and tail. No pancreaticductal dilatation. The spleen is enlarged, measuring 14.8 cm. A splenuleis anterior to the spleen. GI Tract/Mesentery/Peritoneum: Stomach is unremarkable. Postoperativechange associated with interval left hemicolectomy, with mild wallthickening distal to the anastomosis and left upper quadrant strandingpossibly related to instrumentation (for example series 3 image 144).Small and large bowel maintain expected caliber and contour. No bowelobstruction. Mild perirectal stranding in the pelvis. Pelvic Viscera: Urinary bladder is decompressed around a Ferris catheter.Prostatomegaly. No suspicious pelvic mass. Lymph Nodes/Vasculature: No lymphadenopathy by CT size criteria.Aortoiliac vasculature maintains normal caliber and contour. Theportosplenic confluence is patent. Free Fluid: No ascites. Musculoskeletal and Body Wall: Postoperative change in the anteriorabdominal wall. No clearly aggressive osseous lesions. IMPRESSION: Chest: Clustered tree-in-bud nodularity within the periphery of both lungs withassociated nodules measuring 6 mm or less, presumably sequela of infectionand/or inflammation, however recommend continued attention on follow-upfor resolution. Abdomen/Pelvis: Postoperative change associated with interval left hemicolectomy, withmild wall thickening distal to the anastomosis as well as left upperquadrant and pelvic pericolonic stranding. These findings may be relatedto instrumentation, however recommend continued attention on follow-up. No abdominopelvic adenopathy. 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 Reduced prominence of the left ureter with aFoley catheter in place. Minimal peripancreatic stranding and trace fluid about the distalpancreatic body and tail may be related to instrumentation, howeverrecommend correlation with symptomatology as pancreatitis is also in thedifferential. CRITICAL RESULT: No. COMMUNICATION: Per this written report. Drafted by Delia Staton MD on 09/26/2024 9:00 AM Final report signed by Delia Staton MD on 09/26/2024 9:27 AM us Jovani Bravo MD IMG CT PROCEDURES Final Result * CT Chest w IV Contrast (09/26/2024 8:27 AM EDT) Anatomical Region Laterality Modality Chest Computed Tomogra phy Impressions 09/26/2024 9:27 AM EDT Chest: Clustered tree-in-bud nodularity within the periphery of both lungs with associated nodules measuring 6 mm or less, presumably sequela of infection and/or inflammation, however recommend continued attention on follow-up for resolution. Abdomen/Pelvis: Postoperative change associated with interval left hemicolectomy, with mild wall thickening distal to the anastomosis as well as left upper quadrant and pelvic pericolonic stranding. These findings may be related to instrumentation, however recommend continued attention on follow-up. No abdominopelvic adenopathy. Horseshoe kidney, with a 1.1 cm calculus within the right moiety and hydronephrosis bilaterally. Reduced prominence of the left ureter with a Ferris catheter in place. Minimal peripancreatic stranding and trace fluid about the distal pancreatic body and tail may be related to instrumentation, however recommend correlation with symptomatology as pancreatitis is also in the differential. CRITICAL RESULT: No. COMMUNICATION: Per this written report. Drafted by Delia Staton MD on 09/26/2024 9:00 AM Final report signed by Delia Staton MD on 09/26/2024 9:27 AM Narrative 09/26/2024 9:27 AM EDT CLINICAL INDICATION: Colon cancer, staging TECHNIQUE: Multiple axial CT images were obtained from thoracic inlet through pubic symphysis following administration of IV contrast, Omnipaque 300, 100 mL. Reformatted images in the coronal and sagittal planes were generated from the axial data set to facilitate diagnostic accuracy. Total DLP (Dose-Length Product): 601.83 mGy.cm (accession [id number]), 601.83 mGy.cm (accession [id number]) Please note: The reported value represents the total of one or more individual components during the CT acquisition on this date and at this time, and as such, the same value may appear in more than one CT report depending on the interpreting/reporting physicians. COMPARISON: CT chest from 08/18/[address] abdomen/pelvis from 04/05/2024 from outside facility FINDINGS: Chest: Lymph Nodes and Mediastinum: No lymphadenopathy by CT size criteria. No mediastinal mass lesions. No suspicious thyroid findings. Cardiovascular: The heart is normal in caliber. Thoracic great vessels are patent. Lungs and Pleura: Central airways are patent. Clustered tree-in-bud nodularity within the periphery of the right upper lobe, minimally within the anterior right middle lobe, and within the lingula and upper left lung along the fissure. 6 mm nodules are within the left lower lobe (series 4 image 235) and within the lingula, where there are adjacent sub-6 mm nodular opacities. These findings are more prominent than on comparison. No pleural effusions or suspicious thickening. Musculoskeletal and Body Wall: No clearly aggressive bone lesions. No suspicious body wall findings. Abdomen/Pelvis: Solid Abdominal Organs: A subcentimeter low-attenuation focus within the right hemiliver measures 5 mm, too small to characterize (series 3 image 44). This finding was likely present on comparison although difficult to identify due to slice selection. Gallbladder is unremarkable. No intrahepatic or extrahepatic biliary ductal dilatation. Adrenal glands are unremarkable. Horseshoe kidney is morphologically unchanged with a 1.1 cm cortical cyst in the left moiety and a 1.2 cm calculus in the right moiety. Hydronephrosis of the horseshoe kidney is similar to comparison, however there is reduced dilatation of the left ureter. No suspicious renal lesion. Pancreatic parenchyma is homogeneous. Minimal peripancreatic stranding and trace fluid is more prominent than on comparison, particularly about the distal pancreatic body and tail. No pancreatic ductal dilatation. The spleen is enlarged, measuring 14.8 cm. A splenule is anterior to the spleen. GI Tract/Mesentery/Peritoneum: Stomach is unremarkable. Postoperative change associated with interval left hemicolectomy, with mild wall thickening distal to the anastomosis and left upper quadrant stranding possibly related to instrumentation (for example series 3 image 144). Small and large bowel maintain expected caliber and contour. No bowel obstruction. Mild perirectal stranding in the pelvis. Pelvic Viscera: Urinary bladder is decompressed around a Ferris catheter. Prostatomegaly. No suspicious pelvic mass. Lymph Nodes/Vasculature: No lymphadenopathy by CT size criteria. Aortoiliac vasculature maintains normal caliber and contour. The portosplenic confluence is patent. Free Fluid: No ascites. Musculoskeletal and Body Wall: Postoperative change in the anterior abdominal wall. No clearly aggressive osseous lesions. Procedure Note Brionna, Delia C, MD - 09/26/2024 CLINICAL INDICATION: Colon cancer, staging TECHNIQUE: Multiple axial CT images were obtained from thoracic inlet through pubicsymphysis following administration of IV contrast, Omnipaque 300, 100 mL.Reformatted images in the coronal and sagittal planes were generated fromthe axial data set to facilitate diagnostic accuracy. Total DLP (Dose-Length Product): 601.83 mGy.cm (accession [id number]),601.83 mGy.cm (accession [id number]) Please note: The reported valuerepresents the total of one or more individual components during the CTacquisition on this date and at this time, and as such, the same value mayappear in more than one CT report depending on the interpreting/reportingphysicians. COMPARISON: CT chest from 08/18/[address] abdomen/pelvis from 04/05/2024 from outside facility FINDINGS: Chest: Lymph Nodes and Mediastinum: No lymphadenopathy by CT size criteria. Nomediastinal mass lesions. No suspicious thyroid findings. Cardiovascular: The heart is normal in caliber. Thoracic great vessels arepatent. Lungs and Pleura: Central airways are patent. Clustered xwrs-rt-dcgsjdemxykys within the periphery of the right upper lobe, minimally withinthe anterior right middle lobe, and within the lingula and upper left lungalong the fissure. 6 mm nodules are within the left lower lobe (series 4image 235) and within the lingula, where there are adjacent sub-6 mmnodular opacities. These findings are more prominent than on comparison.No pleural effusions or suspicious thickening. Musculoskeletal and Body Wall: No clearly aggressive bone lesions. Nosuspicious body wall findings. Abdomen/Pelvis: Solid Abdominal Organs: A subcentimeter low-attenuation focus within theright hemiliver measures 5 mm, too small to characterize (series 3 image44). This finding was likely present on comparison although difficult toidentify due to slice selection. Gallbladder is unremarkable. Nointrahepatic or extrahepatic biliary ductal dilatation. Adrenal glands areunremarkable. Horseshoe kidney is morphologically unchanged with a 1.1 cmcortical cyst in the left moiety and a 1.2 cm calculus in the rightmoiety. Hydronephrosis of the horseshoe kidney is similar to comparison,however there is reduced dilatation of the left ureter. No suspiciousrenal lesion. Pancreatic parenchyma is homogeneous. Minimal peripancreaticstranding and trace fluid is more prominent than on comparison,particularly about the distal pancreatic body and tail. No pancreaticductal dilatation. The spleen is enlarged, measuring 14.8 cm. A splenuleis anterior to the spleen. GI Tract/Mesentery/Peritoneum: Stomach is unremarkable. Postoperativechange associated with interval left hemicolectomy, with mild wallthickening distal to the anastomosis and left upper quadrant strandingpossibly related to instrumentation (for example series 3 image 144).Small and large bowel maintain expected caliber and contour. No bowelobstruction. Mild perirectal stranding in the pelvis. Pelvic Viscera: Urinary bladder is decompressed around a Ferris catheter.Prostatomegaly. No suspicious pelvic mass. Lymph Nodes/Vasculature: No lymphadenopathy by CT size criteria.Aortoiliac vasculature maintains normal caliber and contour. Theportosplenic confluence is patent. Free Fluid: No ascites. Musculoskeletal and Body Wall: Postoperative change in the anteriorabdominal wall. No clearly aggressive osseous lesions. IMPRESSION: Chest: Clustered tree-in-bud nodularity within the periphery of both lungs withassociated nodules measuring 6 mm or less, presumably sequela of infectionand/or inflammation, however recommend continued attention on follow-upfor resolution. Abdomen/Pelvis: Postoperative change associated with interval left hemicolectomy, withmild wall thickening distal to the anastomosis as well as left upperquadrant and pelvic pericolonic stranding. These findings may be relatedto instrumentation, however recommend continued attention on follow-up. No abdominopelvic adenopathy. 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 Reduced prominence of the left ureter with aFoley catheter in place. Minimal peripancreatic stranding and trace fluid about the distalpancreatic body and tail may be related to instrumentation, howeverrecommend correlation with symptomatology as pancreatitis is also in thedifferential. CRITICAL RESULT: No. COMMUNICATION: Per this written report. Drafted by Delia Staton MD on 09/26/2024 9:00 AM Final report signed by Delia Staton MD on 09/26/2024 9:27 AM Jovani Bravo MD IMG CT PROCEDURES Final Result documented in this encounter Visit Diagnoses Diagnosis Cancer of left colon (CMS/HCC) Malignant neoplasm of descending colon documented in this encounter Administered Medications Inactive Administered Medications - up to 3 most recent administrations Medication Order MAR Action Action Date Dose Rate Site iohexol (OMNIPaque) 300 MG/ML injection 100 mL 100 mL, Intravenous, Once in imaging, 1 dose, Starting on Wed09/26/24 at 0708, Until Wed09/26/24 at 0815, Routine, Imaging Protocol Orders Given 09/26/2024 8:15 AM EDT 100 mL iohexol (OMNIPaque) 9 MG/ML oral contrast 500 mL 500 mL, Oral, Once in imaging, 1 dose, Starting on Wed09/26/24 at 0708, Until Wed09/26/24 at 0815, Routine, Imaging Protocol Orders Given 09/26/2024 8:15 AM EDT 500 mL documented in this encounter Additional Health Concerns Assessment Noted Time PHQ-9 Depression Total Score: 0 07/06/19 8:38 AM EDT A fall risk assessment has been complete d for the patient 09/26/2024 9:36 AM EDT A Body Mass Index follow-up plan has been documented for the patient 08/22/2024 11:54 AM EDT documented as of this encounter Care Teams Outboard Motor Inspector Relationship Specialty Start Date End Date Bandar Minor MD [address] [place] [address] [address]1 [address]1 [place] Gutierrez [address] PCP - General 08/19/22 documented as of this encounter
--- OUTSIDE RECORDS SUMMARY | 2024-09-26 09:45 | XMS_ITS | Encounter Summary ---
Author Organization [facility] Address [address] [place] [address] Care Team Providers Care Customs Entry Clerk Name Role Phone Bandar Minor MD Primary Care Provider [phone] Reason for Visit * Reason Comments Follow-up Cancer of left colon Encounter Details Date Type Department Care Team (Latest Contact Info) Description 09/26/2024 9:45 AM EDT Office Visit [facility] Multidisciplinary Oncology Clinic [address] [place] [address] Jovani Bravo MD [address] [facility] [address] [place] [address] Cancer of left colon (CMS/HCC) (Primary Dx) Social History Tobacco Use Types Packs/Day Years Used Date Smoking Tobacco: Never Passive Smoke Exposure: Never Smokeless Tobacco: Never Tobacco Cessation:Counseling Given: Not Answered Alcohol Use Standard Drinks/Week Comments Not Currently [...] any time in the past 12 m [facility], were you homeless or living [...] Sign Reading Time Taken Comments Blood Pressure 127/75 09/26/2024 9:34 AM EDT Pulse 81 09/26/2024 9:34 AM EDT Temperature 36.5 C (97.7 F) 09/26/2024 9:34 AM EDT Respiratory Rate - - Oxygen Saturation 100% 09/26/2024 9:34 AM EDT Inhaled Oxygen Concentration - - Weight 74.8 kg (165 lb) 09/26/2024 9:34 AM EDT Height 188 cm (6' 2 ) 09/26/2024 9:34 AM EDT Body Mass Index 21.18 09/26/2024 9:34 AM EDT documented in this encounter Miscellaneous Notes * Progress Notes - Jovani Bravo MD - 09/26/2024 9:45 AM EDT [facility] CHUCKY Bravo MD FACS FASCRS Name: Minh Willett DOS: 09/26/24 Subjective: Mr. Willett is a 64-year-old male status post left colectomy for poorly differentiated adenocarcinoma. One positive lymph node. Returns today for follow-up. Completed 4 months of postoperative chemotherapy. Preoperative CEA 2.7. Still has some difficulty with urinary retention related to chronic p rostate enlargement. Continues with ongoing evaluation with [facility] UROLOGY. Today, updated CT imaging demonstrates no evidence of recurrence. There was no evident disease and no direct evidence of residual tumor. Incidental findings on CT scan were discussed and reviewed. No new issu es. Overall, feeling well. Gaining weight. Objective: Visit Vitals BP 127/75 Pulse 81 Temp 36.5 ??C (97.7 ??F) Ht 1.88 m (6' 2 ) Wt 74.8 kg (165 lb) SpO2 100% BMI 21.18 kg/m?? Smoking Status Never BSA 1.98 m?? General: Healthy. Abdomen: Soft. Nontender. Midline incision healed well. Assessment: Mr. Willett is a 64-year-old male status post left colectomy for colon cancer. Completed postoperative chemotherapy. Doing well. PLAN FOLLOWS: Return to clinic in December [address] and CEA. Schedule colonoscopy in April 2025. documented in this encounter Plan of Treatment Upcoming Encounters Date Type Department Care Team (Late st Contact Info) Description 10/04/2024 11:15 AM EDT Office Visit Medical Office Building Urology [address] [facility], [address] [place] [address] Phil Long MD [address] [facility] [address] [place] [address] 01/23/2025 8:00 AM EST Appointment [facility] [address] [place] [address] 01/23/2025 10:00 AM EST Office Visit [facility] [address] [place] [address] Jovani Bravo MD [address] [place] [address] 08/21/2025 9:15 AM EDT Office [facility] [address], [address] [place] [address] Charu Ge MD [address] [place] [address] Scheduled Orders Name Type Priority Associated Diagnoses Orde r Schedule CEA Lab Routine Cancer of left colon (CMS/HCC) Expected: 01/23/2025 (Approximate), Expires: 03/30/2026 documented as of this encounter Visit Diagnoses Diagnosis Cancer of left colon (CMS/HCC)- Primary Malignant neoplasm of descending colon documented in this encounter Additional Health Concerns Assessment Noted Time PHQ-9 Depression Total Score: 0 07/06/19 8:38 AM EDT A fall risk assessment has been complete d for the patient 09/26/2024 9:36 AM EDT A Body Mass Index follow-up plan has been documented for the patient 08/22/2024 11:54 AM EDT documented as of this encounter Care Teams Customs Entry Clerk Relationship Specialty Start Date End Date Bandar Minor MD [address] [place] [address] [address]1 [address] [place] [address] PCP - General 08/19/22 documented as of this encounter
--- OUTSIDE RECORDS SUMMARY | 2024-09-27 08:25 | XMS_ITS | Encounter Summary ---
Author Organization [facility] Address [address] [place] [address] Care Team Providers Care Shotblast Equipment Operator Name Role Phone Bandar Minor MD Primary Care Provider [phone] Reason for Referral * Imaging (Routine) - Closed Specialty Diagnoses / Procedures Referred By Souleymane zayas Referred To Contact Radiology Diagnoses Elevated PSA Procedures MR Prostate w and wo IV Contrast Phil Long MD [address] [address] Phone: tel: fax: Referral ID Status Reason Start Date Expiration Date Visits Re quested Visits Authorized [id number] Closed 07/05/2024 01/04/2026 1 1 Reason for Visit * Imaging (Routine) - Closed Specialty Diagnoses / Procedures Referred By Souleymane zayas Referred To Contact Radiology Diagnoses Elevated PSA Procedures MR Prostate w and wo IV Contrast Phil Long MD [address] [address] Phone: tel: fax: Referral ID Status Reason Start Date Expiration Date Visits Re quested Visits Authorized [id number] Closed 07/05/2024 01/04/2026 1 1 Encounter Details Date Type Department Care Team (Latest Contact Info) Description 09/27/2024 8:25 AM EDT - 09/27/2024 11:59 PM EDT Hospital Encounter [facility] [address] [place] [address] Elevated PSA Discharge Disposition: Home or Self Care Social [...] In the past 12 months has e [employer], gas, oil, or water [employer] threatened to shut off services in your [...] mouth every 6 hours as needed. Under [place] law, monthly prescriptions (30 days) can be [...] as of this encounter Miscellaneous Notes * Mary Ruth - 09/27/2024 9:48 AM EDT Images from the original note [...] Building Urology [address] [facility], [address] [place] [address] Phil Long MD [address] [place] [address] 01/23/2025 8:00 AM EST Appointment [facility] [address] [place] [address] 01/23/2025 10:00 AM EST Office Visit [facility] Multidisciplinary Oncology Clinic [address] [place] [address] Jovani Bravo MD [address] [place] [address] 08/21/2025 9:15 AM EDT Office Visit [place] [facility] Cardi[facility] [address] [place] [address] Charu Ge MD [address] [place] [address] documented as of this encounter Procedures Procedure Name Priority Date/Time Associated Diagnosis Comments MR PROSTATE W AND WO IV CONTRAST Routine 09/27/2024 9:25 AM EDT Elevated PSA documented in this encounter Results * MR Prostate w and wo IV Contrast (09/27/2024 9:25 AM EDT) Anatomical Region Laterality Modality Abdomen Magnetic Resonan ce Impressions 09/28/2024 8:29 AM EDT No evidence of PI-RADS 3-5 lesions on current exam. CRITICAL RESULT: No. COMMUNICATION: Per this written report. PI-RADSR v2.1 Assessment Categories ----- PIRADS 1 Very low (clinically significant cancer is highly unlikely to be present) PIRADS 2 Low (clinically significant cancer is unlikely to be present) PIRADS 3 Intermediate (the presence of clinically significant cancer is equivocal) PIRADS 4 High (clinically significant cancer is likely to be present) PIRADS 5 Very high (clinically significant cancer is highly likely to be present) Drafted by Andre Galaviz MD on 09/27/2024 4:27 PM Final report signed by Andre Galaviz MD on 09/28/2024 8:29 AM Narrative 09/28/2024 8:29 AM EDT CLINICAL INDICATION: 64 year old with elevated PSA. PSA: 7.19 SHEMAR: Unknown Biopsies: None Prior therapy: None TECHNIQUE: Multiplanar, multisequence imaging of the pelvis in accordance with PI-RADS recommendations before and after intravenous administration of 7.4 mL Gadavist in the left antecubital fossa at 2.0 ml/sec on a 3.0 T platform using a 18-channel external phased array coil. Dedicated three-plane small FOV DONTAE T2; axial diffusion weighted imaging with b-values 50 and 800 s/mm2 used to generate calculated x=7168 s/mm2 and ADC map; and an acquired high b =1400 s/mm2; axial 3D dynamic contrast-enhanced F6uvnkfhkk imaging with <10 sec temporal resolution were acquired using 3 mm slice thickness in addition to full-pelvis pre contrast T1 DONTAE and post-contrast axial and coronal fat suppressed 3D Gradient echo T1-weighted imaging. Advanced 3D workstation manipulation and review of the data set was performed by the interpreting physician to further define anatomy and possible pathology. Images of areas of interest were created utilizing various techniques. These images were saved and transferred to PACS if significant. COMPARISON: None. FINDINGS: Size: 4.5 x 3.6 x 4.5 cm with a volume of 37.9 cubic cm PSA Density: 0.18 ng/mL/mL Quality: Adequate, mild geometric distortion on diffusion-weighted imaging from rectal distention does not compromise diagnostic confidence Hemorrhage: No Peripheral zone: No suspicious or focal lesion identified. Transition zone: Moderate heterogeneity consistent with prostatic hyperplasia. No suspicious lesion identified. Neurovascular bundles: Unremarkable. Seminal Vesicles: Unremarkable. Lymph Nodes: No lymphadenopathy. Bones: No osseous metastases. Other pelvic organs: Underdistended urinary bladder with a Ferris catheter noted inside. Diffuse bladder wall thickening and trabeculation which could be exaggerated by underdistention and/or related to obstructive uropathy from the prostatic megaly Procedure Note Andre Galaviz MD - 09/28/2024 CLINICAL INDICATION: 64 year old with elevated PSA. PSA: 7.19 SHEMAR: Unknown Biopsies: None Prior therapy: None TECHNIQUE: Multiplanar, multisequence imaging of the pelvis in accordance withPI-RADS recommendations before and after intravenous administration of 7.4mL Gadavist in the left antecubital fossa at 2.0 ml/sec on a 3.0 Tplatform using a 18-channel external phased array coil. Dedicatedthree-plane small FOV DONTAE T2; axial diffusion weighted imaging withb-values 50 and 800 s/mm2 used to generate calculated v=1285 s/mm2 and ADCmap; and an acquired high b =1400 s/mm2; axial 3D dynamiccontrast-enhanced T3ttorhoev imaging with <10 sec temporal resolution wereacquired using 3 mm slice thickness in addition to full-pelvis precontrast T1 DONTAE and post-contrast axial and coronal fat suppressed 3DGradient echo T1-weighted imaging. Advanced 3D workstation manipulation and review of the data set wasperformed by the interpreting physician to further define anatomy andpossible pathology. Images of areas of interest were created utilizingvarious techniques. These images were saved and transferred to PACS ifsignificant. COMPARISON: None. FINDINGS: Size: 4.5 x 3.6 x 4.5 cm with a volume of 37.9 cubic cm PSA Density: 0.18 ng/mL/mL Quality: Adequate, mild geometric distortion on diffusion-weighted imagingfrom rectal distention does not compromise diagnostic confidence Hemorrhage: No Peripheral zone: No suspicious or focal lesion identified. Transition zone: Moderate heterogeneity consistent with prostatichyperplasia. No suspicious lesion identified. Neurovascular bundles: Unremarkable. Seminal Vesicles: Unremarkable. Lymph Nodes: No lymphadenopathy. Bones: No osseous metastases. Other pelvic organs: Underdistended urinary bladder with a Ferris catheternoted inside. Diffuse bladder wall thickening and trabeculation whichcould be exaggerated by underdistention and/or related to obstructiveuropathy from the prostatic megaly IMPRESSION: No evidence of PI-RADS 3-5 lesions on current exam. CRITICAL RESULT: No. COMMUNICATION: Per this written report. PI-RADSR v2.1 Assessment Categories ----- PIRADS 1 Very low (clinically significant cancer is highly unlikely to bepresent) PIRADS 2 Low (clinically significant cancer is unlikely to be present) PIRADS 3 Intermediate (the presence of clinically significant cancer isequivocal) PIRADS 4 High (clinically significant cancer is likely to be present) PIRADS 5 Very high (clinically significant cancer is highly likely to bepresent) Drafted by Andre Galaviz MD on 09/27/2024 4:27 PM Final report signed by Andre Galaviz MD on 09/28/2024 8:29 AM Phil Long MD IM MRI PROCEDURES Final Result documented in this encounter Visit Diagnoses Diagnosis Elevated PSA Elevated prostate specific antigen (PSA) documented in this encounter Administered Medications Inactive Administered Medications - up to 3 most recent administrations Medication Order MAR Action Action Date Dose Rate Site gadobutrol (Gadavist) injection 7.4 mL 7.4 mL (rounded from 7.39 mL = 0.1 mL/kg 73.9 kg), Intravenous, Once in imaging, 1 dose, Starting on Wed09/27/24 at 0834, Until Wed09/27/24 at 0920, Routine, Imaging Protocol Orders Given 09/27/2024 9:20 AM EDT 7.4 mL Left Antecubital documented in this encounter Additional Health Concerns Assessment Noted Time PHQ-9 Depression Total Score: 0 07/06/19 8:38 AM EDT A fall risk assessment has been complete d for the patient 09/26/2024 9:36 AM EDT A Body Mass Index follow-up plan has been documented for the patient 08/22/2024 11:54 AM EDT documented as of this encounter Care Teams Shotblast Equipment Operator Relationship Specialty Start Date End Date Bandar Minor MD [address] [place] [address] #1 #1 [place] [address] PCP - General 08/19/22 documented as of this encounter
--- OUTSIDE RECORDS SUMMARY | 2024-10-03 09:07 | XMS_ITS | Encounter Summary ---
Author Organization [facility] Address [address] [place] [address] Care Team Providers Care Coach Operator Name Role Phone Bandar Minor MD Primary Care Provider [phone] Encounter Details Date Type Department Care Team (Late st Contact Info) Description 09/26/2024 Orders Only [facility] [address] [place] [address] Phil Long MD [address] [place] [address] Social History Tobacco Use Types [...] any time in the past 12 m [facility], were you homeless or [...] Visit Medical Office Building Urology [address] [facility], [address] [place] [address] Phil Long MD [address] [place] [address] 01/23/2025 8:[address] [facility] CT [address] [place] [address] 01/23/2025 10:00 AM EST Office Visit [facility] Multidisciplinary Oncology Clinic [address] [place] [address] Jovani Bravo MD [address] [place] [address] 08/21/2025 9:15 AM EDT Office Visit [facility] [address], [address] [place] [address] Charu Ge MD [address] [place] [address] documented as of this encounter [...] documented as of this encounter Care Teams Coach Operator Relationship Specialty Start Date End Date Bandar Minor MD [address] [place] [address] #1 #1 [place] Gutierrez [address] PCP - General 08/19/22 documented as of this encounter
--- OUTSIDE RECORDS SUMMARY | 2024-10-03 09:07 | XMS_ITS | Encounter Summary ---
Author Organization [facility] Address [address] [place] [address] Care Team Providers Care Aircraft Loadmaster Superintendent Name Role Phone Bandar Minor MD Primary Care Provider [phone] Encounter Details Date Type Department Care Team (Late st Contact Info) Description 08/18/2024 Orders Only External Location [address] [place] [address] Provider, External Social History Tobacco Use Types [...] any time in the past 12 m [facility], were you homeless or living in a longterm (including now)? No 05/05/2024 Utilities Answer Date [...] Visit Medical Office Building Urology [address] [facility], [address] [place] [address] Phil Long MD [address] [facility] [address] [place] [address] 01/23/2025 8:00 AM EST Appointment [facility] [address] [place] [address] 01/23/2025 10:00 AM EST Office Visit [facility] Multidisciplinary Oncology Clinic [address] [place] [address] Jovani Bravo MD [address] [place] [address] 08/21/2025 9:15 AM EDT Office Visit [place] [facility] [address], [address] [place] [address] Charu Ge MD [address] [place] [address] documented as of this encounter [...] documented as of this encounter Care Teams Aircraft Loadmaster Superintendent Relationship Specialty Start Date End Date Bandar Minor MD [address] [place] [address] [address] [place] [address] PCP - General 08/19/22 documented as of this encounter
--- OUTSIDE RECORDS SUMMARY | 2024-10-03 09:07 | XMS_ITS | Encounter Summary ---
Author Organization [facility] Address [address] [place] [address] Care Team Providers Care Precinct Police Sergeant Name Role Phone Bandar Minor MD Primary Care Provider [phone] Encounter Details Date Type Department Care Team (Late Contact Info) Description 07/17/2023 Orders Only External Location [address] [place] [address] Arsh Zafar MD [address] [place] [address] [place] [address] Social History Tobacco Use Types Packs/Day Years [...] Department Care Team (Late Contact Info) Description 10/04/2024 11:15 AM EDT Office Visit Medical Office Building Urology [address] [facility], [address] [place] [address] Phil Long MD [address] [place] [address] 01/23/2025 8:00 AM EST Appointment [facility] [address] [place] [address] 01/23/2025 10:00 AM EST Office [facility] Multidisciplinary Oncology Clinic [address] [place] [address] Jovani Bravo MD [address] [place] [address] 08/21/2025 9:15 AM EDT Office Visit [facility] Cardiothoracic [address] [place] [address] Charu Ge MD [address] [place] [address] documented as of this encounter [...] on filedocumented in this encounter Care Teams Precinct Police Sergeant Relationship Specialty Start Date End Date Bandar Minor MD [address] [place] [address] [address]1 [address] [place] [address] PCP - General 08/19/22 documented as of this encounter
--- OUTSIDE RECORDS SUMMARY | 2024-10-03 09:07 | XMS_ITS | Encounter Summary ---
Author Organization Healthcare Address [address] [place] [address] Care Team Providers Care Air Director Name Role Phone Bandar Minor MD Primary Care Provider [phone] Encounter Details Date Type Department Care Team (Late st Contact Info) Description 08/18/2024 Orders Only External Location [address] [place] [address] RobinCharu Levy MD [address] [place] [address] Social History Tobacco Use Types [...] any time in the past 12 m ont, were you homeless or living in a mcfp (including now)? No 05/05/2024 Utilities Answer Date [...] Visit Medical Office Building Urology [address] [facility], [address] [place] [address] Phil Long MD [address] [place] [address] 01/23/2025 8:00 AM EST Appointment [facility] [address]nd [place] [address] 01/23/2025 10:00 AM EST Office Visit [facility] Multidisciplinary Oncology Clinic [address] [place] [address] Jovani Bravo MD [address] [place] [address] 08/21/2025 9:15 AM EDT Office Visit [facility] [address], [address] [place] [address] Charu Ge MD [address] [place] [address] documented as of this encounter [...] documented as of this encounter Care Teams Air Director Relationship Specialty Start Date End Date Bandar Minor MD [address] [place] [address] #1 [address]1 [place] [address] PCP - General 08/19/22 documented as of this encounter
--- OUTSIDE RECORDS SUMMARY | 2024-10-03 09:07 | XMS_ITS | Clinical Summary ---
Author Organization [facility] Address [address] [place] [address] Care Team Providers Care Diesel Scoop Operator Name Role Phone Bandar Minor MD Primary Care Provider [phone] Allergies No known active allergies Medications tamsulosin (Flomax) 0.4 MG 24 hr capsule Take 1 capsule (0.4 mg) by mouth daily. 04/17/19 Active famotidine (Pepcid) 20 MG tablet Take 1 tablet (20 mg) by mouth as needed for heartburn or indigestion. Active acetaminophen (Tylenol) 325 MG tablet Take 2 tablets (650 mg) by mouth every 6 hours as needed. Under [place] law, monthly prescriptions (30 days) can be [...] taking.Reported on 08/22/2024 neomycin (Mycifradin) 500 MG tabletIndications :Colon stricture (CMS/HCC) Take two tablets (1000 mg) [...] taking.Reported on 08/22/2024 metroNIDAZOLE (Flagyl) 500 MG tabletIndications :Colon stricture (CMS/HCC) Take one tablet at 1pm, 2pm, and 11pm day BEFORE surgery. SSI COLON. 3 tablet 04/18/19 Active Additional Information Patient not taking.Reported on 08/22/2024 bisacodyl (Dulcolax) 5 MG EC tablet Day before procedure at 4pm take 4 tablets with 8 oz of clear liquid. SSICOLON 4 tablet 04/18/19 Active Additional Information Patient not taking.Reported on 08/22/2024 diphenhydrAMINE-a cetaminophen (Tylenol PM) 25-500 MG per tablet Take [...] morning for 25 days. 25 tablet 05/08/19 Active Additional Information Patient not taking.Reported on 08/22/2024 capecitabine (Xeloda) 500 MG chemo tablet Take 1,500 mg/m2 by mouth 2 times a day. 08/23/19 Active finasteride (Proscar) 5 MG tablet Take 1 tablet by mouth daily. Do not crush, chew, or split. 30 tablet 3 09/27/19 25 Active finasteride (Proscar) 5 MG tablet Take 1 tablet by mouth daily. Do not crush, chew, or split. 90 tablet 3 09/27/19 25 026 Active finasteride (Proscar) 5 MG tablet Take 1 tablet (5 mg) by mouth daily. Do not crush, chew, or split. 30 tablet 3 04/27/19 25 025 Discontin ued(Reord er) Active Problems Problem Noted Date Diagnosed Date BMI 20.0-20.9, adult 08/22/2024 Cancer of left colon 04/26/2024 COPD (chronic obstructive pulmonary disease) Thoracic aortic aneurysm 12/23/2016 Encounters Date Type Department Care Team Description 09/27/2024 8:25 AM EDT - 09/27/2024 11:59 PM EDT Hospital Encounter [facility] [address] [place] [address] Elevated PSA Discharge Disposition: Home or Self Care 09/27/2024 Travel 09/26/2024 9:45 AM EDT Office Visit [facility] [address] [place] [address] Jovani Bravo MD Cancer of left colon (CMS/HCC) (Primary Dx) 09/26/2024 7:00 AM EDT - 09/26/2024 11:59 PM EDT Hospital Encounter [facility] [address] [place] [address] Cancer of left colon (CMS/HCC) Discharge Disposition: Home or Self Care 09/26/2024 Orders Only [facility] Urology [address], [address]nd [place] [address] Phil Long MD 09/26/2024 Orders Only [facility] [address] [place] [address] Jovani Bravo MD Cancer of left colon (CMS/HCC) (Primary Dx) 09/26/2024 Travel 09/25/2024 Refill [facility] Urology [address], [address] [place] [address] Phil Long MD 08/22/2024 10:45 AM EDT Office Visit [facility] Cardiothoracic [address] [facility] [address] [place] [address] Charu Ge MD Thoracic aortic aneurysm (CMS/HCC) (Primary Dx); Cancer of left colon (CMS/HCC); Simple chronic bronchitis (CMS/HCC) 08/22/2024 Travel 08/18/2024 Orders Only External Location [address] [place] [address] Charu Ge MD 08/18/2024 Orders Only External Location [address] [place] [address] Provider, External 08/02/2024 Telephone [facility] Urology [address], [address] [place] [address] Phil Long MD [facility] Clinical Concern/Question 07/05/2024 9:00 AM EDT Office Visit Medical Office Building Urology [address] [facility], [address] [place] [address] Phil Long MD Screening for prostate cancer (Primary Dx); Retention, urine; Kidney stones 07/05/2024 Results Follow-Up Medical Office Building Urology [address] [facility], [address] [place] [address] Phil Long MD 07/05/2024 Travel from Last [...] any time in the past 12 m [facility], were you homeless or living in a halfway (including now)? No 05/05/2024 Utilities Answer Date Recorded In the past 12 months has th e [employer], gas, oil, or water company threatened to [...] F) 09/26/2024 9:34 AM EDT Respiratory Rate 16 05/23/2024 9:57 AM EDT Oxygen Saturation 100% 09/26/2024 9:34 AM EDT Inhaled Oxygen Concentration - - Weight 73.9 kg (162 lb 14.7 oz) 09/27/2024 8:33 AM EDT Height 188 cm (6' 2 ) 09/26/2024 9:34 AM EDT Body Mass Index 20.92 09/26/2024 9:34 AM EDT Plan of Treatment Upcoming Encounters Date Type Department Care Team ([facility] st Contact Info) Description 10/04/2024 11:15 AM EDT Office Visit Medical Office Building Urology [address] [facility], [address] [place] [address] Phil Long MD [address] [facility] [address] [place] [address] 01/23/2025 8:00 AM EST Appointment [facility] [address], [address] [place] [address] 01/23/2025 10:00 AM EST Office Visit [facility] Multidisciplinary Oncology Clinic [address] [place] [address] Jovani Bravo MD [address] [facility] [address] [place] [address] 08/21/2025 9:15 AM EDT Office Visit [facility] [address], [address] [place] [address] Charu Ge MD [address] [place] [address] Health Maintenance Due Date Last Done Comments [...] - Risk 60-74 years 1-dose series) 2018 [id number]-54 Vaccine ( - season) 2023 01/28/2021, 05/29/2020, 05/01/2020 [facility]-Influenza Vaccine (#1) 10/30/202401/14, 11/27/2016 [facility]- SDOH Screenings 11/05/2024 [facility]-Adult SDOH [...] Routine 09/27/2024 9:25 AM EDT Elevated PSA CT ABDOMEN PELVIS W IV CONTRAST Routine 09/26/2024 8:27 AM EDT Cancer of left colon (CMS/HCC) CT CHEST W IV CONTRAST Routine 09/26/2024 8:27 AM EDT Cancer of left colon (CMS/HCC) US OUTSIDE IMAGES 08/18/2024 2:[address] THORACIC OUTSIDE IMAGES 08/18/2024 2:39 PM EDT PROSTATE CANCER SCREEN, SERUM Routine 07/05/2024 9:58 AM EDT Screening for prostate cancer from Last 3 Months Results * MR Prostate w and wo [...] and 800 s/mm2 used to generate calculated w=3305 s/mm2 and ADC map; and an acquired high b =1400 s/mm2; axial 3D dynamic contrast-enhanced B3ofhviwuy imaging with <10 sec temporal resolution were [...] and 800 s/mm2 used to generate calculated s=3318 s/mm2 and ADCmap; and an acquired high b =1400 s/mm2; axial 3D dynamiccontrast-enhanced [id number] imaging with <10 sec temporal resolution wereacquired [...] on 09/28/2024 8:29 AM Phil Long MD IMG MRI PROCEDURES Final Result * CT Abdomen Pelvis w IV Contrast [...] Total DLP (Dose-Length Product): 601.83 mGy.cm (accession [id number]), 601.83 mGy.cm (accession [id number]) Please note: The reported value represents the [...] Total DLP (Dose-Length Product): 601.83 mGy.cm (accession [id number]),601.83 mGy.cm (accession [id number]) Please note: The reported valuerepresents the total [...] and Pleura: Central airways are patent. Clustered dxik-dr-czquuwxmfdkns within the periphery of the right upper [...] Total DLP (Dose-Length Product): 601.83 mGy.cm (accession [id number]), 601.83 mGy.cm (accession [id number]) Please note: The reported value represents the [...] Total DLP (Dose-Length Product): 601.83 mGy.cm (accession [id number]),601.83 mGy.cm (accession [id number]) Please note: The reported valuerepresents the total [...] and Pleura: Central airways are patent. Clustered dxww-sv-uzvzkhuvsikrf within the periphery of the right upper [...] MD IMG CT PROCEDURES Final Result * US OUTSIDE IMAGES (08/18/2024 2:50 PM [...] - 4.50 ng/mL 07/05/2024 1:41 PM EDT [facility] Blood Venous blood specimen / Unknown Venipuncture / Unknown 07/05/2024 9:58 AM EDT 07/05/2024 9:58 AM EDT Narrative [facility] - 07/05/2024 1:41 PM EDT Performed by Geri electrochemiluminescent immunoassay which is standardized against the PSA [place] Reference Standard (WHO 96/670). Results obtained with different test methods or kits cannot be used interchangeably. us Phil Long MD LAB BLOOD ORDERABLES Final Resu lt [facility] [address] [place] [address] from Last 3 Months [place] [address] Advance Directives * Full Code (Latest Code Status on File) Date Activated Date Inactivated Comments 05/04/2024 11:28 AM 05/07/2024 5:58 PM Question Answer Comments Patient has decision-making capacity? Yes Care Teams Diesel Scoop Operator Relationship Specialty Start Date End Date Bandar Minor MD [address] [place] [address] #1 #1 [place]AM[place] Gutierrez [address] PCP - General 08/19/22
--- OUTSIDE RECORDS SUMMARY | 2024-10-03 09:07 | XMS_ITS | Encounter Summary ---
Author Organization [facility] Address [address] [place] [address] Care Team Providers Care Gizzard Skin Remover Name Role Phone Bandar Minor MD Primary Care Provider [phone] Reason for Visit * Reason Onset Date Comments Med Refill 09/25/2024 Encounter Details Date Type Department Care Team (Late st Contact Info) Description 09/25/2024 Refill [facility] [address], [address] [place] [address] Phil Long MD [address] [place] [address] Social History Tobacco Use Types [...] any time in the past 12 m [facility], were you homeless or living in a care home (including now)? No 05/05/2024 Utilities Answer [...] Upcoming Encounters Date Type Department Care Team ([facility] Contact Info) Description 10/04/2024 11:15 AM EDT Office Visit Medical Office Building Urology [address] [facility], [address] [place] [address] Phil Long MD [address] [place] [address] 01/23/2025 8:00 AM EST Appointment [facility] [address], [address]nd [place] [address] 01/23/2025 10:00 AM EST Office Visit [facility] [address] [place] [address] Jovani Bravo MD [address] [facility] [address] [place] [address] 08/21/2025 9:15 AM EDT Office Visit [facility] [address], [address] [place] [address] Charu Ge MD [address] [place] [address] documented as of this encounter [...] documented as of this encounter Care Teams Gizzard Skin Remover Relationship Specialty Start Date End Date Bandar Minor MD [address] [place] [address] #1 #1 [place] Gutierrez [address] PCP - General 08/19/22 documented as of this encounter
--- OUTSIDE RECORDS SUMMARY | 2024-10-03 09:07 | XMS_ITS ---
Author Organization Unknown Problems Date Problem Result OnSetDate Icd10 SnomedCode Severity Cu stom 10/28/2023 00:00:00 Hypertension I10 03/09/2024 00:00:00 Kidney stone N20.0 04/11/2024 00:00:00 Cancer C80.1
--- OUTSIDE RECORDS SUMMARY | 2024-10-03 09:07 | XMS_ITS | Encounter Summary ---
Author Organization [facility] Address [address] [place] [address] Care Team Providers Care Nursing Agency Manager Name Role Phone Bandar Minor MD Primary Care Provider [phone] Encounter Details Date Type Department Care Team [...] any time in the past 12 m [facility], were you homeless or [...] Visit Medical Office Building Urology [address] [facility], [address] [place] [address] Phil Long MD [address] [facility] [address] [place] [address] 01/23/2025 8:00 AM EST Appointment [facility] [address], [address]nd [place] [address] 01/23/2025 10:00 AM EST Office Visit [facility] [address] [place] [address] Jovani Bravo MD [address] [place] [address] 08/21/2025 9:15 AM EDT Office Visit [facility] [address], [address] [place] [address] Charu Ge MD [address] [place] [address] documented as of this encounter [...] documented as of this encounter Care Teams Nursing Agency Manager Relationship Specialty Start Date End Date Bandar Minor MD [address] [place] [address] [address]1 [address]1 [place] [address] PCP - General 08/19/22 documented as of this encounter
--- OUTSIDE RECORDS SUMMARY | 2024-10-03 09:07 | XMS_ITS | Encounter Summary ---
Author Organization [facility] Address [address] [place] [address] Care Team Providers Care Conveyor Worker Name Role Phone Bandar Minor MD Primary Care Provider [phone] Reason for Visit * Reason Onset Date Comments [facility] Clinical Concern/Question 08/02/2024 Encounter Details Date Type Department Care Team (Late st Contact Info) Description 08/02/2024 Telephone [facility] [address] [place] [address] Phil Long MD [address] [place] [address] HCN Clinical Concern/Question Social History [...] any time in the past 12 m [facility], were you homeless or living in [...] optimal time of day to reach caller: [phone] Note: Please do not reply to this [...] Visit Medical Office Building Urology [address] [facility], [address] [place] [address] Phil Long MD [address] [facility] [address] [place] [address] 01/23/2025 8:00 AM EST Appointment [facility] CT [address], [address]nd [place] [address] 01/23/2025 10:00 AM EST Office [facility] Multidisciplinary Oncology Clinic [address] [place] [address] Jovani Bravo MD [address] [facility] [address] [place] [address] 08/21/2025 9:15 AM EDT Office Visit [facility] [address], [address] [place] [address] Charu Ge MD [address] [facility] [address] [place] [address] documented as of this encounter Visit Diagnoses [...] documented as of this encounter Care Teams Conveyor Worker Relationship Specialty Start Date End Date Bandar Minor MD [address] [place] [address] #1 #1 TAMIKO Gutierrez [address] PCP - General 08/19/22 documented as of this encounter
--- OUTSIDE RECORDS SUMMARY | 2024-10-03 09:07 | XMS_ITS | Encounter Summary ---
Author Organization [facility] Address [address] [place] [address] Care Team Providers Care Metal Polisher And Buffer Apprentice Name Role Phone Bandar Minor MD Primary Care Provider [phone] Reason for Referral * Imaging (Routine) - Pending Review Specialty Diagnoses / Procedures Referred By Contac t Referred To Contact Radiology Diagnoses Cancer of left colon (CMS/HCC) Procedures CT Abdomen Pelvis w IV Contrast Jovani Bravo MD [address] [address] Phone: tel: fax: Referral ID Status Reason Start Date Expiration Date V isits Requested Visits Authorized [id number] Pending Review 09/26/2024 03/28/2026 1 1 * Imaging (Routine) - Pending Review Specialty Diagnoses / Procedures Referred By Contac t Referred To Contact Radiology Diagnoses Cancer of left colon (CMS/HCC) Procedures CT Chest w IV Contrast Jovani Bravo MD [address] [address] Phone: tel: fax: Referral ID Status Reason Start Date Expiration Date V isits Requested Visits Authorized [id number] Pending Review 09/26/2024 03/28/2026 1 1 Encounter Details Date Type Department Care Team (Latest Contact Info) Description 09/26/2024 Orders Only [facility] [address] [place] [address] Jovani Bravo MD [address] [place] [address] Cancer of left colon (CMS/HCC) [...] any time in the past 12 m [facility], were you homeless or [...] Upcoming Encounters Date Type Department Care Team ([facility] st Contact Info) Description 10/04/2024 11:15 AM EDT Office Visit Medical Office Building Urology [address] [facility], [address] [place] [address] Phil Long MD [address] [facility] [address] [place] [address] 01/23/2025 8:00 AM EST Appointment [facility] CT [address], [address]nd [place] [address] 01/23/2025 10:00 AM EST Office Visit [facility] Multidisciplinary Oncology Clinic [address] [place] [address] Jovani Bravo MD [address] [place] [address] 08/21/2025 9:15 AM EDT Office Visit [place] [facility] [address], [address] [place] [address] Charu Ge MD [address] [place] [address] Scheduled Orders Name Type Priority Associated Diagnoses Orde r Schedule CT Chest w IV Contrast Imaging Routine Cancer of left colon (CMS/HCC) Expected: 01/23/2025 (Approximate), Expires: 03/30/2026 CT Abdomen Pelvis w IV Contrast Imaging Routine Cancer of left colon (CMS/HCC) Expected: [...] documented as of this encounter Care Teams Metal Polisher And Buffer Apprentice Relationship Specialty Start Date End Date Bandar Minor MD [address] [place] [address] #1 #1 [place] [address] PCP - General 08/19/22 documented as of this encounter
--- OUTSIDE RECORDS SUMMARY | 2024-10-03 09:07 | XMS_ITS | Clinical Summary ---
Author Organization [facility] Address [address] [place] [address] Phone [email or web address] Care Team Providers Care Auto Radiator Specialist Name Role Phone Unavailable Primary Care Provider [...] Health Maintenance Due Date Last Done Comments CT Colonography 1958 Colonoscopy 1960 Colorectal Cancer Screening Combo 1960 DNA Cologuard 1958 Dental Cleaning/Exam 1958 FIT or FOBT Test 1960 Hepatitis C Screening 1960 Sigmoidoscopy 1960 Annual Preventive Exam 02/27/1976 Hep B Infection Screening - Triple Screen 02/27/1976 Tetanus Diphtheria and Pertussis Immunization (1 - Tdap) 1977 Zoster Immunization (1 of 2) 02/27/2008 Pneumococcal: 65+ Years (2 of 2 - PPSV23, PCV20, or PCV21) 02/17/2017 12/23/2016, 12/08/2016 Covid-19 Immunization ( - season) 2023 Influenza Immunization (#1) 10/30/202412/30, 01/09/2021, 01/05/2019, Additional history exists Pneumococcal: Ped (0 to 5 Yrs) and At-Risk Member (6 to 64 Yrs) Discontinued 12/23/2016, 12/08/2016 HIB Immunization Aged Out No longer e [...]
--- OUTSIDE RECORDS SUMMARY | 2024-10-03 09:07 | XMS_ITS | Encounter Summary ---
Author Organization [facility] Address [address] [place] [address] Care Team Providers Care Liner Roll Changer Name Role Phone Bandar Minor MD Primary Care Provider [phone] Encounter Details Date Type Department Care Team (Latest Contact Info) Description 09/26/2024 Travel Social History Tobacco Use Types Packs/Day [...] any time in the past 12 m [facility], were you homeless or living in a detention (including now)? No 05/05/2024 Utilities Answer Date [...] Visit Medical Office Building Urology [address] [facility], [address] [place] [address] Phil Long MD [address] [facility] [address] [place] [address] 01/23/2025 8:00 AM EST Appointment [facility] [address] [place] [address] 01/23/2025 10:00 AM EST Office Visit [facility] Multidisciplinary Oncology Clinic [address] [place] [address] Jovani Bravo MD [address] [place] [address] 08/21/2025 9:15 AM EDT Office Visit [place] [facility] Cardi[facility] [address], [address] [place] [address] Charu Ge MD [address] [place] [address] documented as of this encounter [...] documented as of this encounter Care Teams Liner Roll Changer Relationship Specialty Start Date End Date Bandar Minor MD [address] [place] [address] #1 [address]1 [place] [address] PCP - General 08/19/22 documented as of this encounter
--- OUTSIDE RECORDS SUMMARY | 2024-10-03 09:08 | XMS_ITS | Encounter Summary ---
Author Organization [facility] Address [address] [place] [address] Care Team Providers Care Air Defense Specialist Name Role Phone Bandar Minor MD Primary Care Provider [phone] Encounter Details Date Type Department Care Team (Latest Contact Info) Description 09/27/2024 Travel Social History Tobacco Use Types Packs/Day [...] any time in the past 12 m [facility], were you homeless or living in a senior living (including now)? No 05/05/2024 Utilities Answer Date [...] Office Building Urology [address] [facility], [address] [place] [address] Phil Long MD [address] [facility] [address] [place] [address] 01/23/2025 8:00 AM EST Appointment [facility] CT [address], [address] [place] [address] 01/23/2025 10:00 AM EST Office Visit [facility] Multidisciplinary Oncology Clinic [address] [place] [address] Jovani Bravo MD [address] [place] [address] 08/21/2025 9:15 AM EDT Office Visit [facility] [address], [address] [place] [address] Charu Ge MD [address] [place] [address] documented as of this encounter [...] as of this encounter Care Teams Air Defense Specialist Relationship Specialty Start Date End Date Bandar Minor MD [address] [place] [address] #1 [address]1 [place] [address] PCP - General 08/19/22 documented as of this encounter
--- OUTSIDE RECORDS SUMMARY | 2024-10-03 09:08 | XMS_ITS | Encounter Summary ---
Author Organization Healthcare Address [address] [place] [place] [address] Care Team Providers Care Journeyman Patternmaker Name Role Phone Bandar Minor MD Primary Care Provider [phone] Encounter Details Date Type Department Care Team (Late Contact Info) Description 04/13/2024 Lab Requisition [facility] [address] [place] [address] Jovani Bravo MD [address] [place] [address] Anemia, unspecified Social History Tobacco [...] Medical Office Building Urology [address] [facility], [address] [place] [address] Phil Long MD [address] [facility] [address] [place] [address] 01/23/2025 8:00 AM EST Appointment [facility] [address]nd [place] [phone] 01/23/2025 10:00 AM EST Office Visit [facility] [address] [place] [address] Jovani Bravo MD [address] [facility] [address] [place] [address] 08/21/2025 9:15 AM EDT [facility] [address], [address] [place] [address] Charu Ge MD [address] [place] [address] documented as of this encounter Procedures Procedure Name Priority Date/Time Associated Diagnosis Comments SURGICAL PATHOLOGY CONSULT Routine 04/13/2024 10:47 AM EST Anemia, unspecified documented in this encounter Results * Surgical Pathology Consult (04/13/2024 10:47 AM EST) Case Report Sugical Pathology Consult Case: [id number] Authorizing Provider: Jovani Bravo MD Collected: 04/13/2024 104 Ordering Location: [facility] Lab Received: 04/13/2024 104 Pathologist: Hansel Mclean MD Specimen: Duodenum, [id number] 5 6:11 PM EST [facility] Final Diagnosis COLON, SPLENIC FLEXURE MASS, BIOPSY (OUTSIDE CASE [id number], PART C; COLLECTED ON 04/05/2024): - ADENOCARCINOMA, 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 [id number] Received along with a corresponding pathology report from [facility] are 7 slide(s) labeled outside case: [id number] collected on 04/05/2024. 5 6:11 PM EST [facility] Note: A resident was involved in the service. I attest I examined the relevant preparations for the specimens and confirmed the diagnosis or interpretation. 5 6:11 PM EST [facility] Tissue Duodenal structure / Unknown 04/13/2024 10:47 AM EST 04/13/2024 10:47 AM EST us Jovani Bravo MD LAB PATHOLOGY ORDERABLES Final Result [facility] [address] [place] [address] documented in this encounter Visit Diagnoses Diagnosis Anemia, unspecified documented in this encounter Care Teams Journeyman Patternmaker Relationship Specialty Start Date End Date Bandar Minor MD [address] [place] [address] [address] [place] [address] PCP - General 08/19/22 documented as of this encounter
[2024-10-03 09:28] LABS: Hematocrit 34.4 % (42.0-52.0); Hemoglobin 11.6 g/dL (14.1-18.0); Immature Granulocytes % 0.7 %; Mean Corpuscular HGB Conc 33.7 g/dL (31.8-35.4); Mean Corpuscular Hemoglobin 34.0 pg (27.0-31.2); Mean Corpuscular Volume 100.9 fl (80-94); Nucleated Red Blood Cells % 0 %; Platelet Count 110 K/mm3 (142-424); Red Blood Count 3.41 M/mm3 (4.60-6.20); Red Cell Distribution Width-SD 61.2 fL; White Blood Count 4.3 K/mm3 (4.8-10.8)
[2024-10-03 09:42] LABS: Albumin Level 3.2 g/dl (3.5-5.0); Chloride 107 mmol/L (98-107); Potassium 4.5 mmoL/L (3.5-5.1); Sodium 137 mmol/L (136-145)
[2024-10-03 09:42] LABS: Microscopic, Urine URINE MICROSCOPIC (MICROSCOPIC)
[2024-10-03 09:45] LABS: Alanine Aminotransferase 19 U/L (12-78); Albumin/Globulin Ratio 0.9 (1.1-1.8); Alkaline Phosphatase 117 U/L (38-126); Anion Gap 8.5 mEq/L (5-15); Aspartate Amino Transferase 42 U/L (17-59); Bilirubin,Total 0.8 mg/dl (0.2-1.3); Blood Urea Nitrogen 8 mg/dl (9-20); Calcium 9.4 mg/dl (8.4-10.2); Carbon Dioxide 26 mmol/L (22.0-30.0); Creatinine,Serum 0.60 mg/dl (0.66-1.25); Estimated Glomerular Filt Rate 135 ml/min (>60); GFR (African American) 163 ML/MIN (>60); Globulin 3.6 g/dL (1.3-3.2); Glucose 91 mg/dl (74-100); Total Protein,Serum 6.8 g/dl (6.3-8.2)
[2024-10-03 09:52] LABS: Bilirubin,Urine Negative (Negative); Color,Urine YELLOW (Yellow); Glucose,Urine (UA) Negative (Negative); Ketones,Urine Negative (Negative); Leukocyte Esterase,Urine 2+ (Negative); PH,Urine 7.5 (5.0-8.5); Protein,Urine Negative (Negative); Specific Gravity, Urine 1.010 (1.005-1.030); Urobilinogen,Urine 0.2 EU/dl (0.2)
[2024-10-03 11:17] LABS: Bacteria,Urine Trace /lpf; Squamous Epithelial Cell,Urine Occasional #/hpf (0-5)
[2024-10-04 08:13] LABS: CEA 1.3 ng/mL (0.0-4.7)
== END 2024-10-03 09:40 | disposition home or self-care (01) ==
LOC: INF 09:05
PROVIDERS: PCP Nurse Practitioner; Visit Provider Internal Medicine Medical Oncology
DX: C18.9 Malignant neoplasm of colon, unspecified (principal)
CPT/HCPCS: 36415; 80053; 81001; 82378; 85025; 87086; 87088; 87186; G0463

== ENCOUNTER 2025-01-03 09:17 | Outpatient (CLI) | payer BC, SELFPAY ==
--- OUTSIDE RECORDS SUMMARY | 2024-11-29 12:00 | XMS_ITS | Encounter Summary ---
Author Organization [facility] Address [address] [place] [address] Care Team Providers Care Terra Cotta Roofer Name Role Phone Bandar Minor MD Primary Care Provider [phone] Reason for Referral * Imaging (Routine) - Authorized Specialty Diagnoses / Procedures Referred By Souleymane zayas Referred To Contact Radiology Diagnoses Calculus of kidney Procedures US Renal Complete Phil Long MD [address] [address] Phone: tel: fax: Referral ID Status Reason Start Date Expiration Date V isits Requested Visits Authorized [id number] Authorized 11/29/2024 05/31/2026 1 1 Reason for Visit * Reason Comments Follow-up Post-op Encounter Details Date Type Department Care Team ([facility] Contact Info) Description 11/29/2024 1:00 PM EDT Office Visit Medical Office Building Urology [address] [facility], [address] [place] [address] Phil Long MD [address] [address] Retention, urine (Primary Dx); Elevated PSA; Calculus of kidney Social History Tobacco Use Types Packs/Day Years [...] Date Recorded Patient Health Questionnaire-2 Score 0 11/29/2024 Hunger Vital Sign Answer Date Recorded Within [...] Date Recorded Patient Health Questionnaire-9 Score 0 11/01/2024 Housing Stability Vital Sign Answer Harjit e Recorded In the last 12 months, was t here a time when you were not able to pay the mortgage or rent on time? No 05/05/2024 Number of Times Moved in the Last Year Not on fi le 05/05/2024 At any time in the past 12 m [facility], were you homeless or living in a care home (including now)? No 05/05/2024 AUDIT-C Answer Date Recorded Q1: How often do you have a drink containing alcohol? Never 11/01/2024 Q2: How many drinks containi ng alcohol do you have on a typical day when you are drinking? Patient does not drink Q3: How often do you have si x or more drinks on one occasion? Never 11/01/2024 Utilities Answer Date Recorded In the past 12 months has th e electric, gas, oil, or water company threatened to shut off services in your home? No 05/05/2024 Sex and Gender Information Value Date Recorded Sex Assigned at Male 04/27/2024 7:58 AM EST Legal Sex Male 6:27 PM EDT Gender Identity Male 10/25/2024 5:56 PM EDT Sexual Orientation Not on file documented as of this encounter Last Filed Vital Signs Vital Sign Reading Time Taken Comments Blood Pressure 127/75 11/29/2024 12:31 PM EDT Pulse 75 11/29/2024 12:31 PM EDT Temperature - - Respiratory Rate - - Oxygen Saturation 96% 11/29/2024 12:31 PM EDT Inhaled Oxygen Concentration - - Weight 72.6 kg (160 lb) 11/29/2024 12:31 PM EDT Height 188 cm (6' 2 ) 11/29/2024 12:31 PM EDT Body Mass Index 20.54 11/29/2024 12:31 PM EDT documented in this encounter Functional Status * Over the past 2 weeks, how often have you been bothered by any of the following problems? Question Answer Date of Assessment Author Little interest or pleasure in doing things Not at all 11/29/2024 12:40 PM EDT Wendy Umana Feeling down, depressed, or hopeless Not at all 11/29/2024 12:40 PM EDT Wendy Umana Patient Health Questionnaire -2 Score 0 11/29/2024 12:40 PM EDT Wendy Umana documented as of this encounter Miscellaneous Notes * Progress Notes - Hussain Mcconnell MD - 11/29/2024 1:00 PM EDT Chief complaint: Postop TURP Urologic history: 01/09/2021 PSA=2.8 01/14/2022 PSA=3.05 March 2024 PVR= 2.3 L and catheter was placed April 2024 failed voiding trial 04/05/2024 CT scan: -horseshoe kidney -left hydronephrosis secondary to a small distal ureteral stone which passed spontaneously -11 mm right lower pole nonobstructive stone -indwelling Ferris catheter -prostate volume measured at 60 g 05/04/2024 left colectomy for adenocarcinoma, stage III with positive lymph nodes. Patient was recommended to have postop chemotherapy 07/05/2024 PSA= 7.19-on finasteride for 3 months and with an indwelling Ferris catheter.(this resulted after the patient had left his appointment) 09/26/2024 Completed Postoperative chemotherapy (colon cancer). Staging imaging with JEANINE. 09/27/2024 prostate MRI: - Volume= 37.9 g - PSA density= 0.18 - Indwelling Ferris catheter - No areas suspicious for high-risk prostate cancer on the MRI 10/25/2024: TURP, pathology with BPH. 12.2 g resected. Discontinued Flomax. 11/29/2024: PVR 141 mL. Discontinue finasteride. History History of present illness: Minh Willett is a 64 y.o. who presents for follow up after TURP. Patient underwent TURP on 10/25/2024, pathology demonstrated BPH. He is currently satisfied with his urinary symptoms. He states hehas a good stream and feels he is emptying his bladder and has no trouble initiating his stream. Hedenies any gross hematuria or dysuria. He occasionally has 2-4 X nocturia but is not very bothered by this. He states he has trouble sleeping which may contribute to this. He voids every 1-3 hours. He stopped taking Flomax after his TURP. He is still on finasteride. Review of systems: Constitutional: Negative for chills, fatigue and fever. HENT: Negative for congestion, ear discharge, sore throat, trouble swallowing and voice change. Respiratory: Negative for shortness of breath. Cardiovascular: Negative for leg swelling and chest pain. Gastrointestinal: Negative for abdominal pain, nausea and vomiting. Hematological: Negative for easy bleeding/bruising : See HPI Medical History: PMH: has a past medical history of Colon cancer (CMS/HCC), Kidney stone, Personal history of other specified conditions, Personal history of pneumonia (recurrent), and Thoracic aortic aneurysm (CMS/HCC). PSH: has a past surgical history that includes Circumcision, primary; Colonoscopy (04/05/2024); Upper gastrointestinal endoscopy (04/05/2024); Transurethral resection of prostate; and Colectomy. FH: family history includes Breast cancer in [...] CVA tenderness or left CVA tenderness. Genitourinary: Deferred today Musculoskeletal: General: Normal range of motion. Skin: General: Skin is warm and dry. Neurological: Mental Status: Alert and oriented to person, place, and time. Lab & Imaging Laboratory results review: Lab Results Component Value Date GLUCOSE 114 (H) 10/25/2024 CALCIUM 9.1 10/25/2024 NA 140 10/25/2024 K 3.8 10/25/2024 CO2 22 10/25/2024 CL 106 10/25/2024 BUN 9 10/25/2024 CREATININE 0.68 (L) 10/25/2024 PSA 07/05/2024 7.19 PVR 11/29/24: 141 mL Radiograph review: Images independently reviewed CT scan 04/05/2024 -horseshoe kidney -left hydronephrosis secondary to a small distal ureteral stone which passed spontaneously -11 mm right lower pole nonobstructive stone -indwelling Ferris catheter -prostate volume measured at [address] scan 09/26/2024 -horseshoe kidney -mild bilateral hydronephrosis -11 mm right lower pole nonobstructive stone -indwelling Ferris catheter -prostate volume measured at 60 g Prostate MRI 09/27/2024: - Volume= 37.9 g - PSA density= 0.18 - Indwelling Ferris catheter - No areas suspicious for high-risk prostate cancer on the MRI Assessment and Plan DISCUSSION: Minh Willett is a 64 y.o. who is s/p TURP 10/25/2024. Pathology demonstrated BPH and this was discussed with the patient. PVR today 141 mL. He is no longer catheter dependent in his drastically had improvement in his urinary symptoms. He is very satisfied. Does not have any trouble initiating stream and feels he is emptying his bladder and has a good strong stream. He discontinue Flomax after his TURP. He continues on finasteride which we will plan to discontinue today. Assessment: Minh Willett is a 64 y.o. male with Diagnosis Plan 1. Retention, urine POC US Bladder Volume Plan: RTC 1 year with PVR, PSA, and renal ultrasound. 2. Rreturn to see us sooner if having issues TIME SPENT: 35 Minutes [1] Current Outpatient Medications Medication Sig Dispense Refill diphenhydrAMINE-acetaminophen (Tylenol PM) 25-500 MG per tablet Take 2 tablets by mouth at night asneeded for sleep. finasteride (Proscar) 5 MG tablet Take 1 tablet by mouth daily. Do not crush, chew, or split. 90 tablet 3 omeprazole (PriLOSEC) [address] capsule Take 1 capsule by mouth daily. Do not crush or chew. acetaminophen (Tylenol) 500 MG tablet Take 2 tablets by mouth every 6 hours. (Patient not taking: Reported on 11/29/2024) 30 tablet 0 ascorbic acid (Vitamin C) 500 MG tablet Take 1 tablet by mouth daily. (Patient not taking: Reportedon 11/29/2024) bisacodyl (Dulcolax) 5 MG EC tablet Day before procedure at 4pm take 4 tablets with 8 oz of clear liquid. SSICOLON (Patient not taking: Reported on 11/29/2024) 4 tablet 0 capecitabine (Xeloda) 500 MG chemo tablet Take 1,500 mg/m2 by mouth 2 times a day. (Patient not taking: Reported on 11/29/2024) docusate sodium (Colace) 50 MG capsule Take 1 capsule by mouth 2 times a day. (Patient not taking: Reported on 11/29/2024) 10 capsule 0 methocarbamol (Robaxin) 500 MG tablet Take 1 tablet (500 mg) by mouth every 6 (six) hours for 5 days. (Patient not taking: Reported on 11/29/2024) 20 tablet 0 metroNIDAZOLE (Flagyl) 500 MG tablet Take one tablet at 1pm, 2pm, and 11pm day BEFORE surgery. SSI COLON. (Patient not taking: Reported on 11/29/2024) 3 tablet 0 naloxone (Narcan) 4 mg/0.1 mL nasal spray 1. Give 1 spray in nostril for no/slow breathing or cannot wake after opioid use 2. Call 911 3. Repeat in other nostril if symptoms continue (Patient not takin. Give 1 spray in nostril for no/slow breathing or cannot wake after opioid use 2. Call 911 3.Repeat in other nostril if symptoms continue Reported on 11/29/2024) 1 each 0 neomycin (Mycifradin) 500 MG tablet Take two tablets (1000 mg) by mouth at 1:00pm, 2:00pm and 11:00pm on the day prior to surgery. SSICOLON (Patient not taking: Reported on 11/29/2024) 6 tablet 0 Nutritional Supplements (Impact Advanced Recovery) liquid Drink 2 cartons a day starting 5 days before surgery. SSICOLON. Auto Sub for Ensure Surgery if Impact not available. (Patient not taking: Reported on 11/29/2024) 176 mL 2 ondansetron ODT (Zofran-ODT) 4 MG disintegrating tablet Take 1 tablet (4 mg) by mouth every 6 hoursas needed for nausea or vomiting. (Patient not taking: Reported on 11/29/2024) 20 tablet 0 oxyCODONE (Roxicodone) 5 MG immediate release tablet Take 1 tablet (5 mg) by mouth every 4 (four) hours as needed for moderate pain or severe pain. (Patient not taking: Reported on 11/29/2024) 15 tablet 0 polyethylene glycol (MiraLax) 17 GM/SCOOP powder At 6pm day BEFORE surgery, mix Miralax (polyethylene glycol) powder with 64 oz sports drink. Stir to dissolve. Drink one cup (8oz) every 15 minutes until completed finished. SSICOLON (Patient not taking: Reported on 11/29/2024) 238 g 0 tamsulosin (Flomax) 0.4 MG 24 hr capsule Take 1 capsule by mouth daily. (Patient not taking: Reported on 11/29/2024) No current facility-administered medications for this visit. Cosigned by Phil Long MD at 11/29/2024 7:49 PM EDT Associated attestation - Phil Long MD - 11/29/2024 7:49 PM EDT I saw and evaluated the patient with the resident/fellow. I discussed the case with the resident/fellow and agree with the findings and plan as documented. documented in this encounter Plan of Treatment Upcoming Encounters Date Type Department Care Team (Late st Contact Info) Description 01/23/2025 8:00 AM EST Appointment [facility] [address] [place] [address] 01/23/2025 10:00 AM EST Office Visit [facility] [address] [place] [address] Jovani Bravo MD [address] [facility] [address] [place] [address] 08/21/2025 9:15 AM EDT [facility] Visit [facility] [address], [address] [place] [address] [facility] [address] [place] [address] 12/05/2025 1:30 PM EDT Office Visit Medical Office Building Urology [address] [facility], [address] [place] [address] Phil Long MD [address] [facility] [address] [place] [address] Scheduled Orders Name Type Priority Associated Diagnoses Orde r Schedule PSA, diagnostic Lab Routine Elevated PSA Expected: 11/29/2025 (Approximate), Expires: 06/02/2026 US Renal Complete Imaging Routine Calculus of kidney Expected: 11/29/2025 (Approximate), Expires: 05/30/2026 documented as of this encounter Procedures Procedure Name Priority Date/Time Associated Diagnosis Comments POC US BLADDER SCAN FOR VOLUME Routine 11/29/2024 12:44 PM EDT Retention, urine documented in this encounter Results * POC US Bladder Volume (11/29/2024 12:44 PM EDT) Urine, Volume 141 mL IMAGING Anatomical Region Laterality Modality Other us Phil Long MD IMG POINT OF CARE ULTRASOUND Fi nal Result documented in this encounter Visit Diagnoses Diagnosis Retention, urine- Primary Unspecified retention of urine Elevated PSA Elevated prostate specific antigen (PSA) Calculus of kidney documented in this encounter Additional Health Concerns Assessment Noted Time PHQ-9 Depression Total Score: 0 11/02/19 25 8:55 AM EDT A fall risk assessment has been complete d for the patient 11/29/2024 12:40 PM EDT A Body Mass Index follow-up plan has been documented for the patient 11/29/2024 7:49 PM EDT documented as of this encounter Care Teams Terra Cotta Roofer Relationship Specialty Start Date End Date Bandar Minor MD [address] [place] [address] [address] [place] [address] [address] PCP - General 08/19/22 documented as of this encounter
--- OUTSIDE RECORDS SUMMARY | 2025-01-03 09:22 | XMS_ITS | Clinical Summary ---
Author Organization [facility] Address [address] [place] [address] Care Team Providers Care Angle Roll Operator Name Role Phone Bandar Minor MD Primary Care Provider [phone] Allergies No known active allergies Medications tamsulosin (Flomax) 0.4 MG 24 hr capsule Take 1 capsule by mouth daily. 04/17/19 Active polyethylene glycol (MiraLax) 17 GM/SCOOP powder At 6pm day BEFORE surgery, mix Miralax (polyethylene glycol) powder with 64 oz sports drink. Stir to dissolve. Drink one cup (8oz) every 15 minutes until completed finished. SSICOLON 238 g 04/18/19 Active Additional Information Patient not taking.Reported on 11/29/2024 neomycin (Mycifradin) 500 MG tabletIndications: Colon stricture (CMS/HCC) Take two tablets (1000 mg) by mouth at 1:00pm, 2:00pm and 11:00pm on the day prior to surgery. SSICOLON 6 tablet 04/18/19 Active Additional Information Patient not taking.Reported on 11/29/2024 Nutritional Supplements (Impact Advanced Recovery) liquid Drink 2 cartons a day starting 5 days before surgery. SSICOLON. Auto Sub for Ensure Surgery if Impact not available. 176 mL 2 04/18/19 Active Additional Information Patient not taking.Reported on 11/29/2024 metroNIDAZOLE (Flagyl) 500 MG tabletIndications: Colon stricture (CMS/HCC) Take one tablet at 1pm, 2pm, and 11pm day BEFORE surgery. SSI COLON. 3 tablet 04/18/19 Active Additional Information Patient not taking.Reported on 11/29/2024 bisacodyl (Dulcolax) 5 MG EC tablet Day before procedure at 4pm take 4 tablets with 8 oz of clear liquid. SSICOLON 4 tablet 04/18/19 Active Additional Information Patient not taking.Reported on 11/29/2024 diphenhydrAMINE-ac etaminophen (Tylenol PM) 25-500 MG per tablet Take 2 tablets by mouth at night as needed for sleep. Active oxyCODONE (Roxicodone) 5 MG immediate release tablet Take 1 tablet (5 mg) by mouth every 4 (four) hours as needed for moderate pain or severe pain. 15 tablet 05/08/19 Active Additional Information Patient not taking.Reported on 11/29/2024 methocarbamol (Robaxin) 500 MG tablet Take 1 tablet (500 mg) by mouth every 6 (six) hours for 5 days. 20 tablet 05/08/19 Active Additional Information Patient not taking.Reported on 11/29/2024 ondansetron ODT (Zofran-ODT) 4 MG disintegrating tablet Take 1 tablet (4 mg) by mouth every 6 hours as needed for nausea or vomiting. 20 tablet 05/08/19 Active Additional Information Patient not taking.Reported on 11/29/2024 naloxone (Narcan) 4 mg/0.1 mL nasal spray 1. Give 1 spray in nostril for no/slow breathing or cannot wake after opioid use 2. Call 911 3. Repeat in other nostril if symptoms continue 1 each 05/08/19 Active Additional Information Patient not taking.Reported on 11/29/2024 capecitabine (Xeloda) 500 MG chemo tablet Take 1,500 mg/m2 by mouth 2 times a day. 08/23/19 25 Active finasteride (Proscar) 5 MG tablet Take 1 tablet by mouth daily. Do not crush, chew, or split. 90 tablet 3 09/27/19 25 026 Active omeprazole (PriLOSEC) [address] capsule Take 1 capsule by mouth daily. Do not crush or chew. Active ascorbic acid (Vitamin C) 500 MG tablet Take 1 tablet by mouth daily. Active acetaminophen (Tylenol) 500 MG tablet Take 2 tablets by mouth every 6 hours. 30 tablet 10/27/19 Active Additional Information Patient not taking.Reported on 11/29/2024 docusate sodium (Colace) 50 MG capsule Take 1 capsule by mouth 2 times a day. 10 capsule 10/27/19 Active Additional Information Patient not taking.Reported on 11/29/2024 Active Problems Problem Noted Date Diagnosed Date BPH with urinary obstruction 10/25/2024 Retention, urine 10/04/2024 BMI 20.0-20.9, adult 08/22/2024 Cancer of left colon 04/26/2024 COPD (chronic obstructive pulmonary disease) Thoracic aortic aneurysm 12/23/2016 Encounters Date Type Department Care Team Description 11/29/2024 1:00 PM EDT Office Visit Medical Office Building Urology [address] [place] [address], [address] [place] [phone] Phil Long MD Retention, urine (Primary Dx); Elevated PSA; Calculus of kidney 11/29/2024 Travel 11/02/2024 Telephone [facility] Urology [address] [facility], [address] [place] [phone] Phil Long MD HCN Clinical Concern/Question 11/01/2024 9:00 AM EDT Clinical Support Medical Office Building Urology [address] [place] [address], [address] [place] [phone] 11/01/2024 Travel 10/25/2024 7:40 PM EDT Anesthesia Event [facility] OPERATING ROOM [address] [place] [address] Barry Matthews MD Harned, Madison H, MD 10/25/2024 5:43 PM EDT - 10/25/2024 7:43 PM EDT Surgery [facility] [address] [place] [address] Phil Long MD TURP (TRANSURETHRAL RESECTION OF PROSTATE) [73726 (CPT )] 10/25/2024 11:57 AM EDT - 10/26/2024 4:40 PM EDT Hospital Encounter [facility] Inpatient [address] [place] [address] Phil Long MD Retention, urine Discharge Disposition: Home or Self Care 10/25/2024 Travel 10/06/2024 Telephone [facility] Urology [address] [facility], [facility] [address] Phil Long MD 10/06/2024 Results Follow-Up Medical Office Building Urology [address] [facility], [address] [place] [address] Phil Long MD 10/04/2024 11:15 AM EDT Office Visit Medical Office Building Urology [address] [facility], [address] [place] [address] Phil Long MD Elevated PSA (Primary Dx); Retention, urine; Calculus of kidney 10/04/2024 Travel from Last 3 Months Immunizations Immunization [...] any time in the past 12 m [facility], were you homeless or living in a retirement (including now)? No 05/05/2024 AUDIT-C Answer Date [...] PM EDT Sexual Orientation Not on file Last Filed Vital Signs Vital Sign Reading Time Taken Comments Blood Pressure 127/75 11/29/2024 12:31 PM EDT Pulse 75 11/29/2024 12:31 PM EDT Temperature 36.7 C (98.1 F) 11/01/2024 8:53 AM EDT Respiratory Rate 16 10/26/2024 9:00 AM EDT Oxygen Saturation 96% 11/29/2024 12:31 PM EDT Inhaled Oxygen Concentration - - Weight 72.6 kg (160 lb) 11/29/2024 12:31 PM EDT Height 188 cm (6' 2 ) 11/29/2024 12:31 PM EDT Body Mass Index 20.54 11/29/2024 12:31 PM EDT Plan of Treatment Upcoming Encounters Date Type Department Care Team (Late st Contact Info) Description 01/23/2025 8:00 AM EST Appointment [facility] [address] [place] [phone] 01/23/2025 10:00 AM EST Office Visit [facility] Multidisciplinary Oncology Clinic [address] [place] [address] Jovani Bravo MD [address] [place] [address] 08/21/2025 9:15 AM EDT Office Visit [facility] Cardi[facility] [address], [address] [place] [address] RobinCharu Levy MD [address] [place] [address] 12/05/2025 1:30 PM EDT Office Visit Medical Office Building Urology [address] [facility], [address] [place] [address] Phil Long MD [address] [place] [address] Health Maintenance Due Date Last Done Comments [facility]-Hepatitis C Screening 1960 [facility]-Infant/Child/Adol SDOH Screenings 1960 [facility]-DTaP,Tdap,and Td Vaccines (1 - Tdap) 1977 [facility]-Zoster Vaccines (1 of 2) 1977 [facility]-Pneumococcal Vaccine: 50+ Years (2 of 2 - PPSV23, PCV20, or PCV21) 02/17/2017 12/23/2016, 12/08/2016 [facility]-RSV Vaccine: 60+ Years or (1 - Risk 60-74 years 1-dose series) 2018 [id number] Vaccine ( season) 2024 01/28/2021, 05/29/2020, 05/01/2020 [facility]-Influenza Vaccine (#1) 10/30/202401/14, 11/27/2016 [facility]- SDOH Screenings 11/05/2024 [facility]-Adult SDOH Screenings 11/05/2024 05/05/2024 [facility]-Depression Screening 11/29/2025 025, 11/01/2024 HPV Vaccines Aged Out No longer eligi [...] Routine 11/29/2024 12:44 PM EDT Retention, urine BASIC METABOLIC PANEL, PLASMA Routine 10/25/2024 11:49 PM EDT CBC W/O DIFFERENTIAL Routine 10/25/2024 11:49 PM EDT TYPE AND SCREEN Routine 10/25/2024 11:49 PM EDT SURGICAL PATHOLOGY EXAM Routine 10/25/2024 7:59 PM EDT Retention, urine PB ANESTHESIA PLACEHOLDER Routine 10/25/2024 7:48 PM EDT OR AN ELECTIVE SUPRAGLOTTIC AIRWAY Routine 10/25/2024 7:48 PM EDT OR TRANSURETHRAL ELEC-SURG PROSTATECTOM 10/25/2024 7:24 PM EDT Retention, urine TRUS VOLUME Routine 10/04/2024 11:22 PM EDT Retention, urine CYSTO- UROLOGY Routine 10/04/2024 11:19 PM EDT Retention, urine URINE CULTURE Routine 10/04/2024 12:32 PM EDT Retention, urine from Last 3 Months Results * POC US Bladder Volume (11/29/2024 12:44 PM EDT) Pathologist [facility] Urine, Volume 141 mL IMAGING Anatomical Region Laterality Modality Other us Phil Long MD IMG POINT OF CARE ULTRASOUND Fi nal Result * (ABNORMAL) Hemogram (CBC) (10/25/2024 11:49 PM EDT) [facility] WBC Count 5.13 3.70 - 10.30 10*3/uL LAB HEMATOLOGY METHOD 10/26/2024 12:04 AM EDT [facility] RBC Count 4.07(L) 4.60 - 6.10 10*6/uL LAB HEMATOLOGY METHOD 10/26/2024 12:04 AM EDT [facility] HGB 13.1(L) 13.7 - 17.5 g/dL LAB HEMATOLOGY METHOD 10/26/2024 12:04 AM EDT [facility] HCT 38.9(L) 40.0 - 51.0 % LAB HEMATOLOGY METHOD 10/26/2024 12:04 AM EDT [facility] Platelet Count 105(L) 155 - 369 10*3/uL LAB HEMATOLOGY METHOD 10/26/2024 12:04 AM EDT [facility] MCV 96 79 - 98 fL LAB HEMATOLOGY METHOD 10/26/2024 12:04 AM EDT [facility] MCH 32.2(H) 26.0 - 32.0 pg LAB HEMATOLOGY METHOD 10/26/2024 12:04 AM EDT [facility] MCHC 33.7 30.7 - 35.5 g/dL LAB HEMATOLOGY METHOD 10/26/2024 12:04 AM EDT [facility] RDW 13.1 11.5 - 14.5 % LAB HEMATOLOGY METHOD 10/26/2024 12:04 AM EDT [facility] MPV 8.5(L) 8.8 - 12.5 fL LAB HEMATOLOGY METHOD 10/26/2024 12:04 AM EDT [facility] nRBC 0.0 <=0.0 per 100 WBCs LAB HEMATOLOGY METHOD 10/26/2024 12:04 AM EDT [facility] Blood Venous blood specimen / Unknown Venipuncture / Unknown 10/25/2024 11:49 PM EDT 10/25/2024 11:55 PM EDT Phil Long MD LAB BLOOD ORDERABLES Final Resu lt Performing Organization Address City/[facility] [address]/ZIP Co de Phone Number [facility] [address] [place] [address] * Type and screen (10/25/2024 11:49 PM EDT) Pathologist [facility] ABO/Rh A Positive 10/25/2024 9:26 PM EDT BLOOD BANK Antibody Screen Negative 10/25/2024 9:26 PM EDT BLOOD BANK Specimen Expiration 10/28/2024 23:59 10/25/2024 9:26 PM EDT BLOOD BANK Blood Venous blood specimen / Unknown Venipuncture / Unknown 10/25/2024 11:49 PM EDT 10/25/2024 11:51 PM EDT Barry Matthews MD LAB BLOOD BANK TEST ORDERABLES F inal Result Performing Organization Address [facility] [address]/[facility] Co de Phone Number BLOOD BANK [address] [place] [address], * (ABNORMAL) Basic metabolic panel (10/25/2024 11:49 PM EDT) Glucose, Plasma 114(H) 74 - 99 mg/dL 10/26/2024 12:25 AM EDT [facility] BUN, Plasma 9 8 - 23 mg/dL 10/26/2024 12:25 AM EDT [facility] Creatinine, Plasma 0.68(L) 0.70 - 1.20 mg/dL 10/26/2024 12:25 AM EDT [facility] BUN/Creatinine Ratio 13 10/26/2024 12:25 AM EDT [facility] Sodium, Plasma 140 136 - 145 mmol/L 10/26/2024 12:25 AM EDT [facility] Potassium, Plasma 3.8 3.6 - 4.9 mmol/L 10/26/2024 12:25 AM EDT [facility] Chloride, Plasma 106 97 - 107 mmol/L 10/26/2024 12:25 AM EDT [facility] CO2, Plasma 22 22 - 29 mmol/L 10/26/2024 12:25 AM EDT [facility] Anion Gap 12 6 - 16 mmol/L 10/26/2024 12:25 AM EDT [facility] Total Calcium, Plasma 9.1 8.9 - 10.2 mg/dL 10/26/2024 12:25 AM EDT [facility] eGFRcr 102.5 mL/min/1.7 3m*2 10/26/2024 12:25 AM EDT [facility] Comment:Reported eGFRcr in m L/min/1.73m2 is based the CKD-EPI 2020 equation that does not use a race coefficient. Blood Venous blood specimen / Unknown Venipuncture / Unknown 10/25/2024 11:49 PM EDT 10/25/2024 11:55 PM EDT us Phil Long MD LAB BLOOD ORDERABLES Final Resu lt [facility] [address] [place] [address] * Surgical Pathology Exam (10/25/2024 7:59 PM EDT) Case Report Surgical Pathology Case: [id number] Authorizing Provider: Phil Long MD Collected: 10/25/20241958 Ordering Location: [facility] A OPERATING ROOM Received: 10/26/2024 0800 Pathologist: Arvind Lopez MD Specimen: Prostate, prostate 7:39 PM EDT [facility] Final Diagnosis A. PROSTATE (TRANSURETHRAL RESECTION): - BENIGN PROSTATIC TISSUE WITH STROMAL AND GLANDULAR HYPERPLASIA (BPH) 7:39 PM EDT [facility] at 1939 EDT Clinical Information Retention, urine [R33.9] 7:39 PM EDT [facility] Special and Immunohistochemical Stains The following supports the diagnosis. IHC: A5-2 PIN-4: intact basal cells All controls show appropriate reactivity. All immunohistochemis try, in situ hybridization, and histochemical tests were developed by and are performed at the [facility], [address] [place] [address]. All tests reported here, except those addressing HER2 (breast) and PD-L1 expression as predictive markers, have not been cleared by or approved by the US Food and Drug Administration (FDA). The FDA has determined that such clearance or approval is not necessary. The laboratory is regulated under CLIA as qualified to perform high-complexity testing. The tests are used for clinical purposes. They should not be regarded as investigational or for research. This assay has not been validated on decalcified tissues. Results should be interpreted with caution given the likelihood of false negativity on decalcified specimens. 7:39 PM EDT [facility] Gross Description A. PROSTATE Received in formalin labeled prostate is an aggregate of weiner-pink to weiner-brown soft tissue pieces with a scant to mild amount of hemorrhagic material measuring 5.1 x 4.7 x 1.4 cm and weighing 12.2 g post fixation. [place] Picker sections are submitted in cassettes A1-A8. Cold Time: <1m Lakeisha Eubanks 7:39 PM EDT [facility] Note: A resident was involved in the service. I attest I examined the relevant preparations for the specimens and confirmed the diagnosis or interpretation. 7:39 PM EDT [facility] Tissue Prostate / Unknown 7:59 PM EDT 10/26/2024 8:00 AM EDT Comment:Pre-op diagnosis: Retention, urine [R33.9] us Phil Long MD LAB PATHOLOGY ORDERABLES Final Result [facility] [address] [place] [address] * OR AN ELECTIVE SUPRAGLOTTIC AIRWAY, PB ANESTHESIA PLACEHOLDER (10/25/2024 7:48 PM EDT) Barry Goel MD - 10/25/2024 7:48 PM EDT Barry Matthews MD 10/25/2024 8:14 PM Airway Date/Time: 10/25/2024 7:48 PM Reason: elective Airway not difficult General Information and Staff Patient location during procedure: OR Anesthesiologist: Barry Matthews MD Performed: Resident Patient Condition Indications for airway management: anesthesia Patient position: sniffing MILS maintained throughout Final Airway Details Final airway type: LMALMA Size: 4 LMA Type: normal us Barry Matthews MD ANESTHESIA ORDERABLES Final Resu lt * TRUS VOLUME (10/04/2024 11:22 PM EDT) Phil Spring MD - 10/04/2024 11:22 PM EDT Phil Long MD 10/05/2024 7:52 PM TRUS Volume Date/Time: 10/04/2024 11:22 PM Performed by: Pedro Steward MD Authorized by: Phil Long MD Consent: Consent obtained: Verbal Consent given by: Patient Risks, benefits, and alternatives were discussed: yes Procedure specific details: A ultrasound probe was inserted into the patient's rectum. Volumetric measurements were taken of the prostate (4.62 x 2.94 x 3.42= 24.32 cc). A second set of measurements were taken of the intravesical median lobe (2.37 x 1.95 x 2.25=5.44cc). The ultrasound probe was removed. A 16Fr coffey catheter was placed at the end of the procedure. The patient's indwelling catheter was removed for cystoscopy. Post-procedure details: Procedure completion: Tolerated well, no immediate complications us Phil Long MD UROLOGY ORDERABLES Final Result * CYSTO- UROLOGY (10/04/2024 11:19 PM EDT) Phil Spring MD - 10/04/2024 11:19 PM EDT Phil Long MD 10/05/2024 7:52 PM Cysto- Urology Date/Time: 10/04/2024 11:19 PM Performed by: Pedro Steward MD Authorized by: Phil Long MD Procedure discussed: discussed risks, benefits and alternatives Pulpit Operator present: yes Timeout: timeout called immediately prior to procedure Prep: patient was prepped and draped in usual sterile fashion Prep type: Betadine Procedure Details Cystoscope type: flexible Cystoscopy route: transurethral Cystoscopy location: [place] bladder Urethra Urethra: normal Bladder Bladder comment: A flexible cystoscope was introduced into patient's bladder. The bladder was inspected systematically including retroflection of the scope. The patient's bilateral ureteral orifices were identified. There was papillary catheter edema on the posterior wall/trigone, but bladder cancer could not be definitively excluded. Significant bladder wall trabeculations were visualized. The patient had a large intravesical median lobe. There was minimal lateral lobe hypertrophy. The scope was removed from the patient's bladder. Post-Procedure Details Outcome: patient tolerated procedure well with no complications Phil Long MD UROLOGY ORDERABLES Final Result * (ABNORMAL) Urine Culture - Clinic Collect (10/04/2024 12:32 PM EDT) Culture <10,000 CFU/mL Staphylococcus species(A) 10/06/2024 7:47 AM EDT [facility] Culture <10,000 CFU/mL Alpha hemolytic streptococcus vs gram positive chichi 10/06/2024 7:47 AM EDT [facility] Urine Urine specimen obtained by clean catch procedure / Unknown Non-blood Collection / Unknown 10/04/2024 12:32 PM EDT 10/04/2024 4:40 PM EDT Phil Long MD LAB MICROBIOLOGY - GENERAL PENNY ESPINAL Final Result [facility] [address] [place] [address] from Last 3 Mon[place] [address] [place] [address] Advance Directives * Full Code (Latest Code Status on File) Date Activated Date Inactivated Comments 10/25/2024 10:06 PM 10/26/2024 6:45 PM Question Answer Comments I have reviewed the capacity from the link above and, if needed, have updated to appropriate status: Yes * Full Code Date Activated Date Inactivated Comments 05/04/2024 11:28 AM 05/07/2024 5:58 PM Question Answer Comments Patient has decision-making capacity? Yes Care Teams Angle Roll Operator Relationship Specialty Start Date End Date Bandar Minor MD [address] [place] [address] #1 #1 TAMIKO Gutierrez [id number] PCP - General 08/19/22
--- OUTSIDE RECORDS SUMMARY | 2025-01-03 09:22 | XMS_ITS | Encounter Summary ---
Author Organization Healthcare Address [address] [place] [address] Care Team Providers Care Sealer Aircraft Name Role Phone Bandar Minor MD Primary Care Provider [phone] Encounter Details Date Type Department Care Team (Late Contact Info) Description 04/13/2024 Lab Requisition [facility] [address] [place] [phone] Jovani Bravo MD [address] [address] Anemia, unspecified Social History Tobacco [...] Department Care Team (Late Contact Info) Description 01/23/2025 8:00 AM EST Appointment [facility] [address] [place] [address] 01/23/2025 10:00 AM EST Office Visit [facility] [address] [place] [phone] Jovani Bravo MD [address] [phone] 08/21/2025 9:15 AM EDT Office Visit [facility] Cardiothoracic [address], [address] [place] [address] Charu Ge MD [address] [place] [address] 12/05/2025 1:30 PM EDT Office Visit Medical Office Building Urology [address] [facility], [address] [place] [address] Phil Long MD [address] [place] [address] documented as of this encounter Procedures Procedure Name Priority Date/Time Associated Diagnosis Comments SURGICAL PATHOLOGY CONSULT Routine 04/13/2024 10:47 AM EST Anemia, unspecified documented in this encounter Results * Surgical Pathology Consult (04/13/2024 10:47 AM EST) Case Report Sugical Pathology Consult Case: [id number] Authorizing Provider: Jovani Bravo MD Collected: 04/13/20241046 Ordering Location: [facility] Received: 04/13/20241046 Pathologist: Hansel Mclean MD Specimen: Duodenum, [id number] 5 6:11 PM EST [facility] Final Diagnosis COLON, SPLENIC FLEXURE MASS, BIOPSY (OUTSIDE CASE [id number], PART C; COLLECTED ON 04/05/2024): - ADENOCARCINOMA, MODERATELY TO POORLY-DIFFERENTIA BETHANIE - MMR PROTEINS INTACT ([facility]) 5 6:11 PM EST [facility] at 1811 EST Clinical Information D64.9 - Anemia, unspecified [ICD-10-CM] 5 6:11 PM EST [facility] Special and Immunohistochemical Stains Immunohistochemica l stains that have been performed by the outside institution are also reviewed here, which are interpreted as follows: MLH1, PMS2, MSH2, MSH6: Intact nuclear staining (Low probability of MSI-H related tumor) 5 6:11 PM EST [facility] Gross Description A. [id number] Received along with a corresponding pathology report from [facility] Laboratory are 7 slide(s) labeled outside case: [id number] collected on 04/05/2024. 5 6:11 PM EST [facility] Note: A resident was involved in the service. I attest I examined the relevant preparations for the specimens and confirmed the diagnosis or interpretation. 5 6:11 PM EST [facility] Tissue Duodenal structure / Unknown 04/13/2024 10:47 AM EST 04/13/2024 10:47 AM EST us Jovani Bravo MD LAB PATHOLOGY ORDERABLES Final Result [facility] [address] [place] [address] documented in this encounter Visit Diagnoses Diagnosis Anemia, unspecified documented in this encounter Care Teams Sealer Aircraft Relationship Specialty Start Date End Date Bandar Minor MD [address] [place] [address] #1 #1 TAMIKO Gutierrez [id number] PCP - General 08/19/22 documented as of this encounter
--- OUTSIDE RECORDS SUMMARY | 2025-01-03 09:22 | XMS_ITS | Encounter Summary ---
Author Organization [facility] Address [address] [place] [address] Care Team Providers Care Benzene Washer Name Role Phone Bandar Minor MD Primary Care Provider [phone] Encounter Details Date Type Department Care Team (Latest Contact Info) Description 11/29/2024 Travel Social History Tobacco Use Types Packs/Day [...] time in the past [address] [facility], were you homeless or living in a custodial (including now)? No 05/05/2024 AUDIT-C Answer Date [...] the past 12 months has th e [employer], gas, oil, or water company threatened to [...] Wendy Umana documented as of this encounter Plan of Treatment Upcoming Encounters Date Type Department Care Team (Late st Contact Info) Description 01/23/2025 8:00 AM EST Appointment [facility] [address], [address] [place] [address] 01/23/2025 10:00 AM EST Office Visit [facility] [address] [place] [address] Jovani Bravo MD [address] [place] [address] 08/21/2025 9:15 AM EDT Office Visit [facility] [address], [address] [place] [address] RobinCharu Levy MD [address] [place] [address] 12/05/2025 1:30 PM EDT Office Visit Medical Office Building Urology [address], [address] [place] [id number] Phil Long MD [address] [place] [address] documented as of this encounter Visit Diagnoses Not on filedocumented in this encounter Additional Health Concerns Assessment Noted Time PHQ-9 Depression Total Score: 0 11/02/19 8:55 AM EDT A fall risk assessment has been complete d for the patient 11/29/2024 12:40 PM EDT A Body Mass Index follow-up plan has been documented for the patient 11/29/2024 7:49 PM EDT documented as of this encounter Care Teams Benzene Washer Relationship Specialty Start Date End Date Bandar Minor MD [address] [place] [address] [address] [place] [address] PCP - General 08/19/22 documented as of this encounter
--- OUTSIDE RECORDS SUMMARY | 2025-01-03 09:22 | XMS_ITS | Encounter Summary ---
Author Organization [facility] Address [address] [place] [address] Care Team Providers Care Commercial Fisherman Name Role Phone Bandra Minor MD Primary Care Provider [phone] Reason for Visit * Reason Onset Date Comments HCN Clinical Concern/Question 11/02/2024 Encounter Details Date Type Department Care Team (Late st Contact Info) Description 11/02/2024 Telephone [facility] [address] [place] [address] Phil Long MD [address] [place] [address] [facility]CN Clinical Concern/Question Social History [...] the past 12 months has th e [employer], gas, oil, or water company threatened to [...] Not at all 11/29/2024 12:40 PM EDT [place], Wendy L Feeling down, depressed, or hopeless Not at all 11/29/2024 12:40 PM EDT Wendy Umana Patient Health Questionnaire -2 Score 0 11/29/2024 12:40 PM EDT Wendy Umana documented as of this encounter Miscellaneous Notes * Telephone Encounter - Galen Ramirez - 11/02/2024 4:00 PM EDT Clinical Concern/Question Reason for Call: Patient calling to say that he has doing well been going to the restroom regularly, no need for a follow-up call Best contact number: [phone] (mobile) Optimal time of day to reach caller: ANYTIME Additional comments/information from caller: None Note: Please do not reply to this message. Follow-up communication and further actions as a result of this message need to be communicated with the patient directly, if the patient is not active onMyChart. If the patient is active on MyChart, they will receive notification of the communication/outcome via [employer]nx. documented in this encounter Plan of Treatment Upcoming Encounters Date Type Department Care Team (Late st Contact Info) Description 01/23/2025 8:00 AM EST Appointment [facility] [address] [place] [address] 01/23/2025 10:00 AM EST Office Visit [facility] Multidisciplinary Oncology Clinic [address] [place] [address] Jovani Bravo MD [address] [place] [address] 08/21/2025 9:15 AM EDT Office Visit [facility] Cardiothoracic [address], [address] [place] [address] Charu Ge MD [address] [place] [address] 12/05/2025 1:30 PM EDT Office Visit Medical Office Building Urology [address], [address] [place] [address] Phil Long MD [address] [place] [address] documented as of this encounter Visit Diagnoses Not on filedocumented in this encounter Additional Health Concerns Assessment Noted Time PHQ-9 Depression Total Score: 0 11/02/19 25 8:55 AM EDT A fall risk assessment has been complete d for the patient 11/01/2024 8:55 AM EDT A Body Mass Index follow-up plan has been documented for the patient 11/01/2024 9:01 AM EDT documented as of this encounter Care Teams Commercial Fisherman Relationship Specialty Start Date End Date Bandar Minor MD [address] [place] [address] [address] [place] [address] PCP - General 08/19/22 documented as of this encounter
--- OUTSIDE RECORDS SUMMARY | 2025-01-03 09:22 | XMS_ITS | Encounter Summary ---
Author Organization [facility] Address [address] [place] [address] Care Team Providers Care Biochemistry Specialist Name Role Phone Bandar Minor MD Primary Care Provider [phone] Encounter Details Date Type Department Care Team (Late Contact Info) Description 07/17/2023 Orders Only External Location [address] [place] [id number] Arsh Zafar MD [address] [place] [address] Social History Tobacco Use Types Packs/Day Years [...] Info) Description 01/23/2025 8:00 AM EST Appointment [facility] [address] [place] [address] 01/23/2025 10:00 AM EST [facility] [address] [place] [phone] Jovani Bravo MD [address] [place] [phone] 08/21/2025 9:15 AM EDT Office Visit [place] [facility] [address] [place] [address] Charu Ge MD [address] [place] [address] 12/05/2025 1:30 PM EDT Office Visit Medical Office Building Urology [address] [facility], [address] [place] [address] Phil Long MD [address] [place] [address] documented as of this encounter [...] on filedocumented in this encounter Care Teams Biochemistry Specialist Relationship Specialty Start Date End Date Bandar Mionr MD [address] [place] [address] [address] [place] [address] PCP - General 08/19/22 documented as of this encounter
[2025-01-03 09:34] LABS: Hematocrit 38.5 % (42.0-52.0); Hemoglobin 13.2 g/dL (14.1-18.0); Immature Granulocytes % 0.6 %; Mean Corpuscular HGB Conc 34.3 g/dL (31.8-35.4); Mean Corpuscular Hemoglobin 29.1 pg (27.0-31.2); Mean Corpuscular Volume 84.8 fl (80-94); Nucleated Red Blood Cells % 0 %; Platelet Count 113 K/mm3 (142-424); Red Blood Count 4.54 M/mm3 (4.60-6.20); Red Cell Distribution Width-SD 39.2 fL; White Blood Count 5.2 K/mm3 (4.8-10.8)
[2025-01-03 09:48] LABS: Alanine Aminotransferase 37 U/L (12-78); Albumin Level 4.3 g/dl (3.5-5.0); Albumin/Globulin Ratio 1.3 (1.1-1.8); Alkaline Phosphatase 114 U/L (38-126); Anion Gap 11.6 mEq/L (5-15); Aspartate Amino Transferase 49 U/L (17-59); Bilirubin,Total 0.9 mg/dl (0.2-1.3); Blood Urea Nitrogen 10 mg/dl (9-20); Calcium 9.2 mg/dl (8.4-10.2); Carbon Dioxide 24 mmol/L (22.0-30.0); Chloride 106 mmol/L (98-107); Creatinine,Serum 1.00 mg/dl (0.66-1.25); Estimated Glomerular Filt Rate 75 ml/min (>60); GFR (African American) 90 ML/MIN (>60); Globulin 3.3 g/dL (1.3-3.2); Glucose 112 mg/dl (74-100); Potassium 3.6 mmoL/L (3.5-5.1); Sodium 138 mmol/L (136-145); Total Protein,Serum 7.6 g/dl (6.3-8.2)
[2025-01-04 12:13] LABS: CEA 1.2 ng/mL (0.0-4.7)
== END 2025-01-03 23:59 | disposition home or self-care (01) ==
LOC: INF 09:18
PROVIDERS: PCP Nurse Practitioner; Visit Provider Internal Medicine Medical Oncology
DX: C18.6 Malignant neoplasm of descending colon (principal)
CPT/HCPCS: 36415; 80053; 82378; 85025